=== PATIENT | female | born 1935 | race Caucasian/White ===

== ENCOUNTER → 2016-05-19 | Outpatient (CLI) | payer MEDICARE ==
--- NOTE | 2016-05-20 11:11 | MM ---
Reason for exam: screening (asymptomatic). Last mammogram was performed 1 year ago. History: Patient is postmenopausal and has history of other cancer at age 70. Family history of premenopausal breast cancer in mother at age 45 and premenopausal breast cancer in maternal aunt at age 45. Benign excisional biopsy of the left breast. Taking estrogen for 7 years. Physical Findings: A clinical breast exam by your physician is recommended on an annual basis and results should be correlated with mammographic findings. MG Screening Mammo w CAD Bilateral CC and MLO view(s) were taken. Prior study comparison: May 07, 2015, bilateral MG screening mammo w CAD. March 20, 2014, bilateral MG screening mammo w CAD. No significant changes when compared with prior studies. ASSESSMENT: Benign, BI-RAD 2 RECOMMENDATION: Routine screening mammogram of both breasts in 1 year.
== END | disposition home or self-care (01) ==
LOC: RADMAMWWP 10:32
PROVIDERS: ATTEND Internal Medicine
DX: Z12.31 Encounter for screening mammogram for malignant neoplasm of breast (principal); Z80.3 Family history of malignant neoplasm of breast; Z78.0 Asymptomatic menopausal state

== ENCOUNTER 2016-08-29 11:50 | Emergency (ER) | payer MEDICARE ==
[2016-08-29 12:10] VITALS: BP 168/69; PULSE 66; RESP 20; TEMP 98.2
[2016-08-29] MEDS ORDERED: DIPH,PERTUS(ACELL)TETVAC-LF 0.5 ML VIAL IM ONE (12:45)
--- NOTE | 2016-08-29 12:48 | ED ---
General Adult HPI - General Chief complaint: Wound/Laceration Stated complaint: leg infection Time Seen by Provider: 08/29/16 12:42 Source: patient, family, RN notes reviewed Mode of arrival: ambulatory Limitations: no limitations - History of Present Illness Initial comments: Patient is a pleasant 81-year-old female presenting to the emergency department with concern for wound infection. Patient was outside cutting vegetation a week ago. Patient slipped and fell and did sustain a small cut to her left Chin. Patient has noticed some redness and swelling over the past couple of days. PAIN or posterior or upper leg swelling. Swelling is localized to the area of the cut. Last tetanus immunization was approximately 2010. No fever. - Related Data Previous Rx's Medication Instructions Recorded Cephalexin [Keflex] 500 mg PO QID #40 cap 08/29/16 Allergies Allergy/AdvReac Type Severity Reaction Status Date / Time No Known Allergies Allergy Verified 08/29/16 12:10 Review of Systems ROS Statement: Those systems with pertinent positive or pertinent negative responses have been documented in the HPI. ROS Other: All systems not noted in ROS Statement are negative. Constitutional: Denies: fever Eyes: Denies: eye pain ENT: Denies: ear pain Respiratory: Denies: cough Cardiovascular: Denies: chest pain Endocrine: Denies: fatigue Gastrointestinal: Denies: abdominal pain Genitourinary: Denies: urgency Musculoskeletal: Denies: back pain Skin: Reports: other (Laceration and redness) Neurological: Denies: weakness Past Medical History Past Medical History: No Reported History History of Any Multi-Drug Resistant Organisms: None Reported Past Surgical History: Orthopedic Surgery Past Psychological History: No Psychological Hx Reported Smoking Status: Never smoker Past Alcohol Use History: None Reported Past Drug Use History: None Reported General Exam Limitations: no limitations General appearance: alert, in no apparent distress Head exam: Present: atraumatic Eye exam: Present: normal appearance, PERRL ENT exam: Present: normal oropharynx Neck exam: Present: normal inspection Respiratory exam: Present: normal lung sounds bilaterally Cardiovascular Exam: Present: irregular rhythm GI/Abdominal exam: Present: soft. Absent: tenderness Extremities exam: Present: other (Left anterior cooper with 2 small lacerations, each approximately half a centimeter. There is eschar formation. There is surrounding edema and erythema approximately 2 cm diameter.) Neurological exam: Present: alert. Absent: motor sensory deficit Psychiatric exam: Present: normal affect, normal mood Skin exam: Present: erythema (Left anterior cooper with healing laceration) Course Vital Signs 08/29/16 12:07 Temperature 98.2 F Pulse Rate 66 Respiratory 20 Rate Blood Pressure 168/69 O2 Sat by Pulse 99 Oximetry EKG Findings - EKG Comments: EKG Findings:: Normal sinus rhythm at 60. Normal intervals. Normal axis. Normal QRS. Normal ST-T. Disposition Clinical Impression: Cellulitis of left leg Disposition: HOME SELF-CARE Condition: Stable Instructions: Cellulitis (ED) Additional Instructions: Please follow-up with your doctor next week for reevaluation of the leg. Return for increased swelling, increased redness, increased pain, fevers, worsening symptoms, or other concerns Prescriptions: Cephalexin [Keflex] 500 mg PO QID #40 cap Referrals: Bassam Martin MD [Primary Care Provider] - 1-2 days Time of Disposition: 12:54
[2016-08-29] MEDS ORDERED: CEPHALEXIN 500MG STARTER PACK 4 CAP BTL PO STA (13:24)
== END 2016-08-29 13:10 | disposition home or self-care (01) ==
LOC: EC 11:50
DX: L03.116 Cellulitis of left lower limb (principal); S81.812A Laceration without foreign body, left lower leg, initial encounter; Z23 Encounter for immunization; W01.0XXA Fall on same level from slipping, tripping and stumbling without subsequent striking against object, initial encounter; W26.9XXA Contact with unspecified sharp object(s), initial encounter; Y93.89 Activity, other specified
CPT/HCPCS: 90471; 90715; 93005; 99283

== ENCOUNTER → 2016-12-17 | Outpatient (CLI) | payer MEDICARE ==
[2016-12-17 12:54] LABS: Blood Urea Nitrogen 18 mg/dL (7-17); Non-African American GFR(MDRD) >60 (>60 ml/min/1.73 sqM)
--- NOTE | 2016-12-17 14:19 | CT ---
EXAMINATION TYPE: CT ChestAbdPelvis w con DATE OF EXAM: 12/17/2016 COMPARISON: CT abdomen July 10, 2015. CT chest June 27, 2011. HISTORY: Lymphoma per order. No recent chemotherapy or radiation. History of vulva cancer per patien t. CT DLP: 1116.5 mGycm. Automated Exposure Control for Dose Reduction was Utilized. CONTRAST: CT scan of the thorax, abdomen and pelvis is performed with oral and with IV Contrast, patient inject ed with 100 mL of Omnipaque 300. FINDINGS: LUNGS: Right mild right apical parenchymal scarring is redemonstrated. There is redemonstration of ca lcified 8 mm nodule laterally left upper lobe on axial image 11. There is no suspicious new noncalcif ied nodule or mass. There is no pleural effusion or pneumothorax seen bilaterally. Tracheobronchial t ree is patent. MEDIASTINUM: There are suspicious enlarged thoracic lymph nodes. For reference right hilar lymph node measures 2.5 x 1.2 cm on axial image 27. For reference pericarinal lymph node measures 2.1 x 1.3 cm on axial image 24. There are suspicious prominent but subcentimeter anterior superior mediastinal lym ph nodes. There are suspicious prominent supraclavicular lymph nodes bilaterally No cardiomegaly is seen. There is new tiny pericardial effusion anteriorly and inferiorly. There is moderate left atrial dilatation seen. OTHER: There are suspicious bilateral axillary lymph nodes. For reference largest right axillary leve l measures 1.9 x 1.2 cm on axial image 11. For reference one of largest left axillary lymph node pamela ures 1.3 x 1.1 cm on axial image 14. LIVER/GB: Scattered calcifications throughout the liver are redemonstrated. There is redemonstration of several irregular hypodense lesions that show progressive peripheral nodular enhancement with cent ripetal filling felt to reflect hemangiomas. Liver is normal in size. PANCREAS: No significant abnormality is seen. SPLEEN: There is persistent marked splenomegaly measuring almost 21 cm in length on coronal image 46. Scattered calcifications throughout the spleen are redemonstrated. Increasing mass effect on left ki dney is noted which is narrowed in transverse diameter. There is mass effect on left iliopsoas muscle also seen. ADRENALS: No significant abnormality is seen. KIDNEYS: A few tiny simple appearing cysts are scattered throughout both kidneys. There are scattered pelvic phleboliths. BOWEL: Oral contrast does not reach colonic level. There is no suspicious small or large bowel dilata tion. There are scattered diverticula most prominent in the sigmoid colon. There is no CT evidence fo r acute diverticulitis. Small bowel feces sign distal ileum is seen. Findings consistent with delayed passage of ingested material 2 colonic level. There is prominence of fecal material throughout the c olon noted. GENITAL ORGANS: Multiple scattered pelvic phleboliths are redemonstrated. Uterus is surgically absent or markedly atrophic in appearance. LYMPH NODES: There is abnormal adenopathy in the mesentery of the upper to midabdomen. There are larg er abnormal retroperitoneal lymph nodes with fairly diffuse adenopathy seen in the abdomen and throug h the aortic bifurcation. For reference left periaortic lymph node measures 2.8 x 2.2 cm on axial rufus ge 71. Some suspicious lymph nodes are seen along course of the common internal iliac arteries bilate rally. Lymphadenopathy is difficult to assess if there is been interval progression. There are prominent but not definitively enlarged lymph nodes along the external iliac chain lymph no mayra bilaterally. There are prominent but no definitive greater than 1 cm lymph nodes in the groin reg ion bilaterally. OSSEOUS STRUCTURES: No significant abnormality is seen. OTHER: No significant additional abnormality is seen. IMPRESSION: 1. The CT findings correlate with neoplasm or lymphoma above and below diaphragm. Note is made of wor sening splenomegaly with more prominent mass effect on left-sided abdominal structures. Adenopathy in the abdomen and upper pelvis is felt overall grossly stable from prior CT. Accurate measurements are difficult due to somewhat confluent appearance of multiple enlarged lymph nodes. Thoracic involvemen t is present new from more remote CT.
== END | disposition home or self-care (01) ==
LOC: RADCTMAIN 12:07
PROVIDERS: ATTEND Internal Medicine Hematology & Oncology
DX: R16.1 Splenomegaly, not elsewhere classified (principal); R59.0 Localized enlarged lymph nodes; C83.09 Small cell B-cell lymphoma, extranodal and solid organ sites
CPT/HCPCS: 82565; 84520; 71260; 74177; 36415; Q9967

== ENCOUNTER 2016-12-25 11:50 | Inpatient (IN) | payer MEDICARE ==
[2016-12-25] MEDS ORDERED: SODIUM CHLORIDE 0.9% 1,000 ML IV STA (12:17)
[2016-12-25] MEDS ORDERED: HEPARIN SODIUM,PORCINE 5,000 UNIT/ML 1 ML VIAL IV STA (12:17)
[2016-12-25] MEDS ORDERED: SODIUM CHLORIDE 0.9% 500 ML IV STA (12:17)
[2016-12-25] MEDS ORDERED: HEPARIN SODIUM,PORCINE/D5W PMX 25,000 UNIT in DEXTROSE/WATER 1 500ML.BAG IV STA (12:17)
--- NOTE | 2016-12-25 12:29 | ED ---
General Adult HPI - General Chief complaint: Arrhythmia/Palpitations Stated complaint: A Fib Time Seen by Provider: 12/25/16 12:01 Source: patient, family, EMS, RN notes reviewed Mode of arrival: EMS Limitations: no limitations - History of Present Illness Initial comments: Chief complaint history of present illness a 81-year-old female who came to emergency room with her . The patient reports that approximately 10 this morning she developed some chest pressure and some diaphoresis. The patient went to lay down. Patient was transferred to emergency room by EMS. EKG shows A. fib with RVR. This is a new situation for the patient. Denies ever having had any symptoms her sensations like this before. - Related Data Home Medications Medication Instructions Recorded Confirmed Ascorbic Acid [Vitamin C] 500 mg PO DAILY 12/25/16 12/25/16 Cholecalciferol [Vitamin D3] 1,000 unit PO DAILY 12/25/16 12/25/16 Multivitamins, Thera [Multivitamin 1 tab PO DAILY 12/25/16 12/25/16 (formulary)] Allergies Allergy/AdvReac Type Severity Reaction Status Date / Time No Known Allergies Allergy Verified 12/25/16 12:39 Review of Systems ROS Statement: Those systems with pertinent positive or pertinent negative responses have been documented in the HPI. Review of systems no headache or visual acuity changes no chest pain but a mild pressure anterior chest wall. No longer diaphoretic. No nausea no vomiting no abdominal pain noted no neuro deficits. All systems are reviewed. Past medical problems lymphoma. Surgeries orthopedic only. Family history noncontributory no ALLERGIES. Nonsmoker nondrinker. ROS Other: All systems not noted in ROS Statement are negative. Past Medical History Past Medical History: No Reported History History of Any Multi-Drug Resistant Organisms: None Reported Past Surgical History: Orthopedic Surgery Past Psychological History: No Psychological Hx Reported Smoking Status: Never smoker Past Alcohol Use History: None Reported Past Drug Use History: None Reported General Exam - General Exam Comments Initial Comments: General: The patient is awake and alert, here because of sensation of palpitations, chest pressure that started at 10 AM. Vital signs temperature 98.2 pulse 137 respiratory rate 16 pulse ox 99% room air blood pressure 132/77 Eye: Pupils are equal, round and reactive to light, extra-ocular movements are intact ; there is normal conjunctiva bilaterally. No signs of icterus. Ears, nose, mouth and throat: There are moist mucous membranes and no oral lesions. Neck: The neck is supple, there is no tenderness, no JVD, no carotid bruit. Cardiovascular: A regular rate and rhythm. EKG shows A. fib with RVR. Respiratory: Lungs are clear to auscultation, respirations are non-labored, breath sounds are equal. No wheezes, stridor, rales, or rhonchi. Gastrointestinal: Soft, non-distended, non-tender abdomen without masses or organomegaly noted. There is no rebound or guarding present. No CVA tenderness. Bowel sounds are unremarkable. Back: There is no tenderness to palpation in the midline. There is no obvious deformity. No rashes noted. Musculoskeletal: Normal ROM, no tenderness, There is no pedal edema. There is no calf tenderness or swelling. Sensation intact. Pulses equal bilaterally 2+. Neurological: CN II-XII intact, There are no obvious motor or sensory deficits. Coordination appears grossly intact. Speech is normal. No neuro deficits. Skin: Skin is warm and dry and no rashes or lesions are noted. Psychiatric: No psychiatric history. Limitations: no limitations Course Vital Signs 12/25/16 12/25/16 12/25/16 11:51 12:15 12:45 Temperature 98.2 F Pulse Rate 137 H 134 H 108 H Respiratory 16 16 16 Rate Blood Pressure 132/77 105/74 117/68 O2 Sat by Pulse 99 97 96 Oximetry 12/25/16 13:18 Temperature Pulse Rate 95 Respiratory 16 Rate Blood Pressure 113/58 O2 Sat by Pulse 96 Oximetry EKG Findings - EKG Comments: EKG Findings:: EKG was done and reviewed at 12:04 PM showing A. fib with RVR. Rate 125. QRS is 80 QT to 62 QTc is 378. No acute ST elevation appreciated. This EKG was compared to one that was performed on 08/29/2016. At that time the patient has normal sinus rhythm. Dr. Cutler Medical Decision Making - Medical Decision Making Medical decision making; patient's white count is 15.9 hemoglobin 11 hematocrit of 36. INR is 1.0. Potassium 4.6. BUN 20 creatinine 0.6 GFR greater than 60. Glucose 105. Troponin less than 0.012. CK normal at 24. TSH within normal limits of 4.06. Chest x-ray was done AP and lateral views; and reviewed it heart size normal limits. No evidence of any pleural effusion. No pneumothorax. 3 mm calcification noted in the left upper lobe. Awaiting radiologist's final impression. I discussed case with on-call hospitalist Dr. luna, labs chest x-ray EKG all reviewed reviewed with her. Initial treatment of heparin and Cardizem discussed. Patient be admitted to her service with cardiology consultation. Dr. Cutler - Lab Data Result diagrams: 12/25/16 12:10 12/25/16 12:10 Lab Results 12/25/16 12/25/16 12/25/16 Range/Units 12:10 12:10 12:10 WBC 15.9 H (3.8-10.6) k/uL RBC 4.24 (3.80-5.40) m/uL Hgb 11.4 (11.4-16.0) gm/dL Hct 36.5 (34.0-46.0) % MCV 86.0 (80.0-100.0) fL MCH 26.9 (25.0-35.0) pg MCHC 31.3 (31.0-37.0) g/dL RDW 15.7 H (11.5-15.5) % Plt Count 73 L (150-450) k/uL Neutrophils % (Manual) 15 % Band Neutrophils % 1 % Lymphocytes % (Manual) 80 % Monocytes % (Manual) 5 % Basophils % (Manual) 1 % Myelocytes % 1 % Neutrophils # (Manual) 2.50 (1.3-7.7) k/uL Lymphocytes # (Manual) 12.72 H (1.0-4.8) k/uL Monocytes # (Manual) 0.80 (0-1.0) k/uL Basophils # (Manual) 0.16 (0-0.2) k/uL Myelocytes # (Manual) 0.16 H (0) k/uL Nucleated RBCs 0 (0-0) /100 WBC Manual Slide Review Performed Hypochromasia Slight Poikilocytosis (manual Present PT (9.0-12.0) sec INR (<1.2) APTT (22.0-30.0) sec Sodium 140 (137-145) mmol/L Potassium 4.6 (3.5-5.1) mmol/L Chloride 107 (98-107) mmol/L Carbon Dioxide 25 (22-30) mmol/L Anion Gap 8 mmol/L BUN 20 H (7-17) mg/dL Creatinine 0.60 (0.52-1.04) mg/dL Est GFR (MDRD) Af Amer >60 (>60 ml/min/1.73 sqM) Est GFR (MDRD) Non-Af >60 (>60 ml/min/1.73 sqM) Glucose 105 H (74-99) mg/dL Calcium 8.7 (8.4-10.2) mg/dL Magnesium 1.9 (1.6-2.3) mg/dL Total Bilirubin 0.4 (0.2-1.3) mg/dL AST 28 (14-36) U/L ALT 37 (9-52) U/L Alkaline Phosphatase 75 (38-126) U/L Total Creatine Kinase 24 L (30-135) U/L CK-MB (CK-2) 1.7 (0.0-2.4) ng/mL CK-MB (CK-2) Rel Index 7.1 Troponin I <0.012 (0.000-0.034) ng/mL Total Protein 5.6 L (6.3-8.2) g/dL Albumin 3.6 (3.5-5.0) g/dL TSH 4.060 (0.465-4.680) mIU/L 12/25/16 Range/Units 12:10 WBC (3.8-10.6) k/uL RBC (3.80-5.40) m/uL Hgb (11.4-16.0) gm/dL Hct (34.0-46.0) % MCV (80.0-100.0) fL MCH (25.0-35.0) pg MCHC (31.0-37.0) g/dL RDW (11.5-15.5) % Plt Count (150-450) k/uL Neutrophils % (Manual) % Band Neutrophils % % Lymphocytes % (Manual) % Monocytes % (Manual) % Basophils % (Manual) % Myelocytes % % Neutrophils # (Manual) (1.3-7.7) k/uL Lymphocytes # (Manual) (1.0-4.8) k/uL Monocytes # (Manual) (0-1.0) k/uL Basophils # (Manual) (0-0.2) k/uL Myelocytes # (Manual) (0) k/uL Nucleated RBCs (0-0) /100 WBC Manual Slide Review Hypochromasia Poikilocytosis (manual PT 10.5 (9.0-12.0) sec INR 1.0 (<1.2) APTT 24.2 (22.0-30.0) sec Sodium (137-145) mmol/L Potassium (3.5-5.1) mmol/L Chloride (98-107) mmol/L Carbon Dioxide (22-30) mmol/L Anion Gap mmol/L BUN (7-17) mg/dL Creatinine (0.52-1.04) mg/dL Est GFR (MDRD) Af Amer (>60 ml/min/1.73 sqM) Est GFR (MDRD) Non-Af (>60 ml/min/1.73 sqM) Glucose (74-99) mg/dL Calcium (8.4-10.2) mg/dL Magnesium (1.6-2.3) mg/dL Total Bilirubin (0.2-1.3) mg/dL AST (14-36) U/L ALT (9-52) U/L Alkaline Phosphatase (38-126) U/L Total Creatine Kinase (30-135) U/L CK-MB (CK-2) (0.0-2.4) ng/mL CK-MB (CK-2) Rel Index Troponin I (0.000-0.034) ng/mL Total Protein (6.3-8.2) g/dL Albumin (3.5-5.0) g/dL TSH (0.465-4.680) mIU/L Disposition Clinical Impression: Atrial fibrillation with RVR Disposition: ADMITTED IP TO THIS HOSP Condition: Serious Referrals: Bassam Martin MD [Primary Care Provider] - 1-2 days
[2016-12-25] MEDS: DILTIAZEM 125 MG in SODIUM CHLORIDE 0.9% 100 ML IV STA (12:43)
[2016-12-25 12:46] LABS: Aty Lym Flag Marked; CH 26.8; CHCM 31.3; HCT 36.5 % (34.0-46.0); HDW 2.84; HGB 11.4 gm/dL (11.4-16.0); Hypochromasia Slight; MCH 26.9 pg (25.0-35.0); MCHC 31.3 g/dL (31.0-37.0); Mean Platelet Volume 8.9; RBC 4.24 m/uL (3.80-5.40); RDW 15.7 % (11.5-15.5); WBC 15.9 k/uL (3.8-10.6); WBC (Perox) 15.28
[2016-12-25 12:49] LABS: Partial Thromboplastin Time 24.2 sec (22.0-30.0); Prothrombin Time 10.5 sec (9.0-12.0)
[2016-12-25 12:51] LABS: ALT 37 U/L (9-52); AST 28 U/L (14-36); Alkaline Phosphatase 75 U/L (38-126); Anion Gap 8 mmol/L; Blood Urea Nitrogen 20 mg/dL (7-17); Calcium 8.7 mg/dL (8.4-10.2); Carbon Dioxide 25 mmol/L (22-30); Chloride 107 mmol/L (98-107); Glucose 105 mg/dL (74-99); Magnesium 1.9 mg/dL (1.6-2.3); Non-African American GFR(MDRD) >60 (>60 ml/min/1.73 sqM); Potassium 4.6 mmol/L (3.5-5.1); Sodium 140 mmol/L (137-145); Total Bilirubin 0.4 mg/dL (0.2-1.3); Total Protein 5.6 g/dL (6.3-8.2)
[2016-12-25] MEDS ORDERED: HEPARIN SODIUM,PORCINE 5,000 UNIT/ML 1 ML VIAL IV ONE (12:51)
[2016-12-25 13:08] LABS: Creatine Kinase 24 U/L (30-135)
[2016-12-25 13:12] LABS: Add Differential Manual Differential
[2016-12-25] MEDS: HEPARIN SODIUM,PORCINE/D5W PMX 25,000 UNIT in DEXTROSE/WATER 1 500ML.BAG IV SCH (13:13)
[2016-12-25 13:14] LABS: Band Neutrophils % 1 %; Myelocytes % 1 %; Nucleated Red Blood Cells 0 /100 WBC (0-0)
[2016-12-25 13:16] LABS: Manual Review Performed; Total Cells Counted 200
[2016-12-25 13:21] LABS: Creatine Kinase MB 1.7 ng/mL (0.0-2.4); Troponin I <0.012 ng/mL (0.000-0.034)
[2016-12-25] MEDS ORDERED: ACETAMINOPHEN TAB 325 MG TAB PO PRN (14:26)
[2016-12-25] MEDS ORDERED: NALOXONE 0.4 MG/ML 1 ML VIAL IV PRN (14:26)
--- NOTE | 2016-12-25 14:49 | XR ---
EXAMINATION TYPE: XR chest 2V DATE OF EXAM: 12/25/2016 HISTORY: dysrhythmia. REFERENCE: Previous study dated 06/25/2011. FINDINGS: The lungs are clear. Pleural spaces are clear. The heart is not enlarged. There is a mild d extroscoliosis. IMPRESSION: NO ACUTE INTRATHORACIC ABNORMALITY.
[2016-12-25] MEDS ORDERED: CALCIUM CARBONATE 500 MG CHEWABLE PO PRN (15:26)
[2016-12-25] MEDS ORDERED: HYDROcodone/APAP 5-325MG 1 EACH TAB PO PRN (15:26)
[2016-12-25] MEDS ORDERED: DOCUSATE 100 MG CAP PO PRN (15:26)
[2016-12-25] MEDS ORDERED: MELATONIN 5 MG TABLET PO PRN (15:26)
[2016-12-25] MEDS ORDERED: ONDANSETRON 4 MG/2 ML VIAL IVP PRN (15:26)
--- NOTE | 2016-12-25 15:29 | P.HPIM ---
History of Present Illness H&P Date: 12/25/16 Chief Complaint: diaphoresis Patient is a 81-year-old female with history of lymphoma mostly affecting the spleen, Vulvar cancer, venous insufficiency, and obstructive sleep apnea not currently using a CPAP who presented to the emergency department with complaints of chest discomfort and diaphoresis. In the emergency department she underwent an extensive evaluation. On her initial vital sign she was found to be tachycardic. EKG confirmed A. fib with RVR. Her laboratory analysis showed a slightly elevated white blood cell count at 13.9 and low platelets at 73. It was other otherwise unremarkable. Chest x- ray showed no acute abnormalities. She was given IV Cardizem and then placed on a Cardizem drip. She was also placed on a heparin drip. She will be admitted to the selective care unit with a cardiology consult. Patient seen and examined at bedside. She states she got up this morning and had a bowel movement she then broke out in a sweat and felt some left-sided chest discomfort. She returned to her bed and laid down. She continued to have some left-sided chest pressure and just feel "off". She took her blood pressure and pulse and noticed that her blood pressure was high and her pulse rate was elevated, she repeated the steps 10 minutes later and then another 10 minutes later and her pulse remained above 100 despite taking in 16 ounces of water. They called the nurse from [facility] who told them to call EMS. She reports that she had a headache. She had left-sided pressure that was mild in nature and felt like a catching and did not radiate. She does not have any shortness of breath, numbness, or lightheadedness. She states she did feel diaphoretic. She states she has had 2 falls last week. She was recently in [place] and return here on December 08. She has been suffering with upper respiratory tract infection since that time. She recently completed a course of antibiotics approximately 2 days ago. She states her coughing fits have improved but are still present. She sees Dr. Banegas and is her primary care physician out of [place]. She does not recall having to see a quarter seamer in the past. She has no history of A. fib. Of note she had a recent abdominal CT with Dr. Burnett secondary to her lymphoma which showed enlargement of the spleen and worsening enlarged lymph nodes. She is meeting with him again next week to determine treatment. Review of Systems General: + diaphoresis, no fever/chills, no rigors, no weight loss/weight gain, no change in appetite Eyes: No double vision, no unusual blurry vision, no loss of vision ENT: No rhinorrhea, congestion, no trush Cardiovascular: + chest pain, + palpitations, no syncope, no edema, No paroxysmal nocturnal dyspnea, + dizziness Pulmonary: No shortness of breath, no wheezing, + cough, hemoptysis Abdominal: No abdominal pain, no constipation, no diarrhea, no vomiting, no nausea, no distention Genitourinary: No dysuria, no urinary frequency, no hematuria, no unusual discharge/odor Neuro: No unusual paresthesias, no unusual paresis/paralysis, no headache Dermatologic: No unusual rashes, no unusual lesions, no unusual changes in nails Endocrinology: No intolerance to heat/cold, no excessive thirst, no unusual fatigue Hematologic: No unusual bruising or bleeding, no unusual cervical lymphadenopathy Psychiatric: No changes in mood or behaviors, no changes in sleep pattern Past Medical History Additional Past Medical History / Comment(s): Structures sleep apnea not using CPAP, lymphoma mostly affecting the spleen, asthma not chronically on therapy, venous insufficiency, Vulvar cancer, basal cell skin cancer History of Any Multi-Drug Resistant Organisms: None Reported Past Surgical History: Orthopedic Surgery Additional Past Surgical History / Comment(s): Right-sided knee surgery for repair of laceration, partial hysterectomy, 2 nasal surgeries for basal cell skin cancer, surgery on right third and fourth digit for ganglion cyst Past Psychological History: No Psychological Hx Reported Smoking Status: Never smoker Past Alcohol Use History: None Reported Past Drug Use History: None Reported - Past Family History Mother Additional Family Medical History / Comment(s): Breast cancer Medications and Allergies Home Medications Medication Instructions Recorded Confirmed Type Ascorbic Acid [Vitamin C] 500 mg PO DAILY 12/25/16 12/25/16 History Cholecalciferol [Vitamin D3] 1,000 unit PO DAILY 12/25/16 12/25/16 History Multivitamins, Thera [Multivitamin 1 tab PO DAILY 12/25/16 12/25/16 History (formulary)] Allergies Allergy/AdvReac Type Severity Reaction Status Date / Time No Known Allergies Allergy Verified 12/25/16 12:39 Physical Exam Osteopathic Statement: *. No significant issues noted on an osteopathic structural exam other than those noted in the History and Physical/Consult. Vitals: Vital Signs Temp Pulse Resp BP Pulse Ox 12/25/16 14:44 101 H 16 105/88 97 12/25/16 13:18 95 16 113/58 96 12/25/16 12:45 108 H 16 117/68 96 12/25/16 12:15 134 H 16 105/74 97 12/25/16 11:51 98.2 F 137 H 16 132/77 99 Intake and Output 12/25/16 12/25/16 12/25/16 06:59 14:59 22:59 Other: Weight 77.111 kg Patient Weight 12/26/16 06:59 Weight 77.111 kg General: non toxic, mild distress, appears at stated age, normal weight Derm: no rashes, no lesions, no ulcers, no unusual ecchymoses Head: atraumatic, normocephalic, symmetric Eyes: EOMI, no lid lag, anicteric sclera, pupils equal round reactive to light ENT: no post nasal drip, no thrush , nares patent, no pharyngeal erythema Neck: No thyromegaly, no cervical lymphadenopathy, trachea midline, supple Mouth: no lip lesion, mucus membranes moist Cardiovascular: S1S2 irreg and tachy, no murmur, positive posterior tibial pulse bilateral, no edema , no JVD, no clubbing, no cyanosis, capillary refill less than 2 seconds Lungs: CTA bilateral, no rhonchi, no rales , no accessory muscle use Abdominal: soft, nontender to palpation, no guarding, no appreciable organomegaly, normal bowel sounds Ext: no gross muscle atrophy, muscle strength 5 out of 5 in all 4 extremities grossly, no contractures, Neuro: CN II-XI grossly intact, light touch intact all 4 extremities, finger to nose within normal limits, Psych: Alert, oriented, appropriate affect Results CBC & Chem 7: 12/25/16 12:10 12/25/16 12:10 Labs: Abnormal Lab Results - Last 24 Hours (Table) 12/25/16 12/25/16 12/25/16 Range/Units 12:10 12:10 12:10 WBC 15.9 H (3.8-10.6) k/uL RDW 15.7 H (11.5-15.5) % Plt Count 73 L (150-450) k/uL Lymphocytes # (Manual) 12.72 H (1.0-4.8) k/uL Myelocytes # (Manual) 0.16 H (0) k/uL BUN 20 H (7-17) mg/dL Glucose 105 H (74-99) mg/dL Total Creatine Kinase 24 L (30-135) U/L Total Protein 5.6 L (6.3-8.2) g/dL Chest x-ray: report reviewed Thrombosis Risk Factor Assmnt - DVT/VTE Prophylaxis DVT/VTE Prophylaxis: Pharmacologic Prophylaxis ordered Assessment and Plan Plan: Newly discovered atrial fibrillation with rapid ventricular response -Continue heparin drip -Continue Cardizem -Telemetry -Echocardiogram -TSH normal, check magnesium level -Consult cardiology Leukocytosis, unknown baseline with history of lymphoma -Chest x-ray negative -Does not appear to have any active illness but will check urinalysis -Repeat CBC in a.m. Thrombocytopenia likely related to splenomegaly -Follow CBC, no prior records available follow with Dr. Hortencia FONTANA, noncompliant with CPAP -Encourage compliance Surrogate decision-maker: - Alexis Wright CODE STATUS:Full DVT prophylaxis:on heparin gtt Discussed with: Patient Anticipated discharge: 48-[address]: home A total of 65 minutes was spent on the care of this complex patient more than 50 % of the time was spent in counseling and care coordination.
[2016-12-25 15:42] VITALS: RESP 18; BMI 26.6
[2016-12-25] MEDS: SODIUM CHLORIDE 0.9% 1,000 ML IV SCH (16:09)
[2016-12-25 18:23] LABS: Appearance,Urine Clear (Clear); Bilirubin,Urine Negative (Negative); Glucose,Urine (UA) Negative (Negative); Ketones,Urine Trace (Negative); Leukocyte Esterase,Urine Negative (Negative); Nitrite,Urine Negative (Negative); PH, Urine 6.5 (5.0-8.0); Protein,Urine Negative (Negative); Specific Gravity,Urine 1.008 (1.001-1.035); UA Billing (MACRO vs. MICRO) CHEM; Urobilinogen,Urine <2.0 mg/dL (<2.0)
[2016-12-25 19:48] LABS: Creatine Kinase MB 1.3 ng/mL (0.0-2.4); Troponin I 0.013 ng/mL (0.000-0.034)
[2016-12-25] MEDS: FAMOTIDINE 20 MG TAB PO SCH (20:09)
[2016-12-25] MEDS ORDERED: HEPARIN SODIUM,PORCINE 5,000 UNIT/ML 1 ML VIAL IV PRN (20:17)
[2016-12-25 23:49] LABS: Creatine Kinase MB 1.4 ng/mL (0.0-2.4); Troponin I 0.015 ng/mL (0.000-0.034)
[2016-12-26 03:00] LABS: CH 26.8; CHCM 30.4; HDW 2.78; HGB 10.8 gm/dL (11.4-16.0); Hypochromasia Marked; MCH 27.4 pg (25.0-35.0); MCHC 30.9 g/dL (31.0-37.0); MCV 88.7 fL (80.0-100.0); Mean Platelet Volume 8.6; RBC 3.94 m/uL (3.80-5.40); RDW 15.8 % (11.5-15.5); WBC 20.9 k/uL (3.8-10.6)
[2016-12-26 03:40] LABS: Anion Gap 8 mmol/L; Blood Urea Nitrogen 15 mg/dL (7-17); Calcium 8.5 mg/dL (8.4-10.2); Carbon Dioxide 27 mmol/L (22-30); Chloride 107 mmol/L (98-107); Glucose 96 mg/dL (74-99); Non-African American GFR(MDRD) >60 (>60 ml/min/1.73 sqM); Potassium 4.4 mmol/L (3.5-5.1); Sodium 142 mmol/L (137-145)
[2016-12-26] MEDS: SODIUM CHLORIDE 0.9% 1,000 ML IV SCH ×2 (05:52→10:49)
[2016-12-26] MEDS: CHOLECALCIFEROL 1,000 UNIT TAB PO SCH (08:20)
[2016-12-26] MEDS: FAMOTIDINE 20 MG TAB PO SCH ×2 (08:20→20:01)
[2016-12-26] MEDS: ASCORBIC ACID 500 MG TAB PO SCH (08:20)
[2016-12-26] MEDS: HEPARIN SODIUM,PORCINE/D5W PMX 25,000 UNIT in DEXTROSE/WATER 1 500ML.BAG IV SCH (09:05)
[2016-12-26] MEDS: DILTIAZEM 125 MG in SODIUM CHLORIDE 0.9% 100 ML IV STA (09:06)
--- NOTE | 2016-12-26 09:08 | P.PN ---
Subjective Progress Note Date: 12/26/16 Principal diagnosis: chest pain Patient is a 81-year-old female with history of lymphoma mostly affecting the spleen, Vulvar cancer, venous insufficiency, and obstructive sleep apnea not currently using a CPAP who presented to the emergency department with complaints of chest discomfort and diaphoresis. In the emergency department she underwent an extensive evaluation. On her initial vital sign she was found to be tachycardic. EKG confirmed A. fib with RVR. Her laboratory analysis showed a slightly elevated white blood cell count at 13.9 and low platelets at 73. It was other otherwise unremarkable. Chest x- ray showed no acute abnormalities. She was given IV Cardizem and then placed on a Cardizem drip. She was also placed on a heparin drip. She was admitted to the selective care unit with a cardiology consult. An echocardiogram was ordered. TSH was normal. By the morning after admission she was still slightly tachycardic despite 5 mg of IV Cardizem via drip. Case was discussed cardiology and they're going to initiate oral therapy. Patient was feeling much improved by the morning of 12/26. Patient seen and examined at bedside. She states that she is still having some diaphoresis, her chest discomfort is almost completely resolved, she denies any shortness of breath. She states she is feeling much better than yesterday. We discussed that she will need oral anticoagulation for stroke prevention. We discussed risks versus benefits and Coumadin versus a noval agent. She would tend to want a noval anticoagulant. She was informed she will need to be taking at least 2 prescription medications on discharge being at least 1 medication for heart rate control, and a blood thinner. All questions were answered. Objective - Vital Signs Vital signs: Vital Signs Temp 97.4 F L 12/26/16 04:00 Pulse 107 H 12/26/16 04:00 Resp 18 12/26/16 04:00 BP 107/74 12/26/16 04:00 Pulse Ox 99 12/26/16 04:00 Intake & Output 12/25/16 12/26/16 12/26/16 18:59 06:59 18:59 Intake Total 320 776.652 Output Total 700 Balance 320 76.652 Weight 77.111 kg 80.5 kg Intake: Intake, IV Titration 296.652 Amount Heparin Sodium,Porcine/ 296.652 D5w Pmx 25,000 unit In Dextrose/Water 1 500ml. bag @ 12 UNITS/KG/HR 18.5 mls/hr IV .Q24H [facility] Rx#: [id number] Oral 320 480 Output: Urine 700 Other: Voiding Method Toilet - Exam General: non toxic, no distress, appears at stated age Derm: no rashes, no lesions Head: atraumatic, normocephalic, symmetric Eyes: EOMI, no lid lag, anicteric sclera ENT: no post nasal drip, no thrush Mouth: no lip lesion, mucus membranes moist Cardiovascular: S1-S2 tachycardic, no murmur, positive posterior tibial pulse bilateral, Lungs: CTA bilateral, no rhonchi, no rales , no accessory muscle use Abdominal: soft, nontender to palpation, no guarding, no appreciable organomegaly Ext: no gross muscle atrophy, no edema, no contractures Neuro: CN II-XI grossly intact, no focal neuro deficits Psych: Alert, oriented, appropriate affect - Labs CBC & Chem 7: 12/26/16 02:21 12/26/16 02:21 Labs: Abnormal Lab Results - Last 24 Hours (Table) 12/25/16 12/25/16 12/25/16 Range/Units 12:10 12:10 12:10 WBC 15.9 H (3.8-10.6) k/uL Hgb (11.4-16.0) gm/dL MCHC (31.0-37.0) g/dL RDW 15.7 H (11.5-15.5) % Plt Count 73 L (150-450) k/uL Lymphocytes # (Manual) 12.72 H (1.0-4.8) k/uL Myelocytes # (Manual) 0.16 H (0) k/uL APTT (22.0-30.0) sec BUN 20 H (7-17) mg/dL Glucose 105 H (74-99) mg/dL Total Creatine Kinase 24 L (30-135) U/L Total Protein 5.6 L (6.3-8.2) g/dL Urine Ketones (Negative) 12/25/16 12/25/16 12/25/16 Range/Units 18:12 18:53 18:53 WBC (3.8-10.6) k/uL Hgb (11.4-16.0) gm/dL MCHC (31.0-37.0) g/dL RDW (11.5-15.5) % Plt Count (150-450) k/uL Lymphocytes # (Manual) (1.0-4.8) k/uL Myelocytes # (Manual) (0) k/uL APTT 38.8 H (22.0-30.0) sec BUN (7-17) mg/dL Glucose (74-99) mg/dL Total Creatine Kinase 22 L (30-135) U/L Total Protein (6.3-8.2) g/dL Urine Ketones Trace H (Negative) 12/26/16 12/26/16 Range/Units 02:21 02:21 WBC 20.9 H (3.8-10.6) k/uL Hgb 10.8 L (11.4-16.0) gm/dL MCHC 30.9 L (31.0-37.0) g/dL RDW 15.8 H (11.5-15.5) % Plt Count 67 L (150-450) k/uL Lymphocytes # (Manual) (1.0-4.8) k/uL Myelocytes # (Manual) (0) k/uL APTT 42.2 H (22.0-30.0) sec BUN (7-17) mg/dL Glucose (74-99) mg/dL Total Creatine Kinase (30-135) U/L Total Protein (6.3-8.2) g/dL Urine Ketones (Negative) Assessment and Plan Plan: Newly discovered atrial fibrillation with rapid ventricular response -Continue heparin drip -Continue Cardizem attempt to discontinue, d/w Cardio DNP and will start oral meds -Telemetry -Echocardiogram pending -TSH normal, magnesium level normal -cardio recs appreciated Leukocytosis, unknown baseline with history of lymphoma -Chest x-ray negative, Urianlysis negative ? elevated due to demargination from stress. Will recheck CBC in AM, follow fever profile. Thrombocytopenia likely related to splenomegaly -Follow CBC, no prior records available follow with Dr. Hortencia FONTANA, noncompliant with CPAP -Encourage compliance DVT prophylaxis:on heparin gtt Discussed with: Patient, nursing, Domitila Martinez DNP Anticipated discharge: 24- [address]: home A total of 35 minutes was spent on the care of this complex patient more than 50 % of the time was spent in counseling and care coordination.
--- NOTE | 2016-12-26 10:33 | P.CRDCN ---
History of Present Illness Consult date: 12/26/16 Requesting physician: Sangeeta Banuelos Consult reason: atrial fibrillation Chief complaint: Diaphoresis History of present illness: This is a pleasant 81-year-old female with no prior documented history of hypertension, no diabetes, no hyperlipidemia, nonsmoker, rare EtOH, diagnosis of lymphoma for which she follows with Dr. Burnett. Patient recently underwent a CT of the chest and abdomen on the sixth of this month which revealed worsening splenomegaly with more prominent mass effect on the left sided abdominal structures. Adenopathy in the abdomen and upper pelvis is felt to be overall grossly stable from prior CT. She is scheduled to follow-up again with Dr. Burnett regarding further plan for possible chemotherapy. Patient recently was on a trip in [place], just returned at the end of November. She states that she had an upper respiratory infection while away and was treated with antibiotics and medication for nasal congestion and cough. Yesterday, patient states that she was in the bathroom, moving her bowels, she states that she had been seated for approximately a half hour, reading a book, she stood up to get ready for the shower and became extremely diaphoretic, she had a mild associated discomfort in the chest, but overall just didn't feel well, she walked to her bedroom where she lay down onto the bed. After a few minutes, she states that she felt well enough to go into the kitchen to check her blood pressure, she states that she noted her heart rate at that time to be up in the 130s 140s range, she checked it again in 10 minutes and again 10 minutes later with persistence of elevated heart rate, for this reason patient came to the emergency room for further evaluation. On arrival here and EKG was performed which revealed atrial fibrillation with a rapid ventricular response. Chest x- ray did not reveal any acute anterior thoracic abnormality. Blood Pressure on arrival here 132/70 with a heart rate of 138. Afebrile , 99% on room air. was initiated on IV heparin as well as IV Cardizem drips. This morning patient continues to be in atrial fibrillation with a heart rate in the low 100s. She states that she feels extremely well, she denies any palpitations, no shortness of breath, no dizziness or lightheadedness. She states that she feels back to her normal self. Laboratory data, WBC up to 20.9, hemoglobin 10.8 , platelet count 67, sodium 142, potassium 4.4, chloride 107, CO2 27. Magnesium level II.0, TSH 4.0, troponins 0.012, 0.013, 0.015. TSH level 4.06 Past Medical History Past Medical History: No Reported History Additional Past Medical History / Comment(s): Structures sleep apnea not using CPAP, lymphoma mostly affecting the spleen, asthma not chronically on therapy, venous insufficiency, Vulvar cancer, basal cell skin cancer History of Any Multi-Drug Resistant Organisms: None Reported Past Surgical History: Orthopedic Surgery Additional Past Surgical History / Comment(s): Right-sided knee surgery for repair of laceration, partial hysterectomy, 2 nasal surgeries for basal cell skin cancer, surgery on right third and fourth digit for ganglion cyst Past Anesthesia/Blood Transfusion Reactions: No Reported Reaction Past Psychological History: No Psychological Hx Reported Smoking Status: Never smoker Past Alcohol Use History: None Reported Past Drug Use History: None Reported - Past Family History Mother Additional Family Medical History / Comment(s): Breast cancer Medications and Allergies Home Medications Medication Instructions Recorded Confirmed Type Ascorbic Acid [Vitamin C] 500 mg PO DAILY 12/25/16 12/25/16 History Cholecalciferol [Vitamin D3] 1,000 unit PO DAILY 12/25/16 12/25/16 History Multivitamins, Thera [Multivitamin 1 tab PO DAILY 12/25/16 12/25/16 History (formulary)] Allergies Allergy/AdvReac Type Severity Reaction Status Date / Time No Known Allergies Allergy Verified 12/25/16 12:39 Physical Exam Vitals: Vital Signs Temp Pulse Pulse Resp BP BP Pulse Ox 12/26/16 04:00 97.4 F L 107 H 16 107/74 99 12/26/16 00:00 97.2 F L 107 H 16 123/67 99 12/25/16 19:51 97.3 F L 104 H 16 129/65 98 12/25/16 15:32 97.6 F 117 H 18 133/69 96 12/25/16 15:28 98 F 100 16 135/88 98 12/25/16 15:25 97.6 F 117 H 18 133/67 96 12/25/16 14:44 101 H 16 105/88 97 12/25/16 13:18 95 16 113/58 96 12/25/16 12:45 108 H 16 117/68 96 12/25/16 12:15 134 H 16 105/74 97 12/25/16 11:51 98.2 F 137 H 16 132/77 99 Intake and Output 12/25/16 12/26/16 12/26/16 22:59 06:59 14:59 Intake Total 934.742 161.91 248.256 Output Total 700 Balance 934.742 -538.09 248.256 Intake: Intake, IV Titration 134.742 161.91 248.256 Amount Diltiazem 125 mg In 101.917 Sodium Chloride 0.9% 100 ml @ 5 MG/HR 5 mls/hr IV .Q24H [facility] Rx#:[id number] Heparin Sodium,Porcine/ 134.742 161.91 146.339 D5w Pmx 25,000 unit In Dextrose/Water 1 500ml. bag @ 12 UNITS/KG/HR 18.5 mls/hr IV .Q24H [facility] Rx#: [id number] Oral 800 Output: Urine 700 Other: Voiding Method Toilet Weight 77.111 kg 80.5 kg PHYSICAL EXAMINATION: HEENT: Head is atraumatic, normocephalic. Pupils equal, round. Neck is supple. There is no elevated jugular venous pressure. HEART EXAMINATION: Heart S1 and S2 irregularly irregular CHEST EXAMINATION: Lungs are clear to auscultation and precussion. No chest wall tenderness is noted on palpation or with deep breathing. ABDOMEN: Soft, splenomegaly noted . Bowel sounds are heard. No organomegaly noted. EXTREMITIES: 2+ peripheral pulses with trace evidence of peripheral edema and no calf tenderness noted. NEUROLOGIC patient is awake, alert and oriented -3. . Results 12/26/16 02:21 12/26/16 02:21 Cardiac Enzymes 12/25/16 12/25/16 12/25/16 Range/Units 12:10 12:10 18:53 AST 28 (14-36) U/L CK-MB (CK-2) 1.7 1.3 (0.0-2.4) ng/mL Troponin I <0.012 0.013 (0.000-0.034) ng/mL 12/25/16 Range/Units 22:46 AST (14-36) U/L CK-MB (CK-2) 1.4 (0.0-2.4) ng/mL Troponin I 0.015 (0.000-0.034) ng/mL Coagulation 12/25/16 12/25/16 12/26/16 Range/Units 12:10 18:53 02:21 PT 10.5 (9.0-12.0) sec APTT 24.2 38.8 H 42.2 H (22.0-30.0) sec CBC 12/25/16 12/26/16 Range/Units 12:10 02:21 WBC 15.9 H 20.9 H (3.8-10.6) k/uL RBC 4.24 3.94 (3.80-5.40) m/uL Hgb 11.4 10.8 L (11.4-16.0) gm/dL Hct 36.5 35.0 (34.0-46.0) % Plt Count 73 L 67 L (150-450) k/uL Comprehensive Metabolic Panel 12/25/16 12/26/16 Range/Units 12:10 02:21 Sodium 140 142 (137-145) mmol/L Potassium 4.6 4.4 (3.5-5.1) mmol/L Chloride 107 107 (98-107) mmol/L Carbon Dioxide 25 27 (22-30) mmol/L BUN 20 H 15 (7-17) mg/dL Creatinine 0.60 0.70 (0.52-1.04) mg/dL Glucose 105 H 96 (74-99) mg/dL Calcium 8.7 8.5 (8.4-10.2) mg/dL AST 28 (14-36) U/L ALT 37 (9-52) U/L Alkaline Phosphatase 75 (38-126) U/L Total Protein 5.6 L (6.3-8.2) g/dL Albumin 3.6 (3.5-5.0) g/dL Current Medications Generic Name Dose Route Start Last Admin Trade Name Freq PRN Reason Stop Dose Admin Acetaminophen 650 mg 12/25/16 14:26 Tylenol Tab PO Q6HR PRN Mild Pain or Fever > 100.5 Hydrocodone Bitart/Acetaminophen 1 each 12/25/16 15:26 [place] 5-325 PO Q6HR PRN Moderate Pain Ascorbic Acid 500 mg 12/26/16 09:00 12/26/16 08:20 Vitamin C PO 500 mg DAILY [facility] Administration Calcium Carbonate/Glycine 500 mg 12/25/16 15:26 Tums PO TID PRN Heartburn Cholecalciferol 1,000 unit 12/26/16 09:00 12/26/16 08:20 Vitamin D3 PO 1,000 unit DAILY [facility] Administration Docusate Sodium 100 mg 12/25/16 15:26 Colace PO BID PRN Constipation Famotidine 20 mg 12/25/16 21:00 12/26/16 08:20 Pepcid PO 20 mg BID ARTHUR Administration Heparin Sodium (Porcine) 0 unit 12/25/16 20:17 Heparin IV PER PROTOCOL PRN Low PTT Protocol Diltiazem HCl 125 mg/ Sodium 125 mls @ 5 mls/hr 12/25/16 12:17 12/26/16 09:06 Chloride IV 12/26/16 12:16 5 mg/hr .Q24H [facility] 5 mls/hr Protocol Administration 5 MG/HR Heparin Sodium/Dextrose 25,000 500 mls @ 18.5 mls/hr 12/25/16 13:00 12/26/16 09:05 unit/ IV Solution IV 17 units/kg/hr .Q24H [facility] 26.21 mls/hr Protocol Administration 12 UNITS/KG/HR Sodium Chloride 1,000 mls @ 70 mls/hr 12/25/16 14:30 12/26/16 05:52 Saline 0.9% IV Not Given .[id number] [facility] Melatonin 5 mg 12/25/16 15:26 Melatonin PO HS PRN Insomnia Multivitamins 1 each 12/26/16 12:00 Theragran PO DAILY@1200 [facility] Naloxone HCl 0.2 mg 12/25/16 14:26 Narcan IV Q2M PRN Opioid Reversal Ondansetron HCl 4 mg 12/25/16 15:26 Zofran IVP Q6H PRN Nausea Intake and Output 12/25/16 12/26/16 12/26/16 22:59 06:59 14:59 Intake Total 934.742 161.91 248.256 Output Total 700 Balance 934.742 -538.09 248.256 Intake: Intake, IV Titration 134.742 161.91 248.256 Amount Diltiazem 125 mg In 101.917 Sodium Chloride 0.9% 100 ml @ 5 MG/HR 5 mls/hr IV .Q24H [facility] Rx#:[id number] Heparin Sodium,Porcine/ 134.742 161.91 146.339 D5w Pmx 25,000 unit In Dextrose/Water 1 500ml. bag @ 12 UNITS/KG/HR 18.5 mls/hr IV .Q24H [facility] Rx#: [id number] Oral 800 Output: Urine 700 Other: Voiding Method Toilet Weight 77.111 kg 80.5 kg 12/26/16 02:21 12/26/16 02:21 EKG Interpretations (text) EKG shows atrial fibrillation with a rapid ventricular response Assessment and Plan Plan: Assessment and plan #1 atrial fibrillation with rapid ventricular response, new onset for the patient. Patient currently on IV heparin and IV Cardizem drips. TSH normal. #2 history of lymphoma with recent CT of the chest abdomen and pelvis which revealed worsening and splenomegaly with more prominent mass effect on left- sided abdominal structures. Follows with Dr. Burnett. White blood cell count 20, 000, platelet count 67, hemoglobin 10.8. #3 no prior documented history of hypertension, no diabetes, no hyperlipidemia, nonsmoker, rare EtOH. #4 recent upper respiratory infection with recent travel to [place]. #5 mildly abnormal troponins Plan We will obtain an echocardiogram with Doppler study. Discontinue IV Cardizem and initiate beta michael. Obtain d-dimer. We will also look into one of the newer anticoagulants for the patient. It was explained to the patient that she will need anticoagulation for stroke prevention. Further recommendations to follow. DNP note has been reviewed, I agree with a documented findings and plan of care. Patient was seen and examined.
[2016-12-26] MEDS: MULTIVITAMINS, THERA 1 EACH TAB PO SCH (10:50)
--- NOTE | 2016-12-26 11:59 | XR ---
EXAMINATION TYPE: XR chest 1V portable DATE OF EXAM: 12/26/2016 HISTORY: shortness of breath. REFERENCE: Previous study dated 12/25/2016. FINDINGS: The lungs remain clear. Pleural spaces are clear. The heart is not enlarged. There are calc ified left hilar lymph nodes.. IMPRESSION: 1. NO ACUTE INTRATHORACIC ABNORMALITY. 2. EVIDENCE OF OLD GRANULOMATOUS DISEASE.
[2016-12-26] MEDS: APIXABAN 5 MG TAB PO SCH (17:11)
[2016-12-26] MEDS ORDERED: METOPROLOL TARTRATE 25 MG TAB PO SCH (21:00)
[2016-12-27 07:26] LABS: Anisocytosis Slight; CH 27.8; CHCM 31.6; HCT 35.9 % (34.0-46.0); HDW 2.78; HGB 11.5 gm/dL (11.4-16.0); Hypochromasia Slight; MCH 28.3 pg (25.0-35.0); MCHC 31.9 g/dL (31.0-37.0); MCV 88.5 fL (80.0-100.0); Mean Platelet Volume 9.4; RBC 4.06 m/uL (3.80-5.40); WBC 17.3 k/uL (3.8-10.6)
[2016-12-27 07:46] LABS: Anion Gap 8 mmol/L; Blood Urea Nitrogen 15 mg/dL (7-17); Calcium 9.1 mg/dL (8.4-10.2); Carbon Dioxide 29 mmol/L (22-30); Chloride 107 mmol/L (98-107); Glucose 93 mg/dL (74-99); Magnesium 1.9 mg/dL (1.6-2.3); Non-African American GFR(MDRD) >60 (>60 ml/min/1.73 sqM); Potassium 4.5 mmol/L (3.5-5.1); Sodium 144 mmol/L (137-145)
[2016-12-27] MEDS: APIXABAN 5 MG TAB PO SCH ×2 (07:53→20:19)
[2016-12-27] MEDS: FAMOTIDINE 20 MG TAB PO SCH ×2 (07:53→20:18)
[2016-12-27] MEDS: MULTIVITAMINS, THERA 1 EACH TAB PO SCH (07:53)
[2016-12-27] MEDS: CHOLECALCIFEROL 1,000 UNIT TAB PO SCH (07:53)
[2016-12-27] MEDS: ASCORBIC ACID 500 MG TAB PO SCH (07:53)
[2016-12-27] MEDS: SODIUM CHLORIDE 0.9% 1,000 ML IV SCH ×2 (07:54→23:01)
[2016-12-27] MEDS ORDERED: METOPROLOL TARTRATE 50 MG TAB PO SCH (09:00)
--- NOTE | 2016-12-27 10:25 | ECHOF ---
Referral Reason:a fib, chest pain MEASUREMENTS -------- HEIGHT: 170.2 cm WEIGHT: 80.3 kg BP: 151/93 RVIDd: 2.3 cm (< 3.3) IVSd: 1.2 cm (0.6 - 1.1) LVIDd: 3.5 cm (3.9 - 5.3) LVPWd: 1.2 cm (0.6 - 1.1) IVSs: 1.6 cm LVIDs: 2.3 cm LVPWs: 1.8 cm LA Diam: 3.9 cm (2.7 - 3.8) LAESV Index (A-L): 27.58 ml/m Ao Diam: 3.4 cm (2.0 - 3.7) AV Cusp: 1.9 cm (1.5 - 2.6) MV EXCURSION: 23.124 mm (> 18.000) MV EF SLOPE: 183 mm/s (70 - 150) EPSS: 0.3 cm RAP: 5.00 mmHg RVSP: 34.94 mmHg FINDINGS -------- Atrial fibrillation. This was a technically good study. The left ventricular size is normal. There is borderline concentric left ventricular hypertrophy. Overall left ventricular systolic function is low-normal with, an EF between 50 - 55 %. The right ventricle is normal in size. Normal LA size by volume 22+/-6 ml/m2. The right atrium is normal in size. Aortic valve is trileaflet and is mildly thickened. The mitral valve leaflets are mildly thickened. Mild mitral annular calcification present. Mild mitral regurgitation is present. Mild tricuspid regurgitation present. There is borderline pulmonary artery hypertension. The right ventricular systolic pressure, as measured by Doppler, is 34.94mmHg. Trace/mild (physiologic) pulmonic regurgitation. The aortic root size is normal. The inferior vena cava is mildly dilated. There is a small, generalized pericardial effusion present. Pleural Effusion with Fibrin. CONCLUSIONS -------- 1. Atrial fibrillation. 2. The mitral valve leaflets are mildly thickened. 3. Mild mitral annular calcification present. 4. Mild mitral regurgitation is present. 5. Mild tricuspid regurgitation present. 6. There is borderline pulmonary artery hypertension. 7. The right ventricular systolic pressure, as measured by Doppler, is 34.94mmHg. 8. Trace/mild (physiologic) pulmonic regurgitation. 9. The aortic root size is normal. 10. The inferior vena cava is mildly dilated. 11. There is a small, generalized pericardial effusion present. 12. This was a technically good study. 13. Pleural Effusion with Fibrin. 14. The left ventricular size is normal. 15. There is borderline concentric left ventricular hypertrophy. 16. Overall left ventricular systolic function is low-normal with, an EF between 50 - 55 %. 17. The right ventricle is normal in size. 18. Normal LA size by volume 22+/-6 ml/m2. 19. The right atrium is normal in size. 20. Aortic valve is trileaflet and is mildly thickened. PHP MYSQL DEVELOPER: Latanya Gerardo RDCS
--- NOTE | 2016-12-27 14:00 | P.PN ---
Subjective Progress Note Date: 12/27/16 Principal diagnosis: Irvin eddy This is a pleasant 81-year-old female with history of lymphoma who presented to the hospital with symptoms of diaphoresis with a mild associated discomfort in her chest. On admission here she was noted to be in atrial fibrillation which is a new diagnosis for her. Because of the patient's history of lymphoma, Dr. Euceda was consulted who consented to starting anticoagulation. She is currently on Eliquis. Heart rate this morning in the 1 :30 to 140 range, dose of beta michael increased to 50 mg one tablet by mouth twice a day. Overall the patient feels well, she is asymptomatic with the atrial fibrillation. Echocardiogram with Doppler study was performed which revealed an ejection fraction of 50-55%. Objective - Vital Signs Vital signs: Vital Signs Temp 97.0 F L 12/27/16 12:00 Pulse 108 H 12/27/16 12:00 Resp 18 12/27/16 12:00 BP 134/70 12/27/16 12:00 Pulse Ox 99 12/27/16 12:00 Intake & Output 12/26/16 12/27/16 12/27/16 18:59 06:59 18:59 Intake Total 248.256 236 Balance 248.256 236 Weight 80.4 kg Intake: Intake, IV Titration 248.256 Amount Diltiazem 125 mg In 101.917 Sodium Chloride 0.9% 100 ml @ 5 MG/HR 5 mls/hr IV .Q24H STA Rx#:[id number] Heparin Sodium,Porcine/ 146.339 D5w Pmx 25,000 unit In Dextrose/Water 1 500ml. bag @ 12 UNITS/KG/HR 18.5 mls/hr IV .Q24H ARTHUR Rx#: [id number] Oral 236 Other: Voiding Method Toilet Toilet Toilet # Voids 2 - Exam PHYSICAL EXAMINATION: HEENT: Head is atraumatic, normocephalic. Pupils equal, round. Neck is supple. There is no elevated jugular venous pressure. HEART EXAMINATION: R S1 and S2 irregularly irregular CHEST EXAMINATION: Lungs are clear to auscultation and precussion. No chest wall tenderness is noted on palpation or with deep breathing. ABDOMEN: Soft, nontender. Bowel sounds are heard. No organomegaly noted. EXTREMITIES: 2+ peripheral pulses with no evidence of peripheral edema and no calf tenderness noted. NEUROLOGIC patient is awake, alert and oriented -3. . - Labs CBC & Chem 7: 12/27/16 06:03 12/27/16 06:03 Labs: Abnormal Lab Results - Last 24 Hours (Table) 12/27/16 Range/Units 06:03 WBC 17.3 H (3.8-10.6) k/uL RDW 17.0 H (11.5-15.5) % Plt Count 68 L (150-450) k/uL Assessment and Plan Plan: Assessment and plan #1 atrial fibrillation with rapid ventricular response, chronic persistent, new onset for the patient #2 history of lymphoma with recent CT of the chest abdomen and pelvis which revealed worsening and splenomegaly with more prominent mass effect on left- sided abdominal structures. Follows with Dr. Burnett. White blood cell count 20, 000, platelet count 67, hemoglobin 10.8. #3 no prior documented history of hypertension, no diabetes, no hyperlipidemia, nonsmoker, rare EtOH. #4 recent upper respiratory infection with recent travel to [place]. #5 mildly abnormal troponins Plan Echocardiogram with Doppler study revealed a normal left ventricular systolic function. We will increase the dose of beta michael to 50 mg one tablet by mouth twice a day. Plan for possible discharge home in 24 hours if stable. DNP note has been reviewed, I agree with a documented findings and plan of care. Patient was seen and examined.
--- NOTE | 2016-12-27 14:19 | P.PN ---
Subjective Progress Note Date: 12/27/16 Principal diagnosis: patient is seen and examined, in follow up of afib with RVR. ADDI, lymphoma 81-year-old female with past medical history of lymphoma, obstructive sleep apnea on CPAP not very compliant, presented to the hospital due to excessive sweating in chest discomfort was found to have atrial fibrillation with rapid ventricular response admitted for further management. Heart rate this morning was still ranging in the 130s to 140s, patient is off Cardizem drip. 2-D echo was reviewed case discussed with cardiology beta michael metoprolol was increased to 50 mg twice a day. Heparin drip was discontinued currently patient on Eliquis patient does not have valvular heart disease per her 2-D echo. Currently patient denies any symptoms of chest pain or trouble breathing still reports diaphoresis especially nighttime sweating. She feels that she's her back to her baseline and eager to go home. patient does not remember her CPAP settings admits to not being very compliant with using her CPAP at night however she does report that she has lost weight and now is sleeping better even without CPAP Objective - Vital Signs Vital signs: Vital Signs Temp 96.6 F L 12/27/16 04:00 Pulse 135 H 12/27/16 04:00 Resp 18 12/27/16 04:00 BP 151/93 12/27/16 04:00 Pulse Ox 99 12/27/16 04:00 Intake & Output 12/26/16 12/27/16 12/27/16 18:59 06:59 18:59 Intake Total 248.256 Balance 248.256 Weight 80.4 kg Intake: Intake, IV Titration 248.256 Amount Diltiazem 125 mg In 101.917 Sodium Chloride 0.9% 100 ml @ 5 MG/HR 5 mls/hr IV .Q24H STA Rx#:[id number] Heparin Sodium,Porcine/ 146.339 D5w Pmx 25,000 unit In Dextrose/Water 1 500ml. bag @ 12 UNITS/KG/HR 18.5 mls/hr IV .Q24H ARTHUR Rx#: [id number] Other: Voiding Method Toilet Toilet # Voids 2 - Exam Constitutional: vital signs stable, Not in acute distress, pleasant, conversant Lungs: Clear to auscultation bilaterally, clear to percussion, no use of accessory muscles Cardiovascular: irregular rate and rhythm, no murmurs, no gallops, no rubs, no peripheral edema Gastrointestinal: Soft, no tenderness to palpation, palpable spleen more than 4 fingers below left costal margin, bowel sounds positive, no abdominal wall hernias Extremities: No digital cyanosis , ischemia,or clubbing, peripheral pulses palpable and equal over bilateral radial arteries and dorsalis pedis artery, no calf muscle tenderness Psych: Alert, oriented to place, person and time - Labs CBC & Chem 7: 12/27/16 06:03 12/27/16 06:03 Labs: Abnormal Lab Results - Last 24 Hours (Table) 12/26/16 12/27/16 Range/Units 09:25 06:03 WBC 17.3 H (3.8-10.6) k/uL RDW 17.0 H (11.5-15.5) % Plt Count 68 L (150-450) k/uL APTT 49.8 H (22.0-30.0) sec Assessment and Plan (1) Atrial fibrillation with RVR Narrative/Plan: newly diagnosed Patient requires anticoagulation for stroke prophylaxis Started onliquis Adjust beta michael dose metoprolol up to 50 mg twice a day for better heart rate control Continue to monitor and patient for another 24 hours Denies any evidence of GI bleeding Status: Acute (2) Lymphoma Narrative/Plan: with splenomegaly and lymphocytosis outpatient follow-up with oncology Status: Acute (3) Obstructive sleep apnea Narrative/Plan: patient counseled and encouraged for compliance with CPAP I stressed the fact that Irvin eddy will have a heart rate of recurrence improved control without controlling her obstructive sleep apnea Status: Chronic (4) Bicytopenia Narrative/Plan: mild anemia and thrombocytopenia Most likely secondary to underlying lymphoma and splenomegaly Continue to monitor closely Status: Acute Plan: CODE STATUS:full code DVT prophylaxis: eliquis Discussed with: Patient, RN Anticipated discharge: 24 hours pending heartrate control Anticipated discharge place: HOME
[2016-12-27] MEDS: METOPROLOL TARTRATE 50 MG TAB PO SCH ×2 (15:36→23:03)
--- NOTE | 2016-12-28 00:07 | P.CONS ---
History of Present Illness - Reason for Consult Consult date: 12/27/16 Thrombocytopenia, need for anticoagulation, lymphoma - History of Present Illness the patient is a 81-year-old lady, with a long-standing history of chronic lymphocytic leukemia/small lymphocytic lymphoma. She has been followed with observation without need for treatment. Over the last several months, the patient has had evidence of slow progression, would drop in platelet count, and increasing spleen size. Most recent CT scans in 11/28 showed significant progression especially in terms of splenomegaly, and lymphadenopathy in the abdomen. The patient was supposed to meet with Dr. Burnett later this month, to discuss starting systemic therapy. She came into the emergency room, with acute onset of left-sided chest discomfort, feeling of her heart racing as well as sweating. In the ER she was noted to be in atrial fibrillation with rapid ventricular response. She was therefore admitted and seen by cardiology. Rate is controlled with Cardizem. She was started on IV heparin, and the plan is for her to be transitioned to eliquis. her platelet count, was in the high 60-low 70,000 range. Consult was therefore placed for further evaluation regarding continuation of anticoagulation the patient denied any prior history of cardiac arrhythmia Review of Systems Constitutional: Reports malaise, Reports night sweats Eyes: denies blurred vision, denies pain Ears: deny: decreased hearing, ear discharge, earache, tinnitus Ears, nose, mouth and throat: Denies headache, Denies sore throat Cardiovascular: Reports as per HPI, Reports chest pain, Reports irregular heart beat, Reports palpitations, Reports shortness of breath Respiratory: Reports dyspnea Gastrointestinal: Reports early satiety, Denies abdominal pain, Denies diarrhea , Denies nausea, Denies vomiting Genitourinary: Denies dysuria, Denies hematuria Menstruation: Reports postmenopausal Musculoskeletal: Reports muscle weakness Integumentary: Denies pruritus, Denies rash Neurological: Reports weakness Psychiatric: Denies anxiety, Denies depression Endocrine: Denies fatigue, Denies weight change Hematologic/Lymphatic: Reports as per HPI, Reports lymphadenopathy Past Medical History Past Medical History: No Reported History Additional Past Medical History / Comment(s): Structures sleep apnea not using CPAP, lymphoma mostly affecting the spleen, asthma not chronically on therapy, venous insufficiency, Vulvar cancer, basal cell skin cancer History of Any Multi-Drug Resistant Organisms: None Reported Past Surgical History: Orthopedic Surgery Additional Past Surgical History / Comment(s): Right-sided knee surgery for repair of laceration, partial hysterectomy, 2 nasal surgeries for basal cell skin cancer, surgery on right third and fourth digit for ganglion cyst Past Anesthesia/Blood Transfusion Reactions: No Reported Reaction Past Psychological History: No Psychological Hx Reported Smoking Status: Never smoker Past Alcohol Use History: None Reported Past Drug Use History: None Reported - Past Family History Mother Additional Family Medical History / Comment(s): Breast cancer Medications and Allergies Home Medications Medication Instructions Recorded Confirmed Type Ascorbic Acid [Vitamin C] 500 mg PO DAILY 12/25/16 12/25/16 History Cholecalciferol [Vitamin D3] 1,000 unit PO DAILY 12/25/16 12/25/16 History Multivitamins, Thera [Multivitamin 1 tab PO DAILY 12/25/16 12/25/16 History (formulary)] Allergies Allergy/AdvReac Type Severity Reaction Status Date / Time No Known Allergies Allergy Verified 12/25/16 12:39 Physical Exam Vitals: Vital Signs Temp Pulse Resp BP Pulse Ox 12/27/16 20:00 97.3 F L 65 18 112/58 97 12/27/16 16:00 97.2 F L 134 H 18 107/66 96 12/27/16 12:00 97.0 F L 108 H 18 134/70 99 12/27/16 08:00 97.3 F L 138 H 18 147/85 98 12/27/16 04:00 96.6 F L 135 H 18 151/93 99 12/27/16 00:00 96.3 F L 133 H 18 147/79 96 Intake and Output 12/27/16 12/27/16 12/28/16 14:59 22:59 06:59 Intake Total 436 180 Balance 436 180 Intake: Oral 436 180 Other: Voiding Method Toilet Toilet # Voids 3 0 - Constitutional General appearance: no acute distress - EENT Eyes: EOMI, PERRLA ENT: hearing grossly normal, normal oropharynx - Neck Neck: no lymphadenopathy - Respiratory Respiratory: bilateral: CTA - Cardiovascular Rhythm: irregularly irregular Heart sounds: normal: S1, S2 - Gastrointestinal General gastrointestinal: normal bowel sounds, soft - Integumentary Integumentary: normal - Neurologic Neurologic: CNII-XII intact - Musculoskeletal Musculoskeletal: generalized weakness, strength equal bilaterally - Psychiatric Psychiatric: A&O x's 3, appropriate affect Results CBC & Chem 7: 12/27/16 06:03 12/27/16 06:03 Labs: Abnormal Lab Results - Last 24 Hours (Table) 12/27/16 Range/Units 06:03 WBC 17.3 H (3.8-10.6) k/uL RDW 17.0 H (11.5-15.5) % Plt Count 68 L (150-450) k/uL Comments: report of echocardiogram reviewed Chest x-ray: report reviewed CT scan - abdomen: report reviewed CT scan - chest: report reviewed CT scan - pelvis: report reviewed Assessment and Plan (1) Atrial fibrillation with RVR Narrative/Plan: this is of new onset, and is being worked up by cardiology. Echocardiogram was overall negative with good left ventricular ejection fraction. Management recommendations according to cardiology, are as noted in the HPI. Her rate is currently controlled. From our standpoint, it is okay to anticoagulate her , as long as her platelet counts are greater than 50,000. The case was discussed with nursing, and orders given to initiate the patient on eliquis Status: Acute (2) Bicytopenia Narrative/Plan: the patient's hemoglobin and platelet counts are low because of progression of her underlying lymphoproliferative malignancy. However, both counts are well within a safe range. No acute intervention is required. As noted above, it is okay to continue the patient on anticoagulation as long as her platelet count is greater than 50,000. The patient's counts will be monitored regularly as an outpatient, once she is started on treatment. Anticoagulation may need to be held temporarily for platelet count drops due to treatment effect. However the hope is, that overall the counts will actually improve as her lymphoma is put into remission. Status: Acute (3) Lymphoma Narrative/Plan: This has been slowly progressive as noted. The patient will initiate treatment as an outpatient, after her appointment with Dr. Burnett. Status: Acute
[2016-12-28 06:40] LABS: Anisocytosis Slight; CH 27.8; CHCM 31.6; HCT 32.7 % (34.0-46.0); HDW 2.74; HGB 10.1 gm/dL (11.4-16.0); Hypochromasia Slight; MCH 27.5 pg (25.0-35.0); MCV 88.6 fL (80.0-100.0); Mean Platelet Volume 8.9; RBC 3.69 m/uL (3.80-5.40); WBC 16.2 k/uL (3.8-10.6)
[2016-12-28] MEDS: MULTIVITAMINS, THERA 1 EACH TAB PO SCH (08:11)
[2016-12-28] MEDS: ASCORBIC ACID 500 MG TAB PO SCH (08:11)
[2016-12-28] MEDS: APIXABAN 5 MG TAB PO SCH (08:11)
[2016-12-28] MEDS: FAMOTIDINE 20 MG TAB PO SCH (08:11)
[2016-12-28] MEDS: CHOLECALCIFEROL 1,000 UNIT TAB PO SCH (08:12)
[2016-12-28] MEDS: METOPROLOL TARTRATE 50 MG TAB PO SCH (08:12)
[2016-12-28] MEDS ORDERED: FLECAINIDE 50 MG TAB PO SCH (10:30)
[2016-12-28] MEDS: SODIUM CHLORIDE 0.9% 1,000 ML IV SCH (12:10)
[2016-12-28 13:37] VITALS: BP 131/60; PULSE 58; TEMP 97.3
--- NOTE | 2016-12-28 14:04 | P.PN ---
Subjective Progress Note Date: 12/28/16 Principal diagnosis: Irvin eddy This is a pleasant 81-year-old female with history of lymphoma who presented to the hospital with symptoms of diaphoresis with a mild associated discomfort in her chest. On admission here she was noted to be in atrial fibrillation which is a new diagnosis for her. Because of the patient's history of lymphoma, Dr. Euceda was consulted who consented to starting anticoagulation. She is currently on Eliquis. Heart rate this morning in the 1 :30 to 140 range, dose of beta michael increased to 50 mg one tablet by mouth twice a day. Overall the patient feels well, she is asymptomatic with the atrial fibrillation. Echocardiogram with Doppler study was performed which revealed an ejection fraction of 50-55%. 12/28/2016 Patient seen and examined this morning, converted to normal sinus rhythm. She has been up ambulating most of the day without any symptoms. We have added flecainide 50 mg one tablet by mouth twice a day to her medication regime. She may be able to be discharged home today from cardiology's perspective. A follow -up appointment will be made with Dr. VC Klein in the office post discharge. Objective - Vital Signs Vital signs: Vital Signs Temp 97.3 F L 12/28/16 12:00 Pulse 58 L 12/28/16 12:00 Resp 18 12/28/16 12:00 BP 131/60 12/28/16 12:00 Pulse Ox 99 12/28/16 12:00 Intake & Output 12/27/16 12/28/16 12/28/16 18:59 06:59 18:59 Intake Total 616 480 Balance 616 480 Weight 79 kg Intake: Oral 616 480 Other: Voiding Method Toilet Toilet Toilet # Voids 3 1 - Exam PHYSICAL EXAMINATION: HEENT: Head is atraumatic, normocephalic. Pupils equal, round. Neck is supple. There is no elevated jugular venous pressure. HEART EXAMINATION: R S1 and [id number]' CHEST EXAMINATION: Lungs are clear to auscultation and precussion. No chest wall tenderness is noted on palpation or with deep breathing. ABDOMEN: Soft, nontender. Bowel sounds are heard. No organomegaly noted. EXTREMITIES: 2+ peripheral pulses with no evidence of peripheral edema and no calf tenderness noted. NEUROLOGIC patient is awake, alert and oriented -3. . - Labs CBC & Chem 7: 12/28/16 05:50 12/27/16 06:03 Labs: Abnormal Lab Results - Last 24 Hours (Table) 12/28/16 Range/Units 05:50 WBC 16.2 H (3.8-10.6) k/uL RBC 3.69 L (3.80-5.40) m/uL Hgb 10.1 L (11.4-16.0) gm/dL Hct 32.7 L (34.0-46.0) % RDW 17.0 H (11.5-15.5) % Plt Count 68 L (150-450) k/uL Assessment and Plan Plan: Assessment and plan #1 atrial fibrillation with rapid ventricular response, chronic persistent, new onset for the patient #2 history of lymphoma with recent CT of the chest abdomen and pelvis which revealed worsening and splenomegaly with more prominent mass effect on left- sided abdominal structures. Follows with Dr. Burnett. White blood cell count 20, 000, platelet count 67, hemoglobin 10.8. #3 no prior documented history of hypertension, no diabetes, no hyperlipidemia, nonsmoker, rare EtOH. #4 recent upper respiratory infection with recent travel to [place]. #5 mildly abnormal troponins Plan Echocardiogram with Doppler study revealed a normal left ventricular systolic function. We will decrease the beta michael dose to 50 mg one tablet by mouth twice a day. Add flecainide 50 mg one tablet by mouth twice a day to her medication regime. She may be able to be discharged home today. We'll make a follow-up appointment with Dr. VC Klein in the office in 2 weeks. DNP note has been reviewed, I agree with a documented findings and plan of care. Patient was seen and examined.
--- NOTE | 2016-12-28 14:26 | P.DS ---
Providers Date of admission: 12/25/16 14:26 Expected date of discharge: 12/28/16 Attending physician: Sangeeta Banuelos DO Consults: 12/25/16 16:03 Consult Physician Urgent Consulting Provider: Dawson Daigle Consult Reason/Comments: new onset a-fib with rvr Do you want consulting provider notified?: Yes 12/26/16 12:06 Consult Physician Urgent Consulting Provider: Roderick Euceda Consult Reason/Comments: ANTICOAGULATION Do you want consulting provider notified?: Yes Primary care physician: Bassam Martin - Discharge Diagnosis(es) (1) Atrial fibrillation with RVR Current Visit: Yes Status: Acute (2) Lymphoma Current Visit: Yes Status: Chronic (3) Obstructive sleep apnea Current Visit: Yes Status: Chronic (4) Bicytopenia Current Visit: Yes Status: Acute Hospital Course: 81-year-old female with past medical history of lymphocytic lymphoma with spleenomegally, obstructive sleep apnea on CPAP not very compliant, presented to the hospital due to excessive sweating in chest discomfort was found to have atrial fibrillation with rapid ventricular response admitted for further management. Heart rate control achieved with metoprolol and flecainide, 2 echo of the heart performed and unremarkable. Anticoagulation discussed with oncology in light of thrombocytopenia, and cleared the patient to be started on Eliquis as long as Platelets are maintained above 50,000. 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 Sinus rhythm Constitutional: vital signs stable, Not in acute distress, pleasant, conversant Lungs: Clear to auscultation bilaterally, clear to percussion, normal respiratory effort Cardiovascular: Regular rate and rhythm, no murmurs, no gallops, no rubs, no peripheral edema Gastrointestinal: Soft, no tenderness to palpation, marked splenomegally , bowel sounds positive Extremities: No digital cyanosis or clubbing, no calf muscle tenderness Psych: Alert, oriented to place, person and time Cardiology cleared patient for discharge, OP follow up in 2 weeks follow up with oncology OP patient encouraged compliance with using her CPAP for ADDI control, as Afib control would be challenging with ADDI background 35 minutes were spent discharging this patient, and more than 50% of the time was spent in counseling the patient and family and in coordinating care. Pertinent Studies: 2 D echocardiogram Patient Condition at Discharge: Stable Plan - Discharge Summary New Discharge Prescriptions: New RX: Apixaban [Eliquis] 5 mg PO BID #60 tab RX: Flecainide [Tambocor] 50 mg PO Q12HR #60 tab RX: Metoprolol Tartrate [Lopressor] 50 mg PO BID #60 tab No Action Multivitamins, Thera [Multivitamin (formulary)] 1 tab PO DAILY Cholecalciferol [Vitamin D3] 1,000 unit PO DAILY Ascorbic Acid [Vitamin C] 500 mg PO DAILY Discharge Medication List Ascorbic Acid [Vitamin C] 500 mg PO DAILY 12/25/16 [History] Cholecalciferol [Vitamin D3] 1,000 unit PO DAILY 12/25/16 [History] Multivitamins, Thera [Multivitamin (formulary)] 1 tab PO DAILY 12/25/16 [History ] RX: Apixaban [Eliquis] 5 mg PO BID #60 tab 12/28/16 [Rx] RX: Flecainide [Tambocor] 50 mg PO Q12HR #60 tab 12/28/16 [Rx] RX: Metoprolol Tartrate [Lopressor] 50 mg PO BID #60 tab 12/28/16 [Rx] Follow up Appointment(s)/Referral(s): Bassam Martin MD [Primary Care Provider] - 1-2 days Khloe Klein MD [STAFF PHYSICIAN] - 01/06/17 3:00 pm Patient Instructions/Handouts: A-fib (Atrial Fibrillation) (DC), Safe Use of Anticoagulants (DC), Sleep Apnea (DC) Activity/Diet/Wound Care/Special Instructions: Free copay card for Eliquis to be applied for first month and then to receive samples from project development leader office at follow up Discharge Disposition: HOME SELF-CARE
[2016-12-28] MEDS ORDERED: METOPROLOL TARTRATE 50 MG TAB PO SCH (21:00)
== END 2016-12-28 17:15 | disposition home or self-care (01) | DRG 309 ==
LOC: EC 11:50 → 6SEL 14:26
PROVIDERS: ADMIT Internal Medicine; ATTEND Internal Medicine
DX: I48.91 Unspecified atrial fibrillation (principal); C85.90 Non-Hodgkin lymphoma, unspecified, unspecified site; D69.59 Other secondary thrombocytopenia; D64.9 Anemia, unspecified; D72.820 Lymphocytosis (symptomatic); G47.33 Obstructive sleep apnea (adult) (pediatric); I87.2 Venous insufficiency (chronic) (peripheral); Z79.01 Long term (current) use of anticoagulants; Z80.3 Family history of malignant neoplasm of breast; Z85.44 Personal history of malignant neoplasm of other female genital organs; Z85.828 Personal history of other malignant neoplasm of skin; Z90.710 Acquired absence of both cervix and uterus; Z91.19 Patient's noncompliance with other medical treatment and regimen
CPT/HCPCS: 36415; 71010; 71020; 80048; 80053; 81003; 82550; 82553; 83615; 83735; 84443; 84484; 85025; 85027; 85379; 85610; 85730; 86704; 86706; 86803; 87340; 93005; 93306; 96365; 96366; 96368; 96376; 99285

== ENCOUNTER → 2017-03-26 | Outpatient (CLI) | payer MEDICARE ==
--- NOTE | 2017-03-27 16:47 | CT ---
EXAMINATION TYPE: CT chest wo con DATE OF EXAM: 03/26/2017 COMPARISON: 12/17/2016 HISTORY: Coughing, Bronchiectasis CT DLP: 287.0 mGycm. Automated Exposure Control for Dose Reduction was Utilized. TECHNIQUE: CT scan of the thorax is performed without IV contrast. FINDINGS: LUNGS: Right apical pleural thickening is again identified as well as a left apical calcified granulo ma, benign. Within the peripheral left upper lobe on series 4 image 28 there are two 3 mm pulmonary n odules. 4 mm solid pulmonary nodule within the right upper lobe is also seen on image 27 as well as 2 mm pulmonary nodule within the right lower lobe on image 27. Focus of linear right middle lobe proba ble atelectasis is seen on image 43. 3 mm right lower lobe pulmonary nodule on image 33 is seen. Grou ndglass focal area of attenuation on image 23 is noted measuring up to 9 mm. These pulmonary nodules are retrospectively unchanged from the prior exam of 12/17/2016. Bibasilar subsegmental atelectasis an d linear pleural parenchymal scarring is seen. Lingular atelectasis is also noted. When compared to t he exam of 06/27/2011 the superior segment right upper lobe pulmonary nodule appears unchanged and is benign. There is no evidence of bronchiectasis. No focal consolidation is present. There is no pleural effusion or pneumothorax seen. The tracheobro nchial tree is patent. MEDIASTINUM: Lack of IV contrast is noted to limit evaluation for mediastinal and especially hilar ad enopathy. There are no definitive greater than 1 cm hilar or mediastinal lymph nodes. No cardiomega ly or pericardial effusion is seen. Mild three-vessel coronary artery calcifications, prominent cardi ac size, and hilar calcified granulomas are unchanged from the prior. Within the superior mediastinum multiple prominent but nonenlarged lymph nodes measure up to 9 mm in short axis. Pretracheal lymph n odes measure up to 1.0 cm in short axis as is an infra carinal node. OTHER: Splenomegaly is seen as a spleen measures 15.0 cm in anterior posterior dimension. Numerous be nign scattered granulomas are seen within the parenchyma of the spleen and liver. Evaluation of the u pper abdomen is limited without intravenous contrast although there appears to be splenic varices and a small hiatal hernia. Mid thoracic vertebral body hemangioma is present in addition to mild multile elvin degenerative changes of the thoracic spine. IMPRESSION: 1. No evidence of bronchiectasis. 2. Evaluation of hilar adenopathy is limited given the lack of intravenous contrast although enlarged hilar lymph nodes are suspected. Additionally multiple prominent mediastinal lymph nodes are seen. S ome lymph nodes are calcified and benign representing granulomatous change, however given the patient 's history of lymphoma involvement cannot be excluded. 3. Multiple bilateral pulmonary nodules, some of which are retrospectively unchanged from 2012 and be nign and others which are retrospectively unchanged from the prior exam of 12/17/2016 measuring up to [address] thorax is recommended in 6-12 months. 4. Redemonstration of splenomegaly. Again lymphomatous involvement is possible. 5. Multiple areas of subsegmental atelectasis with no focal consolidation.
== END | disposition home or self-care (01) ==
LOC: RADCTMAIN 09:19
PROVIDERS: ATTEND Internal Medicine
DX: J98.11 Atelectasis (principal); R91.8 Other nonspecific abnormal finding of lung field
CPT/HCPCS: 71250

== ENCOUNTER → 2017-06-08 | Outpatient (CLI) | payer MEDICARE ==
--- NOTE | 2017-06-10 07:31 | MM ---
Reason for exam: screening (asymptomatic). Last mammogram was performed 1 year and 1 month ago. History: Patient is postmenopausal and has history of other cancer at age 70. Family history of premenopausal breast cancer in mother at age 45 and premenopausal breast cancer in maternal aunt at age 45. Benign excisional biopsy of the left breast. Taking estrogen for 7 years. Physical Findings: A clinical breast exam by your physician is recommended on an annual basis and results should be correlated with mammographic findings. MG Screening Mammo w CAD Bilateral CC, MLO, and XCCL view(s) were taken. Prior study comparison: May 19, 2016, bilateral MG screening mammo w CAD. May 07, 2015, bilateral MG screening mammo w CAD. The breast tissue is heterogeneously dense. This may lower the sensitivity of mammography. Bilateral vascular and round calcifications. No significant changes when compared with prior studies. ASSESSMENT: Negative, BI-RAD 1 RECOMMENDATION: Routine screening mammogram of both breasts in 1 year.
== END | disposition home or self-care (01) ==
LOC: RADMAMWWP 09:05
PROVIDERS: ATTEND Internal Medicine
DX: Z12.31 Encounter for screening mammogram for malignant neoplasm of breast (principal)
CPT/HCPCS: 77067

== ENCOUNTER 2017-08-11 08:50 | Emergency (ER) | payer MEDICARE ==
[2017-08-11 08:56] VITALS: BP 193/79; PULSE 60; RESP 16; TEMP 97.1
--- NOTE | 2017-08-11 09:15 | ED ---
Recheck HPI - General Chief Complaint: Recheck/Abnormal Lab/Rx Stated Complaint: Stitches are bleeding Time Seen by Provider: 08/11/17 08:57 Source: patient, RN notes reviewed Mode of arrival: ambulatory Limitations: no limitations - History of Present Illness Initial Comments: 82-year-old female presents emergency from chief complaint of bleeding from her stitches. She states Dr. Torres removed from precancerous skin area to her right elbow she states that she had multiple sutures and cauterization at the time. She does take Eliquis to the dose last night prior to bed. She states it 's been losing since last night she states that she's gone through a few dressings. Patient denies any increased pain, numbness or tingling or any other concerns at this time. - Related Data Home Medications Medication Instructions Recorded Confirmed Ascorbic Acid [Vitamin C] 500 mg PO DAILY 12/25/16 08/11/17 Cholecalciferol [Vitamin D3] 1,000 unit PO DAILY 12/25/16 08/11/17 Multivitamins, Thera [Multivitamin 1 tab PO DAILY 12/25/16 08/11/17 (formulary)] Ibrutinib [Imbruvica] 420 mg PO DAILY@199908/11/17 08/11/17 Previous Rx's Medication Instructions Recorded Apixaban [Eliquis] 5 mg PO BID #60 tab 12/28/16 Flecainide [Tambocor] 50 mg PO Q12HR #60 tab 12/28/16 Allergies Allergy/AdvReac Type Severity Reaction Status Date / Time No Known Allergies Allergy Verified 08/11/17 09:05 Review of Systems ROS Statement: Those systems with pertinent positive or pertinent negative responses have been documented in the HPI. ROS Other: All systems not noted in ROS Statement are negative. Past Medical History Past Medical History: No Reported History Additional Past Medical History / Comment(s): Structures sleep apnea not using CPAP, lymphoma mostly affecting the spleen, asthma not chronically on therapy, venous insufficiency, Vulvar cancer, basal cell skin cancer History of Any Multi-Drug Resistant Organisms: None Reported Past Surgical History: Orthopedic Surgery Additional Past Surgical History / Comment(s): Right-sided knee surgery for repair of laceration, partial hysterectomy, 2 nasal surgeries for basal cell skin cancer, surgery on right third and fourth digit for ganglion cyst Past Anesthesia/Blood Transfusion Reactions: No Reported Reaction Past Psychological History: No Psychological Hx Reported Smoking Status: Never smoker Past Alcohol Use History: None Reported Past Drug Use History: None Reported - Past Family History Mother Additional Family Medical History / Comment(s): Breast cancer General Exam Limitations: no limitations General appearance: alert, in no apparent distress Head exam: Present: atraumatic, normocephalic, normal inspection Respiratory exam: Present: normal lung sounds bilaterally. Absent: respiratory distress, wheezes, rales, rhonchi, stridor Cardiovascular Exam: Present: regular rate, normal rhythm, normal heart sounds. Absent: systolic murmur, diastolic murmur, rubs, gallop, clicks Extremities exam: Present: other (Right elbow there is a 4 cm area with sutures noted there is minor oosing through the wound, there is no erythema no purulent drainage there is no warmth area. Patient has full range of motion neurovascular intact.) Course Vital Signs 08/11/17 08:54 Temperature 97.1 F L Pulse Rate 60 Respiratory 16 Rate Blood Pressure 193/79 O2 Sat by Pulse 98 Oximetry - Reevaluation(s) Reevaluation #1: 08/11/17 09:30 I did recheck the wound after 10 minutes and there is been no rebleeding. Procedures - Procedures Initial comment: Right elbow laceration with sutures: Area was thoroughly cleaned, wound still was applied, pressure dressing applied with Miquel wrap and 4 x 4 gauze Medical Decision Making - Medical Decision Making 82-year-old female presents from chief complaint of bleeding from her surgical site. The area was cleaned, wound to was applied and pressure dressing. There is no bleeding through the dressing at this time. 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 Return parameters were discussed. Disposition Clinical Impression: Suture check, Bleeding from wound Disposition: HOME SELF-CARE Condition: Stable Instructions: Care For Your Stitches (ED) Additional Instructions: Please return to the Emergency Department if symptoms worsen or any other concerns. Is patient prescribed a controlled substance at d/c from ED?: No Referrals: Bassam Martin MD [Primary Care Provider] - 1-2 days Evgeny Calero MD [STAFF PHYSICIAN] - 1-2 days
== END 2017-08-11 09:25 | disposition home or self-care (01) ==
LOC: EC 08:50
DX: L76.22 Postprocedural hemorrhage of skin and subcutaneous tissue following other procedure (principal); G47.30 Sleep apnea, unspecified; Z85.72 Personal history of non-Hodgkin lymphomas; Z85.44 Personal history of malignant neoplasm of other female genital organs; Z85.828 Personal history of other malignant neoplasm of skin; Z79.899 Other long term (current) drug therapy; Z98.890 Other specified postprocedural states
CPT/HCPCS: 99283

== ENCOUNTER → 2018-01-23 | Outpatient (CLI) | payer MEDICARE ==
--- NOTE | 2018-01-23 15:37 | BD ---
EXAMINATION TYPE: Axial Bone Density DATE OF EXAM: 01/23/2018 CLINICAL HISTORY: Screening for osteoporosis, Z 13.820 Height: 66.5 Weight: 172 FRAX RISK QUESTIONS: Alcohol (3 or more units per day): no Family History (Parent hip fracture): no Glucocorticoids (More than 3mos): no (Ex: prednisone, prednisolone, methylprednisolone, dexamethasone, and hydrocortisone). History of Fracture in Adulthood: toes Secondary Osteoporosis: 1. Type 1 Diabetes: no 2. Hyperthyroidism: no 3. Menopause before 45: hysterectomy age 46 4. Malnutrition: no 5. Chronic liver disease: no Rheumatoid Arthritis: no Current Tobacco Use: no RISK FACTORS HISTORY OF: Family History of Osteoporosis: unsure Active: yes Diet low in dairy products/other sources of calcium: no Postmenopausal woman: yes Take estrogen and/or progesterone medications: not now How long: estrogen about 7 years Lost more than 2 inches in height since high school: possibly; states was about 68 inches at one time Frequent falls: no Poor Health: somewhat Hyperparathyroidism: no Adrenal Insufficiency: no MEDICATIONS: Prednisone or other steroids: no Thyroid Medications: no Osteoporosis Medications: no Additional Medications: heart meds ; meds for CA Additional History: chronic lymphocytic leukemia ,diagnosed about 1 year ago EXAM MEASUREMENTS: Bone mineral densitometry was performed using the [facility]. Bone mineral density as measured about the Lumbar spine is: ----- L1-L4(G/cm2): 1.533 T Score Values are as follows: ----- L2: 2.0 ----- L3: 2.7 ----- L4: 5.1 ----- L1-L4: 2.9 Bone mineral density has: Increased 6.6% since study of: 03/01/2007 Bone mineral density about the R hip (g/cm2): 1.106 Bone mineral density about the L hip (g/cm2): 1.079 T Score values are as follows: -----R Neck: 0.5 -----L Neck: 0.3 -----R Total: 1.5 -----L Total: 0.9 Bone mineral density has: Decreased -10.9% since study of: 03/01/2007 IMPRESSION: Normal (Values between +1 and -1 indicate normal bone mass). Consider repeating this study in 5 year s or sooner if there is some new clinical indication. NOTE: T-SCORE=SD OF THE YOUNG ADULT MEAN.
== END | disposition home or self-care (01) ==
LOC: RADBDWWP 12:41
PROVIDERS: ATTEND Internal Medicine
DX: Z13.820 Encounter for screening for osteoporosis (principal)
CPT/HCPCS: 77080

== ENCOUNTER 2018-02-12 08:37 | Inpatient (IN) | payer MEDICARE ==
--- NOTE | 2018-02-12 09:09 | ED ---
General Adult HPI - General Chief complaint: Shortness of Breath Stated complaint: SOB Time Seen by Provider: 02/12/18 08:51 Source: patient, RN notes reviewed Mode of arrival: ambulatory Limitations: no limitations - History of Present Illness Initial comments: This is an 83-year-old female presents emergency Department chief complaint of palpitations, chest pressure and shortness of breath. Patient states that she was just in for the similar complaints is found to have A. fib with RVR. Patient states she was started on flexion night, metoprolol and just takes lisinopril and Eliquis. Patient states that her symptoms are very consistent with her past. She denies any headache, dizziness, nausea vomiting fever or chills. She does have some CLL also and sees Dr. Burnett on current chemotherapy. Patient states that she did take all of her morning medications at 7:30. - Related Data Home Medications Medication Instructions Recorded Confirmed Ascorbic Acid [Vitamin C] 500 mg PO DAILY 12/25/16 01/24/18 Cholecalciferol [Vitamin D3] 1,000 unit PO DAILY 12/25/16 01/24/18 Multivitamins, Thera [Multivitamin 1 tab PO DAILY 12/25/16 01/24/18 (formulary)] Ibrutinib [Imbruvica] 420 mg PO DAILY@199908/11/17 01/24/18 Apixaban [Eliquis] 2.5 mg PO BID 01/24/18 01/24/18 Lisinopril [Zestril] 5 mg PO DAILY 01/26/18 01/26/18 Previous Rx's Medication Instructions Recorded Flecainide [Tambocor] 100 mg PO Q12HR tab 01/26/18 Metoprolol Tartrate [Lopressor] 25 mg PO TID tab 01/26/18 Allergies Allergy/AdvReac Type Severity Reaction Status Date / Time No Known Allergies Allergy Verified 02/12/18 08:41 Review of Systems ROS Statement: Those systems with pertinent positive or pertinent negative responses have been documented in the HPI. ROS Other: All systems not noted in ROS Statement are negative. Past Medical History Past Medical History: Atrial Fibrillation, Cancer Additional Past Medical History / Comment(s): Structures sleep apnea not using CPAP since lost 60#, lymphoma (cll), asthma not chronically on therapy, venous insufficiency, Vulvar cancer , basal cell skin cancer History of Any Multi-Drug Resistant Organisms: None Reported Past Surgical History: Hysterectomy, Orthopedic Surgery, Tonsillectomy Additional Past Surgical History / Comment(s): Right-sided knee surgery for repair of laceration, partial hysterectomy, 2 nasal surgeries for basal cell skin cancer and rt arm, surgery on right third and fourth digit for ganglion cyst,2 d&c's(sx 2 miscarriages), colonoscopy Past Anesthesia/Blood Transfusion Reactions: No Reported Reaction Additional Past Anesthesia/Blood Transfusion Reaction / Comment(s): slow to wake up Past Psychological History: No Psychological Hx Reported Smoking Status: Never smoker - Past Family History Mother Additional Family Medical History / Comment(s): Breast cancer Father Family Medical History: Myocardial Infarction ([place]) Additional Family Medical History / Comment(s): in his early 70's General Exam Limitations: no limitations General appearance: alert, in no apparent distress Head exam: Present: atraumatic, normocephalic, normal inspection Eye exam: Present: normal appearance, PERRL, EOMI. Absent: scleral icterus, conjunctival injection, periorbital swelling Respiratory exam: Present: normal lung sounds bilaterally. Absent: respiratory distress, wheezes, rales, rhonchi, stridor Cardiovascular Exam: Present: tachycardia, irregular rhythm, normal heart sounds. Absent: regular rate, normal rhythm, systolic murmur, diastolic murmur , rubs, gallop, clicks GI/Abdominal exam: Present: soft, normal bowel sounds. Absent: distended, tenderness, guarding, rebound, rigid Course Vital Signs 02/12/18 08:40 Temperature 98.3 F Pulse Rate 89 Respiratory 20 Rate Blood Pressure 142/84 O2 Sat by Pulse 95 Oximetry EKG Findings - EKG Comments: EKG Findings:: EKG performed at 910 A. fib with RVR rate with a rate of 110, QRS 112 QT/QTC 310/419 Medical Decision Making - Medical Decision Making -year-old female presented emergency from for shortness breath, palpitations. Patient noted had A. fib with mild RVR. Patient has a heart rate between 100 1: 15. Patient will be admitted for cardiology evaluation. She does have mild fluid overload. - Lab Data Result diagrams: 02/12/18 09:15 02/12/18 09:15 Lab Results 02/12/18 02/12/18 02/12/18 Range/Units 09:15 09:15 09:15 WBC 6.7 (3.8-10.6) k/uL RBC 4.60 (3.80-5.40) m/uL Hgb 13.3 (11.4-16.0) gm/dL Hct 41.1 (34.0-46.0) % MCV 89.4 (80.0-100.0) fL MCH 28.9 (25.0-35.0) pg MCHC 32.3 (31.0-37.0) g/dL RDW 14.6 (11.5-15.5) % Plt Count 101 L (150-450) k/uL Neutrophils % 56 % Lymphocytes % 32 % Monocytes % 8 % Eosinophils % 2 % Basophils % 1 % Neutrophils # 3.7 (1.3-7.7) k/uL Lymphocytes # 2.1 (1.0-4.8) k/uL Monocytes # 0.5 (0-1.0) k/uL Eosinophils # 0.1 (0-0.7) k/uL Basophils # 0.0 (0-0.2) k/uL Large Platelets Present RBC Morphology Normal PT (9.0-12.0) sec INR (<1.2) APTT (22.0-30.0) sec Sodium 140 (137-145) mmol/L Potassium 4.7 (3.5-5.1) mmol/L Chloride 108 H (98-107) mmol/L Carbon Dioxide 25 (22-30) mmol/L Anion Gap 7 mmol/L BUN 20 H (7-17) mg/dL Creatinine 0.59 (0.52-1.04) mg/dL Est GFR (CKD-EPI)AfAm >90 (>60 ml/min/1.73 sqM) Est GFR (CKD-EPI)NonAf 86 (>60 ml/min/1.73 sqM) Glucose 97 (74-99) mg/dL Calcium 8.6 (8.4-10.2) mg/dL Magnesium 2.1 (1.6-2.3) mg/dL Total Bilirubin 1.0 (0.2-1.3) mg/dL AST 80 H (14-36) U/L ALT 132 H (9-52) U/L Alkaline Phosphatase 115 (38-126) U/L Total Creatine Kinase 30 (30-135) U/L CK-MB (CK-2) 1.8 (0.0-2.4) ng/mL CK-MB (CK-2) Rel Index 6.0 Troponin I <0.012 (0.000-0.034) ng/mL NT-Pro-B Natriuret Pep pg/mL Total Protein 5.6 L (6.3-8.2) g/dL Albumin 3.4 L (3.5-5.0) g/dL 02/12/18 02/12/18 Range/Units 09:15 09:15 WBC (3.8-10.6) k/uL RBC (3.80-5.40) m/uL Hgb (11.4-16.0) gm/dL Hct (34.0-46.0) % MCV (80.0-100.0) fL MCH (25.0-35.0) pg MCHC (31.0-37.0) g/dL RDW (11.5-15.5) % Plt Count (150-450) k/uL Neutrophils % % Lymphocytes % % Monocytes % % Eosinophils % % Basophils % % Neutrophils # (1.3-7.7) k/uL Lymphocytes # (1.0-4.8) k/uL Monocytes # (0-1.0) k/uL Eosinophils # (0-0.7) k/uL Basophils # (0-0.2) k/uL Large Platelets RBC Morphology PT 10.8 (9.0-12.0) sec INR 1.1 (<1.2) APTT 27.0 (22.0-30.0) sec Sodium (137-145) mmol/L Potassium (3.5-5.1) mmol/L Chloride (98-107) mmol/L Carbon Dioxide (22-30) mmol/L Anion Gap mmol/L BUN (7-17) mg/dL Creatinine (0.52-1.04) mg/dL Est GFR (CKD-EPI)AfAm (>60 ml/min/1.73 sqM) Est GFR (CKD-EPI)NonAf (>60 ml/min/1.73 sqM) Glucose (74-99) mg/dL Calcium (8.4-10.2) mg/dL Magnesium (1.6-2.3) mg/dL Total Bilirubin (0.2-1.3) mg/dL AST (14-36) U/L ALT (9-52) U/L Alkaline Phosphatase (38-126) U/L Total Creatine Kinase (30-135) U/L CK-MB (CK-2) (0.0-2.4) ng/mL CK-MB (CK-2) Rel Index Troponin I (0.000-0.034) ng/mL NT-Pro-B Natriuret Pep 1040 pg/mL Total Protein (6.3-8.2) g/dL Albumin (3.5-5.0) g/dL Disposition Clinical Impression: Pulmonary edema, Atrial fibrillation with RVR Disposition: ADMITTED IP TO THIS HOSP Condition: Fair Referrals: Bassam Martin MD [Primary Care Provider] - 1-2 days
[2018-02-12 09:32] LABS: Basophils % (A) 1 %; Eosinophils # (A) 0.1 k/uL (0-0.7); Eosinophils % (A) 2 %; HCT 41.1 % (34.0-46.0); HGB 13.3 gm/dL (11.4-16.0); Lymphocytes # (A) 2.1 k/uL (1.0-4.8); Lymphocytes % (A) 32 %; MCH 28.9 pg (25.0-35.0); MCHC 32.3 g/dL (31.0-37.0); MCV 89.4 fL (80.0-100.0); Mean Platelet Volume 10.9; Monocytes # (A) 0.5 k/uL (0-1.0); Monocytes % (A) 8 %; Neutrophils # (A) 3.7 k/uL (1.3-7.7); Neutrophils % (A) 56 %; Platelet Count 101 k/uL (150-450); RDW 14.6 % (11.5-15.5); WBC 6.7 k/uL (3.8-10.6)
[2018-02-12 09:42] LABS: INR 1.1 (<1.2); Prothrombin Time 10.8 sec (9.0-12.0)
[2018-02-12 09:51] LABS: Large Platelets Present
[2018-02-12 09:53] LABS: Creatine Kinase 30 U/L (30-135)
[2018-02-12 10:05] LABS: Creatine Kinase MB 1.8 ng/mL (0.0-2.4); Troponin I <0.012 ng/mL (0.000-0.034)
[2018-02-12 10:23] LABS: ALT 132 U/L (9-52); AST 80 U/L (14-36); Albumin 3.4 g/dL (3.5-5.0); Alkaline Phosphatase 115 U/L (38-126); Anion Gap 7 mmol/L; Blood Urea Nitrogen 20 mg/dL (7-17); Calcium 8.6 mg/dL (8.4-10.2); Carbon Dioxide 25 mmol/L (22-30); Chloride 108 mmol/L (98-107); Glucose 97 mg/dL (74-99); Magnesium 2.1 mg/dL (1.6-2.3); Potassium 4.7 mmol/L (3.5-5.1); Sodium 140 mmol/L (137-145); Total Protein 5.6 g/dL (6.3-8.2)
[2018-02-12] MEDS ORDERED: ACETAMINOPHEN TAB 325 MG TAB PO PRN (10:42)
[2018-02-12] MEDS ORDERED: FUROSEMIDE 10 MG/ML 4 ML VIAL IV STA (10:42)
--- NOTE | 2018-02-12 10:44 | XR ---
EXAMINATION TYPE: XR chest 2V DATE OF EXAM: 02/12/2018 COMPARISON: 01/24/2018 HISTORY: Shortness of breath TECHNIQUE: Frontal and lateral views of the chest are obtained. FINDINGS: Scattered senescent parenchymal changes noted. Hyperinflation compatible with COPD. Patchy basilar infiltrates noted. Correlate for pneumonia. Heart size is stable. Mediastinal structures are stable and grossly unremarkable. No evidence for hilar prominence. Degenerative changes dorsal spine. IMPRESSION: 1. Patchy basilar infiltrates noted. Correlate for pneumonia.
--- NOTE | 2018-02-12 14:36 | P.HPIM ---
History of Present Illness 83-year-old pleasant female with known history of atrial fibrillation because of uncontrolled heart rate and patient apparently gained about 15 pounds in 1 week. Patient does not have any history of systolic dysfunction. Patient's previous ejection fraction was 55-60% patient is on flecainide and metoprolol for A. fib and is on 2.5 mg of eliquis. Denied any fever chills nausea vomiting patient has occasional dry cough. Chest x-ray showed mild bilateral lower lobe infiltrates consistent with atelectasis no signs or symptoms of pneumonia no fever. Patient does have pedal edema is a minimally elevated JVD with mildly elevated liver enzymes, volume overload is secondary to atrial fibrillation and elevated liver enzymes are secondary to hepatic congestion. Patient's blood pressure at home are around of very low with systolics going down to high 80s to 90s because of which I'm cutting down the dose of lisinopril to 2.5 mg Review of Systems REVIEW OF SYSTEMS: CONSTITUTIONAL: No fever, no malaise, no fatigue. HEENT: No recent visual problems or hearing problems. Denied any sore throat. CARDIOVASCULAR: No chest pain, orthopnea, PND, no syncope. PULMONARY: No shortness of breath, no cough, no hemoptysis. GASTROINTESTINAL: No diarrhea, no nausea, no vomiting, no abdominal pain. Normoactive bowel sounds. NEUROLOGICAL: No headaches, no weakness, no numbness. HEMATOLOGICAL: Denies any bleeding or petechiae. GENITOURINARY: Denies any burning micturition, frequency, or urgency. MUSCULOSKELETAL/RHEUMATOLOGICAL: Denies any joint pain, swelling, or any muscle pain. ENDOCRINE: Denies any polyuria or polydipsia. The rest of the 14-point review of systems is negative. Past Medical History Past Medical History: Atrial Fibrillation, Cancer Additional Past Medical History / Comment(s): Structures sleep apnea not using CPAP since lost 60#, lymphoma (cll), asthma not chronically on therapy, venous insufficiency, Vulvar cancer , basal cell skin cancer History of Any Multi-Drug Resistant Organisms: None Reported Past Surgical History: Hysterectomy, Orthopedic Surgery, Tonsillectomy Additional Past Surgical History / Comment(s): Right-sided knee surgery for repair of laceration, partial hysterectomy, 2 nasal surgeries for basal cell skin cancer and rt arm, surgery on right third and fourth digit for ganglion cyst,2 d&c's(sx 2 miscarriages), colonoscopy Past Anesthesia/Blood Transfusion Reactions: No Reported Reaction Additional Past Anesthesia/Blood Transfusion Reaction / Comment(s): slow to wake up Past Psychological History: No Psychological Hx Reported Smoking Status: Never smoker - Past Family History Mother Additional Family Medical History / Comment(s): Breast cancer Father Family Medical History: Myocardial Infarction ([place]) Additional Family Medical History / Comment(s): in his early 70's Medications and Allergies Home Medications Medication Instructions Recorded Confirmed Type Ascorbic Acid [Vitamin C] 500 mg PO DAILY 12/25/16 02/12/18 History Cholecalciferol [Vitamin D3] 1,000 unit PO DAILY 12/25/16 02/12/18 History Multivitamins, Thera [Multivitamin 1 tab PO DAILY 12/25/16 02/12/18 History (formulary)] Ibrutinib [Imbruvica] 420 mg PO DAILY@199908/11/17 02/12/18 History Apixaban [Eliquis] 2.5 mg PO BID 01/24/18 02/12/18 History Flecainide [Tambocor] 100 mg PO Q12HR tab 01/26/18 02/12/18 Rx Lisinopril [Zestril] 5 mg PO DAILY 01/26/18 02/12/18 History Metoprolol Tartrate [Lopressor] 25 mg PO TID tab 01/26/18 02/12/18 Rx Allergies Allergy/AdvReac Type Severity Reaction Status Date / Time No Known Allergies Allergy Verified 02/12/18 12:36 Physical Exam Vitals: Vital Signs Temp Pulse Resp BP Pulse Ox 02/12/18 14:04 97.8 F 97 20 139/95 97 02/12/18 10:53 102 H 20 166/117 97 02/12/18 08:40 98.3 F 89 20 142/84 95 Intake and Output 02/11/18 02/12/18 02/12/18 22:59 06:59 14:59 Other: Weight 185 kg PHYSICAL EXAMINATION: GENERAL: The patient is alert and oriented x3, not in any acute distress. Well developed, well nourished. HEENT: Pupils are round and equally reacting to light. EOMI. No scleral icterus. No conjunctival pallor. Normocephalic, atraumatic. No pharyngeal erythema. No thyromegaly. CARDIOVASCULAR: S1 and S2 present. No murmurs, rubs, or gallops. Elevated JVD PULMONARY: Chest is clear to auscultation, no wheezing or crackles. ABDOMEN: Soft, nontender, nondistended, normoactive bowel sounds. No palpable organomegaly. MUSCULOSKELETAL: No joint swelling or deformity. EXTREMITIES: No cyanosis, clubbing, bilateral 1+ pitting pedal edema NEUROLOGICAL: Gross neurological examination did not reveal any focal deficits. SKIN: No rashes. Results CBC & Chem 7: 02/12/18 09:15 02/12/18 09:15 Labs: Abnormal Lab Results - Last 24 Hours (Table) 02/12/18 02/12/18 Range/Units 09:15 09:15 Plt Count 101 L (150-450) k/uL Chloride 108 H (98-107) mmol/L BUN 20 H (7-17) mg/dL AST 80 H (14-36) U/L ALT 132 H (9-52) U/L Total Protein 5.6 L (6.3-8.2) g/dL Albumin 3.4 L (3.5-5.0) g/dL Assessment and Plan Plan: -Atrial fibrillation with rapid ventricular rate rate: Patient's flecainide dose will be increased 150 twice a day can he was same dose of metoprolol and patient appears to have persistent A. fib continue with anti-correlation at -volume overload may have some contrast on dysfunction with acute exacerbation patient was given a dose of Lasix today will be given on the dose of Lasix tomorrow. We will monitor liver function and kidney function, volume overload can be related to A. fib -Hypertension -Sleep apnea uses CPAP machine -Lymphoma for which patient is on targeted therapy which will be continued.
[2018-02-12 14:39] VITALS: BMI 30.2
[2018-02-12] MEDS: METOPROLOL TARTRATE 25 MG TAB PO SCH ×2 (14:49→20:49)
[2018-02-12] MEDS ORDERED: MD COMMUNICATION TO PHARMACY 1 EACH MISC PO SCH (20:00)
[2018-02-12] MEDS: APIXABAN 2.5 MG TABLET PO SCH (20:49)
[2018-02-12] MEDS: FLECAINIDE 50 MG TAB PO SCH (20:49)
[2018-02-12] MEDS: Ibrutinib [Imbruvica] 420 MG PO SCH (20:50)
[2018-02-12] MEDS ORDERED: FLECAINIDE 50 MG TAB PO SCH (21:00)
[2018-02-12] MEDS ORDERED: APIXABAN 2.5 MG TABLET PO SCH (21:00)
[2018-02-13 07:58] LABS: ALT 108 U/L (9-52); AST 48 U/L (14-36); Albumin 3.3 g/dL (3.5-5.0); Alkaline Phosphatase 113 U/L (38-126); Anion Gap 4 mmol/L; Blood Urea Nitrogen 17 mg/dL (7-17); Calcium 8.7 mg/dL (8.4-10.2); Carbon Dioxide 31 mmol/L (22-30); Chloride 103 mmol/L (98-107); Glucose 87 mg/dL (74-99); Sodium 138 mmol/L (137-145); Total Bilirubin 1.3 mg/dL (0.2-1.3); Total Protein 5.5 g/dL (6.3-8.2)
[2018-02-13] MEDS ORDERED: LISINOPRIL 5 MG TAB PO SCH ×2 (09:00)
[2018-02-13] MEDS: FLECAINIDE 50 MG TAB PO SCH ×2 (09:56→20:22)
[2018-02-13] MEDS: LISINOPRIL 2.5 MG TAB PO SCH (09:57)
[2018-02-13] MEDS: MULTIVITAMINS, THERA 1 EACH TAB PO SCH (09:57)
[2018-02-13] MEDS: METOPROLOL TARTRATE 25 MG TAB PO SCH ×3 (09:57→22:24)
[2018-02-13] MEDS: APIXABAN 2.5 MG TABLET PO SCH ×2 (09:57→20:23)
--- NOTE | 2018-02-13 11:08 | P.CRDCN ---
History of Present Illness Consult date: 02/13/18 Requesting physician: Brett Richardson Consult reason: atrial fibrillation, congestive heart failure Chief complaint: Chest pressure and palpitations History of present illness: This is a pleasant 83-year-old female with history of sleep apnea, paroxysmal atrial fibrillation, CLL, hypertension, who was just recently in the hospital in January at that time diagnosed with atrial fibrillation with rapid ventricular response. She was initiated on beta michael and flecainide at that time along with anticoagulation. Echo was performed which revealed a normal left ventricular systolic function. According to the patient, she has noticed intermittent pressure with associated palpitations and heart racing for the past one week or so., She said that the symptoms come and go, at times her heart rate feels normal and at other times that she can feel it going fast and irregular. Chest x-ray performed on admission here showed patchy basilar infiltrates correlate for possible pneumonia. Her EKG on arrival here showed atrial fibrillation with moderately rapid ventricular response. I pressure 138/ 90 with a heart rate in the low 100s. 96% on room air. She is afebrile. White blood cell count 6.7, hemoglobin 13.3, hematocrit 41.1, platelet count 101. Sodium 138, potassium 4.0, BUN 17, creatinine 0.6. AST 80 on admission 48 this morning ALT 132 on admission, 108 this morning, magnesium 2.1. Troponin negative. BNP level 1040. Total protein 5.5 and albumin 3.3. At the time of my examination this morning, she continues to be in atrial fibrillation , and she can feel the palpitations and pressure in her chest. Her dose of flecainide was increased on admission here to 150 twice a day, she was on 100 twice a day at home. She continues to be on the metoprolol 25 mg 3 times a day. Patient also received one dose of IV Lasix in the emergency room. Past Medical History Past Medical History: Atrial Fibrillation, Cancer Additional Past Medical History / Comment(s): Structures sleep apnea not using CPAP since lost 60#, lymphoma (cll), asthma not chronically on therapy, venous insufficiency, Vulvar cancer , basal cell skin cancer History of Any Multi-Drug Resistant Organisms: None Reported Past Surgical History: Hysterectomy, Orthopedic Surgery, Tonsillectomy Additional Past Surgical History / Comment(s): Right-sided knee surgery for repair of laceration, partial hysterectomy, 2 nasal surgeries for basal cell skin cancer and rt arm, surgery on right third and fourth digit for ganglion cyst,2 d&c's(sx 2 miscarriages), colonoscopy Past Anesthesia/Blood Transfusion Reactions: No Reported Reaction Additional Past Anesthesia/Blood Transfusion Reaction / Comment(s): slow to wake up Past Psychological History: No Psychological Hx Reported Smoking Status: Never smoker - Past Family History Mother Additional Family Medical History / Comment(s): Breast cancer Father Family Medical History: Myocardial Infarction ([place]) Additional Family Medical History / Comment(s): in his early 70s Medications and Allergies Home Medications Medication Instructions Recorded Confirmed Type Ascorbic Acid [Vitamin C] 500 mg PO DAILY 12/25/16 02/12/18 History Cholecalciferol [Vitamin D3] 1,000 unit PO DAILY 12/25/16 02/12/18 History Multivitamins, Thera [Multivitamin 1 tab PO DAILY 12/25/16 02/12/18 History (formulary)] Ibrutinib [Imbruvica] 420 mg PO DAILY@199908/11/17 02/12/18 History Apixaban [Eliquis] 2.5 mg PO BID 01/24/18 02/12/18 History Flecainide [Tambocor] 100 mg PO Q12HR tab 01/26/18 02/12/18 Rx Lisinopril [Zestril] 5 mg PO DAILY 01/26/18 02/12/18 History Metoprolol Tartrate [Lopressor] 25 mg PO TID tab 01/26/18 02/12/18 Rx Allergies Allergy/AdvReac Type Severity Reaction Status Date / Time No Known Allergies Allergy Verified 02/12/18 12:36 Physical Exam Vitals: Vital Signs Temp Pulse Pulse Resp BP BP Pulse Ox 02/13/18 08:00 114 H 17 142/77 97 02/13/18 04:00 97.6 F 103 H 17 128/81 95 02/13/18 00:10 97.5 F L 97 18 139/96 96 02/12/18 21:40 123 H 19 143/95 96 02/12/18 20:15 97.0 F L 128 H 18 135/95 97 02/12/18 14:40 108 H 02/12/18 14:31 97.3 F L 108 H 18 123/76 96 02/12/18 14:04 97.8 F 97 20 139/95 97 02/12/18 10:53 102 H 20 166/117 97 Intake and Output 02/12/18 02/13/18 02/13/18 22:59 06:59 14:59 Intake Total 240 Output Total 1 Balance 240 -1 Intake: Oral 240 Output: Urine 1 Other: Voiding Method Toilet Toilet # Voids 1 3 Weight 82 kg PHYSICAL EXAMINATION: GENERAL: 83-year-old female in no acute distress at the time of my examination HEENT: Head is atraumatic, normocephalic. Pupils equal, round. Sclera anicteric. Conjunctiva are clear. Mucous membranes of the mouth are moist. Neck is supple. There is no elevated jugular venous pressure. No carotid bruit is heard. HEART EXAMINATION: Heart S1-S2 irregularly irregular CHEST EXAMINATION: Circumflex clear with mild diminished air entry to the bases. ABDOMEN: Soft, nontender. Bowel sounds are heard. No organomegaly noted. EXTREMITIES: 2+ peripheral pulses with trace evidence of peripheral edema and no calf tenderness noted. NEUROLOGIC patient is awake, alert and oriented 3 . . Results 02/12/18 09:15 02/13/18 06:47 Cardiac Enzymes 02/12/18 02/13/18 Range/Units 09:15 06:47 AST 80 H 48 H (14-36) U/L Comprehensive Metabolic Panel 02/12/18 02/13/18 Range/Units 09:15 06:47 Sodium 140 138 (137-145) mmol/L Potassium 4.7 4.0 (3.5-5.1) mmol/L Chloride 108 H 103 (98-107) mmol/L Carbon Dioxide 25 31 H (22-30) mmol/L BUN 20 H 17 (7-17) mg/dL Creatinine 0.59 0.63 (0.52-1.04) mg/dL Glucose 97 87 (74-99) mg/dL Calcium 8.6 8.7 (8.4-10.2) mg/dL AST 80 H 48 H (14-36) U/L ALT 132 H 108 H (9-52) U/L Alkaline Phosphatase 115 113 (38-126) U/L Total Protein 5.6 L 5.5 L (6.3-8.2) g/dL Albumin 3.4 L 3.3 L (3.5-5.0) g/dL Current Medications Generic Name Dose Route Start Last Admin Trade Name Freq PRN Reason Stop Dose Admin Acetaminophen 650 mg 02/12/18 10:42 Tylenol Tab PO Q6HR PRN Mild Pain or Fever > 100.5 Apixaban 2.5 mg 02/12/18 21:00 02/13/18 09:57 Eliquis PO 2.5 mg BID ARTHUR Administration Flecainide Acetate 150 mg 02/12/18 21:00 02/13/18 09:56 Tambocor PO 150 mg Q12HR ARTHUR Administration Lisinopril 2.5 mg 02/13/18 09:00 02/13/18 09:57 Zestril PO 2.5 mg DAILY ARTHUR Administration Metoprolol Tartrate 25 mg 02/12/18 16:00 02/13/18 09:57 Lopressor PO 25 mg TID ARTHUR Administration Multivitamins 1 each 02/13/18 09:00 02/13/18 09:57 Theragran PO 1 each DAILY ARTHUR Administration Ibrutinib [Imbruvica 420 mg 02/12/18 20:00 02/12/18 20:50 ] 420 Mg PO 420 mg DAILY@1999 ARTHUR Administration Intake and Output 02/12/18 02/13/18 02/13/18 22:59 06:59 14:59 Intake Total 240 Output Total 1 Balance 240 -1 Intake: Oral 240 Output: Urine 1 Other: Voiding Method Toilet Toilet # Voids 1 3 Weight 82 kg 02/12/18 09:15 02/13/18 06:47 EKG Interpretations (text) EKG shows atrial fibrillation with rapid ventricular response Assessment and Plan Plan: Assessment and plan #1 atriial fibrillation with rapid ventricular response, paroxysmal. #2 CLL #3 sleep apnea Plan We will increase the flecainide dose to 150 mg by mouth twice a day, we do not need to repeat an echo as she just recently had one performed. If the patient converts to normal sinus rhythm we will continue with the flecainide at that dose. If she remains in atrial fibrillation by tomorrow, patient will undergo elective cardioversion by Dr. Colvin and then be initiated on amiodarone. This was explained to the patient in detail. DNP note has been reviewed, I agree with a documented findings and plan of care. Patient was seen and examined.
[2018-02-13] MEDS: FUROSEMIDE 10 MG/ML 4 ML VIAL IV SCH ×2 (12:23→20:22)
[2018-02-13] MEDS: SODIUM CHLORIDE 0.9% 1,000 ML IV SCH (12:35)
--- NOTE | 2018-02-13 13:06 | P.PN ---
Subjective Patient is admitted for atrial fibrillation with rapid ventricular rate increase the dose of flecainide without any significant improvement. Patient was evaluated by cardiology will monitor 1 more night if her heart rate is not under control patient will undergo electrical cardioversion patient is already in anti-correlation at this time. Patient has some pulmonary edema secondary to A. fib will receive 2 more doses of Lasix. Patient has some hepatic congestion with elevated liver enzymes which are improving. Was started on amiodarone after cardioversion if required Constitutional: Denied any fatigue denied any fever. Cardio vascular: denied any chest pain, palpitations Gastrointestinal denied any nausea vomiting Pulmonary: Denied any shortness of breath cough Neurologic denied any new focal deficits All inpatient medications were reviewed and appropriate changes in these medications as dictated in the interval history and assessment and plan. Objective - Vital Signs Vital signs: Vital Signs Temp 97.6 F 02/13/18 04:00 Pulse 114 H 02/13/18 08:00 Resp 17 02/13/18 08:00 BP 142/77 02/13/18 08:00 Pulse Ox 97 02/13/18 08:00 Intake & Output 02/12/18 02/13/18 02/13/18 18:59 06:59 18:59 Intake Total 240 240 Output Total 1 Balance 240 239 Weight 85 kg 82 kg Intake: Oral 240 240 Output: Urine 1 Other: Voiding Method Toilet # Voids 1 3 - Exam PHYSICAL EXAMINATION: GENERAL: The patient is alert and oriented x3, not in any acute distress. Well developed, well nourished. HEENT: Pupils are round and equally reacting to light. EOMI. No scleral icterus. No conjunctival pallor. Normocephalic, atraumatic. No pharyngeal erythema. No thyromegaly. CARDIOVASCULAR: S1 and S2 present. No murmurs, rubs, or gallops. Elevated JVD, tachycardic irregularly irregular rhythm PULMONARY: Chest is clear to auscultation, no wheezing or crackles. ABDOMEN: Soft, nontender, nondistended, normoactive bowel sounds. No palpable organomegaly. MUSCULOSKELETAL: No joint swelling or deformity. EXTREMITIES: No cyanosis, clubbing, pitting pedal edema improved NEUROLOGICAL: Gross neurological examination did not reveal any focal deficits. SKIN: No rashes. - Labs CBC & Chem 7: 02/12/18 09:15 02/13/18 06:47 Labs: Abnormal Lab Results - Last 24 Hours (Table) 02/13/18 Range/Units 06:47 Carbon Dioxide 31 H (22-30) mmol/L AST 48 H (14-36) U/L ALT 108 H (9-52) U/L Total Protein 5.5 L (6.3-8.2) g/dL Albumin 3.3 L (3.5-5.0) g/dL Assessment and Plan Plan: -Atrial fibrillation with rapid ventricular rate rate: Heart rate remains high, monitor 1 more day on increased dose of flecainide further management as mentioned above with cardioversion -volume overload may have chronic diastolic dysfunction with acute exacerbation patient will be continued on Lasix until tomorrow We will monitor liver function and kidney function, volume overload can be related to A. fib -Elevated liver enzymes which are improving secondary to hepatic congestion. -Hypertension -Sleep apnea uses CPAP machine -Lymphoma for which patient is on targeted therapy which will be continued.
[2018-02-13] MEDS: Ibrutinib [Imbruvica] 420 MG PO SCH (20:23)
[2018-02-14 06:46] LABS: Albumin 3.4 g/dL (3.5-5.0); Calcium 8.7 mg/dL (8.4-10.2); Potassium 3.9 mmol/L (3.5-5.1); Total Bilirubin 0.9 mg/dL (0.2-1.3); Total Protein 5.6 g/dL (6.3-8.2)
[2018-02-14] MEDS: FLECAINIDE 50 MG TAB PO SCH ×2 (08:30→20:22)
[2018-02-14] MEDS: LISINOPRIL 2.5 MG TAB PO SCH (08:30)
[2018-02-14] MEDS: APIXABAN 2.5 MG TABLET PO SCH (08:30)
[2018-02-14] MEDS: METOPROLOL TARTRATE 25 MG TAB PO SCH ×2 (08:30→20:21)
[2018-02-14] MEDS: MULTIVITAMINS, THERA 1 EACH TAB PO SCH (08:30)
[2018-02-14] MEDS ORDERED: IV FLUID CONTINUATION 1,000 ML IV ONE ×2 (09:09)
[2018-02-14] MEDS ORDERED: PROPOFOL 10 MG/ML 20 ML VIAL IV ONE (09:34)
[2018-02-14] MEDS ORDERED: LIDOCAINE 1% INJ 10MG/ML (20 ML MDV) ONE (09:34)
[2018-02-14] MEDS ORDERED: BENZOCAINE SPRAY 1 CAN MUCOUS MEM ONE (09:42)
--- NOTE | 2018-02-14 11:03 | CE ---
CARDIAC ELECTROPHYSIOLOGY REPORT CARDIOVERSION PROCEDURE NOTE INDICATION: Atrial fibrillation. PROCEDURE: After explaining the procedure to the patient, its risks and the complications, after obtaining sedated state and performing transesophageal echocardiogram, a synchronized biphasic cardioversion using 100 joules was performed with jehovah's witness of normal sinus rhythm. There was no immediate complication. RUAP / ARELY: [id number] /
--- NOTE | 2018-02-14 11:03 | ECHOT ---
TRANSESOPHAGEAL ECHOCARDIOGRAM INDICATION: Atrial fibrillation. PROCEDURE: After explaining the procedure to the patient, its risks and complication, blood pressure, heart rate, O2 saturation was monitored, the throat was sprayed with Cetacaine. She received sedation per Anesthesia Department. The probe was introduced into the esophagus. Images were obtained. Following that, the probe was removed. There was no immediate complication. FINDINGS: Left atrial size is normal. The left appendage is normal. The left ventricular size is normal. There is mild global hypokinesis, estimated ejection fraction 45%. The aortic valve revealed fibrocalcific change with aortic cusp with preserved opening. Mitral anulus calcification was noted. The tricuspid valve is normal. Pulmonic valve is normal, descending thoracic aorta revealed mild atherosclerotic changes. No pericardial effusion was noted. Contrast bubble study revealed no evidence of shunting across the interatrial septum. Doppler pulse wave and color Doppler were obtained and revealed a moderate mitral and tricuspid regurgitation. There was no shunting by color Doppler study. CONCLUSION: 1. Normal left ventricular size with mild global hypokinesis. 2. Normal appearance left atrial appendage. 3. Moderate mitral and tricuspid regurgitation with no evidence of pulmonary hypertension. 4. Aortic sclerosis with no stenosis. 5. Mitral annulus calcification. 6. No shunting by color Doppler study. MMODL / IJN: [id number] /
[2018-02-14] MEDS: SODIUM CHLORIDE 0.9% 1,000 ML IV SCH ×2 (11:32)
--- NOTE | 2018-02-14 19:28 | P.PN ---
Subjective Progress Note Date: 02/14/18 Progress note being dictated for Dr. Richardson. Interval history:Patient is admitted for atrial fibrillation with rapid ventricular rate increase the dose of flecainide without any significant improvement. Patient was evaluated by cardiology will monitor 1 more night if her heart rate is not under control patient will undergo electrical cardioversion patient is already in anti-correlation at this time. Patient has some pulmonary edema secondary to A. fib will receive 2 more doses of Lasix. Patient has some hepatic congestion with elevated liver enzymes which are improving. Was started on amiodarone after cardioversion if required 02/14/2018 underwent NIDIA with successful cardioversion. Moderate mitral and tricuspid regurgitation with no evidence of pulmonary hypertension ,no shunting Continued improvement in LFTs. Denies chest pain, palpitations or increasing shortness of breath. Objective - Vital Signs Vital signs: Vital Signs Temp 97.7 F 02/14/18 16:00 Pulse 57 L 02/14/18 16:00 Resp 16 02/14/18 16:00 BP 117/57 02/14/18 16:00 Pulse Ox 96 02/14/18 16:00 Intake & Output 02/14/18 02/14/18 02/15/18 06:59 18:59 06:59 Intake Total 570 422 Output Total 600 Balance 570 -178 Weight 80.4 kg Intake: IV 200 Intake, IV Titration 120 Amount Sodium Chloride 0.9% 1, 120 000 ml @ 20 mls/hr IV . Q24H [facility] Rx#:[id number] Oral 450 222 Output: Urine 600 Other: Voiding Method Toilet Toilet # Voids 5 - Exam GENERAL: The patient is alert and oriented x3, not in any acute distress. HEENT: Pupils are round and equally reacting to light. EOMI. No scleral icterus. No conjunctival pallor. Normocephalic, atraumatic. CARDIOVASCULAR: S1 and S2 present. No murmurs, rubs, or gallops. no JVD, telemetry sinus rhythm PULMONARY: Chest is clear to auscultation, no wheezing or crackles. ABDOMEN: Soft, nontender, nondistended, normoactive bowel sounds. No palpable organomegaly. MUSCULOSKELETAL: No joint swelling or deformity. EXTREMITIES: No cyanosis, clubbing, pitting pedal edema improved NEUROLOGICAL: Gross neurological examination did not reveal any focal deficits. SKIN: No rashes. - Labs CBC & Chem 7: 02/12/18 09:15 02/14/18 05:39 Labs: Abnormal Lab Results - Last 24 Hours (Table) 02/14/18 Range/Units 05:39 Carbon Dioxide 33 H (22-30) mmol/L BUN 22 H (7-17) mg/dL ALT 89 H (9-52) U/L Total Protein 5.6 L (6.3-8.2) g/dL Albumin 3.4 L (3.5-5.0) g/dL Assessment and Plan Assessment: -Atrial fibrillation with rapid ventricular rate rate, status post NIDIA with successful cardioversion -volume overload may have chronic diastolic dysfunction with acute exacerbation -Elevated liver enzymes which are improving secondary to hepatic congestion. -Hypertension -Sleep apnea uses CPAP machine -Lymphoma Plan: Continue current medication regime ,monitoring and symptomatic treatment. Discharge planning in progress for tomorrow, pending cardiology clearance. The impression and plan of care has been dictated as directed. : I performed a history and examination of this patient, discussed the same with the dictator. I agree with the dictator's note ,documented as a scribe. Any additional findings or plans will be noted.
[2018-02-14] MEDS: Ibrutinib [Imbruvica] 420 MG PO SCH (20:19)
[2018-02-14] MEDS: APIXABAN 5 MG TAB PO SCH (20:22)
[2018-02-15] MEDS ORDERED: ONDANSETRON 4 MG/2 ML VIAL IVP ONE (00:26)
[2018-02-15] MEDS ORDERED: SCOPOLAMINE 1.5MG/72HR PATCH TRANSDERM ONE ×2 (00:26)
[2018-02-15] MEDS ORDERED: HYDROmorphone 0.5 MG/0.5 ML SYRINGE IVP PRN (00:26)
[2018-02-15] MEDS ORDERED: LACTATED RINGERS 1,000 ML IV SCH (00:26)
[2018-02-15] MEDS ORDERED: DEXAMETHASONE SOD PHOSPHATE 10 MG/ML 1 ML VIAL IV ONE ×2 (00:26→05:00)
[2018-02-15] MEDS ORDERED: LIDOCAINE 1% 20 ML VIAL (10MG/ML) FOR IV START INTRADERMA PRN (05:00)
[2018-02-15] MEDS: METOPROLOL TARTRATE 25 MG TAB PO SCH (09:25)
[2018-02-15] MEDS: LISINOPRIL 2.5 MG TAB PO SCH (09:25)
[2018-02-15] MEDS: FLECAINIDE 50 MG TAB PO SCH (09:25)
[2018-02-15] MEDS: MULTIVITAMINS, THERA 1 EACH TAB PO SCH (09:25)
[2018-02-15] MEDS: APIXABAN 5 MG TAB PO SCH (09:26)
[2018-02-15] MEDS: SODIUM CHLORIDE 0.9% 1,000 ML IV SCH ×2 (09:29→13:16)
[2018-02-15 11:18] VITALS: TEMP 97.4
[2018-02-15 13:06] LABS: Appearance,Urine Cloudy (Clear); Bacteria,Urine Occasional /hpf; Bilirubin,Urine Negative (Negative); Blood,Urine Moderate (Negative); Color,Urine Yellow; Glucose,Urine (UA) Negative (Negative); Ketones,Urine Negative (Negative); Leukocyte Esterase,Urine Large (Negative); Mucus,Urine Rare /hpf; Nitrite,Urine Negative (Negative); PH, Urine 5.5 (5.0-8.0); Protein,Urine Trace (Negative); RBC,Urine 88 /hpf (0-5); Specific Gravity,Urine 1.011 (1.001-1.035); Squamous Epithelial Cell,Urine <1 /hpf (0-4); Urobilinogen,Urine <2.0 mg/dL (<2.0); WBC,Urine 18 /hpf (0-5)
[2018-02-15 13:12] VITALS: BP 127/60; PULSE 50; RESP 14
--- NOTE | 2018-02-15 14:08 | P.PN ---
Subjective Progress Note Date: 02/15/18 This is a pleasant 83-year-old female with history of sleep apnea, paroxysmal atrial fibrillation, CLL, hypertension, who was just recently in the hospital in January at that time diagnosed with atrial fibrillation with rapid ventricular response. She was initiated on beta michael and flecainide at that time along with anticoagulation. Echo was performed which revealed a normal left ventricular systolic function. According to the patient, she has noticed intermittent pressure with associated palpitations and heart racing for the past one week or so., She said that the symptoms come and go, at times her heart rate feels normal and at other times that she can feel it going fast and irregular. Chest x-ray performed on admission here showed patchy basilar infiltrates correlate for possible pneumonia. Her EKG on arrival here showed atrial fibrillation with moderately rapid ventricular response. I pressure 138/ 90 with a heart rate in the low 100s. 96% on room air. She is afebrile. White blood cell count 6.7, hemoglobin 13.3, hematocrit 41.1, platelet count 101. Sodium 138, potassium 4.0, BUN 17, creatinine 0.6. AST 80 on admission 48 this morning ALT 132 on admission, 108 this morning, magnesium 2.1. Troponin negative. BNP level 1040. Total protein 5.5 and albumin 3.3. At the time of my examination this morning, she continues to be in atrial fibrillation , and she can feel the palpitations and pressure in her chest. Her dose of flecainide was increased on admission here to 150 twice a day, she was on 100 twice a day at home. She continues to be on the metoprolol 25 mg 3 times a day. Patient also received one dose of IV Lasix in the emergency room. 02/15/2018 Patient underwent elective cardioversion yesterday by Dr. Colvin, remains in a normal sinus rhythm today. She's been up ambulating in the [place] without any difficulty. Heart rate in the mid 50s to low 60s. Hemodynamically stable. Michael noted her soft have some jd urine today so urine was sent to the lab. Objective - Vital Signs Vital signs: Vital Signs Temp 97.4 F L 02/15/18 08:00 Pulse 50 L 02/15/18 12:00 Resp 14 02/15/18 12:00 BP 127/60 02/15/18 12:00 Pulse Ox 97 02/15/18 12:00 Intake & Output 02/14/18 02/15/18 02/15/18 18:59 06:59 18:59 Intake Total 422 760 480 Output Total 600 175 Balance -178 760 305 Weight 82.4 kg Intake: IV 200 Intake, IV Titration 160 Amount Sodium Chloride 0.9% 1, 160 000 ml @ 20 mls/hr IV . Q24H [facility] Rx#:[id number] Oral 222 600 480 Output: Urine 600 175 Other: Voiding Method Toilet Toilet # Voids 1 # Bowel Movements 1 - Exam PHYSICAL EXAMINATION: GENERAL: 83-year-old female in no acute distress at the time of my examination HEENT: Head is atraumatic, normocephalic. Pupils equal, round. Sclera anicteric. Conjunctiva are clear. Mucous membranes of the mouth are moist. Neck is supple. There is no elevated jugular venous pressure. No carotid bruit is heard. HEART EXAMINATION: Heart S1-S2 normal CHEST EXAMINATION: Lungs are clear with mild diminished air entry to the bases. ABDOMEN: Soft, nontender. Bowel sounds are heard. No organomegaly noted. EXTREMITIES: 2+ peripheral pulses with trace evidence of peripheral edema and no calf tenderness noted. NEUROLOGIC patient is awake, alert and oriented 3 . . - Labs CBC & Chem 7: 02/12/18 09:15 02/14/18 05:39 Labs: Abnormal Lab Results - Last 24 Hours (Table) 02/15/18 Range/Units 12:24 Urine Appearance Cloudy H (Clear) Urine Protein Trace H (Negative) Urine Blood Moderate H (Negative) Ur Leukocyte Esterase Large H (Negative) Urine RBC 88 H (0-5) /hpf Urine WBC 18 H (0-5) /hpf Urine Bacteria Occasional H (None) /hpf Urine Mucus Rare H (None) /hpf Assessment and Plan Plan: Assessment and plan #1 atriial fibrillation with rapid ventricular response, paroxysmal. Status post elective cardioversion, currently in normal sinus rhythm. #2 CLL #3 sleep apnea Plan Cardiology's perspective, patient may be able to be discharged home today. We' ll make her a follow-up appointment to see Dr. Colvin in the office post discharge. Patient will be discharged home on Eliquis 5 mg one tablet by mouth twice a day, flecainide 150 twice a day, lisinopril 2.5 daily and metoprolol 25 mg one tablet by mouth twice a day. DNP note has been reviewed, I agree with a documented findings and plan of care. Patient was seen and examined.
--- NOTE | 2018-02-15 15:47 | P.DS ---
Providers Date of admission: 02/12/18 11:43 Expected date of discharge: 02/15/18 Attending physician: Brett Richardson Consults: 02/12/18 10:43 Consult Physician Urgent Consulting Provider: Lex Colvin Consult Reason/Comments: Pulmonary edema, A. fib Do you want consulting provider notified?: Yes Primary care physician: Bassam [facility] Course: Final Diagnoses: -Atrial fibrillation with rapid ventricular rate rate, status post NIDIA with successful cardioversion -volume overload may have chronic diastolic dysfunction with acute exacerbation -Elevated liver enzymes which are improving secondary to hepatic congestion. -Hypertension -Sleep apnea uses CPAP machine -Lymphoma Hospital course:Patient is admitted for atrial fibrillation with rapid ventricular rate increase the dose of flecainide without any significant improvement. Patient was evaluated by cardiology will monitor 1 more night if her heart rate is not under control patient will undergo electrical cardioversion patient is already in anti-correlation at this time. Patient has some pulmonary edema secondary to A. fib will receive 2 more doses of Lasix. Patient has some hepatic congestion with elevated liver enzymes which are improving. Was started on amiodarone after cardioversion if required Underwent NIDIA with successful cardioversion. Moderate mitral and tricuspid regurgitation with no evidence of pulmonary hypertension ,no shunting Continued improvement in LFTs. Telemetry sinus bradycardia, heart rates ranging from 48- 58, beta michael currently on hold. Cleared by cardiology for discharge. Antiarrhythmics as per cardiology. Patient is being discharged home in a stable condition with guarded prognosis. - Exam GENERAL: The patient is alert and oriented x3, not in any acute distress. HEENT: Pupils are round and equally reacting to light. EOMI. No scleral icterus. No conjunctival pallor. Normocephalic, atraumatic. CARDIOVASCULAR: S1 and S2 present. No murmurs, rubs, or gallops. no JVD, telemetry sinus rhythm PULMONARY: Chest is clear to auscultation, no wheezing or crackles. ABDOMEN: Soft, nontender, nondistended, normoactive bowel sounds. No palpable organomegaly. MUSCULOSKELETAL: No joint swelling or deformity. EXTREMITIES: No cyanosis, clubbing, pitting pedal edema improved NEUROLOGICAL: Gross neurological examination did not reveal any focal deficits. SKIN: No rashes. The impression and plan of care has been dictated as directed. : I performed a history and examination of this patient, discussed the same with the dictator. I agree with the dictator's note ,documented as a scribe. Any additional findings or plans will be noted. Time taken 35 minutes Patient Condition at Discharge: Stable Plan - Discharge Summary New Discharge Prescriptions: New Apixaban [Eliquis] 5 mg PO BID #60 tab Flecainide [Tambocor] 150 mg PO Q12HR #60 tab Lisinopril [Zestril] 2.5 mg PO DAILY #30 tab Continue Multivitamins, Thera [Multivitamin (formulary)] 1 tab PO DAILY Cholecalciferol [Vitamin D3] 1,000 unit PO DAILY Ascorbic Acid [Vitamin C] 500 mg PO DAILY Ibrutinib [Imbruvica] 420 mg PO DAILY@1999 Discontinued Apixaban [Eliquis] 2.5 mg PO BID Flecainide [Tambocor] 100 mg PO Q12HR tab Metoprolol Tartrate [Lopressor] 25 mg PO TID tab Lisinopril [Zestril] 5 mg PO DAILY Discharge Medication List Ascorbic Acid [Vitamin C] 500 mg PO DAILY 12/25/16 [History] Cholecalciferol [Vitamin D3] 1,000 unit PO DAILY 12/25/16 [History] Multivitamins, Thera [Multivitamin (formulary)] 1 tab PO DAILY 12/25/16 [History ] Ibrutinib [Imbruvica] 420 mg PO DAILY@199908/11/17 [History] Apixaban [Eliquis] 5 mg PO BID #60 tab 02/15/18 [Rx] Flecainide [Tambocor] 150 mg PO Q12HR #60 tab 02/15/18 [Rx] Lisinopril [Zestril] 2.5 mg PO DAILY #30 tab 02/15/18 [Rx] Follow up Appointment(s)/Referral(s): Lex Colvin MD [STAFF PHYSICIAN] - 02/17/18 2:15 pm Bassam Martin MD [Primary Care Provider] - 02/28/18 3:00 pm (Tuesday -earliest available appointment) Ambulatory/Diagnostic Orders: Complete Blood Count w/diff [LAB.AMB] Time Frame: 3 Days, Location: None Selected Activity/Diet/Wound Care/Special Instructions: HR currently 50, (beta michael currently being held);antiarrhythmics/beta michael-as per cardiology.
== END 2018-02-15 18:11 | disposition home or self-care (01) | DRG 308 ==
LOC: EC 08:37 → 3SCARD 11:43
PROVIDERS: ADMIT Internal Medicine; ATTEND Internal Medicine
PROC: 5A2204Z Restoration of Cardiac Rhythm, Single (ICD-10-PCS; 2018-02-14)
PROC: B24BZZ4 Ultrasonography of Heart with Aorta, Transesophageal (ICD-10-PCS; principal; 2018-02-14 09:30)
DX: I48.1 Persistent atrial fibrillation (principal); I50.33 Acute on chronic diastolic (congestive) heart failure; C91.10 Chronic lymphocytic leukemia of B-cell type not having achieved remission; G47.30 Sleep apnea, unspecified; I08.1 Rheumatic disorders of both mitral and tricuspid valves; K76.1 Chronic passive congestion of liver; I11.0 Hypertensive heart disease with heart failure; Z79.01 Long term (current) use of anticoagulants; Z79.899 Other long term (current) drug therapy; Z80.3 Family history of malignant neoplasm of breast; Z82.49 Family history of ischemic heart disease and other diseases of the circulatory system; Z85.828 Personal history of other malignant neoplasm of skin; Z99.89 Dependence on other enabling machines and devices; Z90.711 Acquired absence of uterus with remaining cervical stump; Z98.890 Other specified postprocedural states
CPT/HCPCS: 36415; 71046; 80053; 81001; 82550; 82553; 83735; 83880; 84484; 85025; 85610; 85730; 92960; 93312; 93320; 93325; 96374; 99285

== ENCOUNTER 2018-02-18 09:16 | Emergency (ER) | payer MEDICARE ==
--- NOTE | 2018-02-18 09:47 | ED ---
General Adult HPI - General Chief complaint: Urogenital Stated complaint: Blood in stool Time Seen by Provider: 02/18/18 09:30 Source: patient, RN notes reviewed Mode of arrival: ambulatory - History of Present Illness Initial comments: Patient 83-year-old female presenting to the emergency room today with a chief complaint hematuria. She does admit that she is on eliquis. She states she noticed blood in her urine yesterday. States that a few episodes today. She does admit that she's been going the bathroom every 2 hours for has not noticed this is more than normal. She denies any pain. She denies any other complaints or symptoms. Patient denies any recent fever, chills, shortness of breath, chest pain, back pain, abdominal pain, nausea or vomiting, numbness or tingling, headaches or visual changes, or any other complaints. - Related Data Home Medications Medication Instructions Recorded Confirmed Ascorbic Acid [Vitamin C] 500 mg PO DAILY 12/25/16 02/12/18 Cholecalciferol [Vitamin D3] 1,000 unit PO DAILY 12/25/16 02/12/18 Multivitamins, Thera [Multivitamin 1 tab PO DAILY 12/25/16 02/12/18 (formulary)] Ibrutinib [Imbruvica] 420 mg PO DAILY@199908/11/17 02/12/18 Previous Rx's Medication Instructions Recorded Apixaban [Eliquis] 5 mg PO BID #60 tab 02/15/18 Flecainide [Tambocor] 150 mg PO Q12HR #60 tab 02/15/18 Lisinopril [Zestril] 2.5 mg PO DAILY #30 tab 02/15/18 Sulfamethox-Tmp 800-160Mg [Bactrim 1 tab PO Q12HR #14 tab 02/18/18 DS 800-160 mg] Allergies Allergy/AdvReac Type Severity Reaction Status Date / Time No Known Allergies Allergy Verified 02/18/18 09:24 Review of Systems ROS Statement: Those systems with pertinent positive or pertinent negative responses have been documented in the HPI. ROS Other: All systems not noted in ROS Statement are negative. Past Medical History Past Medical History: Atrial Fibrillation, Cancer Additional Past Medical History / Comment(s): Structures sleep apnea not using CPAP since lost 60#, lymphoma (cll), asthma not chronically on therapy, venous insufficiency, Vulvar cancer , basal cell skin cancer History of Any Multi-Drug Resistant Organisms: None Reported Past Surgical History: Hysterectomy, Orthopedic Surgery, Tonsillectomy Additional Past Surgical History / Comment(s): Right-sided knee surgery for repair of laceration, partial hysterectomy, 2 nasal surgeries for basal cell skin cancer and rt arm, surgery on right third and fourth digit for ganglion cyst,2 d&c's(sx 2 miscarriages), colonoscopy Past Anesthesia/Blood Transfusion Reactions: No Reported Reaction Additional Past Anesthesia/Blood Transfusion Reaction / Comment(s): slow to wake up Past Psychological History: No Psychological Hx Reported Smoking Status: Never smoker Past Alcohol Use History: None Reported Past Drug Use History: None Reported - Past Family History Mother Additional Family Medical History / Comment(s): Breast cancer Father Family Medical History: Myocardial Infarction ([place]) Additional Family Medical History / Comment(s): in his early 70's General Exam - General Exam Comments Initial Comments: General: The patient is awake and alert, in no distress, and does not appear acutely ill. Neck: The neck is supple, there is no tenderness or JVD. Cardiovascular: There is a regular rate and rhythm. No murmur, rub or gallop is appreciated. Respiratory: Lungs are clear to auscultation, respirations are non-labored, breath sounds are equal. No wheezes, stridor, rales, or rhonchi. Gastrointestinal: Soft, non-distended, non-tender abdomen without masses or organomegaly noted. There is no rebound or guarding present. No CVA tenderness. Musculoskeletal: Normal ROM, no tenderness. Neurological: A&O x 3. CN II-XII intact, There are no obvious motor or sensory deficits. Coordination appears grossly intact. Speech is normal. Skin: Skin is warm and dry and no rashes or lesions are noted. Psychiatric: Cooperative, appropriate mood & affect, normal judgment. Course Vital Signs 02/18/18 09:24 Temperature 98.8 F Pulse Rate 66 Respiratory 18 Rate Blood Pressure 159/68 O2 Sat by Pulse 97 Oximetry Medical Decision Making - Medical Decision Making Case discussed in detail with attending physician Dr. cornelius. Patient's labs been reviewed. Hemoglobin stable. Patient's urinalysis shows greater than 182 red and white cells. Patient given dose Rocephin here in emergency room. Her vitals are stable. She has no complaint or pain other than hematuria. Patient will be treated for urinary tract infection. She'll be discharged home. Advised to hold elirust and follow-up family doctor in the next 2 days. Advised return if symptoms increase or worsen or for any other concerns. - Lab Data Result diagrams: 02/18/18 09:40 02/18/18 09:40 Lab Results 02/18/18 02/18/18 02/18/18 Range/Units 09:30 09:40 09:40 WBC 4.4 (3.8-10.6) k/uL RBC 4.66 (3.80-5.40) m/uL Hgb 13.4 (11.4-16.0) gm/dL Hct 42.3 (34.0-46.0) % MCV 90.8 (80.0-100.0) fL MCH 28.8 (25.0-35.0) pg MCHC 31.7 (31.0-37.0) g/dL RDW 14.3 (11.5-15.5) % Plt Count 74 L (150-450) k/uL Neutrophils % 68 % Lymphocytes % 13 % Monocytes % 15 % Eosinophils % 0 % Basophils % 1 % Neutrophils # 3.0 (1.3-7.7) k/uL Lymphocytes # 0.6 L (1.0-4.8) k/uL Monocytes # 0.7 (0-1.0) k/uL Eosinophils # 0.0 (0-0.7) k/uL Basophils # 0.0 (0-0.2) k/uL Manual Slide Review Performed RBC Morphology Normal PT (9.0-12.0) sec INR (<1.2) APTT (22.0-30.0) sec Sodium 137 (137-145) mmol/L Potassium 4.3 (3.5-5.1) mmol/L Chloride 100 (98-107) mmol/L Carbon Dioxide 28 (22-30) mmol/L Anion Gap 9 mmol/L BUN 16 (7-17) mg/dL Creatinine 0.65 (0.52-1.04) mg/dL Est GFR (CKD-EPI)AfAm >90 (>60 ml/min/1.73 sqM) Est GFR (CKD-EPI)NonAf 84 (>60 ml/min/1.73 sqM) Glucose 90 (74-99) mg/dL Calcium 8.7 (8.4-10.2) mg/dL Total Bilirubin 1.1 (0.2-1.3) mg/dL AST 27 (14-36) U/L ALT 54 H (9-52) U/L Alkaline Phosphatase 91 (38-126) U/L Total Protein 6.2 L (6.3-8.2) g/dL Albumin 3.8 (3.5-5.0) g/dL Urine Color Dark Red Urine Appearance Bloody H (Clear) Urine RBC >182 H (0-5) /hpf Urine WBC >182 H (0-5) /hpf Urine Bacteria Rare H (None) /hpf Urine Mucus Many H (None) /hpf 02/18/18 Range/Units 09:40 WBC (3.8-10.6) k/uL RBC (3.80-5.40) m/uL Hgb (11.4-16.0) gm/dL Hct (34.0-46.0) % MCV (80.0-100.0) fL MCH (25.0-35.0) pg MCHC (31.0-37.0) g/dL RDW (11.5-15.5) % Plt Count (150-450) k/uL Neutrophils % % Lymphocytes % % Monocytes % % Eosinophils % % Basophils % % Neutrophils # (1.3-7.7) k/uL Lymphocytes # (1.0-4.8) k/uL Monocytes # (0-1.0) k/uL Eosinophils # (0-0.7) k/uL Basophils # (0-0.2) k/uL Manual Slide Review RBC Morphology PT 10.2 (9.0-12.0) sec INR 0.9 (<1.2) APTT 28.8 (22.0-30.0) sec Sodium (137-145) mmol/L Potassium (3.5-5.1) mmol/L Chloride (98-107) mmol/L Carbon Dioxide (22-30) mmol/L Anion Gap mmol/L BUN (7-17) mg/dL Creatinine (0.52-1.04) mg/dL Est GFR (CKD-EPI)AfAm (>60 ml/min/1.73 sqM) Est GFR (CKD-EPI)NonAf (>60 ml/min/1.73 sqM) Glucose (74-99) mg/dL Calcium (8.4-10.2) mg/dL Total Bilirubin (0.2-1.3) mg/dL AST (14-36) U/L ALT (9-52) U/L Alkaline Phosphatase (38-126) U/L Total Protein (6.3-8.2) g/dL Albumin (3.5-5.0) g/dL Urine Color Urine Appearance (Clear) Urine RBC (0-5) /hpf Urine WBC (0-5) /hpf Urine Bacteria (None) /hpf Urine Mucus (None) /hpf Disposition Clinical Impression: UTI (urinary tract infection) Disposition: HOME SELF-CARE Condition: Good Instructions: Urinary Tract Infection in Women (ED) Additional Instructions: Please use medication as discussed. Please follow-up with family doctor in the next 2 days of symptoms have not improved. Please return to emergency room if the symptoms increase or worsen or for any other concerns. Prescriptions: Sulfamethox-Tmp 800-160Mg [Bactrim DS 800-160 mg] 1 tab PO Q12HR #14 tab Is patient prescribed a controlled substance at d/c from ED?: No Referrals: Bassam Martin MD [Primary Care Provider] - 1-2 days Time of Disposition: 11:32
[2018-02-18 09:56] LABS: Bacteria,Urine Rare /hpf; Mucus,Urine Many /hpf; RBC,Urine >182 /hpf (0-5); WBC,Urine >182 /hpf (0-5)
[2018-02-18 09:57] LABS: Appearance,Urine Bloody (Clear)
[2018-02-18 09:58] LABS: Color,Urine Dark Red
[2018-02-18 10:16] LABS: INR 0.9 (<1.2); Partial Thromboplastin Time 28.8 sec (22.0-30.0); Prothrombin Time 10.2 sec (9.0-12.0)
[2018-02-18 10:17] LABS: ALT 54 U/L (9-52); AST 27 U/L (14-36); Albumin 3.8 g/dL (3.5-5.0); Alkaline Phosphatase 91 U/L (38-126); Anion Gap 9 mmol/L; Blood Urea Nitrogen 16 mg/dL (7-17); Calcium 8.7 mg/dL (8.4-10.2); Carbon Dioxide 28 mmol/L (22-30); Chloride 100 mmol/L (98-107); Glucose 90 mg/dL (74-99); Potassium 4.3 mmol/L (3.5-5.1); Sodium 137 mmol/L (137-145); Total Bilirubin 1.1 mg/dL (0.2-1.3); Total Protein 6.2 g/dL (6.3-8.2)
[2018-02-18 10:32] LABS: Basophils % (A) 1 %; Eosinophils % (A) 0 %; HCT 42.3 % (34.0-46.0); HGB 13.4 gm/dL (11.4-16.0); Lymphocytes # (A) 0.6 k/uL (1.0-4.8); Lymphocytes % (A) 13 %; MCH 28.8 pg (25.0-35.0); MCHC 31.7 g/dL (31.0-37.0); MCV 90.8 fL (80.0-100.0); Mean Platelet Volume 10.6; Monocytes # (A) 0.7 k/uL (0-1.0); Monocytes % (A) 15 %; Neutrophils % (A) 68 %; RBC 4.66 m/uL (3.80-5.40); RDW 14.3 % (11.5-15.5); WBC 4.4 k/uL (3.8-10.6)
[2018-02-18 10:52] LABS: Platelet Count 74 k/uL (150-450)
[2018-02-18 11:48] VITALS: BP 132/78; PULSE 62; RESP 20; TEMP 97.8
== END 2018-02-18 11:48 | disposition home or self-care (01) ==
LOC: EC 09:16
DX: N39.0 Urinary tract infection, site not specified (principal); I48.91 Unspecified atrial fibrillation; Z85.820 Personal history of malignant melanoma of skin; Z85.72 Personal history of non-Hodgkin lymphomas; Z85.44 Personal history of malignant neoplasm of other female genital organs; Z79.01 Long term (current) use of anticoagulants; Z79.899 Other long term (current) drug therapy
CPT/HCPCS: 36415; 80053; 85025; 85610; 85730; 81001; 87086; 99283; 96365; J0696

== ENCOUNTER 2018-02-24 08:47 | Emergency (ER) | payer MEDICARE ==
[2018-02-24 08:54] VITALS: RESP 18; TEMP 97.7
--- NOTE | 2018-02-24 09:19 | ED ---
General Adult HPI - General Chief complaint: Urogenital Stated complaint: blood in urine Time Seen by Provider: 02/24/18 09:03 Source: patient, RN notes reviewed Mode of arrival: ambulatory Limitations: no limitations - History of Present Illness Initial comments: Patient 83-year-old female presented to the emergency room today with chief complaint of UTI and hematuria. Patient does admit that she was seen here in the emergency room last week and diagnosed with urinary tract infection as she is she had seen some blood in her urine. States that seem to be getting better. She states is some blood again last night and this morning so she came back here to be evaluated. She denies any other complaints or any other symptoms. She does admit that she is on a blood thinner which she began taking again after she saw her job interviewer this week. Patient admits that she was on antibiotics but was advised that antibiotics need to be switched she's been on a new antibiotic of Levaquin over the last 2 days. Patient denies any other complaints or symptoms. Patient denies any recent fever, chills, shortness of breath, chest pain, back pain, abdominal pain, nausea or vomiting, numbness or tingling, dysuria or hematuria, constipation or diarrhea, headaches or visual changes, or any other complaints. - Related Data Home Medications Medication Instructions Recorded Confirmed Ascorbic Acid [Vitamin C] 500 mg PO DAILY 12/25/16 02/24/18 Cholecalciferol [Vitamin D3] 1,000 unit PO DAILY 12/25/16 02/24/18 Multivitamins, Thera [Multivitamin 1 tab PO DAILY 12/25/16 02/24/18 (formulary)] Ibrutinib [Imbruvica] 420 mg PO DAILY@199908/11/17 02/24/18 Levofloxacin [Levaquin] 750 mg PO DAILY 02/24/18 02/24/18 Previous Rx's Medication Instructions Recorded Apixaban [Eliquis] 5 mg PO BID #60 tab 02/15/18 Flecainide [Tambocor] 150 mg PO Q12HR #60 tab 02/15/18 Lisinopril [Zestril] 2.5 mg PO DAILY #30 tab 02/15/18 Allergies Allergy/AdvReac Type Severity Reaction Status Date / Time No Known Allergies Allergy Verified 02/24/18 09:44 Review of Systems ROS Statement: Those systems with pertinent positive or pertinent negative responses have been documented in the HPI. ROS Other: All systems not noted in ROS Statement are negative. Past Medical History Past Medical History: Atrial Fibrillation, Cancer Additional Past Medical History / Comment(s): Structures sleep apnea not using CPAP since lost 60#, lymphoma (cll), asthma not chronically on therapy, venous insufficiency, Vulvar cancer , basal cell skin cancer History of Any Multi-Drug Resistant Organisms: None Reported Past Surgical History: Hysterectomy, Orthopedic Surgery, Tonsillectomy Additional Past Surgical History / Comment(s): Right-sided knee surgery for repair of laceration, partial hysterectomy, 2 nasal surgeries for basal cell skin cancer and rt arm, surgery on right third and fourth digit for ganglion cyst,2 d&c's(sx 2 miscarriages), colonoscopy Past Anesthesia/Blood Transfusion Reactions: No Reported Reaction Additional Past Anesthesia/Blood Transfusion Reaction / Comment(s): slow to wake up Past Psychological History: No Psychological Hx Reported Smoking Status: Never smoker Past Alcohol Use History: None Reported Past Drug Use History: None Reported - Past Family History Mother Additional Family Medical History / Comment(s): Breast cancer Father Family Medical History: Myocardial Infarction ([place]) Additional Family Medical History / Comment(s): in his early 70's General Exam - General Exam Comments Initial Comments: General: The patient is awake and alert, in no distress, and does not appear acutely ill. Neck: The neck is supple, there is no tenderness or JVD. Cardiovascular: There is a regular rate and rhythm. No murmur, rub or gallop is appreciated. Respiratory: Lungs are clear to auscultation, respirations are non-labored, breath sounds are equal. No wheezes, stridor, rales, or rhonchi. Gastrointestinal: Soft, non-distended, non-tender abdomen without masses or organomegaly noted. Musculoskeletal: Normal ROM, no tenderness. Neurological: A&O x 3. CN II-XII intact, There are no obvious motor or sensory deficits. Coordination appears grossly intact. Speech is normal. Skin: Skin is warm and dry and no rashes or lesions are noted. Psychiatric: Cooperative, appropriate mood & affect, normal judgment. Limitations: no limitations Course Vital Signs 02/24/18 08:51 Temperature 97.7 F Pulse Rate 60 Respiratory 18 Rate Blood Pressure 185/67 O2 Sat by Pulse 98 Oximetry Medical Decision Making - Medical Decision Making Patient reexamined at this time shows no signs of distress. She is resting comfortably. Patient has had no symptoms other than hematuria. Was seen here one week ago diagnosed with UTI she had greater than 182 red and white cells in the urine. Today's urine sample does show still greater than 182 red cells. She is on Eliquis. She began taking this or days ago again which was recommended by the job interviewer. Patient does have history of A. fib. Patient white cells down to 55 in the urine. Blood work all stable. Vital stable. Patient doing well has no pain. Will be discharged home advised to continue with Levaquin that was started 2 days ago as urine culture showed it to be susceptible and antibiotics were changed. Patient is advised to follow-up the family doctor with her scheduled appointment 4 days. He is advised to return here to emergency room if any symptoms increase or worsen or for any other concerns. - Lab Data Result diagrams: 02/24/18 09:20 02/24/18 09:20 Lab Results 02/24/18 02/24/18 02/24/18 Range/Units 09:20 09:20 09:20 WBC 3.8 (3.8-10.6) k/uL RBC 4.66 (3.80-5.40) m/uL Hgb 13.3 (11.4-16.0) gm/dL Hct 40.7 (34.0-46.0) % MCV 87.3 (80.0-100.0) fL MCH 28.5 (25.0-35.0) pg MCHC 32.7 (31.0-37.0) g/dL RDW 14.0 (11.5-15.5) % Plt Count 91 L (150-450) k/uL Neutrophils % 49 % Lymphocytes % 34 % Monocytes % 13 % Eosinophils % 2 % Basophils % 1 % Neutrophils # 1.9 (1.3-7.7) k/uL Lymphocytes # 1.3 (1.0-4.8) k/uL Monocytes # 0.5 (0-1.0) k/uL Eosinophils # 0.1 (0-0.7) k/uL Basophils # 0.0 (0-0.2) k/uL PT (9.0-12.0) sec INR (<1.2) APTT (22.0-30.0) sec Sodium 134 L (137-145) mmol/L Potassium 4.9 (3.5-5.1) mmol/L Chloride 98 (98-107) mmol/L Carbon Dioxide 29 (22-30) mmol/L Anion Gap 7 mmol/L BUN 17 (7-17) mg/dL Creatinine 0.60 (0.52-1.04) mg/dL Est GFR (CKD-EPI)AfAm >90 (>60 ml/min/1.73 sqM) Est GFR (CKD-EPI)NonAf 86 (>60 ml/min/1.73 sqM) Glucose 83 (74-99) mg/dL Calcium 8.6 (8.4-10.2) mg/dL Total Bilirubin 0.5 (0.2-1.3) mg/dL AST 28 (14-36) U/L ALT 33 (9-52) U/L Alkaline Phosphatase 78 (38-126) U/L Total Protein 6.2 L (6.3-8.2) g/dL Albumin 3.7 (3.5-5.0) g/dL Urine Color Red Urine Appearance Bloody H (Clear) Urine RBC >182 H (0-5) /hpf Urine WBC 55 H (0-5) /hpf Ur Squamous Epith Cells 2 (0-4) /hpf /14/18 Range/Units 10:12 WBC (3.8-10.6) k/uL RBC (3.80-5.40) m/uL Hgb (11.4-16.0) gm/dL Hct (34.0-46.0) % MCV (80.0-100.0) fL MCH (25.0-35.0) pg MCHC (31.0-37.0) g/dL RDW (11.5-15.5) % Plt Count (150-450) k/uL Neutrophils % % Lymphocytes % % Monocytes % % Eosinophils % % Basophils % % Neutrophils # (1.3-7.7) k/uL Lymphocytes # (1.0-4.8) k/uL Monocytes # (0-1.0) k/uL Eosinophils # (0-0.7) k/uL Basophils # (0-0.2) k/uL PT 10.5 (9.0-12.0) sec INR 1.0 (<1.2) APTT 28.0 (22.0-30.0) sec Sodium (137-145) mmol/L Potassium (3.5-5.1) mmol/L Chloride (98-107) mmol/L Carbon Dioxide (22-30) mmol/L Anion Gap mmol/L BUN (7-17) mg/dL Creatinine (0.52-1.04) mg/dL Est GFR (CKD-EPI)AfAm (>60 ml/min/1.73 sqM) Est GFR (CKD-EPI)NonAf (>60 ml/min/1.73 sqM) Glucose (74-99) mg/dL Calcium (8.4-10.2) mg/dL Total Bilirubin (0.2-1.3) mg/dL AST (14-36) U/L ALT (9-52) U/L Alkaline Phosphatase (38-126) U/L Total Protein (6.3-8.2) g/dL Albumin (3.5-5.0) g/dL Urine Color Urine Appearance (Clear) Urine RBC (0-5) /hpf Urine WBC (0-5) /hpf Ur Squamous Epith Cells (0-4) /hpf Disposition Clinical Impression: UTI (urinary tract infection) Disposition: HOME SELF-CARE Condition: Good Instructions: Urinary Tract Infection in Women (ED) Additional Instructions: Please use medication as discussed. Please follow-up with family doctor in the next 2-5 days of symptoms have not improved. Please return to emergency room if the symptoms increase or worsen or for any other concerns. Is patient prescribed a controlled substance at d/c from ED?: No Referrals: Bassam Martin MD [Primary Care Provider] - 1-2 days Time of Disposition: 11:08
[2018-02-24 10:02] LABS: Basophils % (A) 1 %; Eosinophils # (A) 0.1 k/uL (0-0.7); Eosinophils % (A) 2 %; HCT 40.7 % (34.0-46.0); HGB 13.3 gm/dL (11.4-16.0); Lymphocytes # (A) 1.3 k/uL (1.0-4.8); Lymphocytes % (A) 34 %; MCH 28.5 pg (25.0-35.0); MCHC 32.7 g/dL (31.0-37.0); MCV 87.3 fL (80.0-100.0); Mean Platelet Volume 10.6; Monocytes # (A) 0.5 k/uL (0-1.0); Monocytes % (A) 13 %; Neutrophils # (A) 1.9 k/uL (1.3-7.7); Neutrophils % (A) 49 %; RBC 4.66 m/uL (3.80-5.40); WBC 3.8 k/uL (3.8-10.6)
[2018-02-24 10:12] LABS: RBC,Urine >182 /hpf (0-5); Squamous Epithelial Cell,Urine 2 /hpf (0-4)
[2018-02-24 10:14] LABS: Appearance,Urine Bloody (Clear); Color,Urine Red
[2018-02-24 10:15] LABS: ALT 33 U/L (9-52); AST 28 U/L (14-36); Albumin 3.7 g/dL (3.5-5.0); Alkaline Phosphatase 78 U/L (38-126); Anion Gap 7 mmol/L; Blood Urea Nitrogen 17 mg/dL (7-17); Calcium 8.6 mg/dL (8.4-10.2); Carbon Dioxide 29 mmol/L (22-30); Chloride 98 mmol/L (98-107); Glucose 83 mg/dL (74-99); Potassium 4.9 mmol/L (3.5-5.1); Sodium 134 mmol/L (137-145); Total Bilirubin 0.5 mg/dL (0.2-1.3); Total Protein 6.2 g/dL (6.3-8.2)
[2018-02-24 10:17] LABS: Platelet Count 91 k/uL (150-450)
[2018-02-24 10:34] LABS: Prothrombin Time 10.5 sec (9.0-12.0)
[2018-02-24 11:22] VITALS: BP 164/62; PULSE 64
== END 2018-02-24 11:18 | disposition home or self-care (01) ==
LOC: EC 08:47
DX: N39.0 Urinary tract infection, site not specified (principal); I48.91 Unspecified atrial fibrillation; Z85.828 Personal history of other malignant neoplasm of skin; Z85.72 Personal history of non-Hodgkin lymphomas; Z85.42 Personal history of malignant neoplasm of other parts of uterus; Z79.899 Other long term (current) drug therapy; Z79.01 Long term (current) use of anticoagulants
CPT/HCPCS: 36415; 80053; 81001; 85025; 85610; 85730; 87086; 99283

== ENCOUNTER 2018-05-12 10:33 | Inpatient (IN) | payer MEDICARE ==
[2018-05-12] MEDS ORDERED: DILTIAZEM DRIP BOLUS FROM BAG 1 MG SOLN IV ONE (10:55)
[2018-05-12] MEDS ORDERED: DILTIAZEM 125 MG in SODIUM CHLORIDE 0.9% 100 ML IV SCH (11:00)
--- NOTE | 2018-05-12 11:05 | ED ---
Arrhythmia/Palpitations HPI - General Chief Complaint: Arrhythmia/Palpitations Stated Complaint: Palpitations Time Seen by Provider: 05/12/18 10:44 Source: patient, RN notes reviewed Mode of arrival: wheelchair Limitations: no limitations - History of Present Illness Initial Comments: This is a 83-year-old female history of atrial fibrillation in the past apparently was cardioverted in February this past year who states she woke up this morning with palpitations and some chest tightness. No shortness breath no dizziness no fevers chills nausea vomiting sweats. She did take her medications this morning. She recently was taken off of some of her flecainide. She just quit taking chemotherapy a week ago. No other complaints this time she isn't monitoring her blood pressure and heart rates home they've been elevated. MD Complaint: rapid heart beat, palpitations, irregular heart beat - Related Data Home Medications Medication Instructions Recorded Confirmed Ascorbic Acid [Vitamin C] 500 mg PO DAILY 12/25/16 05/12/18 Cholecalciferol [Vitamin D3] 1,000 unit PO DAILY 12/25/16 05/12/18 Multivitamins, Thera [Multivitamin 1 tab PO DAILY 12/25/16 05/12/18 (formulary)] Furosemide [Lasix] 20 mg PO DAILY 05/12/18 05/12/18 Lisinopril [Zestril] 10 mg PO DAILY 05/12/18 05/12/18 Metoprolol Succinate [Toprol XL] 25 mg PO DAILY 05/12/18 05/12/18 Potassium Chloride ER [K-Dur 10] 10 meq PO DAILY 05/12/18 05/12/18 Previous Rx's Medication Instructions Recorded Apixaban [Eliquis] 5 mg PO BID #60 tab 02/15/18 Allergies Allergy/AdvReac Type Severity Reaction Status Date / Time No Known Allergies Allergy Verified 05/12/18 11:08 Review of Systems ROS Statement: Those systems with pertinent positive or pertinent negative responses have been documented in the HPI. ROS Other: All systems not noted in ROS Statement are negative. Past Medical History Past Medical History: Atrial Fibrillation, Cancer Additional Past Medical History / Comment(s): Structures sleep apnea not using CPAP since lost 60#, lymphoma (cll), asthma not chronically on therapy, venous insufficiency, Vulvar cancer , basal cell skin cancer History of Any Multi-Drug Resistant Organisms: None Reported Past Surgical History: Hysterectomy, Orthopedic Surgery, Tonsillectomy Additional Past Surgical History / Comment(s): Right-sided knee surgery for repair of laceration, partial hysterectomy, 2 nasal surgeries for basal cell skin cancer and rt arm, surgery on right third and fourth digit for ganglion cyst,2 d&c's(sx 2 miscarriages), colonoscopy Past Anesthesia/Blood Transfusion Reactions: No Reported Reaction Additional Past Anesthesia/Blood Transfusion Reaction / Comment(s): slow to wake up Past Psychological History: No Psychological Hx Reported Smoking Status: Never smoker Past Alcohol Use History: None Reported Past Drug Use History: None Reported - Past Family History Mother Additional Family Medical History / Comment(s): Breast cancer Father Family Medical History: Myocardial Infarction ([place]) Additional Family Medical History / Comment(s): in his early 70's General Exam - General Exam Comments Initial Comments: This is a well-developed sec appearing female who is awake alert oriented 3 Limitations: no limitations General appearance: alert, in no apparent distress Head exam: Present: atraumatic, normocephalic, normal inspection Eye exam: Present: normal appearance, PERRL, EOMI. Absent: scleral icterus, conjunctival injection, periorbital swelling ENT exam: Present: normal exam, mucous membranes moist Neck exam: Present: normal inspection. Absent: tenderness, meningismus, lymphadenopathy Respiratory exam: Present: normal lung sounds bilaterally. Absent: respiratory distress, wheezes, rales, rhonchi, stridor Cardiovascular Exam: Present: tachycardia, irregular rhythm. Absent: systolic murmur, diastolic murmur, rubs, gallop, clicks GI/Abdominal exam: Present: soft, normal bowel sounds. Absent: distended, tenderness, guarding, rebound, rigid Extremities exam: Present: normal inspection, full ROM, normal capillary refill , pedal edema (This is dermatitis noted in both lower extremities.). Absent: tenderness, joint swelling, calf tenderness Back exam: Present: normal inspection Neurological exam: Present: alert, oriented X3, CN II-XII intact Psychiatric exam: Present: normal affect, normal mood Skin exam: Present: warm, dry, intact, normal color. 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 ] Respiratory 18 18 Rate Blood Pressure 129/77 128/101 O2 Sat by Pulse 100 90 L 100 Oximetry 05/12/18 05/12/18 05/12/18 11:12 11:30 12:00 Temperature Pulse Rate 129 H 124 H Pulse Rate [ 142 H Electronics Production Supervisor ] Respiratory Rate Blood Pressure 141/85 114/79 O2 Sat by Pulse 100 100 Oximetry 05/12/18 12:30 Temperature Pulse Rate 126 H Pulse Rate [ Electronics Production Supervisor ] Respiratory Rate Blood Pressure 99/66 O2 Sat by Pulse 98 Oximetry - Reevaluation(s) Reevaluation #1: 05/12/18 13:22 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 Consistent with rapid atrial fibrillation. Reevaluation #2: 05/12/18 13:23 I did reevaluate patient several occasions she continues to have rapid atrial fibrillation she did have a drop her blood pressure and did respond to IV fluids. I did discuss the case with Dr. Richardson. Patient will be admitted Dr. Colvin will be consulted. Medical Decision Making - Lab Data Result diagrams: 05/12/18 11:00 05/12/18 11:00 Lab Results 05/12/18 05/12/18 05/12/18 Range/Units 11:00 11:00 11:00 WBC 3.6 L (3.8-10.6) k/uL RBC 4.20 (3.80-5.40) m/uL Hgb 12.0 (11.4-16.0) gm/dL Hct 36.8 (34.0-46.0) % MCV 87.6 (80.0-100.0) fL MCH 28.6 (25.0-35.0) pg MCHC 32.6 (31.0-37.0) g/dL RDW 15.1 (11.5-15.5) % Plt Count 125 L (150-450) k/uL Neutrophils % (Manual) 53 % Lymphocytes % (Manual) 36 % Monocytes % (Manual) 10 % Eosinophils % (Manual) 1 % Neutrophils # (Manual) 1.91 (1.3-7.7) k/uL Lymphocytes # (Manual) 1.30 (1.0-4.8) k/uL Monocytes # (Manual) 0.36 (0-1.0) k/uL Eosinophils # (Manual) 0.04 (0-0.7) k/uL Nucleated RBCs 0 (0-0) /100 WBC Manual Slide Review Performed RBC Morphology Normal PT 10.3 (9.0-12.0) sec INR 1.0 (<1.2) APTT 28.3 (22.0-30.0) sec Sodium 139 (137-145) mmol/L Potassium 4.8 (3.5-5.1) mmol/L Chloride 106 (98-107) mmol/L Carbon Dioxide 27 (22-30) mmol/L Anion Gap 6 mmol/L BUN 24 H (7-17) mg/dL Creatinine 0.72 (0.52-1.04) mg/dL Est GFR (CKD-EPI)AfAm >90 (>60 ml/min/1.73 sqM) Est GFR (CKD-EPI)NonAf 80 (>60 ml/min/1.73 sqM) Glucose 84 (74-99) mg/dL Calcium 8.6 (8.4-10.2) mg/dL Magnesium 2.1 (1.6-2.3) mg/dL Total Bilirubin 0.9 (0.2-1.3) mg/dL AST 36 (14-36) U/L ALT 51 (9-52) U/L Alkaline Phosphatase 81 (38-126) U/L Troponin I (0.000-0.034) ng/mL Total Protein 6.1 L (6.3-8.2) g/dL Albumin 4.0 (3.5-5.0) g/dL 05/12/18 Range/Units 11:00 WBC (3.8-10.6) k/uL RBC (3.80-5.40) m/uL Hgb (11.4-16.0) gm/dL Hct (34.0-46.0) % MCV (80.0-100.0) fL MCH (25.0-35.0) pg MCHC (31.0-37.0) g/dL RDW (11.5-15.5) % Plt Count (150-450) k/uL Neutrophils % (Manual) % Lymphocytes % (Manual) % Monocytes % (Manual) % Eosinophils % (Manual) % Neutrophils # (Manual) (1.3-7.7) k/uL Lymphocytes # (Manual) (1.0-4.8) k/uL Monocytes # (Manual) (0-1.0) k/uL Eosinophils # (Manual) (0-0.7) k/uL Nucleated RBCs (0-0) /100 WBC Manual Slide Review RBC Morphology PT (9.0-12.0) sec INR (<1.2) APTT (22.0-30.0) sec Sodium (137-145) mmol/L Potassium (3.5-5.1) mmol/L Chloride (98-107) mmol/L Carbon Dioxide (22-30) mmol/L Anion Gap mmol/L BUN (7-17) mg/dL Creatinine (0.52-1.04) mg/dL Est GFR (CKD-EPI)AfAm (>60 ml/min/1.73 sqM) Est GFR (CKD-EPI)NonAf (>60 ml/min/1.73 sqM) Glucose (74-99) mg/dL Calcium (8.4-10.2) mg/dL Magnesium (1.6-2.3) mg/dL Total Bilirubin (0.2-1.3) mg/dL AST (14-36) U/L ALT (9-52) U/L Alkaline Phosphatase (38-126) U/L Troponin I <0.012 (0.000-0.034) ng/mL Total Protein (6.3-8.2) g/dL Albumin (3.5-5.0) g/dL Critical Care Time Critical Care Time: Yes Critical Care Time: 37 is a critical care time which includes initial presentation with history physical labs x-rays several reevaluation patient responsive therapy discussion with the admitting physician admission orders and documentation the above as well as review of old charting. Disposition Clinical Impression: Rapid atrial fibrillation, Dehydration, Hypotensive episode Disposition: ADMITTED IP TO THIS [facility] Condition: Serious Referrals: Bassam Martin MD [Primary Care Provider] - 1-2 days
[2018-05-12 11:30] LABS: Partial Thromboplastin Time 28.3 sec (22.0-30.0); Prothrombin Time 10.3 sec (9.0-12.0)
[2018-05-12 11:34] LABS: ALT 51 U/L (9-52); AST 36 U/L (14-36); Alkaline Phosphatase 81 U/L (38-126); Anion Gap 6 mmol/L; Blood Urea Nitrogen 24 mg/dL (7-17); Calcium 8.6 mg/dL (8.4-10.2); Carbon Dioxide 27 mmol/L (22-30); Chloride 106 mmol/L (98-107); Glucose 84 mg/dL (74-99); Magnesium 2.1 mg/dL (1.6-2.3); Potassium 4.8 mmol/L (3.5-5.1); Sodium 139 mmol/L (137-145); Total Bilirubin 0.9 mg/dL (0.2-1.3); Total Protein 6.1 g/dL (6.3-8.2)
[2018-05-12 11:39] LABS: HCT 36.8 % (34.0-46.0); MCH 28.6 pg (25.0-35.0); MCHC 32.6 g/dL (31.0-37.0); MCV 87.6 fL (80.0-100.0); Mean Platelet Volume 7.8; Platelet Count 125 k/uL (150-450); RDW 15.1 % (11.5-15.5); WBC 3.6 k/uL (3.8-10.6)
--- NOTE | 2018-05-12 11:51 | XR ---
EXAMINATION TYPE: XR chest 2V DATE OF EXAM: 05/12/2018 COMPARISON: Prior chest x-ray 02/12/2018 HISTORY: Dysrhythmia TECHNIQUE: Frontal and lateral views of the chest are obtained. FINDINGS: Patient is rotated. There is evidence of old granulomatous disease as on prior exam. Her c ardiac leads. Eventration of right hemidiaphragm is noted. No airspace disease, pneumothorax, or pleu ral effusion. Cardiac mediastinal silhouette, pulmonary vascularity and sienna are stable. IMPRESSION: No acute cardiopulmonary process.
[2018-05-12 11:57] LABS: Eosinophils # (M) 0.04 k/uL (0-0.7); Monocytes # (M) 0.36 k/uL (0-1.0); Neutrophils # (M) 1.91 k/uL (1.3-7.7); Neutrophils % (M) 53 %; Nucleated Red Blood Cells 0 /100 WBC (0-0); Total Cells Counted 100
[2018-05-12] MEDS ORDERED: SODIUM CHLORIDE 0.9% 500 ML 500 ML IV STA (12:34)
[2018-05-12] MEDS ORDERED: NALOXONE 0.4 MG/ML 1 ML VIAL IV PRN (13:24)
[2018-05-12] MEDS: SODIUM CHLORIDE 0.9% 1,000 ML IV SCH (14:23)
[2018-05-12] MEDS ORDERED: DEXTROSE 5% IN WATER 250 ML with AMIODARONE 300 MG IV ONE (14:55)
[2018-05-12] MEDS ORDERED: DEXTROSE 5% IN WATER 100 ML with AMIODARONE 150 MG IV ONE (15:15)
[2018-05-12] MEDS ORDERED: AMIODARONE 360 MG in DEXTROSE 5% IN WATER 200 ML IV ONE ×2 (15:30)
--- NOTE | 2018-05-12 17:48 | P.HPIM ---
History of Present Illness 83-year-old female came in with palpitations found to be in atrial fibrillation patient had a multiple hospitalizations in the past and cardioversions patient was recently taken off flecainide. Patient was in heart rates of 170s in atrial fibrillation patient takes Eliquis is on anticoagulation for A. fib. Patient is presently on Cardizem her home dose of metoprolol and it and was started on amiodarone as well. She denied any fever chills cough runny nose patient doesn't have any sepsis like symptoms patient appears to be euvolemic. Patient appears to have had chronic diastolic dysfunction presently appears to be euvolemic Review of Systems REVIEW OF SYSTEMS: CONSTITUTIONAL: No fever, no malaise, no fatigue. HEENT: No recent visual problems or hearing problems. Denied any sore throat. CARDIOVASCULAR: No chest pain, orthopnea, PND, no syncope. PULMONARY: No shortness of breath, no cough, no hemoptysis. GASTROINTESTINAL: No diarrhea, no nausea, no vomiting, no abdominal pain. NEUROLOGICAL: No headaches, no weakness, no numbness. HEMATOLOGICAL: Denies any bleeding or petechiae. GENITOURINARY: Denies any burning micturition, frequency, or urgency. MUSCULOSKELETAL/RHEUMATOLOGICAL: Denies any joint pain, swelling, or any muscle pain. ENDOCRINE: Denies any polyuria or polydipsia. The rest of the 14-point review of systems is negative. Past Medical History Past Medical History: Atrial Fibrillation, Cancer, Hypertension Additional Past Medical History / Comment(s): Structures sleep apnea not using CPAP since lost 60#, asthma not chronically on therapy, venous insufficiency, Vulvar cancer , basal cell skin cancer, leukemia (cll) History of Any Multi-Drug Resistant Organisms: None Reported Past Surgical History: Hysterectomy, Orthopedic Surgery, Tonsillectomy Additional Past Surgical History / Comment(s): Right-sided knee surgery for repair of laceration, partial hysterectomy, 2 nasal surgeries for basal cell skin cancer and rt arm, surgery on right third and fourth digit for ganglion cyst,2 d&c's(sx 2 miscarriages), colonoscopy Past Anesthesia/Blood Transfusion Reactions: No Reported Reaction Additional Past Anesthesia/Blood Transfusion Reaction / Comment(s): slow to wake up Past Psychological History: No Psychological Hx Reported Smoking Status: Never smoker Past Alcohol Use History: None Reported Past Drug Use History: None Reported - Past Family History Mother Additional Family Medical History / Comment(s): Breast cancer Father Family Medical History: Myocardial Infarction ([place]) Additional Family Medical History / Comment(s): in his early 60's Medications and Allergies Home Medications Medication Instructions Recorded Confirmed Type Ascorbic Acid [Vitamin C] 500 mg PO DAILY 12/25/16 05/12/18 History Cholecalciferol [Vitamin D3] 1,000 unit PO DAILY 12/25/16 05/12/18 History Multivitamins, Thera [Multivitamin 1 tab PO DAILY 12/25/16 05/12/18 History (formulary)] Apixaban [Eliquis] 5 mg PO BID #60 tab 02/15/18 05/12/18 Rx Furosemide [Lasix] 20 mg PO DAILY 05/12/18 05/12/18 History Lisinopril [Zestril] 10 mg PO DAILY 05/12/18 05/12/18 History Metoprolol Succinate [Toprol XL] 25 mg PO DAILY 05/12/18 05/12/18 History Potassium Chloride ER [K-Dur 10] 10 meq PO DAILY 05/12/18 05/12/18 History Allergies Allergy/AdvReac Type Severity Reaction Status Date / Time No Known Allergies Allergy Verified 05/12/18 11:08 Physical Exam Vitals: Vital Signs Temp Pulse Pulse Resp BP BP Pulse Ox 05/12/18 17:00 105 H 25 H 104/64 94 L 05/12/18 16:30 101 H 20 106/70 96 05/12/18 16:20 104 H 106/70 05/12/18 16:00 98 16 101/71 05/12/18 15:40 126 H 18 99/75 05/12/18 14:00 131 H 116/62 98 05/12/18 13:30 118 H 95/64 99 05/12/18 13:00 109 H 92/49 98 05/12/18 12:30 126 H 99/66 98 05/12/18 12:00 124 H 114/79 100 05/12/18 11:30 129 H 141/85 100 05/12/18 11:12 142 H 05/12/18 11:00 134 H 18 128/101 100 05/12/18 10:51 90 L 05/12/18 10:38 97.5 F L 150 H 18 129/77 100 Intake and Output 05/12/18 05/12/18 05/12/18 06:59 14:59 22:59 Intake Total 105 Balance 105 Intake: Intake, IV Titration 105 Amount Amiodarone 300 mg In 25 Dextrose 5% in Water 250 ml @ 0.5 MG/MIN 25 mls/hr IV .Q10H ARTHUR Rx#: [id number] Sodium Chloride 0.9% 1, 80 000 ml @ 80 mls/hr IV . [id number] ARTHUR Rx#:[id number] Other: Voiding Method Bedside Commode Weight 82.1 kg PHYSICAL EXAMINATION: GENERAL: The patient is alert and oriented x3, not in any acute distress. Well developed, well nourished. HEENT: Pupils are round and equally reacting to light. EOMI. No scleral icterus. No conjunctival pallor. Normocephalic, atraumatic. No pharyngeal erythema. No thyromegaly. CARDIOVASCULAR: S1 and S2 present. No murmurs, rubs, or gallops. Irregularly irregular rhythm PULMONARY: Chest is clear to auscultation, no wheezing or crackles. ABDOMEN: Soft, nontender, nondistended, normoactive bowel sounds. No palpable organomegaly. MUSCULOSKELETAL: No joint swelling or deformity. EXTREMITIES: No cyanosis, clubbing, or pedal edema. NEUROLOGICAL: Gross neurological examination did not reveal any focal deficits. SKIN: No rashes. Results CBC & Chem 7: 05/12/18 11:00 05/12/18 11:00 Labs: Abnormal Lab Results - Last 24 Hours (Table) 05/12/18 05/12/18 Range/Units 11:00 11:00 WBC 3.6 L (3.8-10.6) k/uL Plt Count 125 L (150-450) k/uL BUN 24 H (7-17) mg/dL Total Protein 6.1 L (6.3-8.2) g/dL Thrombosis Risk Factor Assmnt - Choose All That Apply Each Factor Represents 1 point: Heart failure (<1month), Swollen legs (current) Each Risk Factor Represents 3 Points: Age 75 years or older, History of DVT/PE Thrombosis Risk Factor Assessment Total Risk Factor Score: 8 Thrombosis Risk Factor Assessment Level: High Risk Assessment and Plan Plan: Atrial fibrillation with rapid and regular rate patient will be continued on amiodarone, metoprolol Cardizem was added cardiology was consulted continue with anti-correlation with Eliquis -Chronic diastolic dysfunction without any acute exacerbation patient will be resumed on her home dose of Lasix -Lymphoma: Patient is on targeted therapy -Hypertension continue with lisinopril
--- NOTE | 2018-05-12 18:47 | ECHOF ---
Referral Reason:atrial fibrillation MEASUREMENTS -------- HEIGHT: 170.2 cm WEIGHT: 82.1 kg BP: IVSd: 1.6 cm (0.6 - 1.1) LVIDd: 3.8 cm (3.9 - 5.3) LVPWd: 1.4 cm (0.6 - 1.1) IVSs: 1.8 cm LVIDs: 2.9 cm LVPWs: 1.5 cm LAESV Index (A-L): 38.69 ml/m Ao Diam: 2.9 cm (2.0 - 3.7) AV Cusp: 1.7 cm (1.5 - 2.6) LA Diam: 2.9 cm (2.7 - 3.8) RAP: 20.00 mmHg RVSP: 34.44 mmHg FINDINGS -------- Atrial fibrillation. This was a technically good study. The left ventricular size is normal. There is moderate concentric left ventricular hypertrophy. O verall left ventricular systolic function is mild-moderately impaired with, an EF between 40 - 45 %. Inferior Hypokinesis The right ventricle is normal in size and function. LA is moderately dilated 34-39 ml/m2 The right atrium is normal in size. The aortic valve is trileaflet and appears structurally normal. Moderate mitral regurgitation is present. Mild tricuspid regurgitation present. The right ventricular systolic pressure, as measured by Doppl er, is 34.44mmHg. Pulmonic valve appears structurally normal. The aortic root size is normal. The inferior vena cava is dilated with no significant inspiratory collapse which is consistent estima chang right atrial pressure of >20 mmHg. The pericardium is normal. CONCLUSIONS -------- 1. Atrial fibrillation. 2. This was a technically good study. 3. The left ventricular size is normal. 4. There is moderate concentric left ventricular hypertrophy. 5. Overall left ventricular systolic function is mild-moderately impaired with, an EF between 40 - 45 %. 6. Inferior Hypokinesis 7. The right ventricle is normal in size and function. 8. LA is moderately dilated 34-39 ml/m2 9. The right atrium is normal in size. 10. The aortic valve is trileaflet and appears structurally normal. 11. Moderate mitral regurgitation is present. 12. Mild tricuspid regurgitation present. 13. The right ventricular systolic pressure, as measured by Doppler, is 34.44mmHg. 14. Pulmonic valve appears structurally normal. 15. The aortic root size is normal. 16. The inferior vena cava is dilated with no significant inspiratory collapse which is consistent es timated right atrial pressure of >20 mmHg. 17. The pericardium is normal. BURR FILER: Izabella Ansari RDCS
[2018-05-12] MEDS: APIXABAN 5 MG TAB PO SCH (20:36)
[2018-05-12] MEDS: METOPROLOL TARTRATE 25 MG TAB PO SCH (20:36)
--- NOTE | 2018-05-12 21:52 | CONS ---
CONSULTATION Mrs. Wright is an 83-year-old female who is seen for cardiac evaluation. Patient's chart is reviewed, history obtained from the patient as well as the old charts. This patient has a known history of persistent atrial fibrillation. Patient was cardioverted in February last year and she was tried on flecainide, but subsequently patient went back into atrial fibrillation. According to her , the patient has been running a high heart rate since then. She continued to run the heart rate in the range of 130 to 150 and so patient came to the emergency room. This patient has been tried on flecainide in the past without any success. She recently had a stress test and the patient is scheduled for cardiac catheterization. Patient denies any history suggestive of angina. HOME MEDICATIONS: Home medications include: 1. Vitamin D3. 2. Lasix 20 mg daily. 3. Lisinopril 10 mg daily. 4. Metoprolol 25 mg daily. 5. Potassium once a day. 6. Apixaban 5 mg b.i.d. PAST MEDICAL HISTORY: Includes: 1. History of lymphoma. Patient was tried recently on some medications which have a tendency to produce atrial fibrillation, and they have been discontinued. 2. History of sleep apnea. She is using a CPAP machine. 3. History of hysterectomy. 4. Orthopedic surgery. 5. Tonsillectomy. 6. Right-sided knee surgery for repair of laceration. 7. Partial hysterectomy. 8. Two nasal surgeries. SMOKING STATUS: Patient has never been a smoker. PHYSICAL EXAMINATION: Physical examination at present reveals an 83-year-old female who does not appear to be in any acute distress. The patient's heart rate is 140-150 per minute, blood pressure 129/70 mmHg. Head/ENT examination is negative. Neck is supple. There is no increase in jugular venous pressure. Both the carotid pulses are felt. There is no bruit. Chest is symmetrical. HEART: The PMI is not felt. First and second heart sounds are heard. Lungs are clinically clear to auscultation and percussion. Abdomen is negative. EXTREMITIES: Peripheral pulsations are 2+. IMAGING/LABS: EKG shows evidence of atrial fibrillation with a rapid ventricular rate. Patient's hemoglobin is 12.6, white count 3.6, platelet count 125,000. Patient's electrolytes are normal. Initial troponin is 0.012. Chest x-ray is normal. FINAL IMPRESSION: This patient is admitted with atrial fibrillation with a rapid ventricular response. The patient has a history of persistent atrial fibrillation with a history of cardioversion in the past, and the patient was not maintaining normal sinus rhythm. RECOMMENDATIONS: I will start the patient on IV amiodarone drip to control the rate and subsequently if necessary patient can be tried with another cardioversion. We will obtain an echo and Doppler study. REBECCAL / IJN: [id number] /
[2018-05-12] MEDS: AMIODARONE 300 MG in DEXTROSE 5% IN WATER 250 ML IV SCH ×2 (22:05)
[2018-05-13 05:07] LABS: HCT 33.8 % (34.0-46.0); HGB 10.9 gm/dL (11.4-16.0); Hypochromasia Slight; MCH 28.6 pg (25.0-35.0); MCHC 32.1 g/dL (31.0-37.0); MCV 89.1 fL (80.0-100.0); Mean Platelet Volume 8.2; Platelet Count 112 k/uL (150-450); RBC 3.79 m/uL (3.80-5.40); RDW 15.2 % (11.5-15.5); WBC 3.3 k/uL (3.8-10.6)
[2018-05-13] MEDS: SODIUM CHLORIDE 0.9% 1,000 ML IV SCH ×2 (05:11→11:33)
[2018-05-13 05:23] LABS: Calcium 8.2 mg/dL (8.4-10.2)
[2018-05-13 05:33] LABS: Eosinophils # (M) 0.03 k/uL (0-0.7); Lymphocytes # (M) 1.25 k/uL (1.0-4.8); Monocytes # (M) 0.36 k/uL (0-1.0); Neutrophils # (M) 1.65 k/uL (1.3-7.7); Neutrophils % (M) 50 %; Nucleated Red Blood Cells 0 /100 WBC (0-0); Total Cells Counted 100
[2018-05-13] MEDS: LISINOPRIL 10 MG TAB PO SCH (08:07)
[2018-05-13] MEDS: APIXABAN 5 MG TAB PO SCH (08:07)
[2018-05-13] MEDS: CHOLECALCIFEROL 1,000 UNIT TAB PO SCH (08:07)
[2018-05-13] MEDS: ASCORBIC ACID 500 MG TAB PO SCH (08:07)
[2018-05-13] MEDS: FUROSEMIDE 20 MG TAB PO SCH (08:07)
[2018-05-13] MEDS: POTASSIUM CHLORIDE ER 10 MEQ TAB.ER.PRT PO SCH (08:08)
[2018-05-13] MEDS: METOPROLOL TARTRATE 25 MG TAB PO SCH (08:08)
[2018-05-13] MEDS ORDERED: METOPROLOL SUCCINATE (ER) 25 MG TAB.ER.24H PO SCH (09:00)
[2018-05-13] MEDS ORDERED: SODIUM CHLORIDE 0.9% 1,000 ML in EMPTY BAG 1 BAG IV ONE (10:03)
[2018-05-13] MEDS ORDERED: NITROGLYCERIN SL TABS 0.4 MG TAB SUBLINGUAL PRN (10:03)
[2018-05-13] MEDS ORDERED: ATORVASTATIN 80 MG TAB PO STA (10:03)
[2018-05-13] MEDS ORDERED: ALPRAZolam 0.5 MG TAB PO PRN (10:03)
[2018-05-13] MEDS ORDERED: ASPIRIN 325 MG TAB PO STA (10:03)
[2018-05-13] MEDS ORDERED: ASPIRIN 81 MG PO STA (10:03)
[2018-05-13] MEDS ORDERED: ALPRAZolam 0.25 MG TAB PO PRN (10:03)
[2018-05-13] MEDS: MULTIVITAMINS, THERA 1 EACH TAB PO SCH (11:33)
[2018-05-13] MEDS: AMIODARONE 300 MG in DEXTROSE 5% IN WATER 250 ML IV SCH ×2 (11:34)
[2018-05-13] MEDS ORDERED: DIGOXIN 250 MCG/ML 2 ML AMP IVP ONE (12:51)
[2018-05-13] MEDS ORDERED: AMIODARONE 200 MG TAB PO SCH (13:00)
--- NOTE | 2018-05-13 14:41 | P.PN ---
Subjective Patient is admitted for a atrial fibrillation with rapid ventricular rate patient is presently on amiodarone drip, Cardizem was discontinued patient will undergo cardioversion by Dr. Colvin. Constitutional: Patient is extubated tired and fatigued Cardio vascular: denied any chest pain, palpitations Gastrointestinal denied any nausea vomiting Pulmonary: Denied any shortness of breath cough Neurologic denied any new focal deficits All inpatient medications were reviewed and appropriate changes in these medications as dictated in the interval history and assessment and plan. Objective - Vital Signs Vital signs: Vital Signs Temp 97.8 F 05/13/18 12:00 Pulse 129 H 05/13/18 12:00 Resp 16 05/13/18 12:00 BP 145/83 05/13/18 13:06 Pulse Ox 95 05/13/18 12:00 Intake & Output 05/12/18 05/13/18 05/13/18 18:59 06:59 18:59 Intake Total 105 640 890 Output Total 2 Balance 105 640 888 Weight 82.1 kg 83.2 kg Intake: IV 640 640 Sodium Chloride 0.9% 1, 640 640 000 ml @ 80 mls/hr IV . [id number] ARTHUR Rx#:[id number] Intake, IV Titration 105 250 Amount Amiodarone 300 mg In 25 250 Dextrose 5% in Water 250 ml @ 0.5 MG/MIN 25 mls/hr IV .Q10H ARTHUR Rx#: [id number] Sodium Chloride 0.9% 1, 80 000 ml @ 80 mls/hr IV . [id number] ARTHUR Rx#:[id number] Output: Stool 2 Other: Voiding Method Bedside Commode Toilet Toilet # Voids 2 4 - Exam PHYSICAL EXAMINATION: GENERAL: The patient is alert and oriented x3, not in any acute distress. Well developed, well nourished. HEENT: Pupils are round and equally reacting to light. EOMI. No scleral icterus. No conjunctival pallor. Normocephalic, atraumatic. No pharyngeal erythema. No thyromegaly. CARDIOVASCULAR: S1 and S2 present. No murmurs, rubs, or gallops. Irregularly irregular rhythm PULMONARY: Chest is clear to auscultation, no wheezing or crackles. ABDOMEN: Soft, nontender, nondistended, normoactive bowel sounds. No palpable organomegaly. MUSCULOSKELETAL: No joint swelling or deformity. EXTREMITIES: No cyanosis, clubbing, or pedal edema. NEUROLOGICAL: Gross neurological examination did not reveal any focal deficits. SKIN: No rashes. - Labs CBC & Chem 7: 05/13/18 04:38 05/13/18 04:38 Labs: Abnormal Lab Results - Last 24 Hours (Table) 05/13/18 05/13/18 Range/Units 04:38 04:38 WBC 3.3 L (3.8-10.6) k/uL RBC 3.79 L (3.80-5.40) m/uL Hgb 10.9 L (11.4-16.0) gm/dL Hct 33.8 L (34.0-46.0) % Plt Count 112 L (150-450) k/uL Sodium 136 L (137-145) mmol/L BUN 21 H (7-17) mg/dL Calcium 8.2 L (8.4-10.2) mg/dL Assessment and Plan Plan: Atrial fibrillation with rapid and regular rate patient will be continued on amiodarone, metoprolol patient on Eliquis patient heart rate is not well controlled yet. Cardiology is managing A. fib and patient will undergo cardioversion by cardiology -Chronic diastolic dysfunction without any acute exacerbation patient will be resumed on her home dose of Lasix -Lymphoma: Patient is on targeted therapy -Hypertension continue with lisinopril
--- NOTE | 2018-05-13 15:16 | P.PN ---
Subjective Progress Note Date: 05/13/18 Is a 83-year-old female who was admitted to the hospital with fast heartbeat and evidence of atrial fibrillation with RVR. In February patient had atrial fibrillation and had a cardioversion. Patient was tried on flecainide. Patient also had a positive stress test. Patient is currently on IV amiodarone. Patient is being scheduled for cardiac catheterization Tuesday. We' ll switch to by mouth amiodarone and also had IV Lanoxin for better heart rate control. Further recommendation depending upon the clinical course. Patient is also on beta blockers. Does complain of exertional shortness of breath. Echo Cardigan showed an ejection fraction of 40%. Objective - Vital Signs Vital signs: Vital Signs Temp 97.8 F 05/13/18 12:00 Pulse 129 H 05/13/18 12:00 Resp 16 05/13/18 12:00 BP 145/83 05/13/18 13:06 Pulse Ox 95 05/13/18 12:00 Intake & Output 05/12/18 05/13/18 05/13/18 18:59 06:59 18:59 Intake Total 105 640 890 Output Total 2 Balance 105 640 888 Weight 82.1 kg 83.2 kg Intake: IV 640 640 Sodium Chloride 0.9% 1, 640 640 000 ml @ 80 mls/hr IV . [id number] ARTHUR Rx#:[id number] Intake, IV Titration 105 250 Amount Amiodarone 300 mg In 25 250 Dextrose 5% in Water 250 ml @ 0.5 MG/MIN 25 mls/hr IV .Q10H ARTHUR Rx#: [id number] Sodium Chloride 0.9% 1, 80 000 ml @ 80 mls/hr IV . [id number] ARTHUR Rx#:[id number] Output: Stool 2 Other: Voiding Method Bedside Commode Toilet Toilet # Voids 2 4 - Exam GENERAL EXAM: Patient is alert and oriented and doesn't appear to be in any acute distress, in mild respiratory distress HEENT: Normocephalic. Normal reaction of pupils, equal size, normal range of extraocular motion. No erythema or exudates in the throat. NECK: No masses, no nuchal rigidity. CHEST: No chest wall deformity. LUNGS: Few rales at the right base HEART: S1 and S2 normal with no audible mumurs or gallops. Regular rhythm, femorals equal on both sides.. ABDOMEN: No hepatosplenomegaly, normal bowel sounds, no guarding or rigidity. SKIN: No rashes CENTRAL NERVOUS SYSTEM: No focal deficits. EXTREMITIES: No cyanosis, clubbing or edema. - Labs CBC & Chem 7: 05/13/18 04:38 05/13/18 04:38 Labs: Abnormal Lab Results - Last 24 Hours (Table) 05/13/18 05/13/18 Range/Units 04:38 04:38 WBC 3.3 L (3.8-10.6) k/uL RBC 3.79 L (3.80-5.40) m/uL Hgb 10.9 L (11.4-16.0) gm/dL Hct 33.8 L (34.0-46.0) % Plt Count 112 L (150-450) k/uL Sodium 136 L (137-145) mmol/L BUN 21 H (7-17) mg/dL Calcium 8.2 L (8.4-10.2) mg/dL Assessment and Plan (1) Rapid atrial fibrillation Current Visit: Yes Status: Acute Code(s): I48.91 - UNSPECIFIED ATRIAL FIBRILLATION SNOMED Code(s): 128106102 (2) History of lymphoma Current Visit: Yes Status: Acute Code(s): Z85.79 - PRSNL HX OF MALIG NEOPLM OF LYMPHOID, HEMATPOETC & REL TISS SNOMED Code(s): 920543463 (3) Obstructive sleep apnea Current Visit: No Status: Chronic Code(s): G47.33 - OBSTRUCTIVE SLEEP APNEA (ADULT) (PEDIATRIC) SNOMED Code(s): 53754861 Plan: Continue current medical therapy. Cardiac catheterization on Tuesday. Start on by mouth amiodarone
[2018-05-13] MEDS: METOPROLOL TARTRATE 50 MG TAB PO SCH (20:22)
[2018-05-13] MEDS: AMIODARONE 200 MG TAB PO SCH (21:24)
[2018-05-14] MEDS: SODIUM CHLORIDE 0.9% 1,000 ML IV SCH (03:09)
[2018-05-14] MEDS ORDERED: DILTIAZEM DRIP BOLUS FROM BAG 1 MG SOLN IV ONE (04:35)
[2018-05-14] MEDS ORDERED: FUROSEMIDE 10 MG/ML 4 ML VIAL IV STA ×2 (04:35→11:35)
[2018-05-14] MEDS: DILTIAZEM 125 MG in SODIUM CHLORIDE 0.9% 100 ML IV SCH ×2 (04:49→17:37)
[2018-05-14 04:56] LABS: Glucose,Whole Blood 150 mg/dL (75-99)
[2018-05-14] MEDS: METOPROLOL TARTRATE 50 MG TAB PO SCH ×2 (05:31→20:12)
[2018-05-14 07:47] LABS: Anion Gap 10 mmol/L; Blood Urea Nitrogen 20 mg/dL (7-17); Calcium 8.3 mg/dL (8.4-10.2); Carbon Dioxide 24 mmol/L (22-30); Chloride 104 mmol/L (98-107); Glucose 138 mg/dL (74-99); Potassium 3.9 mmol/L (3.5-5.1); Sodium 138 mmol/L (137-145)
[2018-05-14] MEDS: ASCORBIC ACID 500 MG TAB PO SCH (10:23)
[2018-05-14] MEDS: CHOLECALCIFEROL 1,000 UNIT TAB PO SCH (10:23)
[2018-05-14] MEDS: AMIODARONE 200 MG TAB PO SCH ×3 (10:23→20:12)
[2018-05-14] MEDS: FUROSEMIDE 20 MG TAB PO SCH (10:23)
[2018-05-14] MEDS: POTASSIUM CHLORIDE ER 10 MEQ TAB.ER.PRT PO SCH (10:23)
[2018-05-14] MEDS: LISINOPRIL 10 MG TAB PO SCH (10:24)
[2018-05-14] MEDS: MULTIVITAMINS, THERA 1 EACH TAB PO SCH (10:24)
--- NOTE | 2018-05-14 11:10 | XR ---
EXAMINATION TYPE: XR chest 1V portable DATE OF EXAM: 05/14/2018 Comparison: 05/12/2018 Clinical History: 83-year-old female shortness of breath Findings: Heart upper limits of normal in size. Calcified AP window lymph nodes suggest prior granulomatous dis ease. Calcified granuloma peripheral left apex. Hazy bibasilar opacities. Mild interstitial prominenc e. Impression: 1. Correlated for mild CHF with pulmonary vascular congestion. 2. Trace effusions with patchy bibasilar atelectasis and/or consolidation.
--- NOTE | 2018-05-14 11:36 | P.PN ---
Subjective Patient is admitted for a atrial fibrillation with rapid ventricular rate patient is presently on amiodarone drip, Cardizem was discontinued patient will undergo cardioversion by Dr. Colvin. 05/14/2018 patient was bit congested because of which patient received a dose of Lasix. Her recent echo cardiac exam showed ejection fraction of 40-45%. Patient had normal ejection fraction the past had increasing ejection fraction is probably because of atrial fibrillation. Patient is still not rate controlled patient continues to be on Cardizem drip. Repeat chest x-ray did show congestion will order another dose of Lasix patient does have crackles on lung exam with elevated JVD still bit short of breath. As there are no many choices in spite of for decreased ejection fraction patient remains on Cardizem Constitutional: Patient is extubated tired and fatigued Cardio vascular: denied any chest pain, palpitations Gastrointestinal denied any nausea vomiting Pulmonary: Denied any shortness of breath cough Neurologic denied any new focal deficits All inpatient medications were reviewed and appropriate changes in these medications as dictated in the interval history and assessment and plan. Objective - Vital Signs Vital signs: Vital Signs Temp 99.4 F 05/14/18 00:00 Pulse 94 05/14/18 06:07 Resp 22 05/14/18 06:07 BP 133/66 05/14/18 06:07 Pulse Ox 95 05/14/18 06:07 Intake & Output 05/13/18 05/14/18 05/14/18 18:59 06:59 18:59 Intake Total 1210 1140 240 Output Total 2 1500 700 Balance 1208 360 -460 Weight 86.8 kg Intake: IV 960 640 Sodium Chloride 0.9% 1, 960 640 000 ml @ 80 mls/hr IV . [id number] ARTHUR Rx#:[id number] Intake, IV Titration 250 Amount Amiodarone 300 mg In 250 Dextrose 5% in Water 250 ml @ 0.5 MG/MIN 25 mls/hr IV .Q10H ARTHUR Rx#: [id number] Oral 500 240 Output: Urine 1500 700 Stool 2 Other: Voiding Method Toilet Bedpan # Voids 2 1 # Bowel Movements 1 - Exam PHYSICAL EXAMINATION: GENERAL: The patient is alert and oriented x3, not in any acute distress. Well developed, well nourished. HEENT: Pupils are round and equally reacting to light. EOMI. No scleral icterus. No conjunctival pallor. Normocephalic, atraumatic. No pharyngeal erythema. No thyromegaly. CARDIOVASCULAR: S1 and S2 present. No murmurs, rubs, or gallops. Irregularly irregular rhythm elevated JVD PULMONARY: IVC or crackles ABDOMEN: Soft, nontender, nondistended, normoactive bowel sounds. No palpable organomegaly. MUSCULOSKELETAL: No joint swelling or deformity. EXTREMITIES: No cyanosis, clubbing, or pedal edema. NEUROLOGICAL: Gross neurological examination did not reveal any focal deficits. SKIN: No rashes. - Labs CBC & Chem 7: 05/13/18 04:38 05/14/18 06:22 Labs: Abnormal Lab Results - Last 24 Hours (Table) 05/14/18 05/14/18 Range/Units 04:54 06:22 BUN 20 H (7-17) mg/dL Glucose 138 H (74-99) mg/dL POC Glucose (mg/dL) 150 H (75-99) mg/dL Calcium 8.3 L (8.4-10.2) mg/dL Assessment and Plan Plan: Atrial fibrillation with rapid and regular rate patient will be continued on amiodarone, metoprolol patient on Eliquis patient heart rate is not well controlled yet. Cardiology is managing A. fib and patient will undergo cardioversion by cardiology and patient is also on Cardizem -Congestive heart failure patient does have chronic diastolic dysfunction presently has acute systolic dysfunction most probably from atrial fibrillation presently EF of around 40-40% patient isn't in acute exacerbation Lasix as mentioned above -Lymphoma: Patient is on targeted therapy -Hypertension continue with lisinopril
--- NOTE | 2018-05-14 11:37 | P.PN ---
Subjective This is a pleasant 83-year-old female past medical history significant for atrial fibrillation s/p cardioversion and hypertension. She is scheduled for cardiac catheterization tomorrow rather than 05/[address] Colvin due to an abnormal stress test in the office. Blood pressure 133/66 heart rate 94 afebrile maintaining oxygen saturation on nasal cannula. Heart rates were again rapid last night despite IV digoxin. IV cardizem was initiated last night. This morning heart rates are much better controlled in the 90-100 range. Laboratory data reviewed, sodium 138, potassium 3.9, creatinine 0.62. Currently maintained on amiodarone 200 mg 3 times a day, aspirin 81 mg daily, Cardizem infusion 10 mg per hour, Lasix 20 mg by mouth daily, lisinopril 10 mg daily, Lopressor 50 mg twice a day. Overnight last night she was more short of breath with exertion, such as when she used the commode. She was given a one time dose of IV lasix 40 mg last night. She denies chest pain, dizziness or palpitations. Repeat chest xray this morning reveals mild pulmonary vascular congestion with trace effusion and patchy atelectasis. GENERAL: Well-appearing, well-nourished and in no acute distress. NECK: Supple without JVD or thyromegaly. LUNGS: Few rales bibasilar. No wheezes or rhonchi. Respiration equal and unlabored. HEART: Regular rate and rhythm without murmurs, rubs or gallops. S1 and S2 heard. EXTREMITIES: Normal range of motion, no edema. No clubbing or cyanosis. Peripheral pulses intact. ASSESSMENT Chronic persistent atrial fibrillation with rapid ventricular response Acute on chronic systolic heart failure, EF 40-45%. Hypertension Abnormal stress test, cath scheduled for tomorrow. Obstructive sleep apnea PLAN Continue current medical regimen. Check NTproBNP. Check kidney function in the morning. NPO after midnight tonight. Further recommendations to follow. Nurse Practitioner note has been reviewed, I agree with a documented findings and plan of care. Patient was seen and examined. Objective - Vital Signs Vital signs: Vital Signs Temp 99.4 F 05/14/18 00:00 Pulse 94 05/14/18 06:07 Resp 22 05/14/18 06:07 BP 133/66 05/14/18 06:07 Pulse Ox 95 05/14/18 06:07 Intake & Output 05/13/18 05/14/18 05/14/18 18:59 06:59 18:59 Intake Total 1210 1140 240 Output Total 2 1500 700 Balance 1208 360 -460 Weight 86.8 kg Intake: IV 960 640 Sodium Chloride 0.9% 1, 960 640 000 ml @ 80 mls/hr IV . [id number] ARTHUR Rx#:[id number] Intake, IV Titration 250 Amount Amiodarone 300 mg In 250 Dextrose 5% in Water 250 ml @ 0.5 MG/MIN 25 mls/hr IV .Q10H ARTHUR Rx#: [id number] Oral 500 240 Output: Urine 1500 700 Stool 2 Other: Voiding Method Toilet Bedpan # Voids 2 1 # Bowel Movements 1 - Labs CBC & Chem 7: 05/13/18 04:38 05/14/18 06:22 Labs: Abnormal Lab Results - Last 24 Hours (Table) 05/14/18 05/14/18 Range/Units 04:54 06:22 BUN 20 H (7-17) mg/dL Glucose 138 H (74-99) mg/dL POC Glucose (mg/dL) 150 H (75-99) mg/dL Calcium 8.3 L (8.4-10.2) mg/dL
[2018-05-14] MEDS ORDERED: HEPARIN SODIUM,PORCINE 5,000 UNIT/ML 1 ML VIAL IV ONE (14:22)
[2018-05-14] MEDS ORDERED: HEPARIN SODIUM,PORCINE 5,000 UNIT/ML 1 ML VIAL IV PRN (14:22)
[2018-05-14] MEDS ORDERED: HEPARIN SOD,PORK IN 0.45% NACL 25,000 UNIT in 0.45% NACL 1 250ML.BAG IV SCH (14:30)
[2018-05-14 15:56] LABS: HCT 31.6 % (34.0-46.0); HGB 10.6 gm/dL (11.4-16.0); INR 1.1 (<1.2); MCH 28.8 pg (25.0-35.0); MCHC 33.4 g/dL (31.0-37.0); Partial Thromboplastin Time 30.1 sec (22.0-30.0); Platelet Count 107 k/uL (150-450); Prothrombin Time 11.5 sec (9.0-12.0); RBC 3.67 m/uL (3.80-5.40); WBC 5.2 k/uL (3.8-10.6)
[2018-05-14 16:26] LABS: Band Neutrophils % 2 %; Eosinophils # (M) 0.05 k/uL (0-0.7); Lymphocytes # (M) 1.25 k/uL (1.0-4.8); Monocytes # (M) 0.52 k/uL (0-1.0); Neutrophils % (M) 63 %; Nucleated Red Blood Cells 0 /100 WBC (0-0); Total Cells Counted 100
[2018-05-15] MEDS: DILTIAZEM 125 MG in SODIUM CHLORIDE 0.9% 100 ML IV SCH (05:09)
[2018-05-15] MEDS: POTASSIUM CHLORIDE ER 10 MEQ TAB.ER.PRT PO SCH (05:51)
[2018-05-15] MEDS: MULTIVITAMINS, THERA 1 EACH TAB PO SCH (05:51)
[2018-05-15] MEDS: METOPROLOL TARTRATE 50 MG TAB PO SCH ×2 (05:51→20:01)
[2018-05-15] MEDS: AMIODARONE 200 MG TAB PO SCH ×3 (05:52→20:01)
[2018-05-15] MEDS: ASCORBIC ACID 500 MG TAB PO SCH (05:52)
[2018-05-15] MEDS: CHOLECALCIFEROL 1,000 UNIT TAB PO SCH (05:52)
[2018-05-15 05:57] LABS: Glucose,Whole Blood 110 mg/dL (75-99)
[2018-05-15] MEDS ORDERED: ASPIRIN 81 MG PO ONE (06:00)
[2018-05-15] MEDS ORDERED: SODIUM CHLORIDE 0.9% 1,000 ML in EMPTY BAG 1 BAG IV ONE (06:00)
[2018-05-15] MEDS ORDERED: ATORVASTATIN 80 MG TAB PO ONE (06:00)
[2018-05-15 08:35] LABS: Anion Gap 4 mmol/L; Blood Urea Nitrogen 26 mg/dL (7-17); Calcium 8.3 mg/dL (8.4-10.2); Carbon Dioxide 28 mmol/L (22-30); Chloride 106 mmol/L (98-107); Glucose 92 mg/dL (74-99); Potassium 4.1 mmol/L (3.5-5.1); Sodium 138 mmol/L (137-145)
[2018-05-15] MEDS ORDERED: IV FLUID CONTINUATION 700 ML IV ONE (08:39)
[2018-05-15 09:00] LABS: HCT 32.8 % (34.0-46.0); HGB 10.4 gm/dL (11.4-16.0); Hypochromasia Slight; MCH 28.1 pg (25.0-35.0); MCHC 31.7 g/dL (31.0-37.0); MCV 88.6 fL (80.0-100.0); Mean Platelet Volume 8.4; Platelet Count 112 k/uL (150-450); RBC 3.71 m/uL (3.80-5.40); RDW 15.2 % (11.5-15.5); WBC 3.8 k/uL (3.8-10.6)
[2018-05-15] MEDS ORDERED: fentaNYL (PF) 50 MCG/ML 2 ML AMP IV ONE (09:08)
[2018-05-15] MEDS ORDERED: LIDOCAINE 1% INJ 10MG/ML (20 ML MDV) SQ ONE (09:12)
[2018-05-15] MEDS ORDERED: VERAPAMIL SYRINGE (5 MG/10 ML) INTRAARTER ONE (09:15)
[2018-05-15] MEDS: HEPARIN SODIUM 1,000 UN/ML (10ML VL) IV ONE ×2 (09:26→09:30)
[2018-05-15] MEDS ORDERED: CLOPIDOGREL 75 MG TAB PO ONE (09:36)
[2018-05-15] MEDS ORDERED: IOPAMIDOL-370 50ML BTL INJ ONE (09:53)
[2018-05-15] MEDS ORDERED: IOPAMIDOL-370 150ML BTL INJ ONE (09:54)
[2018-05-15] MEDS ORDERED: ATROPINE SULFATE 0.1 MG/ML 10ML SYRINGE IV PRN (10:06)
[2018-05-15] MEDS ORDERED: MAG HYDROX/AL HYDROX/SIMETH 30 ML CUP PO PRN (10:06)
[2018-05-15] MEDS ORDERED: ZOLPIDEM 5 MG TAB PO PRN (10:06)
[2018-05-15] MEDS ORDERED: NITROGLYCERIN SL TABS 0.4 MG TAB SUBLINGUAL PRN (10:06)
[2018-05-15] MEDS ORDERED: RX INFO: IV CONTRAST WAS GIVEN 1 EACH MISC MISCELLANE PRN (10:06)
[2018-05-15] MEDS ORDERED: SODIUM CHLORIDE 0.9% 1,000 ML IV SCH (10:15)
[2018-05-15 10:41] LABS: Eosinophils # (M) 0.08 k/uL (0-0.7); Lymphocytes # (M) 1.48 k/uL (1.0-4.8); Monocytes # (M) 0.38 k/uL (0-1.0); Neutrophils # (M) 1.86 k/uL (1.3-7.7); Neutrophils % (M) 49 %; Nucleated Red Blood Cells 0 /100 WBC (0-0); Total Cells Counted 100
--- NOTE | 2018-05-15 10:47 | CC ---
CARDIAC CATHETERIZATION REPORT Mrs. Wright is an 83-year-old female with known history of atrial fibrillation, history of chronic lymphocytic leukemia, who presented to the hospital with episode of palpitation and chest discomfort. She has underwent a myocardial perfusion imaging as an outpatient that was abnormal and was scheduled to undergo coronary angiography. The procedures, risks and complications were discussed with the patient who is in full understanding and agreement. PROCEDURE: Patient was brought to bolt labeler in a fasting semi-sedated state after receiving fentanyl and Benadryl and achieving moderate conscious sedated state. Using Xylocaine anesthesia in the Seldinger technique, a 6-Ethiopian sheath was introduced in the right radial artery. Selective right and left angiography were performed using 5-Ethiopian 3.5 bend right Zach and 4 bend left Zach catheter. Multiple views of the coronary artery including hemiaxial views obtained. Following that, angioplasty and stenting was performed. Following that, a 5-Ethiopian tight pigtail catheter was induced in the left ventricle and a 30 degree NIEVES view of the left ventricle was obtained. Following that, catheter and sheath were removed. Hemostasis was obtained with deployment of a TR band. There was no immediate complication. Patient is returned to room in stable condition. FINDINGS: LEFT MAIN: This is a large-sized vessel bifurcating into left circumflex, left anterior descending artery. Left main coronary artery has no evidence of high-grade stenosis. LEFT ANTERIOR ARTERY: This is a large-sized vessel, reaching toward the apex with a wraparound apex segment, giving rise to a proximal diagonal branch. The proximal segment of the LAD after the takeoff of the first septal web development instructor has a 20% to 30% plaque. The rest of the vessel has no high-grade stenosis. LEFT CIRCUMFLEX: This is a nondominant vessel, giving rise to 4 obtuse marginal branches. The third one is the largest in caliber before the bifurcation of the obtuse marginal branch there is a 60% to 70% plaque. The rest of the vessel has no high-grade stenosis. RIGHT CORONARY ARTERY: This is a large dominant vessel, bifurcating distally into PDA and posterolateral segment branches. The right coronary artery in the mid segment had 2 areas of stenosis up to 90%. The rest of the vessel has no high-grade stenosis. LEFT VENTRICULOGRAM: Left ventriculogram was performed in 30 degree NIEVES view and revealed normal size and systolic function. Ejection fraction 55%. There was no evidence of mitral regurgitation. HEMODYNAMICS: There was no gradient across the aortic valve. The left ventricular end- diastolic pressure was 16-20 mmHg. CONCLUSION: 1. 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 2. Moderate significant disease in the distal left circumflex. 3. Mild disease in the left anterior descending artery. 4. Normal left ventricular size and systolic function. RECOMMENDATION: In view of finding anatomy, I recommend proceeding with angioplasty and stenting of the right coronary artery. The procedures, risks, and complication were discussed with the patient who is in full understanding and agreement. MMODL / IJN: [id number] /
--- NOTE | 2018-05-15 10:50 | PTCA ---
PERCUTANEOUSTRANS CORORONARY ANGIOGRAPHY Mrs. Wright is an 83-year-old female with history of atrial fibrillation who presented with symptoms of chest discomfort and palpitation and had an abnormal myocardial perfusion imaging. Underwent cardiac catheterization, was found to have significant stenosis involving the mid right coronary artery. In view of that, recommendation was made regarding angioplasty and stenting. The procedures, risks and complications were discussed with the patient who is in full understanding and agreement. PROCEDURE: A 6-Syrian FR4 guiding catheter introduced into the system. After interrogating the right coronary ostium, a 0.014 balanced medium weight J-wire was advanced across the lesion, positioned in the distal right coronary artery. Subsequently, a 3.0 x 33 mm Xience Christina stent was deployed and post-dilated in 16 atmospheres. Following that, the balloon was removed and a 3.5 x 12 mm NC Trek balloon was advanced and 2 inflations with maximum of 12 atmospheres were done. Following that and after appropriate wait, the balloon and the guidewire were withdrawn back in the guiding catheter. Images were obtained repeated. Those images reveal stable successful stenting. At that point, the guiding catheter, the balloon and the guidewire were removed and left ventriculogram was performed. Following that, catheter and sheath were removed. Hemostasis was obtained with deployment of a TR band. There was no immediate complication patient is returned to room in stable condition. Of note, [place] [address] units of intravenous heparin as well as intra-arterial verapamil. She had no significant changes in the EKG changes or chest discomfort with the inflation. RESULTS: Successful stenting of a long segment of the right coronary artery with reduction of stenosis from 95% to less than 5%. RECOMMENDATION: Patient be continued on aspirin, Plavix and statin in addition to beta michael. She will be re-evaluated regarding SI anticoagulation will be re-initiated in the form of Xarelto 15 mg daily and subsequently evaluation will be in a will be needed for possible restoring sinus mechanism. Those findings and recommendation were discussed with the patient and her family, who are in full understanding and agreement. Duration of procedure 48 minutes. RUPA / VITON: [id number] /
[2018-05-15] MEDS: LISINOPRIL 10 MG TAB PO SCH (11:11)
[2018-05-15] MEDS: FUROSEMIDE 20 MG TAB PO SCH (11:12)
[2018-05-15] MEDS: DILTIAZEM ORAL 30 MG TAB PO SCH ×3 (11:12→20:01)
--- NOTE | 2018-05-15 13:22 | P.PN ---
Subjective Patient is admitted for a atrial fibrillation with rapid ventricular rate patient is presently on amiodarone drip, Cardizem was discontinued patient will undergo cardioversion by Dr. Colvin. 05/14/2018 patient was bit congested because of which patient received a dose of Lasix. Her recent echo cardiac exam showed ejection fraction of 40-45%. Patient had normal ejection fraction the past had increasing ejection fraction is probably because of atrial fibrillation. Patient is still not rate controlled patient continues to be on Cardizem drip. Repeat chest x-ray did show congestion will order another dose of Lasix patient does have crackles on lung exam with elevated JVD still bit short of breath. As there are no many choices in spite of for decreased ejection fraction patient remains on Cardizem 05/15/2018 Since respiratory status improved patient doesn't have any crackles today saturating 98% on 2 L. Patient underwent cardia catheterization and stenting of RCA. Her A. fib is expected to be under control now. Presently on oral Cardizem beta michael and EDGAR inhibitor. Constitutional: Patient is extubated tired and fatigued Cardio vascular: denied any chest pain, palpitations Gastrointestinal denied any nausea vomiting Pulmonary: Denied any shortness of breath cough Neurologic denied any new focal deficits All inpatient medications were reviewed and appropriate changes in these medications as dictated in the interval history and assessment and plan. Objective - Vital Signs Vital signs: Vital Signs Temp 97.9 F 05/15/18 08:21 Pulse 60 05/15/18 08:21 Resp 20 05/15/18 08:21 BP 111/52 05/15/18 08:21 Pulse Ox 98 05/15/18 08:21 Intake & Output 05/14/18 05/15/18 05/15/18 18:59 06:59 18:59 Intake Total 1185 38.833 300 Output Total 1999 550 Balance -815 -511.167 300 Weight 84.3 kg Intake: IV 120 300 Sodium Chloride 0.9% 1, 120 000 ml @ 80 mls/hr IV . [id number] ARTHUR Rx#:[id number] Intake, IV Titration 185 38.833 Amount Diltiazem 125 mg In 185 38.833 Sodium Chloride 0.9% 100 ml @ 10 MG/HR 10 mls/hr IV .[id number] ARTHUR Rx#: [id number] Oral 880 Output: Urine 2000 550 Other: Voiding Method Bedpan Bedside Commode # Voids 300 1 # Bowel Movements 1 1 - Exam PHYSICAL EXAMINATION: GENERAL: The patient is alert and oriented x3, not in any acute distress. Well developed, well nourished. HEENT: Pupils are round and equally reacting to light. EOMI. No scleral icterus. No conjunctival pallor. Normocephalic, atraumatic. No pharyngeal erythema. No thyromegaly. CARDIOVASCULAR: S1 and S2 present. No murmurs, rubs, or gallops, patient's heart rate is better controlled now PULMONARY: Crackles improved ABDOMEN: Soft, nontender, nondistended, normoactive bowel sounds. No palpable organomegaly. MUSCULOSKELETAL: No joint swelling or deformity. EXTREMITIES: No cyanosis, clubbing, or pedal edema. NEUROLOGICAL: Gross neurological examination did not reveal any focal deficits. SKIN: No rashes. - Labs CBC & Chem 7: 05/15/18 08:03 05/15/18 08:03 Labs: Abnormal Lab Results - Last 24 Hours (Table) 05/14/18 05/14/18 05/14/18 Range/Units 15:21 15:21 22:30 RBC 3.67 L (3.80-5.40) m/uL Hgb 10.6 L (11.4-16.0) gm/dL Hct 31.6 L (34.0-46.0) % Plt Count 107 L (150-450) k/uL APTT 30.1 H 50.6 H (22.0-30.0) sec BUN (7-17) mg/dL POC Glucose (mg/dL) (75-99) mg/dL Calcium (8.4-10.2) mg/dL 05/15/18 05/15/18 05/15/18 Range/Units 05:56 08:03 08:03 RBC 3.71 L (3.80-5.40) m/uL Hgb 10.4 L (11.4-16.0) gm/dL Hct 32.8 L (34.0-46.0) % Plt Count 112 L (150-450) k/uL APTT (22.0-30.0) sec BUN 26 H (7-17) mg/dL POC Glucose (mg/dL) 110 H (75-99) mg/dL Calcium 8.3 L (8.4-10.2) mg/dL 05/15/18 Range/Units 08:03 RBC (3.80-5.40) m/uL Hgb (11.4-16.0) gm/dL Hct (34.0-46.0) % Plt Count (150-450) k/uL APTT 42.4 H (22.0-30.0) sec BUN (7-17) mg/dL POC Glucose (mg/dL) (75-99) mg/dL Calcium (8.4-10.2) mg/dL Assessment and Plan Plan: Atrial fibrillation with rapid and regular rate patient will be continued on amiodarone, metoprolol patient on Eliquis patient heart rate is not well controlled yet. Cardiology is managing A. fib and patient will undergo cardioversion by cardiology and patient is also on Cardizem -Carotid artery disease and underwent stenting of RCA for acute coronary syndrome patient's systolic dysfunction may be acute. 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
[2018-05-15 13:48] VITALS: BMI 29.1
[2018-05-15] MEDS: ATORVASTATIN 80 MG TAB PO SCH (20:01)
[2018-05-16 06:38] LABS: Anion Gap 3 mmol/L; Blood Urea Nitrogen 27 mg/dL (7-17); Calcium 8.2 mg/dL (8.4-10.2); Carbon Dioxide 26 mmol/L (22-30); Chloride 110 mmol/L (98-107); Glucose 103 mg/dL (74-99); Potassium 4.5 mmol/L (3.5-5.1); Sodium 139 mmol/L (137-145)
[2018-05-16] MEDS: ASPIRIN 81 MG PO SCH (08:39)
[2018-05-16] MEDS: FUROSEMIDE 20 MG TAB PO SCH (08:39)
[2018-05-16] MEDS: DILTIAZEM ORAL 30 MG TAB PO SCH ×3 (08:39→20:09)
[2018-05-16] MEDS: LISINOPRIL 10 MG TAB PO SCH (08:39)
[2018-05-16] MEDS: AMIODARONE 200 MG TAB PO SCH ×3 (08:39→20:09)
[2018-05-16] MEDS: CLOPIDOGREL 75 MG TAB PO SCH (08:39)
[2018-05-16] MEDS: CHOLECALCIFEROL 1,000 UNIT TAB PO SCH (08:40)
[2018-05-16] MEDS: MULTIVITAMINS, THERA 1 EACH TAB PO SCH (08:40)
[2018-05-16] MEDS: METOPROLOL TARTRATE 50 MG TAB PO SCH ×4 (08:40→20:09)
[2018-05-16] MEDS: POTASSIUM CHLORIDE ER 10 MEQ TAB.ER.PRT PO SCH (08:40)
[2018-05-16] MEDS: ASCORBIC ACID 500 MG TAB PO SCH (08:40)
--- NOTE | 2018-05-16 14:20 | P.PN ---
Subjective Patient is admitted for a atrial fibrillation with rapid ventricular rate patient is presently on amiodarone drip, Cardizem was discontinued patient will undergo cardioversion by Dr. Colvin. 05/14/2018 patient was bit congested because of which patient received a dose of Lasix. Her recent echo cardiac exam showed ejection fraction of 40-45%. Patient had normal ejection fraction the past had increasing ejection fraction is probably because of atrial fibrillation. Patient is still not rate controlled patient continues to be on Cardizem drip. Repeat chest x-ray did show congestion will order another dose of Lasix patient does have crackles on lung exam with elevated JVD still bit short of breath. As there are no many choices in spite of for decreased ejection fraction patient remains on Cardizem 05/15/2018 Since respiratory status improved patient doesn't have any crackles today saturating 98% on 2 L. Patient underwent cardia catheterization and stenting of RCA. Her A. fib is expected to be under control now. Presently on oral Cardizem beta michael and EDGAR inhibitor. 05/16/2018 Patient is still in A. fib with rapid ventricular rate patient was started on beta michael and cardiology is planning on monitoring her on beta michael before any intervention patient respiratory status improved. Patient on 20 mg of Lasix at this time Constitutional: Patient is extubated tired and fatigued Cardio vascular: denied any chest pain, palpitations Gastrointestinal denied any nausea vomiting Pulmonary: As mentioned above Neurologic denied any new focal deficits All inpatient medications were reviewed and appropriate changes in these medications as dictated in the interval history and assessment and plan. Objective - Vital Signs Vital signs: Vital Signs Temp 98.2 F 05/16/18 12:00 Pulse 120 H 05/16/18 12:00 Resp 17 05/16/18 12:00 BP 117/73 05/16/18 12:00 Pulse Ox 98 05/16/18 12:00 Intake & Output 05/15/18 05/16/18 05/16/18 18:59 06:59 18:59 Intake Total 780 1120 Balance 780 1120 Weight 84.3 kg 86.9 kg Intake: IV 300 20 Invasive Line 2 10 Invasive Line 4 10 Oral 480 1100 Other: Voiding Method Toilet Toilet # Voids 1 3 # Bowel Movements 1 - Exam PHYSICAL EXAMINATION: GENERAL: The patient is alert and oriented x3, not in any acute distress. Well developed, well nourished. HEENT: Pupils are round and equally reacting to light. EOMI. No scleral icterus. No conjunctival pallor. Normocephalic, atraumatic. No pharyngeal erythema. No thyromegaly. CARDIOVASCULAR: S1 and S2 present. No murmurs, rubs, or gallops, patient is still tachycardic PULMONARY: Crackles improved ABDOMEN: Soft, nontender, nondistended, normoactive bowel sounds. No palpable organomegaly. MUSCULOSKELETAL: No joint swelling or deformity. EXTREMITIES: No cyanosis, clubbing, or pedal edema. NEUROLOGICAL: Gross neurological examination did not reveal any focal deficits. SKIN: No rashes. - Labs CBC & Chem 7: 05/15/18 08:03 05/16/18 06:06 Labs: Abnormal Lab Results - Last 24 Hours (Table) 05/16/18 Range/Units 06:06 Chloride 110 H (98-107) mmol/L BUN 27 H (7-17) mg/dL Glucose 103 H (74-99) mg/dL Calcium 8.2 L (8.4-10.2) mg/dL Assessment and Plan Plan: Atrial fibrillation with rapid and regular rate patient will be continued on amiodarone, metoprolol patient on Eliquis patient heart rate is not well controlled yet. Cardiology is managing A. fib and patient is presently on Cardizem, amiodarone, beta michael. -Carotid artery disease and underwent stenting of RCA for acute coronary syndrome patient's systolic dysfunction may be acute. -Congestive heart failure patient does have chronic diastolic dysfunction presently has acute systolic dysfunction most probably from atrial fibrillation presently EF of around 40-40% patient is euvolemic today continue with oral Lasix. I'll obtain a chest x-ray. 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
[2018-05-16] MEDS: RIVAROXABAN 20 MG TAB PO SCH (15:18)
--- NOTE | 2018-05-16 15:40 | XR ---
EXAMINATION TYPE: XR chest 1V DATE OF EXAM: 05/16/2018 COMPARISON: Prior chest x-ray 05/14/2018 HISTORY: Congestive heart failure TECHNIQUE: Single frontal view of the chest is obtained. FINDINGS: Patient is rotated. There are overlying cardiac leads. Evidence of old granulomatous disea se again noted. Minimal patchy basilar density is noted. No evident pneumothorax. Heart size is stabl e. There is some improvement in interstitium. IMPRESSION: Suspect some improvement in patient's volume status, aeration. Persistent basilar atelec tasis, difficult to exclude small effusion.
[2018-05-16] MEDS ORDERED: METOPROLOL TARTRATE 50 MG TAB PO SCH (16:00)
[2018-05-16] MEDS: ATORVASTATIN 80 MG TAB PO SCH (20:08)
[2018-05-17 07:27] LABS: Potassium 4.3 mmol/L (3.5-5.1)
[2018-05-17 07:28] LABS: Anion Gap 5 mmol/L; Blood Urea Nitrogen 28 mg/dL (7-17); Calcium 8.7 mg/dL (8.4-10.2); Carbon Dioxide 28 mmol/L (22-30); Chloride 107 mmol/L (98-107); Glucose 94 mg/dL (74-99); Magnesium 1.9 mg/dL (1.6-2.3); Sodium 140 mmol/L (137-145)
[2018-05-17] MEDS: CHOLECALCIFEROL 1,000 UNIT TAB PO SCH (08:38)
[2018-05-17] MEDS: FUROSEMIDE 20 MG TAB PO SCH (08:38)
[2018-05-17] MEDS: POTASSIUM CHLORIDE ER 10 MEQ TAB.ER.PRT PO SCH (08:38)
[2018-05-17] MEDS: METOPROLOL TARTRATE 50 MG TAB PO SCH ×2 (08:38→16:24)
[2018-05-17] MEDS: DILTIAZEM ORAL 30 MG TAB PO SCH ×2 (08:38→16:25)
[2018-05-17] MEDS: LISINOPRIL 10 MG TAB PO SCH (08:38)
[2018-05-17] MEDS: MULTIVITAMINS, THERA 1 EACH TAB PO SCH (08:39)
[2018-05-17] MEDS: ASCORBIC ACID 500 MG TAB PO SCH (08:39)
[2018-05-17] MEDS: AMIODARONE 200 MG TAB PO SCH ×2 (08:39→16:25)
[2018-05-17] MEDS: CLOPIDOGREL 75 MG TAB PO SCH (08:39)
[2018-05-17] MEDS: ASPIRIN 81 MG PO SCH (08:39)
[2018-05-17 08:44] VITALS: RESP 17
--- NOTE | 2018-05-17 13:34 | P.DS ---
Providers Date of admission: 05/12/18 13:27 Attending physician: Brett Richardson Consults: 05/12/18 13:25 Consult Physician Urgent Consulting Provider: Lex Colvin Consult Reason/Comments: Rapid atrial fibrillation Do you want consulting provider notified?: Yes 05/15/18 10:06 Consult Physician Routine Consulting Provider: [facility] Consult Reason/Comments: Post Interventional patient Do you want consulting provider notified?: Already Contacted Primary care physician: [facility] Course: 05/14/2018 patient was bit congested because of which patient received a dose of Lasix. Her recent echo cardiac exam showed ejection fraction of 40-45%. Patient had normal ejection fraction the past had increasing ejection fraction is probably because of atrial fibrillation. Patient is still not rate controlled patient continues to be on Cardizem drip. Repeat chest x-ray did show congestion will order another dose of Lasix patient does have crackles on lung exam with elevated JVD still bit short of breath. As there are no many choices in spite of for decreased ejection fraction patient remains on Cardizem 05/15/2018 Since respiratory status improved patient doesn't have any crackles today saturating 98% on 2 L. Patient underwent cardia catheterization and stenting of RCA. Her A. fib is expected to be under control now. Presently on oral Cardizem beta michael and EDGAR inhibitor. 05/16/2018 Patient is still in A. fib with rapid ventricular rate patient was started on beta michael and cardiology is planning on monitoring her on beta michael before any intervention patient respiratory status improved. Patient on 20 mg of Lasix at this time 05/17/2018 10 patient heart rate is well controlled patient is clinically doing well and is being discharged today in stable medical condition to home. PHYSICAL EXAMINATION: GENERAL: The patient is alert and oriented x3, not in any acute distress. Well developed, well nourished. HEENT: Pupils are round and equally reacting to light. EOMI. No scleral icterus. No conjunctival pallor. Normocephalic, atraumatic. No pharyngeal erythema. No thyromegaly. CARDIOVASCULAR: S1 and S2 present. No murmurs, rubs, or gallops. PULMONARY: Chest is clear to auscultation, no wheezing or crackles. ABDOMEN: Soft, nontender, nondistended, normoactive bowel sounds. No palpable organomegaly. MUSCULOSKELETAL: No joint swelling or deformity. EXTREMITIES: No cyanosis, clubbing, or pedal edema. NEUROLOGICAL: Gross neurological examination did not reveal any focal deficits. SKIN: No rashes. Assessment and Plan Plan: Atrial fibrillation with rapid and regular rate patient will be continued on amiodarone, metoprolol patient heart rate is well controlled and patient is being discharged on plavix and Xeralto 15 mg -Carotid artery disease and underwent stenting of RCA for acute coronary syndrome patient's systolic dysfunction may be acute. 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 -Hypertension continue with lisinopril Patient Condition at Discharge: Serious Plan - Discharge Summary Discharge Rx Participant: No New Discharge Prescriptions: New Amiodarone [Cordarone] 200 mg PO TID #90 tab Atorvastatin [Lipitor] 40 mg PO HS #30 tab Clopidogrel [Plavix] 75 mg PO DAILY #30 tab Diltiazem Oral [Cardizem*] 30 mg PO TID #90 tab Metoprolol Tartrate [Lopressor] 50 mg PO TID #90 tab Nitroglycerin Sl Tabs [Nitrostat] 0.4 mg SUBLINGUAL Q5M PRN #25 tab PRN Reason: Chest Pain Rivaroxaban [Xarelto] 15 mg PO W/SUPPER #30 tab Continue Potassium Chloride ER [K-Dur 10] 10 meq PO DAILY Lisinopril [Zestril] 10 mg PO DAILY Furosemide [Lasix] 20 mg PO DAILY Discontinued Apixaban [Eliquis] 5 mg PO BID #60 tab Metoprolol Succinate [Toprol XL] 25 mg PO DAILY No Action Multivitamins, Thera [Multivitamin (formulary)] 1 tab PO DAILY Cholecalciferol [Vitamin D3] 1,000 unit PO DAILY Ascorbic Acid [Vitamin C] 500 mg PO DAILY Discharge Medication List Ascorbic Acid [Vitamin C] 500 mg PO DAILY 12/25/16 [History] Cholecalciferol [Vitamin D3] 1,000 unit PO DAILY 12/25/16 [History] Multivitamins, Thera [Multivitamin (formulary)] 1 tab PO DAILY 12/25/16 [History ] Furosemide [Lasix] 20 mg PO DAILY 05/12/18 [History] Lisinopril [Zestril] 10 mg PO DAILY 05/12/18 [History] Potassium Chloride ER [K-Dur 10] 10 meq PO DAILY 05/12/18 [History] Amiodarone [Cordarone] 200 mg PO TID #90 tab 05/17/18 [Rx] Atorvastatin [Lipitor] 40 mg PO HS #30 tab 05/17/18 [Rx] Clopidogrel [Plavix] 75 mg PO DAILY #30 tab 05/17/18 [Rx] Diltiazem Oral [Cardizem*] 30 mg PO TID #90 tab 05/17/18 [Rx] Metoprolol Tartrate [Lopressor] 50 mg PO TID #90 tab 05/17/18 [Rx] Nitroglycerin Sl Tabs [Nitrostat] 0.4 mg SUBLINGUAL Q5M PRN #25 tab 05/17/18 [Rx ] Rivaroxaban [Xarelto] 15 mg PO W/SUPPER #30 tab 05/17/18 [Rx] Follow up Appointment(s)/Referral(s): Bassam Martin MD [Primary Care Provider] - 05/19/18 9:30 am (Tuesday ) Patient Instructions/Handouts: *Surgery [facility] - After Heart Catheterization - [facility] Instructions, Left Heart Catheterization (DC) Discharge Disposition: HOME SELF-CARE
[2018-05-17 14:34] VITALS: BP 128/81; PULSE 120; TEMP 97.6
--- NOTE | 2018-05-17 14:43 | P.PN ---
Subjective Progress Note Date: 05/17/18 This is a pleasant 83-year-old gentleman with history of chronic atrial fibrillation, she was cardioverted in February last year in [facility] and I was subsequently went back into [facility]. She presented to the hospital on this admission with Irvin eddy with RVR. Patient also was taken to the cardiac catheterization lab, underwent successful stenting of a long segment of the RCA. Yesterday her heart rate remained in the 1 teens, some medication adjustments have been made. She was seen and examined this morning, heart rate primarily in the 80s at times up into the 90s. Overall the patient is doing well today. She may be able to be discharged from our perspective on xarelto 15 mg and Plavix, no aspirin. Objective - Vital Signs Vital signs: Vital Signs Temp 97.4 F L 05/17/18 07:40 Pulse 115 H 05/17/18 08:45 Resp 17 05/17/18 08:45 BP 138/79 05/17/18 07:40 Pulse Ox 97 05/17/18 07:40 Intake & Output 05/16/18 05/17/18 05/17/18 18:59 06:59 18:59 Intake Total 1330 310 118 Balance 1330 310 118 Weight 86 kg Intake: IV 30 10 Invasive Line 2 10 Invasive Line 4 20 10 Oral 1300 300 118 Other: Voiding Method Toilet Toilet Toilet # Voids 1 - Exam GENERAL EXAM: Patient is alert and oriented and doesn't appear to be in any acute distress, in mild respiratory distress HEENT: Normocephalic. Normal reaction of pupils, equal size, normal range of extraocular motion. No erythema or exudates in the throat. NECK: No masses, no nuchal rigidity. CHEST: No chest wall deformity. LUNGS: Few rales at the right base HEART: S1 and S2 irregularly irregular with no audible mumurs or gallops. Regular rhythm, femorals equal on both sides.. ABDOMEN: No hepatosplenomegaly, normal bowel sounds, no guarding or rigidity. SKIN: No rashes CENTRAL NERVOUS SYSTEM: No focal deficits. EXTREMITIES: No cyanosis, clubbing or edema. - Labs CBC & Chem 7: 05/15/18 08:03 05/17/18 06:32 Labs: Abnormal Lab Results - Last 24 Hours (Table) 05/17/18 Range/Units 06:32 BUN 28 H (7-17) mg/dL Assessment and Plan Plan: Assessment and plan #1 chronic persistent atrial fibrillation #2 history of lymphoma #3 obstructive sleep apnea #4 status post RCA stent Plan From cardiology's perspective, patient may be able to be discharged home today on Plavix 75 mg daily and xarelto 15 mg daily. No aspirin. Amiodarone 200 mg by mouth 3 times a day, Lipitor 40 mg daily, Cardizem 30 mg 3 times a day, Lasix 20 mg daily, lisinopril 10 mg daily, metoprolol 50 3 times a day and sublingual nitroglycerin as needed for chest pain. DNP note has been reviewed, I agree with a documented findings and plan of care. Patient was seen and examined.
[2018-05-17] MEDS: RIVAROXABAN 20 MG TAB PO SCH (16:25)
== END 2018-05-17 16:31 | disposition home or self-care (01) | DRG 246 ==
LOC: EC 10:33 → 2SICU 13:27 → 3SCARD 05-14 02:53
PROVIDERS: ADMIT Internal Medicine; ATTEND Internal Medicine
PROC: B2111ZZ Fluoroscopy of Multiple Coronary Arteries using Low Osmolar Contrast (ICD-10-PCS; 2018-05-15)
PROC: 027034Z Dilation of Coronary Artery, One Artery with Drug-eluting Intraluminal Device, Percutaneous Approach (ICD-10-PCS; principal; 2018-05-15 08:24)
PROC: 4A023N7 Measurement of Cardiac Sampling and Pressure, Left Heart, Percutaneous Approach (ICD-10-PCS; 2018-05-15 08:24)
DX: I48.1 Persistent atrial fibrillation (principal); I50.43 Acute on chronic combined systolic (congestive) and diastolic (congestive) heart failure; C91.10 Chronic lymphocytic leukemia of B-cell type not having achieved remission; I95.9 Hypotension, unspecified; E86.0 Dehydration; I11.0 Hypertensive heart disease with heart failure; I42.9 Cardiomyopathy, unspecified; G47.33 Obstructive sleep apnea (adult) (pediatric); I25.10 Atherosclerotic heart disease of native coronary artery without angina pectoris; I87.2 Venous insufficiency (chronic) (peripheral); Z79.01 Long term (current) use of anticoagulants; Z79.899 Other long term (current) drug therapy; Z90.711 Acquired absence of uterus with remaining cervical stump; Z85.828 Personal history of other malignant neoplasm of skin; Z85.89 Personal history of malignant neoplasm of other organs and systems; Z80.3 Family history of malignant neoplasm of breast; Z82.49 Family history of ischemic heart disease and other diseases of the circulatory system
CPT/HCPCS: 36415; 71045; 71046; 80048; 80053; 83735; 83880; 84484; 85025; 85347; 85610; 85730; 93005; 93306; 93458; 96365; 96366; 96376; 99291; C1874

== ENCOUNTER 2018-06-01 22:51 | Observation (INO) | payer MEDICARE ==
[2018-06-01] MEDS ORDERED: SODIUM CHLORIDE 0.9% 1,000 ML IV STA (23:12)
[2018-06-01] MEDS ORDERED: FUROSEMIDE 10 MG/ML 4 ML VIAL IV STA (23:12)
[2018-06-01] MEDS ORDERED: IPRATROPIUM-ALBUTEROL 3 ML NEB INHALATION STA (23:12)
--- NOTE | 2018-06-01 23:31 | ED ---
General Adult HPI - General Source: patient, RN notes reviewed, old records reviewed Mode of arrival: ambulatory Limitations: no limitations <Lindy Bowers - Last Filed: 06/05/18 10:11> <Chelsea Norris - Last Filed: 06/07/18 00:27> - General Chief complaint: Shortness of Breath Stated complaint: GUSTAVO/Weakness Time Seen by Provider: 06/01/18 23:06 - History of Present Illness Initial comments: Patient is an 83-year-old female who presents emergency Department today with complaints of increasing shortness of breath. She reports it's been progressive over the past 3 days. Patient reports Some leg swelling. 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 She was recently admitted for A. fib and had recent c ardiac stent. Patient states it's difficult for her to lay down with out becoming very short of breath. Patient states that she is also had this productive cough. She denies any fevers or chills. (Lindy Bowers) - Related Data Home Medications Medication Instructions Recorded Confirmed Ascorbic Acid [Vitamin C] 500 mg PO DAILY 12/25/16 06/01/18 Cholecalciferol [Vitamin D3] 1,000 unit PO DAILY 12/25/16 06/01/18 Multivitamins, Thera [Multivitamin 1 tab PO DAILY 12/25/16 06/01/18 (formulary)] Lisinopril [Zestril] 10 mg PO DAILY 05/12/18 06/01/18 Amiodarone [Cordarone] 200 mg PO BID 06/01/18 06/01/18 Diltiazem Cd [Cardizem CD] 240 mg PO HS 06/01/18 06/01/18 Metoprolol Tartrate [Lopressor] 50 mg PO BID 06/01/18 06/01/18 Previous Rx's Medication Instructions Recorded Atorvastatin [Lipitor] 40 mg PO HS #30 tab 05/17/18 Clopidogrel [Plavix] 75 mg PO DAILY #30 tab 05/17/18 Nitroglycerin Sl Tabs [Nitrostat] 0.4 mg SUBLINGUAL Q5M PRN #25 tab 05/17/18 Rivaroxaban [Xarelto] 15 mg PO W/SUPPER #30 tab 05/17/18 Fluticasone Nasal [place] [Flonase 2 spray EA NOSTRIL DAILY PRN 5 06/06/18 Nasal [place]] Days spr Furosemide [Lasix] 40 mg PO BID@0900,1600 #60 tab 06/06/18 Potassium Chloride ER [K-Dur 10] 10 meq PO DAILY #60 tab.er.prt 06/06/18 Allergies Allergy/AdvReac Type Severity Reaction Status Date / Time No Known Allergies Allergy Verified 06/01/18 23:15 Review of Systems ROS Other: All systems not noted in ROS Statement are negative. <Lindy Bowers - Last Filed: 06/05/18 10:11> ROS Other: All systems not noted in ROS Statement are negative. <Chelsea Norris - Last Filed: 06/07/18 00:27> ROS Statement: Those systems with pertinent positive or pertinent negative responses have been documented in the HPI. Past Medical History Past Medical History: Atrial Fibrillation, Cancer, Hyperlipidemia, Hypertension Additional Past Medical History / Comment(s): PT SOUNDS A LITTLE WHEEZY ON THE PHONE. INSTRUCTED TO TAKE LASIX DIRECTED AND TO NOTIFY DR. FERNANDEZ IF WHEEZING BECOMES WORSE. Sleep apnea not using CPAP since lost 60#, asthma not chronically on therapy, venous insufficiency, Vulvar cancer , basal cell skin cancer, leukemia (cll) History of Any Multi-Drug Resistant Organisms: None Reported Past Surgical History: Heart Catheterization With Stent, Hysterectomy, Orthopedic Surgery, Tonsillectomy Additional Past Surgical History / Comment(s): Right-sided knee surgery for repair of laceration, partial hysterectomy, 2 nasal surgeries for basal cell sk in cancer and rt arm, surgery on right third and fourth digit for ganglion cyst,2 d&c's(sx 2 miscarriages), colonoscopy Past Anesthesia/Blood Transfusion Reactions: No Reported Reaction Additional Past Anesthesia/Blood Transfusion Reaction / Comment(s): slow to wake up Date of Last Stent Placement:: 05/15/18 Past Psychological History: No Psychological Hx Reported Smoking Status: Never smoker Past Alcohol Use History: None Reported Past Drug Use History: None Reported - Past Family History Mother Family Medical History: Cancer Additional Family Medical History / Comment(s): Breast cancer Father Family Medical History: Myocardial Infarction ([place]) Additional Family Medical History / Comment(s): in his early s <Lindy Bowers - Last Filed: 06/05/18 10:11> General Exam Limitations: no limitations General appearance: alert, in no apparent distress Head exam: Present: atraumatic, normocephalic, normal inspection Eye exam: Present: normal appearance, PERRL, EOMI. Absent: scleral icterus, conjunctival injection, periorbital swelling ENT exam: Present: normal exam, mucous membranes moist Neck exam: Present: normal inspection. Absent: tenderness, meningismus, lymphadenopathy Respiratory exam: Present: decreased breath sounds. Absent: normal lung sounds bilaterally, respiratory distress, wheezes, rales, rhonchi, stridor Cardiovascular Exam: Present: regular rate, normal rhythm, normal heart sounds. Absent: systolic murmur, diastolic murmur, rubs, gallop, clicks GI/Abdominal exam: Present: soft, normal bowel sounds. Absent: distended, tenderness, guarding, rebound, rigid Extremities exam: Present: normal inspection, full ROM, normal capillary refill. Absent: tenderness, pedal edema, joint swelling, calf tenderness Back exam: Present: normal inspection Neurological exam: Present: alert, oriented X3, CN II-XII intact Psychiatric exam: Present: normal affect, normal mood Skin exam: Present: warm, dry, intact, normal color. Absent: rash <Lindy Bowers - Last Filed: 06/05/18 10:11> - General Exam Comments Initial Comments: This is an 83-year-old female. Alert and oriented. No distress. (Lindy Bowers) Course Vital Signs 06/01/18 06/01/18 06/01/18 22:54 23:31 23:39 Temperature 98.4 F Pulse Rate 70 77 76 Respiratory 26 H Rate Blood Pressure 137/77 O2 Sat by Pulse 94 L Oximetry 06/02/18 06/02/18 06/02/18 00:00 00:10 00:20 Temperature Pulse Rate 78 77 75 Respiratory 23 24 25 H Rate Blood Pressure 134/74 126/90 O2 Sat by Pulse 98 Oximetry 06/02/18 06/02/18 06/02/18 00:30 00:40 00:50 Temperature Pulse Rate 79 83 80 Respiratory 21 18 22 Rate Blood Pressure 126/90 144/76 144/76 O2 Sat by Pulse 98 99 Oximetry 06/02/18 06/02/18 01:00 01:20 Temperature Pulse Rate 79 73 Respiratory 17 21 Rate Blood Pressure 144/76 117/59 O2 Sat by Pulse 99 99 Oximetry Medical Decision Making - Lab Data Result diagrams: 06/01/18 23:50 06/05/18 06:46 - Radiology Data Radiology results: report reviewed <Lindy Bowers - Last Filed: 06/05/18 10:11> - Lab Data Result diagrams: 06/01/18 23:50 06/06/18 06:05 <Chelsea Norris - Last Filed: 06/07/18 00:27> - Medical Decision Making Patient case transferred to Dr. Norris. (Lindy Bowers) Patient care was signed out to me by Lindy CONLEY. Bursitis on evaluated the patient. Patient is an 83-year-old female with shortness of breath she'll be admitted to the hospital for CHF exacerbation and intravascular fluid patient. Patient has both CHF exacerbation and dehydration at this time. Cardiology will be consulted for her admission. (Chelsea Norris) - Lab Data Lab Results 06/01/18 06/01/18 06/01/18 Range/Units 23:50 23:50 23:50 WBC 5.0 (3.8-10.6) k/uL RBC 4.47 (3.80-5.40) m/uL Hgb 12.3 (11.4-16.0) gm/dL Hct 38.1 (34.0-46.0) % MCV 85.4 (80.0-100.0) fL MCH 27.5 (25.0-35.0) pg MCHC 32.2 (31.0-37.0) g/dL RDW 16.5 H (11.5-15.5) % Plt Count 134 L (150-450) k/uL Neutrophils % (Manual) 66 % Band Neutrophils % 8 % Lymphocytes % (Manual) 15 % Monocytes % (Manual) 10 % Eosinophils % (Manual) 1 % Neutrophils # (Manual) 3.70 (1.3-7.7) k/uL Lymphocytes # (Manual) 0.75 L (1.0-4.8) k/uL Monocytes # (Manual) 0.50 (0-1.0) k/uL Eosinophils # (Manual) 0.05 (0-0.7) k/uL Nucleated RBCs 0 (0-0) /100 WBC Manual Slide Review Performed Polychromasia Present Hypochromasia Slight Poikilocytosis Slight Anisocytosis Slight PT (9.0-12.0) sec INR (<1.2) APTT (22.0-30.0) sec Sodium 135 L (137-145) mmol/L Potassium 4.7 (3.5-5.1) mmol/L Chloride 99 (98-107) mmol/L Carbon Dioxide 28 (22-30) mmol/L Anion Gap 8 mmol/L BUN 24 H (7-17) mg/dL Creatinine 0.70 (0.52-1.04) mg/dL Est GFR (CKD-EPI)AfAm >90 (>60 ml/min/1.73 sqM) Est GFR (CKD-EPI)NonAf 82 (>60 ml/min/1.73 sqM) Glucose 116 H (74-99) mg/dL Calcium 9.0 (8.4-10.2) mg/dL Magnesium 2.0 (1.6-2.3) mg/dL Total Bilirubin 1.1 (0.2-1.3) mg/dL AST 48 H (14-36) U/L ALT 52 (9-52) U/L Alkaline Phosphatase 113 (38-126) U/L Troponin I (0.000-0.034) ng/mL NT-Pro-B Natriuret Pep 1620 pg/mL Total Protein 6.2 L (6.3-8.2) g/dL Albumin 4.0 (3.5-5.0) g/dL 06/01/18 06/01/18 Range/Units 23:50 23:50 WBC (3.8-10.6) k/uL RBC (3.80-5.40) m/uL Hgb (11.4-16.0) gm/dL Hct (34.0-46.0) % MCV (80.0-100.0) fL MCH (25.0-35.0) pg MCHC (31.0-37.0) g/dL RDW (11.5-15.5) % Plt Count (150-450) k/uL Neutrophils % (Manual) % Band Neutrophils % % Lymphocytes % (Manual) % Monocytes % (Manual) % Eosinophils % (Manual) % Neutrophils # (Manual) (1.3-7.7) k/uL Lymphocytes # (Manual) (1.0-4.8) k/uL Monocytes # (Manual) (0-1.0) k/uL Eosinophils # (Manual) (0-0.7) k/uL Nucleated RBCs (0-0) /100 WBC Manual Slide Review Polychromasia Hypochromasia Poikilocytosis Anisocytosis PT 13.7 H (9.0-12.0) sec INR 1.3 H (<1.2) APTT 36.9 H (22.0-30.0) sec Sodium (137-145) mmol/L Potassium (3.5-5.1) mmol/L Chloride (98-107) mmol/L Carbon Dioxide (22-30) mmol/L Anion Gap mmol/L BUN (7-17) mg/dL Creatinine (0.52-1.04) mg/dL Est GFR (CKD-EPI)AfAm (>60 ml/min/1.73 sqM) Est GFR (CKD-EPI)NonAf (>60 ml/min/1.73 sqM) Glucose (74-99) mg/dL Calcium (8.4-10.2) mg/dL Magnesium (1.6-2.3) mg/dL Total Bilirubin (0.2-1.3) mg/dL AST (14-36) U/L ALT (9-52) U/L Alkaline Phosphatase (38-126) U/L Troponin I <0.012 (0.000-0.034) ng/mL NT-Pro-B Natriuret Pep pg/mL Total Protein (6.3-8.2) g/dL Albumin (3.5-5.0) g/dL 06/01/18 23:47 EKG shows atrial fibrillation, abnormal EKG noted. Ventricular rate of 76 bpm. [place] interval is not detected. QRS duration is 104 ms. QT QTc is 416/460 ms. (Lindy Bowers) Disposition Is patient prescribed a controlled substance at d/c from ED?: No Time of Disposition: 05:30 <Lindy Bowers - Last Filed: 06/05/18 10:11> <Chelsea Norris - Last Filed: 06/07/18 00:27> Clinical Impression: CHF (congestive heart failure), Dehydration Disposition: ADMITTED IP TO THIS HOSP Condition: Stable
[2018-06-02 00:03] LABS: Anisocytosis Slight; HCT 38.1 % (34.0-46.0); HGB 12.3 gm/dL (11.4-16.0); Hypochromasia Slight; MCH 27.5 pg (25.0-35.0); MCHC 32.2 g/dL (31.0-37.0); MCV 85.4 fL (80.0-100.0); Platelet Count 134 k/uL (150-450); Poikilocytosis Slight; RBC 4.47 m/uL (3.80-5.40); RDW 16.5 % (11.5-15.5)
[2018-06-02 00:14] LABS: INR 1.3 (<1.2); Partial Thromboplastin Time 36.9 sec (22.0-30.0); Prothrombin Time 13.7 sec (9.0-12.0)
--- NOTE | 2018-06-02 00:26 | XR ---
EXAM: XR Chest, 2 Views CLINICAL HISTORY: difficulty breathing TECHNIQUE: Frontal and lateral views of the chest. COMPARISON: 12/26/2016 FINDINGS: Lungs: Bilateral perihilar calcifications are compatible with the sequela prior granulomatous disease. Pleural space: Unremarkable. No pneumothorax. Heart: Unremarkable. No cardiomegaly. Mediastinum: Unremarkable. Bones/joints: No acute osseous abnormality. Tubes, lines and devices: Telemetry leads overlie the patient. IMPRESSION: No acute cardiopulmonary process.
[2018-06-02 00:30] LABS: ALT 52 U/L (9-52); AST 48 U/L (14-36); Alkaline Phosphatase 113 U/L (38-126); Anion Gap 8 mmol/L; Blood Urea Nitrogen 24 mg/dL (7-17); Carbon Dioxide 28 mmol/L (22-30); Chloride 99 mmol/L (98-107); Glucose 116 mg/dL (74-99); Potassium 4.7 mmol/L (3.5-5.1); Sodium 135 mmol/L (137-145); Total Bilirubin 1.1 mg/dL (0.2-1.3); Total Protein 6.2 g/dL (6.3-8.2)
[2018-06-02] MEDS ORDERED: NALOXONE 0.4 MG/ML 1 ML VIAL IV PRN (01:15)
[2018-06-02] MEDS ORDERED: FUROSEMIDE 10 MG/ML 4 ML VIAL IV STA ×2 (01:17→05:26)
[2018-06-02 02:02] LABS: Band Neutrophils % 8 %; Eosinophils # (M) 0.05 k/uL (0-0.7); Lymphocytes # (M) 0.75 k/uL (1.0-4.8); Neutrophils % (M) 66 %; Nucleated Red Blood Cells 0 /100 WBC (0-0); Total Cells Counted 100
[2018-06-02 02:04] LABS: Polychromasia Present
[2018-06-02] MEDS ORDERED: IPRATROPIUM-ALBUTEROL 3 ML NEB INHALATION STA (05:26)
[2018-06-02] MEDS ORDERED: NITROGLYCERIN SL TABS 0.4 MG TAB SUBLINGUAL PRN (11:03)
[2018-06-02] MEDS: AMIODARONE 200 MG TAB PO SCH ×2 (11:43→20:53)
[2018-06-02] MEDS: METOPROLOL TARTRATE 50 MG TAB PO SCH ×2 (11:43→20:53)
[2018-06-02 14:59] VITALS: BMI 27.3
--- NOTE | 2018-06-02 15:15 | P.CRDCN ---
History of Present Illness History of present illness: This is a pleasant 83-year-old female past medical history significant for persistent atrial fibrillation on long-term anticoagulation, coronary artery disease status post recent angioplasty to the RCA, ischemic cardiomyopathy, dyslipidemia, hypertension, chronic lymphocytic leukemia and chronic systolic heart failure. She follows in the office with Dr. Fernandez. We have been asked to see her in consultation secondary to shortness of breath. She recently underwent cardiac catheterization in May 15 of this year where she underwent successful stent placement to the mid RCA. She saw Dr. Fernadnez in the office yesterday for post-cath follow-up. At that time they set up for her to come in on Tuesday as an outpatient to undergo NIDIA and cardioversion. However, yesterday she started feeling increasingly short of breath along with palpitations and extreme fatigue. Upon arrival to the emergency department her EKG revealed atrial fibrillation with a controlled ventricular response. Chest x-ray was negative for an acute cardiopulmonary process with no evidence of pleural e ffusions or infiltrate. Laboratory data revealed WBC 5, hemoglobin 12.3, platelets 134, sodium 135, potassium 4.7, creatinine 0.7, cardiac enzymes negative 1, NT proBNP 1620. She was given IV Lasix in the emergency department and did achieve some relief of her shortness of breath. At the time of my exam she is seen sitting up on the edge of the better after returning from the restroom. She is mildly dyspneic during my exam. She states this is a she feels after mild exertion. She continues to feel overall generalized fatigue as well as exertional shortness of breath. Current cardiac medications include amiodarone 200 mg twice a day, atorvastatin 40 mg daily, Plavix 75 mg daily, diltiazem 240 mg daily, lisinopril 10 mg daily, metoprolol 50 mg twice a day and Xarelto 15 mg daily. At the time of my exam: CONSTITUTIONAL: Denies fever. Denies chills. EYES: Denies blurred vision. Denies vision changes. Denies eye pain. EARS, NOSE, MOUTH & THROAT: Denies headache. Denies sore throat. Denies ear pain. CARDIOVASCULAR: Denies chest pain. Complains of exertional shortness of breath. Denies orthopnea. Denies PND. Denies palpitations. RESPIRATORY: Denies cough. GASTROINTESTINAL: Denies abdominal pain. Denies diarrhea. Denies constipation. Denies nausea. Denies vomiting. MUSCULOSKELETAL: Denies myalgias. INTEGUMENTARY: Denies pruitis. Denies rash. NEUROLOGIC: Denies numbness. Denies tingling. Denies weakness. PSYCHIATRIC: Denies anxiety. Denies depression. ENDOCRINE: Complains of generalized fatigue. Denies weight change. Denies polydipsia. Denies polyurina. GENITOURINARY: Denies burning, hematuria or urgency with micturation. HEMATOLOGIC: Denies history of anemia. Denies bleeding. Blood pressure 123/78 heart rate 78 afebrile maintaining oxygen saturation on room air GENERAL: This is a 83-year-old female in no apparent distress at the time of my examination. HEENT: Head is atraumatic, normocephalic. Pupils are equal, round. Sclerae anicteric. Conjunctivae are clear. Mucous membranes of the mouth are moist. Neck is supple. There is no jugular venous distention. No carotid bruit is heard. LUNGS: Faint bibasilar rales, no rhonchi or wheezing. No chest wall tenderness is noted on palpation or with deep breathing. HEART: Irregular rate and rhythm with systolic ejection murmur at the base, no rubs or gallops. S1 and S2 heard. ABDOMEN: Soft, nontender. Bowel sounds are heard. No organomegaly noted. EXTREMITIES: Trace lower extremity pitting edema bilaterally and no calf tenderness noted. VASCULAR: Radial and dorsalis pedis pulses palpated, no evidence of clubbing. NEUROLOGIC: Patient is awake, alert and oriented x3. ASSESSMENT Acute on chronic systolic heart failure Persistent atrial fibrillation on long-term anticoagulation History of coronary artery disease status post recent stent placement to the RCA May 15, 2018 Ischemic cardiomyopathy Dyslipidemia Hypertension Chronic lymphocytic leukemia PLAN Symptoms are related to mild fluid overload as well as symptomatic atrial fibrillation. Continue with IV diuresis. Follow kidney function and electrolytes daily. Documented accurate intake and output along with daily weight. Patient will be nothing by mouth Tuesday night after midnight for cardioversion Tuesday. We will continue to follow and make recommendations accordingly. Thank you kindly for this consultation. Nurse Practitioner note has been reviewed, I agree with a documented findings and plan of care. Patient was seen and examined. Past Medical History Past Medical History: Atrial Fibrillation, Cancer, Hyperlipidemia, Hypertension Additional Past Medical History / Comment(s): PT SOUNDS A LITTLE WHEEZY ON THE PHONE. INSTRUCTED TO TAKE LASIX DIRECTED AND TO NOTIFY DR. FERNANDEZ IF WHEEZING BECOMES WORSE. Sleep apnea not using CPAP since lost 60#, asthma not chronically on therapy, venous insufficiency, Vulvar cancer , basal cell skin cancer, le ukemia (cll) History of Any Multi-Drug Resistant Organisms: None Reported Past Surgical History: Heart Catheterization With Stent, Hysterectomy, Ortho pedic Surgery, Tonsillectomy Additional Past Surgical History / Comment(s): Right-sided knee surgery for repair of laceration, partial hysterectomy, 2 nasal surgeries for basal cell skin cancer and rt arm, surgery on right third and fourth digit for ganglion cyst,2 d&c's(sx 2 miscarriages), colonoscopy Past Anesthesia/Blood Transfusion Reactions: No Reported Reaction Additional Past Anesthesia/Blood Transfusion Reaction / Comment(s): slow to wake up Date of Last Stent Placement:: 05/15/18 Past Psychological History: No Psychological Hx Reported Smoking Status: Never smoker Past Alcohol Use History: None Reported Past Drug Use History: None Reported - Past Family History Mother Family Medical History: Cancer Additional Family Medical History / Comment(s): Breast cancer Father Family Medical History: Myocardial Infarction ([place]) Additional Family Medical History / Comment(s): in his early 60's Medications and Allergies Home Medications Medication Instructions Recorded Confirmed Type Ascorbic Acid [Vitamin C] 500 mg PO DAILY 12/25/16 06/01/18 History Cholecalciferol [Vitamin D3] 1,000 unit PO DAILY 12/25/16 06/01/18 History Multivitamins, Thera [Multivitamin 1 tab PO DAILY 12/25/16 06/01/18 History (formulary)] Furosemide [Lasix] 20 mg PO BID 05/12/18 06/01/18 History Lisinopril [Zestril] 10 mg PO DAILY 05/12/18 06/01/18 History Potassium Chloride ER [K-Dur 10] 10 meq PO DAILY 05/12/18 06/01/18 History Atorvastatin [Lipitor] 40 mg PO HS #30 tab 05/17/18 06/01/18 Rx Clopidogrel [Plavix] 75 mg PO DAILY #30 tab 05/17/18 06/01/18 Rx Nitroglycerin Sl Tabs [Nitrostat] 0.4 mg SUBLINGUAL Q5M PRN #25 tab 05/17/18 06/01/18 Rx Rivaroxaban [Xarelto] 15 mg PO W/SUPPER #30 tab 05/17/18 06/01/18 Rx Amiodarone [Cordarone] 200 mg PO BID 06/01/18 06/01/18 History Diltiazem Cd [Cardizem Cd] 240 mg PO HS 06/01/18 06/01/18 History Metoprolol Tartrate [Lopressor] 50 mg PO BID 06/01/18 06/01/18 History Allergies Allergy/AdvReac Type Severity Reaction Status Date / Time No Known Allergies Allergy Verified 06/01/18 23:15 Physical Exam Vitals: Vital Signs Temp Pulse Pulse Resp BP BP Pulse Ox 06/02/18 08:00 78 16 06/02/18 07:00 92 F L 78 16 123/78 95 06/02/18 03:00 97.6 F 94 16 131/71 94 L 06/02/18 01:20 73 21 117/59 99 06/02/18 01:00 79 17 144/76 99 06/02/18 00:50 80 22 144/76 06/02/18 00:40 83 18 144/76 99 06/02/18 00:30 79 21 126/90 98 06/02/18 00:20 75 25 H 126/90 98 06/02/18 00:10 77 24 06/02/18 00:00 78 23 134/74 06/01/18 23:39 76 06/01/18 23:31 77 06/01/18 22:54 98.4 F 70 26 H 137/77 94 L Intake and Output 06/01/18 06/02/18 06/02/18 22:59 06:59 14:59 Intake Total 500 320 Balance 500 320 Intake: Amount of Fluid Infused ( 150 ml) Intake, IV Titration 350 140 Amount Sodium Chloride 0.9% 1, 350 140 000 ml @ 50 mls/hr IV . Q20H STA Rx#:[id number] Oral 180 Other: Weight 78.925 kg 131 kg Results 06/01/18 23:50 06/01/18 23:50 Cardiac Enzymes 06/01/18 06/01/18 Range/Units 23:50 23:50 AST 48 H (14-36) U/L Troponin I <0.012 (0.000-0.034) ng/mL Coagulation 06/01/18 Range/Units 23:50 PT 13.7 H (9.0-12.0) sec APTT 36.9 H (22.0-30.0) sec CBC 06/01/18 Range/Units 23:50 WBC 5.0 (3.8-10.6) k/uL RBC 4.47 (3.80-5.40) m/uL Hgb 12.3 (11.4-16.0) gm/dL Hct 38.1 (34.0-46.0) % Plt Count 134 L (150-450) k/uL Comprehensive Metabolic Panel 06/01/18 Range/Units 23:50 Sodium 135 L (137-145) mmol/L Potassium 4.7 (3.5-5.1) mmol/L Chloride 99 (98-107) mmol/L Carbon Dioxide 28 (22-30) mmol/L BUN 24 H (7-17) mg/dL Creatinine 0.70 (0.52-1.04) mg/dL Glucose 116 H (74-99) mg/dL Calcium 9.0 (8.4-10.2) mg/dL AST 48 H (14-36) U/L ALT 52 (9-52) U/L Alkaline Phosphatase 113 (38-126) U/L Total Protein 6.2 L (6.3-8.2) g/dL Albumin 4.0 (3.5-5.0) g/dL Current Medications Generic Name Dose Route Start Last Admin Trade Name Freq PRN Reason Stop Dose Admin Amiodarone HCl 200 mg 06/02/18 11:15 06/02/18 11:43 Cordarone PO 200 mg BID ARTHUR Administration Atorvastatin Calcium 40 mg 06/02/18 21:00 Lipitor PO HS ARTHUR Clopidogrel Bisulfate 75 mg 06/03/18 09:00 Plavix PO DAILY ARTHUR Diltiazem HCl 240 mg 06/02/18 21:00 Cardizem Cd PO HS ARTHUR Furosemide 40 mg 06/02/18 21:00 Lasix IV Q12HR ARTHUR Sodium Chloride 1,000 mls @ 50 mls/hr 06/01/18 23:12 06/02/18 00:13 Saline 0.9% IV 06/02/18 19:11 50 mls/hr .Q20H STA Administration Lisinopril 10 mg 06/03/18 09:00 Zestril PO DAILY [facility] Metoprolol Tartrate 50 mg 06/02/18 11:15 06/02/18 11:43 Lopressor PO 50 mg BID [facility] Administration Naloxone HCl 0.2 mg 06/02/18 01:15 Narcan IV Q2M PRN Opioid Reversal Nitroglycerin 0.4 mg 06/02/18 11:03 Nitrostat SUBLINGUAL Q5M PRN Chest Pain Rivaroxaban 15 mg 06/02/18 17:30 Xarelto PO W/SUPPER [facility] Intake and Output 06/01/18 06/02/18 06/02/18 22:59 06:59 14:59 Intake Total 500 320 Balance 500 320 Intake: Amount of Fluid Infused ( 150 ml) Intake, IV Titration 350 140 Amount Sodium Chloride 0.9% 1, 350 140 000 ml @ 50 mls/hr IV . Q20H STA Rx#:[id number] Oral 180 Other: Weight 78.925 kg 131 kg 06/01/18 23:50 06/01/18 23:50
[2018-06-02 15:22] LABS: Calcium 8.7 mg/dL (8.4-10.2); Potassium 4.3 mmol/L (3.5-5.1)
--- NOTE | 2018-06-02 16:23 | P.HPIM ---
History of Present Illness 83-year-old pleasant female with a history of his atrial fibrillation multiple hospital admission for A. fib long-term anti-correlation was recently discharged from the hospital about couple weeks after she was treated for A. fib she was also found to be in heart failure chronic systolic dysfunction ejection fraction of around 40-45%. Patient underwent cardiac catheterization and stenting to RCA at that time. Patient is still in A. fib at this time although rate controlled. On anticoagulation patient is complaining of shortness of breath along with a mild chest pressure like sensation. Patient's troponins are negative BNP is minimally elevated. Patient does not have any significant JVD lungs are clear to auscultation patient chest pain has pleuritic competent. Patient was comparing of increasing pedal edema patient was started on IV Lasix cardiology relative patient is planning on doing the electrical cardioversion on Tuesday. Review of Systems REVIEW OF SYSTEMS: CONSTITUTIONAL: No fever, no malaise, no fatigue. HEENT: No recent visual problems or hearing problems. Denied any sore throat. CARDIOVASCULAR: No orthopnea, PND, no palpitations, no syncope. PULMONARY: As mentioned in HPI GASTROINTESTINAL: No diarrhea, no nausea, no vomiting, no abdominal pain. NEUROLOGICAL: No headaches, no weakness, no numbness. HEMATOLOGICAL: Denies any bleeding or petechiae. GENITOURINARY: Denies any burning micturition, frequency, or urgency. MUSCULOSKELETAL/RHEUMATOLOGICAL: Denies any joint pain, swelling, or any muscle pain. ENDOCRINE: Denies any polyuria or polydipsia. The rest of the 14-point review of systems is negative. Past Medical History Past Medical History: Atrial Fibrillation, Cancer, Hyperlipidemia, Hypertension Additional Past Medical History / Comment(s): PT SOUNDS A LITTLE WHEEZY ON THE PHONE. INSTRUCTED TO TAKE LASIX DIRECTED AND TO NOTIFY DR. FERNANDEZ IF WHEEZING BECOMES WORSE. Sleep apnea not using CPAP since lost 60#, asthma not chronically on therapy, venous insufficiency, Vulvar cancer , basal cell skin cancer, leukemia (cll) History of Any Multi-Drug Resistant Organisms: None Reported Past Surgical History: Heart Catheterization With Stent, Hysterectomy, Orthopedic Surgery, Tonsillectomy Additional Past Surgical History / Comment(s): Right-sided knee surgery for repair of laceration, partial hysterectomy, 2 nasal surgeries for basal cell skin cancer and rt arm, surgery on right third and fourth digit for ganglion cyst,2 d&c's(sx 2 miscarriages), colonoscopy Past Anesthesia/Blood Transfusion Reactions: No Reported Reaction Additional Past Anesthesia/Blood Transfusion Reaction / Comment(s): slow to wake up Date of Last Stent Placement:: 05/15/18 Past Psychological History: No Psychological Hx Reported Smoking Status: Never smoker Past Alcohol Use History: None Reported Past Drug Use History: None Reported - Past Family History Mother Family Medical History: Cancer Additional Family Medical History / Comment(s): Breast cancer Father Family Medical History: Myocardial Infarction ([place]) Additional Family Medical History / Comment(s): in his early 60's Medications and Allergies Home Medications Medication Instructions Recorded Confirmed Type Ascorbic Acid [Vitamin C] 500 mg PO DAILY 12/25/16 06/01/18 History Cholecalciferol [Vitamin D3] 1,000 unit PO DAILY 12/25/16 06/01/18 History Multivitamins, Thera [Multivitamin 1 tab PO DAILY 12/25/16 06/01/18 History (formulary)] Furosemide [Lasix] 20 mg PO BID 05/12/18 06/01/18 History Lisinopril [Zestril] 10 mg PO DAILY 05/12/18 06/01/18 History Potassium Chloride ER [K-Dur 10] 10 meq PO DAILY 05/12/18 06/01/18 History Atorvastatin [Lipitor] 40 mg PO HS #30 tab 05/17/18 06/01/18 Rx Clopidogrel [Plavix] 75 mg PO DAILY #30 tab 05/17/18 06/01/18 Rx Nitroglycerin Sl Tabs [Nitrostat] 0.4 mg SUBLINGUAL Q5M PRN #25 tab 05/17/18 06/01/18 Rx Rivaroxaban [Xarelto] 15 mg PO W/SUPPER #30 tab 05/17/18 06/01/18 Rx Amiodarone [Cordarone] 200 mg PO BID 06/01/18 06/01/18 History Diltiazem Cd [Cardizem Cd] 240 mg PO HS 06/01/18 06/01/18 History Metoprolol Tartrate [Lopressor] 50 mg PO BID 06/01/18 06/01/18 History Allergies Allergy/AdvReac Type Severity Reaction Status Date / Time No Known Allergies Allergy Verified 06/01/18 23:15 Physical Exam Vitals: Vital Signs Temp Pulse Pulse Resp BP BP Pulse Ox 06/02/18 15:25 80 17 06/02/18 15:00 98.7 F 80 17 144/74 93 L 06/02/18 08:00 78 16 06/02/18 07:00 92 F L 78 16 123/78 95 06/02/18 03:00 97.6 F 94 16 131/71 94 L 06/02/18 01:20 73 21 117/59 99 06/02/18 01:00 79 17 144/76 99 06/02/18 00:50 80 22 144/76 06/02/18 00:40 83 18 144/76 99 06/02/18 00:30 79 21 126/90 98 06/02/18 00:20 75 25 H 126/90 98 06/02/18 00:10 77 24 06/02/18 00:00 78 23 134/74 06/01/18 23:39 76 06/01/18 23:31 77 06/01/18 22:54 98.4 F 70 26 H 137/77 94 L Intake and Output 06/02/18 06/02/18 06/02/18 06:59 14:59 22:59 Intake Total 500 320 Balance 500 320 Intake: Amount of Fluid Infused ( 150 ml) Intake, IV Titration 350 140 Amount Sodium Chloride 0.9% 1, 350 140 000 ml @ 50 mls/hr IV . Q20H STA Rx#:[id number] Oral 180 Other: Weight 131 kg 79.061 kg PHYSICAL EXAMINATION: GENERAL: The patient is alert and oriented x3, not in any acute distress. Well developed, well nourished. HEENT: Pupils are round and equally reacting to light. EOMI. No scleral icterus. No conjunctival pallor. Normocephalic, atraumatic. No pharyngeal erythema. No thyromegaly. CARDIOVASCULAR: S1 and S2 present. No murmurs, rubs, or gallops. Irregularly irregular rhythm PULMONARY: Chest is clear to auscultation, no wheezing or crackles. ABDOMEN: Soft, nontender, nondistended, normoactive bowel sounds. No palpable organomegaly. MUSCULOSKELETAL: No joint swelling or deformity. EXTREMITIES: No cyanosis, clubbing, or pedal edema. NEUROLOGICAL: Gross neurological examination did not reveal any focal deficits. SKIN: No rashes. Results CBC & Chem 7: 06/01/18 23:50 06/02/18 14:40 Labs: Abnormal Lab Results - Last 24 Hours (Table) 06/01/18 06/01/18 06/01/18 Range/Units 23:50 23:50 23:50 RDW 16.5 H (11.5-15.5) % Plt Count 134 L (150-450) k/uL Lymphocytes # (Manual) 0.75 L (1.0-4.8) k/uL PT 13.7 H (9.0-12.0) sec INR 1.3 H (<1.2) APTT 36.9 H (22.0-30.0) sec Sodium 135 L (137-145) mmol/L Chloride (98-107) mmol/L BUN 24 H (7-17) mg/dL Glucose 116 H (74-99) mg/dL AST 48 H (14-36) U/L Total Protein 6.2 L (6.3-8.2) g/dL 06/02/18 Range/Units 14:40 RDW (11.5-15.5) % Plt Count (150-450) k/uL Lymphocytes # (Manual) (1.0-4.8) k/uL PT (9.0-12.0) sec INR (<1.2) APTT (22.0-30.0) sec Sodium 136 L (137-145) mmol/L Chloride 97 L (98-107) mmol/L BUN 26 H (7-17) mg/dL Glucose 107 H (74-99) mg/dL AST (14-36) U/L Total Protein (6.3-8.2) g/dL Thrombosis Risk Factor Assmnt - Choose All That Apply Any of the Below Risk Factors Present?: No Other Risk Factors: Yes Each Risk Factor Represents 3 Points: Age 75 years or older Other congenital or acquired thrombophilia - If yes, enter type in comment: No Thrombosis Risk Factor Assessment Total Risk Factor Score: 3 Thrombosis Risk Factor Assessment Level: Moderate Risk Assessment and Plan Plan: -Shortness of breath: Probably side to can start failure chronic systolic dys function with acute exacerbation patient does have some pleuritic competent of chest pain the patient is already in and correlation possibly of PE is extremely low -Persistent atrial fibrillation can you with anti-coagulation patient will undergo cardioversion on Tuesday continue with rate control medications for now -Ischemic myopathy -Coronary artery disease with stent placement -Hyperlipidemia -Hypertension n chronic lymphocytic leukemia
[2018-06-02] MEDS: RIVAROXABAN 15 MG TAB PO SCH (17:15)
[2018-06-02] MEDS: IPRATROPIUM-ALBUTEROL 3 ML NEB INHALATION PRN (17:34)
[2018-06-02] MEDS: BENZONATATE 100 MG CAP PO PRN (17:50)
[2018-06-02] MEDS ORDERED: IPRATROPIUM-ALBUTEROL 3 ML NEB INHALATION SCH (20:00)
[2018-06-02] MEDS: FUROSEMIDE 10 MG/ML 4 ML VIAL IV SCH (20:53)
[2018-06-02] MEDS: ATORVASTATIN 40 MG TAB PO SCH (20:53)
[2018-06-02] MEDS: DILTIAZEM CD 240 MG CAP.ER.24H PO SCH (20:53)
[2018-06-03] MEDS: IPRATROPIUM-ALBUTEROL 3 ML NEB INHALATION PRN ×4 (03:23→19:44)
[2018-06-03] MEDS: BENZONATATE 100 MG CAP PO PRN ×2 (05:50→10:51)
[2018-06-03 07:41] LABS: Anion Gap 9 mmol/L; Blood Urea Nitrogen 24 mg/dL (7-17); Calcium 8.5 mg/dL (8.4-10.2); Carbon Dioxide 31 mmol/L (22-30); Chloride 96 mmol/L (98-107); Glucose 104 mg/dL (74-99); Potassium 3.6 mmol/L (3.5-5.1); Sodium 136 mmol/L (137-145)
[2018-06-03] MEDS: LISINOPRIL 10 MG TAB PO SCH (08:16)
[2018-06-03] MEDS: AMIODARONE 200 MG TAB PO SCH ×2 (08:16→21:12)
[2018-06-03] MEDS: CLOPIDOGREL 75 MG TAB PO SCH (08:16)
[2018-06-03] MEDS: FUROSEMIDE 10 MG/ML 4 ML VIAL IV SCH (08:16)
[2018-06-03] MEDS: METOPROLOL TARTRATE 50 MG TAB PO SCH ×2 (08:16→21:12)
--- NOTE | 2018-06-03 10:37 | P.PN ---
Subjective This is a pleasant 83-year-old female past medical history significant for persistent atrial fibrillation on long-term anticoagulation, coronary artery disease status post recent angioplasty to the RCA, ischemic cardiomyopathy, dyslipidemia, hypertension, chronic lymphocytic leukemia and chronic systolic heart failure. She follows in the office with Dr. Colvin. She is seen and examined sitting up eating breakfast. She continues to complain of shortness of breath at rest as well as with exertion. She continues to receive IV Lasix. No documentation of intake and output. Laboratory data reviewed, sodium 136, potassium 3.6, creatinine 0.66. Blood pressure 103/66 heart rate 100 afebrile maintaining oxygen saturation on nasal cannula. GENERAL: This is a 83-year-old female in no apparent distress at the time of my examination. HEENT: Head is atraumatic, normocephalic. Pupils are equal, round. Sclerae anicteric. Conjunctivae are clear. Mucous membranes of the mouth are moist. Neck is supple. There is no jugular venous distention. No carotid bruit is heard. LUNGS: Clear to auscultation bilaterally. No wheezes, rhonchi or rales. No chest wall tenderness is noted on palpation or with deep breathing. HEART: Irregular rate and rhythm with systolic ejection murmur at the base, no rubs or gallops. S1 and S2 heard. EXTREMITIES: Trace lower extremity pitting edema bilaterally and no calf tenderness noted. ASSESSMENT Acute on chronic systolic heart failure Persistent atrial fibrillation on long-term anticoagulation History of coronary artery disease status post recent stent placement to the RCA May 15, 2018 Ischemic cardiomyopathy Dyslipidemia Hypertension Chronic lymphocytic leukemia PLAN Transitioned to oral diuretics. Ongoing telemetry monitoring. We have asked the nurse to provide assistance wit h ambulation to and from the bathroom due to the patient's weakness and shortness of breath. Nothing by mouth after midnight Tuesday night for NIDIA cardioversion Tuesday. Further recommendations to follow based upon clinical course. Nurse Practitioner note has been reviewed, I agree with a documented findings and plan of care. Patient was seen and examined. Objective - Vital Signs Vital signs: Vital Signs Temp 98.4 F 06/03/18 08:14 Pulse 100 06/03/18 08:14 Resp 18 06/03/18 08:14 BP 103/66 06/03/18 08:14 Pulse Ox 93 L 06/03/18 08:14 Intake & Output 06/02/18 06/03/18 06/03/18 18:59 06:59 18:59 Intake Total 438 Balance 438 Weight 79.061 kg 70.902 kg Intake: Intake, IV Titration 140 Amount Sodium Chloride 0.9% 1, 140 000 ml @ 50 mls/hr IV . Q20H STA Rx#:[id number] Oral 298 - Labs CBC & Chem 7: 06/01/18 23:50 06/03/18 06:28 Labs: Abnormal Lab Results - Last 24 Hours (Table) 06/02/18 06/03/18 Range/Units 14:40 06:28 Sodium 136 L 136 L (137-145) mmol/L Chloride 97 L 96 L (98-107) mmol/L Carbon Dioxide 31 H (22-30) mmol/L BUN 26 H 24 H (7-17) mg/dL Glucose 107 H 104 H (74-99) mg/dL
[2018-06-03] MEDS: RIVAROXABAN 15 MG TAB PO SCH (15:45)
[2018-06-03] MEDS: FUROSEMIDE 40 MG TAB PO SCH (15:45)
--- NOTE | 2018-06-03 16:50 | P.PN ---
Subjective 83-year-old pleasant female with a history of his atrial fibrillation multiple hospital admission for A. fib long-term anti-correlation was recently discharged from the hospital about couple weeks after she was treated for A. fib she was also found to be in heart failure chronic systolic dysfunction ejection fraction of around 40-45%. Patient underwent cardiac catheterization and stenting to RCA at that time. Patient is still in A. fib at this time although rate controlled. On anticoagulation patient is complaining of shortness of breath along with a mild chest pressure like sensation. Patient's troponins are negative BNP is minimally elevated. Patient does not have any significant JVD lungs are clear to auscultation patient chest pain has pleuritic competent. Patient was comparing of increasing pedal edema patient was started on IV Lasix cardiology relative patient is planning on doing the electrical cardioversion on Tuesday. 06/03/2018 patient presents with acute atrial fibrillation on xarelto and acute CHF on diuretic therapy. Also she is on amiodarone and Cardizem pills. Patient has been evaluated by cardiology. Patient has recent stent placed about 2 weeks ago. Currently on Plavix. Currently her dyspnea is improving, she complaining of from chest pain only with coughing. She could not sleep because of signi ficant cough. Also she could benefit from nasal congestion. On exam she has bilateral basal crepitation. IV was stopped. Patient is scheduled to go for NIDIA cardioversion on Tuesday Physical therapies ordered Objective - Vital Signs Vital signs: Vital Signs Temp 98.3 F 06/03/18 14:56 Pulse 88 06/03/18 15:52 Resp 16 06/03/18 14:56 BP 110/70 06/03/18 14:56 Pulse Ox 96 06/03/18 14:56 Intake & Output 06/02/18 06/03/18 06/03/18 18:59 06:59 18:59 Intake Total 438 Balance 438 Weight 79.061 kg 70.902 kg Intake: Intake, IV Titration 140 Amount Sodium Chloride 0.9% 1, 140 000 ml @ 50 mls/hr IV . Q20H STA Rx#:[id number] Oral 298 Other: # Voids 2 - Exam GENERAL: The patient is alert and oriented x3, not in any acute distress. Well developed, well nourished. HEENT: Pupils are round and equally reacting to light. EOMI. No scleral icterus. No conjunctival pallor. Normocephalic, atraumatic. No pharyngeal erythema. No thyromegaly. CARDIOVASCULAR: S1 and S2 present. No murmurs, rubs, or gallops. Irregularly irregular rhythm PULMONARY: Chest is clear to auscultation, no wheezing or crackles. ABDOMEN: Soft, nontender, nondistended, normoactive bowel sounds. No palpable organomegaly. MUSCULOSKELETAL: No joint swelling or deformity. EXTREMITIES: No cyanosis, clubbing, or pedal edema. NEUROLOGICAL: Gross neurological examination did not reveal any focal deficits. SKIN: No rashes. - Labs CBC & Chem 7: 06/01/18 23:50 06/03/18 06:28 Labs: Abnormal Lab Results - Last 24 Hours (Table) 06/03/18 Range/Units 06:28 Sodium 136 L (137-145) mmol/L Chloride 96 L (98-107) mmol/L Carbon Dioxide 31 H (22-30) mmol/L BUN 24 H (7-17) mg/dL Glucose 104 H (74-99) mg/dL Assessment and Plan Assessment: Assessment and plan: -Shortness of breath: Probably side to can start failure chronic systolic dysfunction with acute exacerbation patient does have some pleuritic competent of chest pain the patient is already in and correlation possibly of PE is extremely low -Persistent atrial fibrillation can you with anti-coagulation patient will undergo cardioversion on Tuesday continue with rate control medications for now -Ischemic myopathy -Coronary artery disease with stent placement -Hyperlipidemia -Hypertension n chronic lymphocytic leukemia
[2018-06-03] MEDS: ATORVASTATIN 40 MG TAB PO SCH (21:12)
[2018-06-03] MEDS: DILTIAZEM CD 240 MG CAP.ER.24H PO SCH (21:12)
[2018-06-04] MEDS: IPRATROPIUM-ALBUTEROL 3 ML NEB INHALATION PRN ×5 (00:40→21:02)
[2018-06-04] MEDS: BENZONATATE 100 MG CAP PO PRN (01:23)
[2018-06-04] MEDS ORDERED: DILTIAZEM DRIP BOLUS FROM BAG 1 MG SOLN IV ONE (04:56)
[2018-06-04] MEDS ORDERED: DILTIAZEM 125 MG in SODIUM CHLORIDE 0.9% 100 ML IV SCH (05:00)
[2018-06-04 07:07] LABS: ALT 38 U/L (9-52); AST 27 U/L (14-36); Albumin 3.5 g/dL (3.5-5.0); Alkaline Phosphatase 92 U/L (38-126); Anion Gap 7 mmol/L; Blood Urea Nitrogen 26 mg/dL (7-17); Calcium 8.6 mg/dL (8.4-10.2); Carbon Dioxide 30 mmol/L (22-30); Chloride 96 mmol/L (98-107); Glucose 119 mg/dL (74-99); Potassium 3.7 mmol/L (3.5-5.1); Sodium 133 mmol/L (137-145); Total Bilirubin 0.9 mg/dL (0.2-1.3); Total Protein 5.5 g/dL (6.3-8.2)
[2018-06-04] MEDS: METOPROLOL TARTRATE 50 MG TAB PO SCH ×2 (08:44→20:53)
[2018-06-04] MEDS: AMIODARONE 200 MG TAB PO SCH ×2 (08:45→20:53)
[2018-06-04] MEDS: FUROSEMIDE 40 MG TAB PO SCH ×2 (08:45→17:36)
[2018-06-04] MEDS: CLOPIDOGREL 75 MG TAB PO SCH (08:45)
[2018-06-04] MEDS: LISINOPRIL 10 MG TAB PO SCH (08:45)
--- NOTE | 2018-06-04 14:18 | PN ---
PROGRESS NOTE Alison Wright is a lady with a known history of paroxysmal symptomatic atrial fibrillation and also mitral regurgitation. This lady has global decrease in contractility with ejection fraction in the range of 40% to 45% with moderate mitral regurgitation, which is worse when she has atrial fibrillation. She was seen by Dr. Colvin earlier in the week and underwent stenting of RCA following an abnormal stress test. She was scheduled to come in for elective electrical cardioversion on Tuesday. However, she came in with more shortness of breath. Clinically, she seems to be symptomatic with atrial fib. The rate is moderate, but her BNP was unremarkable. This morning she feels better, somewhat exhausted. Heart rate is in the low 100s. She is less short of breath compared to yesterday. She is well anticoagulated and she is going to have electrical cardioversion tomorrow. I am recommending that we continue the amiodarone, Plavix and Xarelto and we will optimize her BP control and see how she does. She is on metoprolol and diltiazem for rate control and Xarelto. Clinically, she is somewhat better today. Vital signs stable. JVD is evident. S1-S2 heard normally. Irregular rhythm noted. Short systolic murmur noted. Lungs are clear. Abdomen and lower extremity exam is unchanged. Plan is to continue current medications and proceed with electrical cardioversion and following a NIDIA tomorrow at around 12:30 pm. We will continue current medical regimen. MMMARIIAL / VITON: [id number] /
--- NOTE | 2018-06-04 15:10 | P.PN ---
Subjective 83-year-old pleasant female with a history of his atrial fibrillation multiple hospital admission for A. fib long-term anti-correlation was recently discharged from the hospital about couple weeks after she was treated for A. fib she was also found to be in heart failure chronic systolic dysfunction ejection fraction of around 40-45%. Patient underwent cardiac catheterization and stenting to RCA at that time. Patient is still in A. fib at this time although rate controlled. On anticoagulation patient is complaining of shortness of breath along with a mild chest pressure like sensation. Patient's troponins are negative BNP is minimally elevated. Patient does not have any significant JVD lungs are clear to auscultation patient chest pain has pleuritic competent. Patient was comparing of increasing pedal edema patient was started on IV Lasix cardiology relative patient is planning on doing the electrical cardioversion on Tuesday. 06/03/2018 patient presents with acute atrial fibrillation on xarelto and acute CHF on diuretic therapy. Also she is on amiodarone and Cardizem pills. Patient has been evaluated by cardiology. Patient has recent stent placed about 2 weeks ago. Currently on Plavix. Currently her dyspnea is improving, she complaining of from chest pain only with coughing. She could not sleep because of signi ficant cough. Also she could benefit from nasal congestion. On exam she has bilateral basal crepitation. IV was stopped. Patient is scheduled to go for NIDIA cardioversion on Tuesday Physical therapies ordered 06/04/2018 Patient clinically doing well, no chest pain or dyspnea. She's have uncontro lled high heartrate while she is on amiodarone and Cardizem. Patient is going for possible cardioversion and NIDIA tomorrow Objective - Vital Signs Vital signs: Vital Signs Temp 98.1 F 06/04/18 08:35 Pulse 84 06/04/18 13:10 Resp 19 06/04/18 12:00 BP 124/59 06/04/18 12:00 Pulse Ox 94 L 06/04/18 12:00 Intake & Output 06/03/18 06/04/18 06/04/18 18:59 06:59 18:59 Intake Total 480 Balance 480 Weight 79.1 kg Intake: Oral 480 Other: Voiding Method Toilet # Voids 2 1 - Exam GENERAL: The patient is alert and oriented x3, not in any acute distress. Well developed, well nourished. HEENT: Pupils are round and equally reacting to light. EOMI. No scleral icterus. No conjunctival pallor. Normocephalic, atraumatic. No pharyngeal erythema. No thyromegaly. CARDIOVASCULAR: S1 and S2 present. No murmurs, rubs, or gallops. Irregularly i rregular rhythm PULMONARY: Chest is clear to auscultation, no wheezing or crackles. ABDOMEN: Soft, nontender, nondistended, normoactive bowel sounds. No palpable organomegaly. MUSCULOSKELETAL: No joint swelling or deformity. EXTREMITIES: No cyanosis, clubbing, or pedal edema. NEUROLOGICAL: Gross neurological examination did not reveal any focal deficits. SKIN: No rashes. - Labs CBC & Chem 7: 06/01/18 23:50 06/04/18 06:13 Labs: Abnormal Lab Results - Last 24 Hours (Table) 06/04/18 Range/Units 06:13 Sodium 133 L (137-145) mmol/L Chloride 96 L (98-107) mmol/L BUN 26 H (7-17) mg/dL Glucose 119 H (74-99) mg/dL Total Protein 5.5 L (6.3-8.2) g/dL Assessment and Plan Assessment: Assessment and plan: -Shortness of breath: Probably side to can start failure chronic systolic dysfunction with acute exacerbation patient does have some pleuritic competent of chest pain the patient is already in and correlation possibly of PE is extremely low -Persistent atrial fibrillation can you with anti-coagulation patient will und ergo cardioversion on Tuesday continue with rate control medications for now -Ischemic myopathy -Coronary artery disease with stent placement -Hyperlipidemia -Hypertension n chronic lymphocytic leukemia
[2018-06-04] MEDS: RIVAROXABAN 15 MG TAB PO SCH (17:36)
[2018-06-04] MEDS: ATORVASTATIN 40 MG TAB PO SCH (20:53)
[2018-06-04] MEDS: DILTIAZEM CD 240 MG CAP.ER.24H PO SCH (20:53)
[2018-06-05] MEDS: IPRATROPIUM-ALBUTEROL 3 ML NEB INHALATION PRN ×4 (01:29→19:43)
[2018-06-05 08:00] LABS: Anion Gap 8 mmol/L; Blood Urea Nitrogen 21 mg/dL (7-17); Calcium 8.5 mg/dL (8.4-10.2); Carbon Dioxide 31 mmol/L (22-30); Chloride 95 mmol/L (98-107); Glucose 94 mg/dL (74-99); Potassium 3.5 mmol/L (3.5-5.1); Sodium 134 mmol/L (137-145)
[2018-06-05] MEDS: FUROSEMIDE 40 MG TAB PO SCH ×3 (08:54→17:03)
[2018-06-05] MEDS: METOPROLOL TARTRATE 50 MG TAB PO SCH ×2 (08:54→20:22)
[2018-06-05] MEDS: AMIODARONE 200 MG TAB PO SCH ×2 (08:54→20:22)
[2018-06-05] MEDS: CLOPIDOGREL 75 MG TAB PO SCH (08:54)
[2018-06-05] MEDS: LISINOPRIL 10 MG TAB PO SCH (08:54)
[2018-06-05] MEDS: BENZOCAINE SPRAY 1 CAN TOPICAL ONE ×2 (12:32→12:58)
[2018-06-05] MEDS ORDERED: LACTATED RINGERS 1,000 ML IV ONE ×2 (12:37)
[2018-06-05] MEDS ORDERED: LIDOCAINE 1% INJ 10MG/ML (20 ML MDV) ONE (12:38)
[2018-06-05] MEDS ORDERED: PROPOFOL 10 MG/ML 20 ML VIAL IV ONE (12:38)
[2018-06-05 13:24] VITALS: RESP 16
--- NOTE | 2018-06-05 13:35 | CE ---
CARDIAC ELECTROPHYSIOLOGY REPORT CARDIOVERSION PROCEDURE: INDICATION: Atrial fibrillation. PROCEDURE: After explaining the procedure to the patient, its risks and the complications, after obtaining transesophageal echocardiogram, a synchronized biphasic cardioversion using 200 joules was performed with judaism of normal sinus rhythm. There was no immediate complication. RUPA / ARELY: [id number] /
--- NOTE | 2018-06-05 14:41 | ECHOT ---
TRANSESOPHAGEAL ECHOCARDIOGRAM INDICATION: Atrial fibrillation. PROCEDURE: After explaining the procedure to the patient, its risks and the complication, blood pressure, heart rate, O2 saturation was monitored. Sedation per anesthesia department was performed. Subsequently, the probe was introduced into the esophagus without difficulty. Images were obtained. Following that, the probe was removed. There was no immediate complication. FINDINGS: Left atrial size is mildly dilated. Left atrial appendage is normal. Spontaneous contrast was noted. Left ventricular size and systolic function normal. The aortic valve revealed mild fibrocalcific change with aortic cusp with preserved opening. Mitral valve appears to be normal. Tricuspid valve is normal. Descending thoracic aorta revealed mild atherosclerotic changes. Pulmonic valve appears to be normal. No pericardial effusion was noted. Contrast bubble study revealed no evidence of shunting across the interatrial septum. Doppler pulse wave and color Doppler obtained revealed a moderate mitral with mild to moderate tricuspid regurgitation. There was no shunting across the interatrial septum. CONCLUSION: 1. Mildly dilated left atrium. 2. Normal left ventricular size and systolic function. 3. Mild aortic sclerosis with no evident stenosis. 4. Mild mitral regurgitation. 5. Mild to moderate tricuspid regurgitation with no evidence of pulmonary hypertension. 6. Mild atherosclerotic changes of the descending thoracic aorta. 7. No shunting across the interatrial septum. 8. No pericardial effusion. MMODL / IJN: [id number] / BRIANA
[2018-06-05] MEDS: RIVAROXABAN 15 MG TAB PO SCH (17:03)
--- NOTE | 2018-06-05 18:18 | P.PN ---
Subjective Progress Note Date: 06/05/18 Hospital course: 83-year-old pleasant female with a history of his atrial fibrillation multiple hospital admission for A. fib long-term anti-correlation was recently discharged from the hospital about couple weeks after she was treated for A. fib she was also found to be in heart failure chronic systolic dysfunction ejection fraction of around 40-45%. Patient underwent cardiac catheterization and stenting to RCA at that time. Patient is still in A. fib at this time although rate controlled. On anticoagulation patient is complaining of shortness of breath along with a mild chest pressure like sensation. Patient's troponins are negative BNP is minimally elevated. Patient does not have any significant JVD lungs are clear to auscultation patient chest pain has pleuritic competent. Patient was c omparing of increasing pedal edema patient was started on IV Lasix cardiology relative patient is planning on doing the electrical cardioversion on Tuesday. 06/03/2018 patient presents with acute atrial fibrillation on xarelto and acute CHF on diuretic therapy. Also she is on amiodarone and Cardizem pills. Patient has been evaluated by cardiology. Patient has recent stent placed about 2 weeks ago. Currently on Plavix. Currently her dyspnea is improving, she complaining of from chest pain only with coughing. She could not sleep because of significant cough. Also she could benefit from nasal congestion. On exam she has bilateral basal crepitation. IV was stopped. Patient is scheduled to go for NIDIA cardioversion on Tuesday Physical therapies ordered 06/04/2018 Patient clinically doing well, no chest pain or dyspnea. She's have uncontrolled high heartrate while she is on amiodarone and Cardizem. Patient is going for possible cardioversion and NIDIA tomorrow 06/05/2018. NPO, awaiting cardioversion/NIDIA. Telemetry atrial fibrillation with controlled ventricular rate. Maintaining O2 sats in the high 90s on 3 L nasal cannula. Denies chest pain, palpitations. Objective - Vital Signs Vital signs: Vital Signs Temp 97.4 F L 06/05/18 04:00 Pulse 92 06/05/18 16:27 Resp 16 06/05/18 16:00 BP 105/78 06/05/18 13:41 Pulse Ox 95 06/05/18 13:41 Intake & Output 06/04/18 06/05/18 06/05/18 18:59 06:59 18:59 Intake Total 480 100 Output Total 650 Balance 480 -650 100 Weight 78.9 kg Intake: IV 100 Oral 480 Output: Urine 650 Other: Voiding Method Toilet # Voids 1 - Exam GENERAL: alert and oriented x3, no acute distress. HEENT: Pupils are round and equally reacting to light. EOMI. No scleral icterus. No conjunctival pallor. Normocephalic, atraumatic. CARDIOVASCULAR: S1 and S2 present. No murmurs, rubs, or gallops. Irregularly irregular rhythm PULMONARY: Chest is clear to auscultation, no wheezing or crackles. ABDOMEN: Soft, nontender, nondistended, normoactive bowel sounds. No palpable organomegaly. MUSCULOSKELETAL: No joint swelling or deformity. EXTREMITIES: No cyanosis, clubbing, or pedal edema. NEUROLOGICAL: Gross neurological examination did not reveal any focal deficits. SKIN: No rashes. - Labs CBC & Chem 7: 06/01/18 23:50 06/05/18 06:46 Labs: Abnormal Lab Results - Last 24 Hours (Table) 06/05/18 Range/Units 06:46 Sodium 134 L (137-145) mmol/L Chloride 95 L (98-107) mmol/L Carbon Dioxide 31 H (22-30) mmol/L BUN 21 H (7-17) mg/dL Assessment and Plan Assessment: -Shortness of breath: Probably side to can start failure chronic systolic dysfunction with acute exacerbation,pleuritic component of chest pain, possibly of PE is extremely low -Persistent atrial fibrillation -Ischemic myopathy -Coronary artery disease with stent placement -Hyperlipidemia -Hypertension n chronic lymphocytic leukemia Plan: Continue on current medication regime ,monitoring and symptomatic treatment. As mentioned above, awaiting NIDIA/cardioversion with cardiology. Further recommendations to follow. The impression and plan of care has been dictated as directed. : I performed a history and examination of this patient, discussed the same with the dictator. I agree with the dictator's note ,documented as a scribe. Any additional findings or plans will be noted.
[2018-06-05] MEDS: SODIUM CHLORIDE 0.9% 1,000 ML IV SCH (19:43)
[2018-06-05] MEDS: BENZONATATE 100 MG CAP PO PRN (19:46)
[2018-06-05] MEDS: ATORVASTATIN 40 MG TAB PO SCH (20:22)
[2018-06-05] MEDS: DILTIAZEM CD 240 MG CAP.ER.24H PO SCH (20:22)
[2018-06-06] MEDS: BENZONATATE 100 MG CAP PO PRN ×2 (02:42→16:54)
[2018-06-06] MEDS ORDERED: MENTHOL (NICE) LOZENGE MUCOUS MEM PRN (04:58)
[2018-06-06 05:46] VITALS: TEMP 97.4
[2018-06-06 06:56] LABS: Anion Gap 7 mmol/L; Blood Urea Nitrogen 23 mg/dL (7-17); Calcium 8.5 mg/dL (8.4-10.2); Carbon Dioxide 31 mmol/L (22-30); Chloride 95 mmol/L (98-107); Glucose 95 mg/dL (74-99); Sodium 133 mmol/L (137-145)
[2018-06-06] MEDS: IPRATROPIUM-ALBUTEROL 3 ML NEB INHALATION PRN ×2 (08:27→11:42)
[2018-06-06] MEDS: FUROSEMIDE 40 MG TAB PO SCH ×2 (10:00→16:54)
[2018-06-06] MEDS: LISINOPRIL 10 MG TAB PO SCH (10:00)
[2018-06-06] MEDS: AMIODARONE 200 MG TAB PO SCH (10:01)
[2018-06-06] MEDS: CLOPIDOGREL 75 MG TAB PO SCH (10:01)
[2018-06-06] MEDS: METOPROLOL TARTRATE 50 MG TAB PO SCH (10:01)
[2018-06-06] MEDS ORDERED: FLUTICASONE 50MCG/SPRAY NASAL 16GM EA NOSTRIL PRN (14:58)
--- NOTE | 2018-06-06 15:16 | P.PN ---
Subjective Progress Note Date: 06/06/18 This is a pleasant 83-year-old female past medical history significant for persistent atrial fibrillation on long-term anticoagulation, coronary artery disease status post recent angioplasty to the RCA, ischemic cardiomyopathy, dyslipidemia, hypertension, chronic lymphocytic leukemia and chronic systolic heart failure. She follows in the office with Dr. Colvin. She is seen and examined sitting up eating breakfast. She continues to complain of shortness of breath at rest as well as with exertion. Patient underwent a NIDIA with subsequent cardioversion yesterday by Dr. Colvin. This morning she remains in a normal sinus rhythm. Blood pressure 134/60 with a heart rate in the 60s. 98% on 2 L of oxygen. Objective - Vital Signs Vital signs: Vital Signs Temp 97.4 F L 06/06/18 04:00 Pulse 51 L 06/06/18 11:53 Resp 16 06/06/18 04:00 BP 135/63 06/06/18 04:00 Pulse Ox 97 06/06/18 08:30 Intake & Output 06/05/18 06/06/18 06/06/18 18:59 06:59 18:59 Intake Total 580 300 720 Output Total 100 Balance 580 200 720 Weight 78.7 kg Intake: IV 100 Oral 480 300 720 Output: Urine 100 - Exam GENERAL: This is a 83-year-old female in no apparent distress at the time of my examination. HEENT: Head is atraumatic, normocephalic. Pupils are equal, round. Sclerae anicteric. Conjunctivae are clear. Mucous membranes of the mouth are moist. Neck is supple. There is no jugular venous distention. No carotid bruit is heard. LUNGS: Clear to auscultation bilaterally. No wheezes, rhonchi or rales. No chest wall tenderness is noted on palpation or with deep breathing. HEART: heart S1-S2 with systolic ejection murmur at the base, no rubs or gallops. EXTREMITIES: Trace lower extremity pitting edema bilaterally and no calf tender ness noted. - Labs CBC & Chem 7: 06/01/18 23:50 06/06/18 06:05 Labs: Abnormal Lab Results - Last 24 Hours (Table) 06/06/18 Range/Units 06:05 Sodium 133 L (137-145) mmol/L Chloride 95 L (98-107) mmol/L Carbon Dioxide 31 H (22-30) mmol/L BUN 23 H (7-17) mg/dL Assessment and Plan Plan: ASSESSMENT #1 Acute on chronic systolic heart failure #2Persistent atrial fibrillation on long-term anticoagulationstatus post NIDIA and cardioversion, in normal sinus rhythm #3History of coronary artery disease status post recent stent placement to the RCA May 15, 2018 #4Ischemic cardiomyopathy #5Dyslipidemia #6Hypertension #7Chronic lymphocytic leukemia Plan From cardiology's perspective, patient may be able to be discharged home today. We will make her a follow-up appointment to see Dr. Colvin in the office post discharge. DNP note has been reviewed, I agree with a documented findings and plan of care. Patient was seen and examined.
--- NOTE | 2018-06-06 16:29 | P.DS ---
<Emani Gill - Last Filed: 06/06/18 16:20> Providers Expected date of discharge: 06/06/18 Attending physician: Hospital Course: Final Diagnoses: -Congestive heart failure ,chronic systolic dysfunction with acute exacerbation,pleuritic component of chest pain, possibly of PE is extremely low -Persistent atrial fibrillation, status post NIDIA and cardioversion, now sinus bradycardia -Ischemic cardiomyopathy -Multi-valvular disease -Coronary artery disease with stent placement -Hyperlipidemia -Hypertension -chronic lymphocytic leukemia Hospital course:83-year-old pleasant female with a history of his atrial fibrillation multiple hospital admission for A. fib long-term anti-correlation was recently discharged from the hospital about couple weeks after she was treated for A. fib she was also found to be in heart failure chronic systolic dysfunction ejection fraction of around 40-45%. Patient underwent cardiac catheterization and stenting to RCA at that time. Patient is still in A. fib at this time although rate controlled. On anticoagulation patient is complaining of shortness of breath along with a mild chest pressure like sensation. Patient's troponins are negative BNP is minimally elevated. Patient does not have any significant JVD lungs are clear to auscultation patient chest pain has pleuritic competent. Patient was comparing of increasing pedal edema patient was started on IV Lasix cardiology relative patient is planning on doing the electrical cardioversion on Tuesday. 06/03/2018 patient presents with acute atrial fibrillation on xarelto and acute CHF on diuretic therapy. Also she is on amiodarone and Cardizem pills. Patient has been evaluated by cardiology. Patient has recent stent placed about 2 weeks ago. Currently on Plavix. Currently her dyspnea is improving, she complaining of from chest pain only with coughing. She could not sleep because of significant cough. Also she could benefit from nasal congestion. On exam she has bilateral basal crepitation. IV was stopped. Patient is scheduled to go for NIDIA cardioversion on Tuesday Physical therapies ordered 06/04/2018 Patient clinically doing well, no chest pain or dyspnea. She's have uncontrolled high heartrate while she is on amiodarone and Cardizem. Patient is going for possible cardioversion and NIDIA tomorrow 06/05/2018. NPO, awaiting cardioversion/NIDIA. Telemetry atrial fibrillation with controlled ventricular rate. Maintaining O2 sats in the high 90s on 3 L nasal cannula. Denies chest pain, palpitations. 06/06/2018 yesterday he underwent NIDIA with cardioversion. NIDIA reported no shunting across the intra-atrial septum, no pericardial effusion, moderate mitral with mild to moderate tricuspid regurgitation Tolerated procedure well. Currently sinus bradycardia, heart rates in the mid 50s. Significant clinical improvement. Cleared by cardiology for discharge. Patient is being discharged home in a stable condition with guarded prognosis. - Exam GENERAL: alert and oriented x3, no acute distress. CARDIOVASCULAR: S1 and S2 present. Systolic murmurs, no rubs, or gallops. PULMONARY: Chest is clear to auscultation, no wheezing or crackles. ABDOMEN: Soft, nontender, nondistended, normoactive bowel sounds. NEUROLOGICAL: Gross neurological examination did not reveal any focal deficits. The impression and plan of care has been dictated as directed. : I performed a history and examination of this patient, discussed the same with the dictator. I agree with the dictator's note ,documented as a scribe. Any additional findings or plans will be noted. Time taken: 35 minutes Patient Condition at Discharge: Stable Plan - Discharge Summary Discharge Rx Participant: No New Discharge Prescriptions: New Furosemide [Lasix] 40 mg PO BID@0900,1600 #60 tab Fluticasone Nasal [place] [Flonase Nasal [place]] 2 spray EA NOSTRIL DAILY PRN 5 Days spr PRN Reason: Allergy Symptoms Continue Multivitamins, Thera [Multivitamin (formulary)] 1 tab PO DAILY Cholecalciferol [Vitamin D3] 1,000 unit PO DAILY Ascorbic Acid [Vitamin C] 500 mg PO DAILY Lisinopril [Zestril] 10 mg PO DAILY Atorvastatin [Lipitor] 40 mg PO HS #30 tab Clopidogrel [Plavix] 75 mg PO DAILY #30 tab Nitroglycerin Sl Tabs [Nitrostat] 0.4 mg SUBLINGUAL Q5M PRN #25 tab PRN Reason: Chest Pain Rivaroxaban [Xarelto] 15 mg PO W/SUPPER #30 tab Diltiazem Cd [Cardizem CD] 240 mg PO HS Amiodarone [Cordarone] 200 mg PO BID Metoprolol Tartrate [Lopressor] 50 mg PO BID Potassium Chloride ER [K-Dur 10] 10 meq PO DAILY #60 tab.er.prt Discontinued Furosemide [Lasix] 20 mg PO BID Discharge Medication List Ascorbic Acid [Vitamin C] 500 mg PO DAILY 12/25/16 [History] Cholecalciferol [Vitamin D3] 1,000 unit PO DAILY 12/25/16 [History] Multivitamins, Thera [Multivitamin (formulary)] 1 tab PO DAILY 12/25/16 [History] Lisinopril [Zestril] 10 mg PO DAILY 05/12/18 [History] Atorvastatin [Lipitor] 40 mg PO HS #30 tab 05/17/18 [Rx] Clopidogrel [Plavix] 75 mg PO DAILY #30 tab 05/17/18 [Rx] Nitroglycerin Sl Tabs [Nitrostat] 0.4 mg SUBLINGUAL Q5M PRN #25 tab 05/17/18 [Rx] Rivaroxaban [Xarelto] 15 mg PO W/SUPPER #30 tab 05/17/18 [Rx] Amiodarone [Cordarone] 200 mg PO BID 06/01/18 [History] Diltiazem Cd [Cardizem CD] 240 mg PO HS 06/01/18 [History] Metoprolol Tartrate [Lopressor] 50 mg PO BID 06/01/18 [History] Fluticasone Nasal [place] [Flonase Nasal [place]] 2 spray EA NOSTRIL DAILY PRN 5 Days spr 06/06/18 [Rx] Furosemide [Lasix] 40 mg PO BID@0900,1600 #60 tab 06/06/18 [Rx] Potassium Chloride ER [K-Dur 10] 10 meq PO DAILY #60 tab.er.prt 06/06/18 [Rx] Follow up Appointment(s)/Referral(s): Lex Colvin MD [STAFF PHYSICIAN] - 06/12/18 10:45 am (Tuesday with [facility]) Bassam Martin MD [Primary Care Provider] - 06/12/18 1:30 pm (Tuesday) Ld Burnett MD [STAFF PHYSICIAN] - 06/07/18 (As previously scheduled.) Patient Instructions/Handouts: Transesophageal Echocardiogram (DC), Cardioversion (DC) Discharge Disposition: HOME SELF-CARE <Jorge Vidal E - Last Filed: 06/07/18 21:34> Providers Date of admission: 06/02/18 01:15 Attending physician: Brett Richardson Consults: 06/02/18 01:15 Consult Physician Urgent Consulting Provider: [facility] Consult Reason/Comments: chf Do you want consulting provider notified?: Yes Primary care physician: Bassam Martin [facility] Course: I have discussed the plan and I have reviewed the note with Kanchan Gonzales and I agree with it except what is mentioned below Pt is seen and examined by me at bed side her symptoms of dyspnea and other are greatly improved on the current therapy . on the day of discharge she returned to her baseline with no chest pain no dyspnea, no change in urine or bowel habit , no nausea or vomiting , no abd pain , she is tolerating diet well . no fever Pt was instructed about the problems and management plan and Pt verbalized understanding and acceptance Pt is found stable and can be discharged to the community but needs follow up as outpt pt was cleared by cardiology team for discharge
[2018-06-06 16:39] VITALS: PULSE 54
[2018-06-06 16:47] VITALS: BP 119/62
[2018-06-06] MEDS: SODIUM CHLORIDE 0.9% 1,000 ML IV SCH (16:47)
[2018-06-06] MEDS: RIVAROXABAN 15 MG TAB PO SCH (16:54)
== END 2018-06-06 17:00 | disposition home or self-care (01) ==
LOC: EC 22:51 → 4SSUR 06-02 01:15 → 3SCARD 06-04 06:28
PROVIDERS: ADMIT Internal Medicine; ATTEND Internal Medicine
DX: I11.0 Hypertensive heart disease with heart failure (principal); I50.23 Acute on chronic systolic (congestive) heart failure; E86.0 Dehydration; I25.5 Ischemic cardiomyopathy; I48.1 Persistent atrial fibrillation; C91.10 Chronic lymphocytic leukemia of B-cell type not having achieved remission; I87.2 Venous insufficiency (chronic) (peripheral); G47.30 Sleep apnea, unspecified; E78.5 Hyperlipidemia, unspecified; J45.909 Unspecified asthma, uncomplicated; I25.10 Atherosclerotic heart disease of native coronary artery without angina pectoris; R00.1 Bradycardia, unspecified; I08.3 Combined rheumatic disorders of mitral, aortic and tricuspid valves; I70.0 Atherosclerosis of aorta; Z79.02 Long term (current) use of antithrombotics/antiplatelets; Z79.01 Long term (current) use of anticoagulants; Z79.899 Other long term (current) drug therapy; Z85.828 Personal history of other malignant neoplasm of skin; Z85.44 Personal history of malignant neoplasm of other female genital organs; Z95.5 Presence of coronary angioplasty implant and graft; Z80.3 Family history of malignant neoplasm of breast; Z82.49 Family history of ischemic heart disease and other diseases of the circulatory system
CPT/HCPCS: 96376 ×2; 96374; 99285; 36415; 94640 ×10; 94760 ×3; 93005; 97162; 97166; 92960; 83880; 80053 ×2; 80048 ×4; 83735; 84484; 85025; 85610; 85730; 71046; G0378 ×6; J1940 ×2; J2001; J2704

== ENCOUNTER → 2018-11-02 | Outpatient (CLI) | payer MEDICARE ==
[2018-11-02 15:59] LABS: LDL Cholesterol,Calculated 49.8 mg/dL (0.0-131.0); VLDL Calculation 13.2 mg/dL (5.00-40.00)
== END | disposition home or self-care (01) ==
LOC: LABWHC1 07:58
PROVIDERS: ATTEND Internal Medicine Interventional Cardiology
DX: E78.2 Mixed hyperlipidemia (principal)
CPT/HCPCS: 36415; 80061; 84450; 84460

== ENCOUNTER 2019-02-22 16:09 | Emergency (ER) | payer MEDICARE ==
[2019-02-22] MEDS: SODIUM CHLORIDE 0.9% 1,000 ML IV STA (17:09)
[2019-02-22 17:10] LABS: Partial Thromboplastin Time 30.1 sec (22.0-30.0); Prothrombin Time 10.4 sec (9.0-12.0)
[2019-02-22 17:12] LABS: ALT 15 U/L (4-34); AST 23 U/L (14-36); African American GFR (CKD) >90 (>60 ml/min/1.73 sqM); Albumin 4.1 g/dL (3.5-5.0); Alkaline Phosphatase 68 U/L (38-126); Anion Gap 7 mmol/L; Blood Urea Nitrogen 29 mg/dL (7-17); Calcium 9.2 mg/dL (8.4-10.2); Carbon Dioxide 26 mmol/L (22-30); Chloride 107 mmol/L (98-107); Glucose 98 mg/dL (74-99); Magnesium 2.1 mg/dL (1.6-2.3); Non-African American GFR(CKD) 87 (>60 ml/min/1.73 sqM); Potassium 4.3 mmol/L (3.5-5.1); Sodium 140 mmol/L (137-145); Total Bilirubin 0.7 mg/dL (0.2-1.3); Total Protein 6.4 g/dL (6.3-8.2)
[2019-02-22 17:15] LABS: HCT 39.5 % (34.0-46.0); HGB 12.9 gm/dL (11.4-16.0); MCH 28.3 pg (25.0-35.0); MCHC 32.6 g/dL (31.0-37.0); MCV 86.9 fL (80.0-100.0); Mean Platelet Volume 8.7; Platelet Count 106 k/uL (150-450); RBC 4.55 m/uL (3.80-5.40); WBC 7.1 k/uL (3.8-10.6)
--- NOTE | 2019-02-22 17:32 | ED ---
Chest Pain HPI - General Chief Complaint: Chest Pain Stated Complaint: Chest pressure Time Seen by Provider: 02/22/19 16:19 Source: patient, RN notes reviewed, old records reviewed Mode of arrival: ambulatory Limitations: no limitations - History of Present Illness Initial Comments: This is an 84-year-old female here for evaluation she presents today for evaluation of cough, congestion. Patient has history of A. fib blood pressure high cholesterol but not currently on blood thinners. Patient was seen at urgent care sent here for evaluation symptoms the week but she also chest pain today. No fevers. She does have occasional cough and congestion productive cough for the last 3 days which is now a dry cough. No recent significant inpatient hospitalizations. Currently no chest pain MD Complaint: chest pain -: days(s) Onset: during rest Pain Location: left chest Pain Radiation: back Severity: mild Severity scale (1-10): 3 Quality: aching Consistency: intermittent, now resolved Improves With: nothing Worsens With: nothing Context: recent surgery Anginal Symptoms: nausea, dyspnea Other Symptoms: cough Treatments Prior to Arrival: none - Related Data Home Medications Medication Instructions Recorded Confirmed Ascorbic Acid [Vitamin C] 500 mg PO DAILY 12/25/16 06/01/18 Cholecalciferol [Vitamin D3 (25 1,000 unit PO DAILY 12/25/16 06/01/18 Mcg = 1000 Iu)] Multivitamins, Thera [Multivitamin 1 tab PO DAILY 12/25/16 06/01/18 (formulary)] Lisinopril [Zestril] 10 mg PO DAILY 05/12/18 06/01/18 Amiodarone [Cordarone] 200 mg PO BID 06/01/18 06/01/18 Diltiazem Cd [Cardizem CD] 240 mg PO HS 06/01/18 06/01/18 Metoprolol Tartrate [Lopressor] 50 mg PO BID 06/01/18 06/01/18 Previous Rx's Medication Instructions Recorded Atorvastatin [Lipitor] 40 mg PO HS #30 tab 05/17/18 Clopidogrel [Plavix] 75 mg PO DAILY #30 tab 05/17/18 Nitroglycerin Sl Tabs [Nitrostat] 0.4 mg SUBLINGUAL Q5M PRN #25 tab 05/17/18 Rivaroxaban [Xarelto] 15 mg PO W/SUPPER #30 tab 05/17/18 Fluticasone Nasal [place] [Flonase 2 spray EA NOSTRIL DAILY PRN 5 06/06/18 Nasal [place]] Days spr Furosemide [Lasix] 40 mg PO BID@0900,1600 #60 tab 06/06/18 Potassium Chloride ER [K-Dur 10] 10 meq PO DAILY #60 tab.er.prt 06/06/18 Allergies Allergy/AdvReac Type Severity Reaction Status Date / Time No Known Allergies Allergy Verified 02/22/19 16:18 Review of Systems ROS Statement: Those systems with pertinent positive or pertinent negative responses have been documented in the HPI. ROS Other: All systems not noted in ROS Statement are negative. EKG Findings - EKG Comments: EKG Findings:: EKG shows sinus bradycardia 55, AR 144, QRS 90, QTC 413 Past Medical History Past Medical History: Atrial Fibrillation, Cancer, Hyperlipidemia, Hypertension Additional Past Medical History / Comment(s): PT SOUNDS A LITTLE WHEEZY ON THE PHONE. INSTRUCTED TO TAKE LASIX DIRECTED AND TO NOTIFY DR. FERNANDEZ IF WHEEZING BECOMES WORSE. Sleep apnea not using CPAP since lost 60#, asthma not chronically on therapy, venous insufficiency, Vulvar cancer , basal cell skin cancer, leuk emia (cll) History of Any Multi-Drug Resistant Organisms: None Reported Past Surgical History: Heart Catheterization With Stent, Hysterectomy, Orthope dic Surgery, Tonsillectomy Additional Past Surgical History / Comment(s): Right-sided knee surgery for repair of laceration, partial hysterectomy, 2 nasal surgeries for basal cell skin cancer and rt arm, surgery on right third and fourth digit for ganglion cyst,2 d&c's(sx 2 miscarriages), colonoscopy Past Anesthesia/Blood Transfusion Reactions: No Reported Reaction Additional Past Anesthesia/Blood Transfusion Reaction / Comment(s): slow to wake up Date of Last Stent Placement:: 05/15/18 Past Psychological History: No Psychological Hx Reported Smoking Status: Never smoker Past Alcohol Use History: None Reported Past Drug Use History: None Reported - Past Family History Mother Family Medical History: Cancer Additional Family Medical History / Comment(s): Breast cancer Father Family Medical History: Myocardial Infarction ([place]) Additional Family Medical History / Comment(s): in his early 60's General Exam Limitations: no limitations General appearance: alert, in no apparent distress Head exam: Present: atraumatic, normocephalic, normal inspection Eye exam: Present: normal appearance, PERRL, EOMI. Absent: scleral icterus, conjunctival injection, periorbital swelling ENT exam: Present: normal exam, mucous membranes moist Neck exam: Present: normal inspection. Absent: tenderness, meningismus, lymphadenopathy Respiratory exam: Present: normal lung sounds bilaterally, rhonchi. Absent: respiratory distress, wheezes, rales, stridor Cardiovascular Exam: Present: normal rhythm, tachycardia, normal heart sounds. Absent: systolic murmur, diastolic murmur, rubs, gallop, clicks GI/Abdominal exam: Present: soft, normal bowel sounds. Absent: distended, tenderness, guarding, rebound, rigid Extremities exam: Present: normal inspection, full ROM, normal capillary refill. Absent: tenderness, pedal edema, joint swelling, calf tenderness Back exam: Present: normal inspection Neurological exam: Present: alert, oriented X3, CN II-XII intact Psychiatric exam: Present: normal affect, normal mood Skin exam: Present: warm, dry, intact, normal color. Absent: rash Course Vital Signs 02/22/19 02/22/19 02/22/19 16:16 17:22 19:16 Temperature 97.9 F Pulse Rate 104 H 59 L 88 Respiratory 20 18 16 Rate Blood Pressure 152/79 153/64 O2 Sat by Pulse 97 98 Oximetry 02/22/19 02/22/19 19:19 19:24 Temperature 98.2 F Pulse Rate 56 L 90 Respiratory 16 16 Rate Blood Pressure 160/67 O2 Sat by Pulse 96 Oximetry - Reevaluation(s) Reevaluation #1: 02/22/19 18:31 Medical record is reviewed Reevaluation #2: 02/22/19 18:32 Patient with currently no chest pain Reevaluation #5: 02/22/19 18:33 Studies Chest x-ray is negative for acute disease Chest Pain MDM - MDM 84 male the ER for evaluation patient progressively for evaluation regards to occasional cough and shortness of breath. No acute distress currently she is not complaining of Chest pain or shortness of breath does not lasted for cardiology evaluation, heaviest she has negative pneumonia patient states she never thought she had a heart disease and was sent by urgent care for evaluation patient's associated pneumonia averages are normally will take discharged home Disposition Clinical Impression: Atypical chest pain, Acute bronchitis Disposition: HOME SELF-CARE Condition: Good Instructions (If sedation given, give patient instructions): Chest Pain (ED), Acute Bronchitis (ED) Is patient prescribed a controlled substance at d/c from ED?: No Referrals: Bassam Martin MD [Primary Care Provider] - 1-2 days
[2019-02-22 17:41] LABS: Lymphocytes # (M) 2.56 k/uL (1.0-4.8); Monocytes # (M) 0.92 k/uL (0-1.0); Neutrophils # (M) 3.62 k/uL (1.3-7.7); Neutrophils % (M) 51 %; Nucleated Red Blood Cells 0 /100 WBC (0-0); Reactive Lymphocytes Present; Total Cells Counted 100
--- NOTE | 2019-02-22 17:42 | XR ---
EXAMINATION TYPE: XR chest 2V DATE OF EXAM: 02/22/2019 COMPARISON: 06/02/2018 HISTORY: Cough TECHNIQUE: 2 views FINDINGS: Heart is normal. Lungs are clear of consolidation. There are chest leads. Bony thorax is in tact. There is some spurring in the thoracic spine. There is mild thoracic dextroscoliosis. IMPRESSION: No active cardiopulmonary disease. Normal heart. No change.
[2019-02-22] MEDS: IPRATROPIUM-ALBUTEROL 3 ML NEB INHALATION STA (19:16)
--- NOTE | 2019-02-22 19:46 | CT ---
EXAMINATION TYPE: CT angio chest DATE OF EXAM: 02/22/2019 COMPARISON: 06/27/2011 HISTORY: Chest pressure, hx afib CT DLP: 245.9 mGycm Automated exposure control for dose reduction was used. CONTRAST: Performed with IV Contrast, patient injected with 100 mL of Isovue 370. There are 3-D post processed images. There is coarse reticular nodular pulmonary infiltrate in the lower lung cronin. There is mild atelec tasis right posterior lung base. There are numerous calcified granulomata throughout the liver and sp mariann. Spleen is moderately enlarged and measures 16 cm. Heart size is normal. There is no pericardial effusion. There is no mediastinal adenopathy. There are no hilar masses. There are a few bronchial lymph nodes that measure up to 1 cm. I see no filling defects in the pulmonary arteries. Thoracic aorta is athero matous. There is no aneurysm or dissection. Ascending aorta measures 3.5 cm. Thoracic spine is intact . IMPRESSION: No evidence of pulmonary embolism. Old granulomatous disease. Splenomegaly. Reticular nodular lower l obe pulmonary infiltrates are new compared to old exam and consistent with inflammatory disease.
[2019-02-22 20:31] VITALS: BP 151/58; PULSE 62; RESP 15; TEMP 98.5
== END 2019-02-22 20:20 | disposition home or self-care (01) ==
LOC: EC 16:09
DX: J20.9 Acute bronchitis, unspecified (principal); R07.89 Other chest pain; I48.91 Unspecified atrial fibrillation; E78.5 Hyperlipidemia, unspecified; I10 Essential (primary) hypertension; Z79.02 Long term (current) use of antithrombotics/antiplatelets; Z79.899 Other long term (current) drug therapy; Z85.828 Personal history of other malignant neoplasm of skin; Z95.5 Presence of coronary angioplasty implant and graft; Z82.49 Family history of ischemic heart disease and other diseases of the circulatory system
CPT/HCPCS: 36415; 94640; 93005; 83880; 80053; 83690; 83735; 84484; 85025; 85610; 85730; 71046; 71275; 99285; 96360; 96361 ×2; Q9967

== ENCOUNTER → 2019-08-28 | Outpatient (CLI) | payer MEDICARE ==
[2019-08-28 16:40] LABS: African American GFR (CKD) 93.5 (60.0-200.0); Albumin 4.1 g/dL (3.80-4.90); Albumin/Globulin Ratio 2.73 (1.60-3.17); Anion Gap 4.9 mmol/L (4.00-12.00); BUN/Creat Ratio 35.71 Ratio (12.00-20.00); Calcium 8.8 mg/dL (8.7-10.3); Carbon Dioxide 31.1 mmol/L (21.6-31.8); Chol/HDL Ratio 4.14; Globulin 1.5 g/dL (1.6-3.3); LDL Cholesterol,Calculated 95.2 mg/dL (0.0-131.0); Non-African American GFR(CKD) 80.7 (60.0-200.0); Potassium 4.5 mmol/L (3.5-5.5); Total Bilirubin 0.6 mg/dL (0.3-1.2); Total Protein 5.6 g/dL (6.2-8.2); VLDL Calculation 14.8 mg/dL (5.00-40.00)
== END | disposition home or self-care (01) ==
LOC: LABWHC1 10:10
PROVIDERS: ATTEND Internal Medicine Interventional Cardiology
DX: E78.2 Mixed hyperlipidemia (principal)
CPT/HCPCS: 36415; 80053; 80061; 84443

== ENCOUNTER → 2019-10-12 | Outpatient (CLI) | payer MEDICARE ==
--- NOTE | 2019-10-13 12:48 | CT ---
EXAMINATION TYPE: CT ChestAbdPelvis w con DATE OF EXAM: 10/12/2019 INDICATION: Lymphoma, leukemia. COMPARISON: 02/22/2019, 01/24/[address] DLP: 907 mGycm CONTRAST: Performed with Oral Contrast and with IV Contrast, patient injected with 100 mL of Isovue 300. TECHNIQUE: Axial images at 5 mm thick sections. Reconstructed images in the coronal plane. Delayed images through the kidneys. FINDINGS: CT CHEST: Portion of the thyroid visualized is somewhat heterogenous. Some minimal scarring may be at the right lung apex. There is a 1.0 cm calcified granuloma at the lef t lung apex present previously. No enlarged mediastinal or hilar adenopathy is evident. The ascending aorta diameter at the level of the main pulmonary artery is 3.3 cm. The main pulmonary artery diameter at the bifurcation is 3.[address] ABDOMEN: Liver: Scattered calcified granuloma are present. There is an irregular hypodensity within the superi or right lobe liver which may has some peripheral enhancement. Hemangioma is favored. Other etiologie s are not excluded. This measures 2.4 cm. Series 3 image 53 and appears to been present previously. T his was identified on MRI liver 07/19/2011. Spleen: There is marked splenomegaly with multiple calcified granuloma present. Spleen craniocaudal d imension is 19.1 cm. Normal less than 12.5 cm. Pancreas: Normal Adrenal glands: There is some fullness of the left adrenal gland estimated 1.5 cm transverse dimensio n. Right adrenal gland appears within normal limits. Gallbladder: Normal Kidneys: No masses are evident. No hydronephrosis is present. No cysts are present. Delayed images were obtained through the kidneys, which remain unremarkable. Aorta: Vascular calcification is within the aorta. Inferior vena cava: Normal. CT PELVIS: Loops of bowel within the abdomen and pelvis are normal. There are loops of bowel which are incom pletely distended or lack oral contrast limiting their evaluation. Moderate fecal debris scattered th roughout the colon Appendix: Retrocecal and appears unremarkable. Urinary bladder: Decompressed with some limitation. Genitourinary structures: Uterus and ovaries are not identified. Osseous structures: No suspicious lytic or sclerotic lesions. Facet degenerative changes are within t he lumbar spine. Lymphadenopathy: Few scattered small lymph nodes are in the bilateral axilla. Some shotty lymphadenop athy is within the mediastinum. No suspicious hilar adenopathy is evident. No retrocrural enlarged ad enopathy is evident. There appears to be some periaortic adenopathy present measuring 1.4 cm. Series 3 image 71. This may be new. Some ill-defined retrocaval adenopathy may be present. Smaller lymph nod es are in the periaortic region below the level of the renal arteries. Obturator canal and iliac erick ns appear within normal limits. Scattered small lymph nodes are in the inguinal regions. IMPRESSIONS: 1. There may be a 1.4 cm enlarging lymph node in the periaortic region midabdomen. Additional shotty lymphadenopathy as discussed above. Consider follow-up PET/CT for reevaluation. 2. Marked splenomegaly. 3. Stable hemangioma right lobe liver. Calcified granuloma within the liver and spleen
== END | disposition home or self-care (01) ==
LOC: RADCTMAIN 09:51
PROVIDERS: ATTEND Internal Medicine Hematology & Oncology
DX: R16.1 Splenomegaly, not elsewhere classified (principal); R59.1 Generalized enlarged lymph nodes; D18.03 Hemangioma of intra-abdominal structures; K75.3 Granulomatous hepatitis, not elsewhere classified; D73.89 Other diseases of spleen; C83.0 Small cell B-cell lymphoma
CPT/HCPCS: 82565; 84520; 71260; 74177; 36415; Q9967

== ENCOUNTER → 2021-01-15 | Outpatient (CLI) | payer MEDICARE ==
--- NOTE | 2021-01-15 13:12 | CONS ---
CONSULTATION DATE OF SERVICE: 01/15/2021 This 86-year-old lady has been evaluated in Sleep Center for obstructive sleep apnea- hypopnea syndrome. HISTORY OF PRESENT ILLNESS/SLEEP-WAKE EVALUATION: The patient was evaluated in our Sleep Center in 2014. Results of her polysomnogram showed that the patient had obstructive sleep apnea-hypopnea syndrome with apnea- hypopnea index of 10.8 and oxygen desaturation to 82.7%. At that time we also saw extremely severe periodic limb movements, 121.4 per hour, with 11.6 microarousals per hour. The patient had titration and was started on treatment with CPAP, but she stopped using CPAP about 5 years ago. At present, her sleep schedule is from 11:30 p.m. or midnight until 6:30 or 7:30 a.m. No problems with falling asleep. She has a TV set in the bedroom. She usually sleeps on the side and back positions. She wakes up from sleep 3 to 5 times. During the night she will often change her position. Rarely history of hypnagogic hallucinations. No history of sleep paralysis or cataplexy. [place] Sleepiness Scale today is 7. PAST MEDICAL HISTORY: Positive for hypertension, coronary artery disease, chronic lymphocytic leukemia, hypothyroidism. Recently she was found to have cancerous lesion in . PAST SURGICAL HISTORY: Hysterectomy, stent insertion to coronary arteries, foot surgery, nose surgery, cataract surgery. MEDICATIONS: 1. Amiodarone one-half of a 200-mg pill once a day. 2. Amlodipine 5 mg once a day. 3. Atorvastatin 20 mg once a day. 4. Ferrous sulfate 65 mg once a day. 5. Flexeril as needed for muscle cramps. 6. Levothyroxine 50 mcg once a day. 7. Metoprolol 12.5 mg once a day. 8. Venclexta 100 mg three times a day. 9. Xarelto 20 mg once a day. 10.Nitroglycerin in purse as needed; did not use it recently. SOCIAL HISTORY: Negative for smoking or using alcohol. FAMILY HISTORY: Coronary artery disease in her father. REVIEW OF SYSTEMS: Multiple awakenings from sleep. No fevers. No double vision. No recent chest pain. No shortness of breath. No abdominal pain. No bleeding episodes. No blood in the urine. No seizure episodes. PHYSICAL EXAMINATION: GENERAL: Pleasant lady without distress. VITAL SIGNS: BP 146/69, HR 56, RR 15, height 5 feet 6-3/4 inches, weight 161.6 pounds, body mass index 25.4, temperature 97.0, oxygen saturation at room air 98%. HEENT: PERRLA, EOMI, evaluation of oropharynx showed tongue protrudes midline. Extremely low position of soft palate; Mallampati IV. NECK: Supple, no JVD. Thyroid is not palpable. LUNGS: Clear to percussion and to auscultation. Good air exchange. No wheezing or rhonchi. HEART: S1, S2 regular. No murmurs, gallops, or rubs. ABDOMEN: Soft and nontender. Bowel sounds are present. No organomegaly appreciated. EXTREMITIES: No clubbing or cyanosis. STEREOPTIC PROJECTION TOPOGRAPHER: Awake, alert, and oriented X3. Cranial nerves 2 to 7 intact. There is no fasciculation or atrophy. noted. No focal deficits observed. IMPRESSION: 1. Multiple awakenings from sleep, extremely low position of soft palate, history of obstructive sleep apnea documented by polysomnogram in 2014, at that time in mild range, weight changes up and down since previous sleep study; possible obstructive sleep apnea-hypopnea syndrome. 2. Hypertension. 3. Coronary artery disease, status post stent insertion. 4. History of severe periodic limb movements during the previous sleep study. 5. Chronic lymphocytic leukemia. 6. Hypothyroidism. 7. Hyperlipidemia. 8. Vulvar carcinoma. Patient is preparing for surgical treatment in February. 9. Status post hysterectomy. 10.Status post cataract surgery. 11.Status post nasal surgery. 12.Status post vulvar surgery in the past; no cancer that time. PLAN: 1. Polysomnography for evaluation of patient's breathing during sleep. 2. CPAP/BiPAP titration if sleep study confirms obstructive sleep apnea-hypopnea syndrome. 3. Preferable position during sleep on the side. 4. No driving if patient feels any sleepiness. 5. I will see patient for follow up visit to explain results of testing and following plan. Thank you very much for referring this patient for consultation. Sincerely, Mac Santo MD, PhD, FAASM Diplomat of [place] [employer] Sleep Medicine Board of [place] [employer] of [employer] Medicine [employer] [facility] [place] MMODL / IJN: [id number] /
== END ==
LOC: SLEEP 11:18
PROVIDERS: ATTEND Internal Medicine
DX: G47.8 Other sleep disorders (principal); I10 Essential (primary) hypertension; I25.10 Atherosclerotic heart disease of native coronary artery without angina pectoris; G47.61 Periodic limb movement disorder; C91.10 Chronic lymphocytic leukemia of B-cell type not having achieved remission; E03.9 Hypothyroidism, unspecified; E78.5 Hyperlipidemia, unspecified; C51.9 Malignant neoplasm of vulva, unspecified; Z90.710 Acquired absence of both cervix and uterus; Z98.49 Cataract extraction status, unspecified eye; Z98.890 Other specified postprocedural states; Z79.899 Other long term (current) drug therapy; Z79.02 Long term (current) use of antithrombotics/antiplatelets
CPT/HCPCS: 99211

== ENCOUNTER 2021-01-20 14:07 | Emergency (ER) | payer MEDICARE ==
--- NOTE | 2021-01-20 15:31 | XR ---
EXAMINATION TYPE: XR chest 2V DATE OF EXAM: 01/20/2021 COMPARISON: Chest x-ray February 22, 2019 HISTORY: Cough and shortness of breath. COVID exposure. TECHNIQUE: Frontal and lateral views of the chest are obtained. FINDINGS: There are chronic parenchymal changes without suspicious new focal air space opacity, ple ural effusion, or pneumothorax seen. Old calcified nodule or benign granuloma peripheral left upper lobe redemonstrated. The cardiac silhouette size is within normal limits with atherosclerotic change thoracic aorta. Underlying scoliosis. IMPRESSION: Chronic changes without acute pulmonary process.
--- NOTE | 2021-01-20 17:27 | ED ---
URI HPI - General Chief Complaint: Upper Respiratory Infection Stated Complaint: Coughing fever Time Seen by Provider: 01/20/21 16:30 Source: patient, RN notes reviewed Mode of arrival: ambulatory Limitations: no limitations - History of Present Illness Initial Comments: Patient is an 86-year-old female with history of CLL, A. fib, hypertension, presenting to the emergency Department with complaints of increased fatigue, cough and some congestion that started yesterday. Patient's was recently diagnosed with "red yesterday and she is concerned that she has caught this as well. She denies any fevers, she has been having chills and some mild body aches today as well. She denies any chest pains, no shortness of breath, no abdominal pain, no nausea or vomiting. She still been able to eat and drink as normal. Has no history of asthma or COPD. She has no further complaints at this time. Upon arrival to the ER, her vital signs are stable. - Related Data Home Medications Medication Instructions Recorded Confirmed Ascorbic Acid [Vitamin C] 500 mg PO DAILY 12/25/16 06/01/18 Cholecalciferol [Vitamin D3 (25 1,000 unit PO DAILY 12/25/16 06/01/18 Mcg = 1000 Iu)] Multivitamins, Thera [Multivitamin 1 tab PO DAILY 12/25/16 06/01/18 (formulary)] lisinopriL [Zestril] 10 mg PO DAILY 05/12/18 06/01/18 Amiodarone [Cordarone] 200 mg PO BID 06/01/18 06/01/18 Diltiazem Cd [Cardizem CD] 240 mg PO HS 06/01/18 06/01/18 Metoprolol Tartrate [Lopressor] 50 mg PO BID 06/01/18 06/01/18 Previous Rx's Medication Instructions Recorded Atorvastatin [Lipitor] 40 mg PO HS #30 tab 05/17/18 Clopidogrel [Plavix] 75 mg PO DAILY #30 tab 05/17/18 Nitroglycerin Sl Tabs [Nitrostat] 0.4 mg SUBLINGUAL Q5M PRN #25 tab 05/17/18 Rivaroxaban [Xarelto] 15 mg PO W/SUPPER #30 tab 05/17/18 Fluticasone Nasal [place] [Flonase 2 spray EA NOSTRIL DAILY PRN 5 06/06/18 Nasal [place]] Days spr Furosemide [Lasix] 40 mg PO BID@0900,1600 #60 tab 06/06/18 Potassium Chloride ER [K-Dur 10] 10 meq PO DAILY #60 tab.er.prt 06/06/18 Allergies Allergy/AdvReac Type Severity Reaction Status Date / Time No Known Allergies Allergy Verified 02/22/19 16:18 Review of Systems ROS Statement: Those systems with pertinent positive or pertinent negative responses have been documented in the HPI. ROS Other: All systems not noted in ROS Statement are negative. Past Medical History Past Medical History: Atrial Fibrillation, Cancer, Hyperlipidemia, Hypertension Additional Past Medical History / Comment(s): PT SOUNDS A LITTLE WHEEZY ON THE PHONE. INSTRUCTED TO TAKE LASIX DIRECTED AND TO NOTIFY DR. FERNANDEZ IF WHEEZING BECOMES WORSE. Sleep apnea not using CPAP since lost 60#, asthma not chronically on therapy, venous insufficiency, Vulvar cancer , basal cell skin cancer, leukemia (cll) History of Any Multi-Drug Resistant Organisms: None Reported Past Surgical History: Heart Catheterization With Stent, Hysterectomy, Orthopedic Surgery, Tonsillectomy Additional Past Surgical History / Comment(s): Right-sided knee surgery for repair of laceration, partial hysterectomy, 2 nasal surgeries for basal cell skin cancer and rt arm, surgery on right third and fourth digit for ganglion cyst,2 d&c's(sx 2 miscarriages), colonoscopy Past Anesthesia/Blood Transfusion Reactions: No Reported Reaction Additional Past Anesthesia/Blood Transfusion Reaction / Comment(s): slow to wake up Date of Last Stent Placement:: 05/15/18 Past Psychological History: No Psychological Hx Reported Past Alcohol Use History: None Reported Past Drug Use History: None Reported - Past Family History Mother Family Medical History: Cancer Additional Family Medical History / Comment(s): Breast cancer Father Family Medical History: Myocardial Infarction (NM) Additional Family Medical History / Comment(s): in his early 60's General Exam - General Exam Comments Initial Comments: GENERAL: Patient is well-developed and well-nourished. Patient is nontoxic and in no acute distress. HEAD: Atraumatic, normocephalic. EYES: Pupils equal round and reactive to light, extraocular movements intact, sclera anicteric, conjunctiva are normal. Eyelids were unremarkable. ENT: Moist mucous membranes. NECK: Normal range of motion, supple without lymphadenopathy or JVD. LUNGS: Unlabored respirations. Breath sounds clear to auscultation bilaterally and equal. No wheezes rales or rhonchi. HEART: Regular rate and rhythm without murmurs, rubs or gallops. ABDOMEN: Soft, nontender, normoactive bowel sounds. No guarding, no rebound. No masses appreciated. MUSCULOSKELETAL: Normal extremities with adequate strength and normal range of motion, no pitting or edema. No clubbing or cyanosis. NEUROLOGICAL: Patient is alert and oriented x 3. SKIN: Warm, Dry, normal turgor, no rashes or lesions noted. Limitations: no limitations Course Vital Signs 01/20/21 01/20/21 15:03 18:40 Temperature 99.1 F 98.2 F Pulse Rate 65 69 Respiratory 19 20 Rate Blood Pressure 156/63 165/63 O2 Sat by Pulse 98 97 Oximetry Medical Decision Making - Medical Decision Making Patient is a 86-year-old female with history of CLL, hypertension, presenting with concerns of Covid. She developed a mild cough, congestion and chills yesterday. Her was diagnosed yesterday as well. Her vital signs are stable, afebrile. Her exam is unremarkable. Her rapid test today is negative. Chest x-ray shows chronic changes without an acute pulmonary process. Patient has been fully vaccinated however with her history of CLL, I did recommend monoclonal antibodies. She does qualify for these and she is agreeable to this. No adverse side effects. Her vital signs remained stable. She is stable for discharge. I recommended increasing her fluid intake, Tylenol for any body aches. She is agreeable to this. Return parameters were discussed with her and she verbalized understanding. She'll follow up with her primary care. - Lab Data Lab Results 01/20/21 Range/Units 15:11 Coronavirus (PCR) Not Detected (Not Detectd) Disposition Clinical Impression: Viral respiratory illness Disposition: HOME SELF-CARE Condition: Stable Instructions (If sedation given, give patient instructions): Upper Respiratory Infection (ED) Additional Instructions: Please return to the Emergency Department if symptoms worsen or any other concerns. Recommend increasing your fluid intake, may take Tylenol or ibuprofen for any discomfort. Follow-up with your primary care doctor. Is patient prescribed a controlled substance at d/c from ED?: No Referrals: Bassam Martin MD [Primary Care Provider] - 1-2 days Time of Disposition: 18:48
[2021-01-20] MEDS ORDERED: BAMLANIVIMAB (EUA) 700 MG, ETESEVIMAB (EUA) 1,400 MG in SODIUM CHLORIDE 0.9% 50 ML IVPB ONE (17:30)
[2021-01-20] MEDS ORDERED: SODIUM CHLORIDE 0.9% 50 ML IVPB ONE (18:00)
[2021-01-20 18:41] VITALS: BP 165/63; PULSE 69; RESP 20; TEMP 98.2
== END 2021-01-20 19:30 | disposition home or self-care (01) ==
LOC: EC 14:07
DX: J06.9 Acute upper respiratory infection, unspecified (principal); I10 Essential (primary) hypertension; I48.91 Unspecified atrial fibrillation; E78.5 Hyperlipidemia, unspecified; Z79.02 Long term (current) use of antithrombotics/antiplatelets; Z79.01 Long term (current) use of anticoagulants; Z79.899 Other long term (current) drug therapy; Z85.828 Personal history of other malignant neoplasm of skin; Z82.49 Family history of ischemic heart disease and other diseases of the circulatory system; Z80.3 Family history of malignant neoplasm of breast; Z20.822 Contact with and (suspected) exposure to COVID-19
CPT/HCPCS: 99283 ×2; 96365 ×2; 87635; 71046; J3490

== ENCOUNTER → 2021-04-08 | Outpatient (CLI) | payer MEDICARE ==
[~2021-04-08] MED LIST: TIXAGEVIMAB/CILGAVIMAB (EUA) 300 MG/3 ML COMBO.PKG IM ONE
[2021-04-08 11:35] VITALS: BP 138/63; PULSE 64; RESP 16; TEMP 97.7
== END ==
LOC: PROCWHC3 11:13
PROVIDERS: ATTEND Registered Nurse Oncology
DX: C91.10 Chronic lymphocytic leukemia of B-cell type not having achieved remission (principal)
CPT/HCPCS: 96372

== ENCOUNTER → 2021-08-11 | Outpatient (CLI) | payer MEDICARE ==
--- NOTE | 2021-08-12 18:56 | MM ---
Reason for Exam: Screening (asymptomatic). Last mammogram was performed 4 year(s) and 2 month(s) ago. Patient History: Menarche at age 14. First Full-Term at age 22. Hysterectomy at age 46. Postmenopausal. Other cancer, age 70. Patient used Estrogen for 7 years. Benign Excisional Biopsy on the left side. Maternal aunt had breast cancer, age 45. Mother had breast cancer, age 45. Risk Values: Sera 5 year model risk: 3.2%. NCI Lifetime model risk: 3.5%. Prior Study Comparison: 05/07/2015 Bilateral Screening Mammogram, [facility]. 05/19/2016 Bilateral Screening Mammogram, [facility]. 06/08/2017 Bilateral Screening Mammogram, [facility]. Tissue Density: The breast tissue is heterogeneously dense. This may lower the sensitivity of mammography. Findings: Analyzed By CAD. Benign vascular calcifications present. There are some scattered round and spherical calcifications present. No suspicious spiculated or lobular mass, clustered microcalcifications or architectural distortion or other secondary signs of malignancy are radiographically apparent. Overall Assessment: Benign, BI-RAD 2 Management: Screening Mammogram of both breasts in 1 year. A clinical breast exam by your physician is recommended on an annual basis and results should be correlated with mammographic findings. Electronically signed and approved by: Yonatan Castro D.O. Radiologis
== END | disposition home or self-care (01) ==
LOC: RADMAMWWP 15:11
PROVIDERS: ATTEND Internal Medicine
DX: Z12.31 Encounter for screening mammogram for malignant neoplasm of breast (principal); Z78.0 Asymptomatic menopausal state; Z80.3 Family history of malignant neoplasm of breast
CPT/HCPCS: 77063; 77067

== ENCOUNTER → 2022-03-26 | Outpatient (CLI) | payer MEDICARE ==
[~2022-03-26] MED LIST changes: +REGADENOSON 0.4 MG/5 ML SYRINGE IV PRN; -TIXAGEVIMAB/CILGAVIMAB (EUA) 300 MG/3 ML COMBO.PKG IM ONE
--- NOTE | 2022-03-26 11:24 | CA ---
Lexiscan Nuclear Stress Test Report Name: Alison Wright Exam Date: 03/26/2022 09:50 Exam Location: [facility] Ht (in): 67 Wt (lb): 160 BSA: 1.84 Ordering Phys: Bassam Martin MD Referring Phys: BEN, Technologist: Delio Mayfield Age: 87 Gender: F : 1935 Procedure CPT: Indications: I20.9 unstable angina ICD-10 Codes: Patient History: Medications: SEE LIST Meds past 24 hrs: Pretest Chest Pain: STRESS TEST Lexiscan Protocol Exercise Duration (min:sec): 01:[address] Depressions (mm): Angina Score: Yee Score: Resting HR (bpm): 54 Peak HR (bpm): 75 Resting BP (mmHg): 147 / 66 Peak BP (mmHg): 143 / 59 MPHR: 135 Target HR: 115 % MPHR: 56 METS: 1.0 Total Dose: Peak Dose: Atropine: Double Product: 86018 BP Response: Stress Termination: INFUSION COMPLETE Stress Symptoms: RIGHT ARM TINGLING Stress Summary: ECG ANALYSIS Resting ECG: Stress ECG: CONCLUSIONS Baseline EKG revealed sinus bradycardia without ST segment changes. With Lexiscan and mentation the heart rate changed from 50-74 bpm and the blood pressure changed from 147/66- 143/59. The patient did not have any significant symptoms and EKG remained unremarkable. By EKG criteria this is a unremarkable Lexiscan stress test. The nuclear scan results which are more pertinent will be reported by the radiologist Dr. Dawson Daigle MD (Electronically Signed) Final Date: 26 March 2022 11:23
--- NOTE | 2022-03-26 11:54 | NM ---
EXAMINATION TYPE: NM stress lexiscan cardiolite DATE OF EXAM: 03/26/2022 COMPARISON: NONE HISTORY: Wrist pain TECHNIQUE: After the intravenous administration of 9.3 mCi Tc 99m Sestamibi - Cardiolite resting SPE CT images acquired 60 minutes post injection. The patient received 0.4mg Lexiscan, 24 mCi Tc 99m Sestamibi - Stress images obtained 45 minutes post injection FINDINGS: Review of stress and rest SPECT images demonstrates no distinct perfusion abnormality. Gated analysi s shows normal wall motion with an estimated left ventricular ejection fraction of 72 %. IMPRESSION: No scintigraphic evidence for reversible ischemia.
== END | disposition home or self-care (01) ==
LOC: RADNMMAIN 08:03
PROVIDERS: ATTEND Internal Medicine
DX: I20.9 Angina pectoris, unspecified (principal); R00.0 Tachycardia, unspecified
CPT/HCPCS: 93017; 78452; A9500; J2785

== ENCOUNTER 2023-01-16 08:00 | Emergency (ER) | payer MEDICARE ==
[2023-01-16] MEDS ORDERED: ACETAMINOPHEN TAB 500 MG TAB PO STA (08:12)
--- NOTE | 2023-01-16 08:34 | ED ---
URI HPI - General Chief Complaint: Upper Respiratory Infection Stated Complaint: congestion,fever Time Seen by Provider: 01/16/23 08:07 Source: patient, EMS, RN notes reviewed Mode of arrival: EMS Limitations: no limitations - History of Present Illness Initial Comments: This is an 88-year-old female presents to the emergency Department with chief complaint of cough and congestion. She states she has not felt well over the last couple days but symptoms worsened this morning. Patient is not taking any acetaminophen for ibuprofen for fever. She states she is productive cough. She does have a history of asthma states she's not had any recent issues. Denies any chest pain, nausea vomiting diarrhea constipation. - Related Data Home Medications Medication Instructions Recorded Confirmed Ascorbic Acid [Vitamin C] 1,000 mg PO DAILY 12/25/16 04/08/21 Multivitamins, Thera [Multivitamin 1 tab PO DAILY 12/25/16 04/08/21 (formulary)] Amiodarone [Cordarone] 100 mg PO DAILY 06/01/18 04/08/21 Acetaminophen [Tylenol] 650 mg PO Q6H PRN 03/18/21 04/08/21 Aspirin 81 mg PO DAILY 03/18/21 04/08/21 Atorvastatin Calcium [Lipitor] 20 mg PO HS 03/18/21 04/08/21 Cholecalciferol [Vitamin D3 (125 125 mcg PO DAILY 03/18/21 04/08/21 Mcg = 5000 Iu)] Ferrous Sulfate [Feosol] 325 mg PO DAILY 03/18/21 04/08/21 Furosemide [Lasix] 10 mg PO DAILY 03/18/21 04/08/21 Levothyroxine Sodium [Synthroid] 50 mcg PO DAILY 03/18/21 04/08/21 Metoprolol Succinate (ER) [Toprol 12.5 mg PO DAILY 03/18/21 04/08/21 Xl] SILVER sulfADIAZINE Cream 1 applic TOPICAL DAILY 03/18/21 04/08/21 [Silvadene 1% Cream] Sennosides/Docusate Sodium [Senna 1 tab PO BID PRN 03/18/21 04/08/21 Plus 8.6-50 mg Tablet] Sulfamethox-Tmp 800-160Mg [Bactrim 1 tab PO BID 03/18/21 04/08/21 DS 800-160 mg] amLODIPine [Norvasc] 5 mg PO HS 03/18/21 04/08/21 polyethylene glycoL 3350 [Miralax] 17 gm PO Q72H PRN 03/18/21 04/08/21 Previous Rx's Medication Instructions Recorded Rivaroxaban [Xarelto] 15 mg PO W/SUPPER #30 tab 05/17/18 Azithromycin [Zithromax Z Pack] 0 tab PO DIRECTED #6 tab 01/16/23 Allergies Allergy/AdvReac Type Severity Reaction Status Date / Time No Known Allergies Allergy Verified 04/08/21 11:28 Review of Systems ROS Statement: Those systems with pertinent positive or pertinent negative responses have been documented in the HPI. ROS Other: All systems not noted in ROS Statement are negative. Past Medical History Past Medical History: Atrial Fibrillation, Cancer, Hyperlipidemia, Hypertension Additional Past Medical History / Comment(s): PT SOUNDS A LITTLE WHEEZY ON THE PHONE. INSTRUCTED TO TAKE LASIX DIRECTED AND TO NOTIFY DR. FERNANDEZ IF WHEEZING BECOMES WORSE. Sleep apnea not using CPAP since lost 60#, asthma not chronically on therapy, venous insufficiency, Vulvar cancer , basal cell skin cancer, leukemia (cll) History of Any Multi-Drug Resistant Organisms: None Reported Past Surgical History: Heart Catheterization With Stent, Hysterectomy, Orthopedic Surgery, Tonsillectomy Additional Past Surgical History / Comment(s): Right-sided knee surgery for repair of laceration, partial hysterectomy, 2 nasal surgeries for basal cell skin cancer and rt arm, surgery on right third and fourth digit for ganglion cyst,2 d&c's(sx 2 miscarriages), colonoscopy Past Anesthesia/Blood Transfusion Reactions: No Reported Reaction Additional Past Anesthesia/Blood Transfusion Reaction / Comment(s): slow to wake up Date of Last Stent Placement:: 05/15/18 Past Psychological History: No Psychological Hx Reported Smoking Status: Never smoker - Past Family History Mother Family Medical History: Cancer Additional Family Medical History / Comment(s): Breast cancer Father Family Medical History: Myocardial Infarction ([place]) Additional Family Medical History / Comment(s): in his early 60's General Exam Limitations: no limitations General appearance: alert, in no apparent distress Head exam: Present: atraumatic, normocephalic, normal inspection Eye exam: Present: normal appearance, PERRL, EOMI. Absent: scleral icterus, conjunctival injection, periorbital swelling ENT exam: Present: normal exam, normal oropharynx, mucous membranes moist Neck exam: Present: normal inspection, full ROM. Absent: tenderness, meningismus, lymphadenopathy Respiratory exam: Present: normal lung sounds bilaterally. Absent: respiratory distress, wheezes, rales, rhonchi, stridor Cardiovascular Exam: Present: regular rate, normal rhythm, normal heart sounds. Absent: systolic murmur, diastolic murmur, rubs, gallop, clicks GI/Abdominal exam: Present: soft, normal bowel sounds. Absent: distended, tenderness, guarding, rebound, rigid Neurological exam: Present: alert Course Vital Signs 01/16/23 01/16/23 01/16/23 08:06 10:00 12:12 Temperature 100.3 F H 99.9 F H 98.7 F Pulse Rate 69 55 L 63 Respiratory 20 20 18 Rate Blood Pressure 121/57 132/52 113/53 O2 Sat by Pulse 95 95 95 Oximetry Medical Decision Making - Medical Decision Making Was pt. sent in by a medical professional or institution (, PA, BIOMEDICAL PHOTOGRAPHER, urgent care, hospital, or custodial...) When possible be specific @ -No Did you speak to anyone other than the patient for history (EMS, parent, family, police, friend...)? What history was obtained from this source @ -No Did you review nursing and triage notes (agree or disagree)? Why? @ -I reviewed and agree with nursing and triage notes Were old charts reviewed (outside hosp., previous admission, EMS record, old EKG, old radiological studies, urgent care reports/EKG's, custodial records)? Report findings @ -No old charts were reviewed Differential Diagnosis (chest pain, altered mental status, abdominal pain women, abdominal pain men, vaginal bleeding, weakness, fever, dyspnea, syncope, headache, dizziness, GI bleed, back pain, seizure, CVA, palpatations, mental health, musculoskeletal)? @ -URI, pneumonia, covid, influenza EKG interpreted by me (3pts min.). @ -None X-rays interpreted by me (1pt min.). @ -Chest x-ray shows no definite infiltrate CT interpreted by me (1pt min.). @ -None done U/S interpreted by me (1pt. min.). @ -None done What testing was considered but not performed or refused? (CT, X-rays, U/S, labs)? Why? @ -None What meds were considered but not given or refused? Why? @ -None Did you discuss the management of the patient with other professionals (professionals i.e. , PA, BIOMEDICAL PHOTOGRAPHER, lab, RT, psych nurse, social service liaison, healthcare market consultant, teacher, financial aid officer, showcase trimmer)? Give summary @ -No Was smoking cessation discussed for >3mins.? @ -No Was critical care preformed (if so, how long)? @ -No Were there social determinants of health that impacted care today? How? (Homelessness, low income, unemployed, alcoholism, drug addiction, transportation, low edu. Level, literacy, decrease access to med. care, long term, rehab)? @ -No Was there de-escalation of care discussed even if they declined (Discuss DNR or withdrawal of care, Hospice)? DNR status @ -No What co-morbidities impacted this encounter? (DM, HTN, Smoking, COPD, CAD, Cancer, CVA, ARF, Chemo, Hep., AIDS, mental health diagnosis, sleep apnea, morbid obesity)? @ -Asthma Was patient admitted / discharged? Hospital course, mention meds given and route, prescriptions, significant lab abnormalities, going to OR and other pertinent info. @ -Discharged patient viral swab was negative laboratory studies did reveal mild pharmacy. Though this is a baseline for patient. Patient discharged after Rocephin, azithromycin return parameters were discussed. Undiagnosed new problem with uncertain prognosis? @ -No Drug Therapy requiring intensive monitoring for toxicity (Heparin, Nitro, Insulin, Cardizem)? @ -No Were any procedures done? @ -No Diagnosis/symptom? @ -Acute tracheobronchitis Acute, or Chronic, or Acute on Chronic? @ -[Acute Uncomplicated (without systemic symptoms) or Complicated (systemic symptoms)? @ -Uncomplicated Side effects of treatment? @ -No Exacerbation, Progression, or Severe Exacerbation? @ -No Poses a threat to life or bodily function? How? (Chest pain, USA, ID, pneumonia, PE, COPD, DKA, ARF, appy, cholecystitis, CVA, Diverticulitis, Homicidal, Suicidal, threat to staff... and all critical care pts) @ -No - Lab Data Result diagrams: 01/16/23 08:17 01/16/23 08:17 Lab Results 01/16/23 01/16/23 01/16/23 Range/Units 08:17 08:17 08:17 WBC 3.2 L (3.8-10.6) k/uL RBC 3.92 (3.80-5.40) m/uL Hgb 11.6 (11.4-16.0) gm/dL Hct 35.1 (34.0-46.0) % MCV 89.5 (80.0-100.0) fL MCH 29.6 (25.0-35.0) pg MCHC 33.1 (31.0-37.0) g/dL RDW 14.9 (11.5-15.5) % Plt Count 66 L (150-450) k/uL MPV 8.4 Neutrophils % (Manual) 69 % Lymphocytes % (Manual) 21 % Monocytes % (Manual) 9 % Eosinophils % (Manual) 1 % Neutrophils # (Manual) 2.21 (1.3-7.7) k/uL Lymphocytes # (Manual) 0.67 L (1.0-4.8) k/uL Monocytes # (Manual) 0.29 (0-1.0) k/uL Eosinophils # (Manual) 0.03 (0-0.7) k/uL Nucleated RBCs 0 (0-0) /100 WBC Manual Slide Review Performed Sodium 141 (137-145) mmol/L Potassium 4.1 (3.5-5.1) mmol/L Chloride 106 (98-107) mmol/L Carbon Dioxide 29 (22-30) mmol/L Anion Gap 6 mmol/L BUN 18 H (7-17) mg/dL Creatinine 0.55 (0.52-1.04) mg/dL Est GFR (CKD-EPI)AfAm >90 (>60 ml/min/1.73 sqM) Est GFR (CKD-EPI)NonAf 85 (>60 ml/min/1.73 sqM) Glucose 98 (74-99) mg/dL Calcium 8.6 (8.4-10.2) mg/dL Total Bilirubin 0.6 (0.2-1.3) mg/dL AST 28 (14-36) U/L ALT 22 (4-34) U/L Alkaline Phosphatase 77 (38-126) U/L Total Protein 5.7 L (6.3-8.2) g/dL Albumin 3.7 (3.5-5.0) g/dL Influenza Type A (PCR) Not Detected (Not Detectd) Influenza Type B (PCR) Not Detected (Not Detectd) RSV (PCR) Not Detected (Not Detectd) SARS-CoV-2 (PCR) Not Detected (Not Detectd) Disposition Clinical Impression: Tracheobronchitis Disposition: HOME SELF-CARE Condition: Stable Additional Instructions: Please return to the Emergency Department if symptoms worsen or any other concer ns. Prescriptions: Azithromycin [Zithromax Z Pack] 0 tab PO DIRECTED #6 tab Is patient prescribed a controlled substance at d/c from ED?: No Referrals: Bassam Martin MD [Primary Care Provider] - 1-2 days Time of Disposition: 11:50
--- NOTE | 2023-01-16 09:49 | XR ---
EXAMINATION TYPE: XR chest 2V DATE OF EXAM: 01/16/2023 8:47 AM CLINICAL INDICATION:Female, 88 years old with history of fever; [facility] COMPARISON: 01/20/2021 chest x-ray TECHNIQUE: XR chest 2V Frontal and lateral views of the chest. FINDINGS: Lines/Tubes: No indwelling lines are seen. Lungs/Pleura: Chronic senescent changes. Mild hyperinflation can be seen with COPD. Redemonstration o f calcified left upper lobe pulmonary nodule and left hilar nodes consistent with remote granulomatou s disease. No acute consolidation, sizable effusion, or pneumothorax. Mild apical pleural thickening. Pulmonary vascularity: Unremarkable. Heart/mediastinum: Stable cardiomediastinal silhouette. Heart size upper normal. Atherosclerotic calc ifications of the aorta. Musculoskeletal: No acute osseous normality demonstrated. Degenerative changes of the shoulders and s pine, with mild apex right scoliotic curvature in the upper thoracic region. Other findings: None IMPRESSION: No acute cardiopulmonary disease/process.
[2023-01-16 09:56] LABS: ALT 22 U/L (4-34); AST 28 U/L (14-36); African American GFR (CKD) >90 (>60 ml/min/1.73 sqM); Albumin 3.7 g/dL (3.5-5.0); Alkaline Phosphatase 77 U/L (38-126); Anion Gap 6 mmol/L; Blood Urea Nitrogen 18 mg/dL (7-17); Calcium 8.6 mg/dL (8.4-10.2); Carbon Dioxide 29 mmol/L (22-30); Chloride 106 mmol/L (98-107); Glucose 98 mg/dL (74-99); Non-African American GFR(CKD) 85 (>60 ml/min/1.73 sqM); Potassium 4.1 mmol/L (3.5-5.1); Sodium 141 mmol/L (137-145); Total Bilirubin 0.6 mg/dL (0.2-1.3); Total Protein 5.7 g/dL (6.3-8.2)
[2023-01-16 10:06] LABS: HCT 35.1 % (34.0-46.0); HGB 11.6 gm/dL (11.4-16.0); MCH 29.6 pg (25.0-35.0); MCHC 33.1 g/dL (31.0-37.0); MCV 89.5 fL (80.0-100.0); Mean Platelet Volume 8.4; RBC 3.92 m/uL (3.80-5.40); RDW 14.9 % (11.5-15.5); WBC 3.2 k/uL (3.8-10.6)
[2023-01-16] MEDS ORDERED: cefTRIAXone IN SWFI 1,000 MG/10 ML SYRINGE IVP STA (11:49)
[2023-01-16 11:57] LABS: Platelet Count 66 k/uL (150-450)
[2023-01-16 12:03] LABS: Eosinophils # (M) 0.03 k/uL (0-0.7); Lymphocytes # (M) 0.67 k/uL (1.0-4.8); Monocytes # (M) 0.29 k/uL (0-1.0); Neutrophils # (M) 2.21 k/uL (1.3-7.7); Neutrophils % (M) 69 %; Nucleated Red Blood Cells 0 /100 WBC (0-0); Total Cells Counted 100
[2023-01-16 12:33] VITALS: BP 113/53; PULSE 63; RESP 18; TEMP 98.7
== END 2023-01-16 12:13 | disposition home or self-care (01) ==
LOC: EC 08:00
DX: J20.9 Acute bronchitis, unspecified (principal); I48.91 Unspecified atrial fibrillation; E78.5 Hyperlipidemia, unspecified; I10 Essential (primary) hypertension; Z79.82 Long term (current) use of aspirin; Z79.899 Other long term (current) drug therapy; Z20.822 Contact with and (suspected) exposure to COVID-19
CPT/HCPCS: 96374; 36415; 80053; 85025; 87636; 71046; 99284; J0696; 99283

== ENCOUNTER → 2023-04-06 | Outpatient (CLI) | payer MEDICARE ==
[2023-04-06 14:16] LABS: African American GFR (CKD) >90 (>60 ml/min/1.73 sqM); Blood Urea Nitrogen 28 mg/dL (7-17); Non-African American GFR(CKD) 81 (>60 ml/min/1.73 sqM)
--- NOTE | 2023-04-08 10:38 | CT ---
EXAMINATION TYPE: CT ChestAbdPelvis w con DATE OF EXAM: 04/06/2023 INDICATION: leukemia, skin cancer COMPARISON: 10/12/2019 CT DLP: 883.7 mGycm CONTRAST: Performed with Oral Contrast and with IV Contrast, patient injected with 100 cc mL of Isovue 300. TECHNIQUE: Axial images at 5 mm thick sections. Reconstructed images in the coronal plane. Delayed images through the kidneys. FINDINGS: CT CHEST: Portion of the thyroid visualized is normal. There is a 0.9 cm calcified nodule peripheral left apex present previously. Punctate density may be i n the posterior right lung measuring 0.2 cm. Series 5 image 52. This is stable from comparison. No enlarged mediastinal or hilar adenopathy is evident. No slight lymphadenopathy is in the left sienna r region The ascending aorta diameter at the level of the main pulmonary artery is 2.4 cm. The main pulmonary artery diameter at the bifurcation is 3.[address] ABDOMEN: Liver and spleen: There are multiple punctate calcifications present within the liver and spleen. The re is marked splenomegaly measuring 22 cm. Normal less than 12.5 cm. Mild hepatomegaly at 17.6 cm is present. Normal <15.5 cm. Pancreas: Normal Adrenal glands: The adrenal glands are normal. Gallbladder: Normal Kidneys: No masses are evident. No hydronephrosis is present. No cysts are present. Delayed images were obtained through the kidneys, which remain unremarkable. Aorta: Vascular calcification is within the aorta. Inferior vena cava: Normal. CT PELVIS: Loops of bowel within the abdomen and pelvis are normal. There are loops of bowel which are incom pletely distended or lack oral contrast limiting their evaluation. Appendix: Normal as visualized. Urinary bladder: Normal. Genitourinary structures: Uterus and ovaries are not identified. No suspicious soft tissue abnormalit y of the perineal region Osseous structures: No suspicious lytic or sclerotic lesions. IMPRESSION: 1. Marked splenomegaly. Some hepatomegaly is also present.
== END | disposition home or self-care (01) ==
LOC: RADCTMAIN 12:47
PROVIDERS: ATTEND Internal Medicine Hematology & Oncology
DX: R16.2 Hepatomegaly with splenomegaly, not elsewhere classified (principal); C91.10 Chronic lymphocytic leukemia of B-cell type not having achieved remission; C44.90 Unspecified malignant neoplasm of skin, unspecified; D69.6 Thrombocytopenia, unspecified; I48.91 Unspecified atrial fibrillation
CPT/HCPCS: 82565; 84520; 71260; 74177; 36415; Q9967

== ENCOUNTER → 2023-05-02 | Outpatient (CLI) | payer MEDICARE ==
--- NOTE | 2023-05-02 12:02 | XR ---
EXAMINATION TYPE: XR cervical spine limited DATE OF EXAM: 05/02/2023 COMPARISON: NONE HISTORY: Pain TECHNIQUE: Four views are submitted. FINDINGS: The odontoid is intact. There are no compression deformities. The prevertebral soft tissue structur es are within normal limits. There is retrolisthesis of C4-C5. Moderate to severe degenerative disc d isease level C4-C7. Grade 1 anterior listhesis C7-T1. Multilevel moderate to severe facet arthropathy . There is arthropathy of the lateral axial joint. Calcified granuloma noted in the left upper lobe a nd there is calcifications in the left hilum. Soft tissue calcification the neck likely within the ca rotid arteries. IMPRESSION: 1. Moderate to severe multilevel degenerative disc disease and facet arthropathy. Recommend follow-up MRI.
== END | disposition home or self-care (01) ==
LOC: RADXRMAIN 11:32
PROVIDERS: ATTEND Internal Medicine
DX: M50.30 Other cervical disc degeneration, unspecified cervical region (principal); M47.812 Spondylosis without myelopathy or radiculopathy, cervical region
CPT/HCPCS: 72040

== ENCOUNTER 2023-06-23 09:25 | Emergency (ER) | payer MEDICARE ==
--- NOTE | 2023-06-23 09:46 | ED ---
General Adult HPI - General Chief complaint: Recheck/Abnormal Lab/Rx Stated complaint: Lac. on head Time Seen by Provider: 06/23/23 09:36 Source: patient, EMS, RN notes reviewed Mode of arrival: EMS Limitations: no limitations - History of Present Illness Initial comments: Patient is a pleasant 88-year-old female presenting to the emergency department following head injury. Patient is on Xarelto however is unclear why. 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 Patient states she accidentally walked into an open cabinet. No loss of consciousness. Patient did not fall. No other area of injury. Patient did sustain laceration to the right side of her head. Patient states it took a while for this to stop bleeding. No visual changes, no weakness. No speech problems. No neck or back pain. Unclear last tetanus immunization - Related Data Home Medications Medication Instructions Recorded Confirmed Ascorbic Acid [Vitamin C] 1,000 mg PO DAILY 12/25/16 04/08/21 Multivitamins, Thera [Multivitamin 1 tab PO DAILY 12/25/16 04/08/21 (formulary)] Amiodarone [Cordarone] 100 mg PO DAILY 06/01/18 04/08/21 Acetaminophen [Tylenol] 650 mg PO Q6H PRN 03/18/21 04/08/21 Aspirin 81 mg PO DAILY 03/18/21 04/08/21 Atorvastatin Calcium [Lipitor] 20 mg PO HS 03/18/21 04/08/21 Cholecalciferol [Vitamin D3 (125 125 mcg PO DAILY 03/18/21 04/08/21 Mcg = 5000 Iu)] Ferrous Sulfate [Feosol] 325 mg PO DAILY 03/18/21 04/08/21 Furosemide [Lasix] 10 mg PO DAILY 03/18/21 04/08/21 Levothyroxine Sodium [Synthroid] 50 mcg PO DAILY 03/18/21 04/08/21 Metoprolol Succinate (ER) [Toprol 12.5 mg PO DAILY 03/18/21 04/08/21 Xl] SILVER sulfADIAZINE Cream 1 applic TOPICAL DAILY 03/18/21 04/08/21 [Silvadene 1% Cream] Sennosides/Docusate Sodium [Senna 1 tab PO BID PRN 03/18/21 04/08/21 Plus 8.6-50 mg Tablet] Sulfamethox-Tmp 800-160Mg [Bactrim 1 tab PO BID 03/18/21 04/08/21 DS 800-160 mg] amLODIPine [Norvasc] 5 mg PO HS 03/18/21 04/08/21 polyethylene glycoL 3350 [Miralax] 17 gm PO Q72H PRN 03/18/21 04/08/21 Previous Rx's Medication Instructions Recorded Rivaroxaban [Xarelto] 15 mg PO W/SUPPER #30 tab 05/17/18 Azithromycin [Zithromax Z Pack] 0 tab PO DIRECTED #6 tab 01/16/23 Allergies Allergy/AdvReac Type Severity Reaction Status Date / Time No Known Allergies Allergy Verified 06/23/23 09:33 Review of Systems ROS Statement: Those systems with pertinent positive or pertinent negative responses have been documented in the HPI. ROS Other: All systems not noted in ROS Statement are negative. Constitutional: Denies: fever Eyes: Denies: eye pain, vision change ENT: Denies: ear pain Respiratory: Denies: dyspnea Cardiovascular: Denies: chest pain Gastrointestinal: Denies: abdominal pain Past Medical History Past Medical History: Atrial Fibrillation, Cancer, Hyperlipidemia, Hypertension Additional Past Medical History / Comment(s): PT SOUNDS A LITTLE WHEEZY ON THE PHONE. INSTRUCTED TO TAKE LASIX DIRECTED AND TO NOTIFY DR. FERNANDEZ IF WHEEZING BECOMES WORSE. Sleep apnea not using CPAP since lost 60#, asthma not chronically on therapy, venous insufficiency, Vulvar cancer , basal cell skin cancer, leukemia (cll) History of Any Multi-Drug Resistant Organisms: None Reported Past Surgical History: Heart Catheterization With Stent, Hysterectomy, Orthopedic Surgery, Tonsillectomy Additional Past Surgical History / Comment(s): Right-sided knee surgery for repair of laceration, partial hysterectomy, 2 nasal surgeries for basal cell skin cancer and rt arm, surgery on right third and fourth digit for ganglion cyst,2 d&c's(sx 2 miscarriages), colonoscopy Past Anesthesia/Blood Transfusion Reactions: No Reported Reaction Additional Past Anesthesia/Blood Transfusion Reaction / Comment(s): slow to wake up Date of Last Stent Placement:: 05/15/18 Past Psychological History: No Psychological Hx Reported Smoking Status: Never smoker Past Alcohol Use History: None Reported Past Drug Use History: None Reported - Past Family History Mother Family Medical History: Cancer Additional Family Medical History / Comment(s): Breast cancer Father Family Medical History: Myocardial Infarction ([place]) Additional Family Medical History / Comment(s): in his early 60's General Exam Limitations: no limitations General appearance: alert, in no apparent distress Head exam: Present: other (Right parietal laceration) Eye exam: Present: normal appearance, PERRL, EOMI ENT exam: Present: normal oropharynx Neck exam: Present: normal inspection. Absent: tenderness Respiratory exam: Present: normal lung sounds bilaterally Cardiovascular Exam: Present: regular rate, normal rhythm GI/Abdominal exam: Present: soft. Absent: tenderness Extremities exam: Present: normal inspection, full ROM. Absent: tenderness Neurological exam: Present: alert, oriented X3, CN II-XII intact. Absent: motor sensory deficit Psychiatric exam: Present: normal affect, normal mood Skin exam: Present: other (Right parietal scalp laceration) Course Vital Signs 06/23/23 06/23/23 09:28 10:05 Temperature 98.0 F Pulse Rate 63 58 L Respiratory 17 17 Rate Blood Pressure 161/76 136/58 O2 Sat by Pulse 99 99 Oximetry Medical Decision Making - Medical Decision Making Was pt. sent in by a medical professional or institution (, PA, MOTORCYCLE MECHANIC, urgent care, hospital, or [facility]...) When possible be specific @ -No Did you speak to anyone other than the patient for history (EMS, parent, family, police, friend...)? What history was obtained from this source @ -No Did you review nursing and triage notes (agree or disagree)? Why? @ -I reviewed and agree with nursing and triage notes Were old charts reviewed (outside hosp., previous admission, EMS record, old EKG, old radiological studies, urgent care reports/EKG's, [facility] records)? Report findings @ -No old charts were reviewed Differential Diagnosis (chest pain, altered mental status, abdominal pain women, abdominal pain men, vaginal bleeding, weakness, fever, dyspnea, syncope, headache, dizziness, GI bleed, back pain, seizure, CVA, palpatations, mental health, musculoskeletal)? @ -Differential Headache: Migraine, tension, cluster, carbon monoxide, central venous thrombosis, pension karma temporal arteritis, acute closure glaucoma, intercranial hemorrhage, mastoiditis, sinusitis, head injury, this is not meant to be an all-inclusive list. EKG interpreted by me (3pts min.). @ -As above X-rays interpreted by me (1pt min.). @ -None done CT interpreted by me (1pt min.). @ -CT brain does not reveal any acute abnormality U/S interpreted by me (1pt. min.). @ -None done What testing was considered but not performed or refused? (CT, X-rays, U/S, labs)? Why? @ -None What meds were considered but not given or refused? Why? @ -Considered sarahi however wound was cleansed with water and Betadine. There is only a small puncture. No active bleeding. Did you discuss the management of the patient with other professionals (professionals i.e. , PA, MOTORCYCLE MECHANIC, lab, RT, psych nurse, social media job titles, rn staff, teacher, emergency communications officer, block and case maker)? Give summary @ -No Was smoking cessation discussed for >3mins.? @ -No Was critical care preformed (if so, how long)? @ -No Were there social determinants of health that impacted care today? How? (Homelessness, low income, unemployed, alcoholism, drug addiction, transportation, low edu. Level, literacy, decrease access to med. care, care home, rehab)? @ -No Was there de-escalation of care discussed even if they declined (Discuss DNR or withdrawal of care, Hospice)? DNR status @ -No What co-morbidities impacted this encounter? (DM, HTN, Smoking, COPD, CAD, Cancer, CVA, ARF, Chemo, Hep., AIDS, mental health diagnosis, sleep apnea, morbid obesity)? @ -None Was patient admitted / discharged? Hospital course, mention meds given and route, prescriptions, significant lab abnormalities, going to OR and other pertinent info. @ -Patient updated on results. Patient will be discharged with follow-up with primary care physician. Advised to avoid blood thinners for 24 hours Undiagnosed new problem with uncertain prognosis? @ -No Drug Therapy requiring intensive monitoring for toxicity (Heparin, Nitro, Insulin, Cardizem)? @ -No Were any procedures done? @ -No Diagnosis/symptom? @ -Head contusion on blood thinners, scalp puncture wound Acute, or Chronic, or Acute on Chronic? @ -Acute, acute Uncomplicated (without systemic symptoms) or Complicated (systemic symptoms)? @ -Default Side effects of treatment? @ -No Exacerbation, Progression, or Severe Exacerbation? @ -No Poses a threat to life or bodily function? How? (Chest pain, [place], [place], pneumonia, PE, COPD, DKA, ARF, appy, cholecystitis, CVA, Diverticulitis, Homicidal, Suicidal, threat to staff... and all critical care pts) @ -Potential threat with blood thinners and head injury Disposition Clinical Impression: Head injury Disposition: HOME SELF-CARE Condition: Stable Instructions (If sedation given, give patient instructions): Head Injury (ED) Additional Instructions: Hold your blood thinner, Xarelto for 24 hours. Please follow-up with primary care physician in the next day or 2 for recheck. Return for confusion, weakness, speech problems, visual changes, coordination problems, worsening symptoms or any other concerns. Is patient prescribed a controlled substance at d/c from ED?: No Referrals: Bassam Martin MD [Primary Care Provider] - 1-2 days Time of Disposition: 10:41
[2023-06-23] MEDS: DIPH,PERTUS(ACELL)TETVAC-LF 0.5 ML VIAL IM ONE (10:04)
[2023-06-23 10:09] VITALS: RESP 17; TEMP 98
--- NOTE | 2023-06-23 10:17 | CT ---
EXAMINATION TYPE: CT brain wo con DATE OF EXAM: 06/23/2023 COMPARISON: None HISTORY: laceration to rt side of head after hitting it on cabinet. pt on blood thinners CT DLP: 1095.4 mGycm Automated exposure control for dose reduction was used. FINDINGS: The ventricles, basal cisterns and sulci over convexities are moderate enlarged consistent with moder ate age-appropriate atrophy. There is mild decreased density the periventricular white matter consistent with chronic ischemic whi te matter demyelination. There is no acute intra or extra-axial hemorrhage. There is no mass effect or shift of midline structures The posterior fossa is grossly normal. The intraluminal contents. Normal symmetric. There is mild soft tissue swelling over the right lateral calvarium but there is no underlying fractu re. There is marked prematurity change in the right ethmoid and right maxillary sinus. The mastoid ai r cells are well aerated. IMPRESSION: 1. No acute bleed or mass effect. 2. Mild to moderate senescent changes as described above. IMPRESSION:
[2023-06-23 12:17] VITALS: BP 135/61; PULSE 63
== END 2023-06-23 12:11 | disposition home or self-care (01) ==
LOC: EC 09:25
DX: S01.01XA Laceration without foreign body of scalp, initial encounter (principal); Z23 Encounter for immunization; W22.8XXA Striking against or struck by other objects, initial encounter
CPT/HCPCS: 70450; 90471; 90715; 99283

== ENCOUNTER 2023-07-15 12:05 | Emergency (ER) | payer MEDICARE ==
--- NOTE | 2023-07-15 12:54 | ED ---
General Adult HPI - General Chief complaint: Urogenital Stated complaint: Blood in urine Time Seen by Provider: 07/15/23 12:18 Source: patient, RN notes reviewed Mode of arrival: ambulatory Limitations: no limitations - History of Present Illness Initial comments: Patient is a 88-year-old female presenting to the emergency department with concerns with hematuria. Onset of symptoms was this morning. No dysuria, urgency, or frequency. No abdominal or back pain. Patient is on medication for CLL. Patient is also on Xarelto however unclear why. No other areas of bleeding. Patient has noticed some red spots on her skin. - Related Data Home Medications Medication Instructions Recorded Confirmed Ascorbic Acid [Vitamin C] 1,000 mg PO DAILY 12/25/16 07/15/23 Amiodarone [Cordarone] 100 mg PO DAILY 06/01/18 07/15/23 Atorvastatin Calcium [Lipitor] 20 mg PO HS 03/18/21 07/15/23 Cholecalciferol [Vitamin D3 (125 125 mcg PO DAILY 03/18/21 07/15/23 Mcg = 5000 Iu)] Ferrous Sulfate [Feosol] 325 mg PO DAILY 03/18/21 07/15/23 Metoprolol Succinate (ER) [Toprol 12.5 mg PO DAILY 03/18/21 07/15/23 Xl] amLODIPine [Norvasc] 5 mg PO HS 03/18/21 07/15/23 Ammonium Lactate Lotion 1 applic TOPICAL BID PRN 07/15/23 07/15/23 [Lac-Hydrin 12% Lotion] Cyanocobalamin (Vitamin B-12) 1,000 mcg PO DAILY 07/15/23 07/15/23 [Vitamin B-12] Levothyroxine Sodium [Synthroid] 75 mcg PO DAILY 07/15/23 07/15/23 Melatonin 3 mg PO HS 07/15/23 07/15/23 Ondansetron [Zofran] 2 mg PO Q4H PRN 07/15/23 07/15/23 Rivaroxaban [Xarelto] 20 mg PO W/SUPPER 07/15/23 07/15/23 Zanubrutinib [Brukinsa] 160 mg PO BID 07/15/23 07/15/23 allopurinoL [Zyloprim] 300 mg PO DAILY 07/15/23 07/15/23 Previous Rx's Medication Instructions Recorded Nitrofurantoin Monohyd/M-Cryst 100 mg PO Q12HR #14 cap 07/15/23 [Macrobid] Allergies Allergy/AdvReac Type Severity Reaction Status Date / Time No Known Allergies Allergy Verified 07/15/23 14:17 Review of Systems ROS Statement: Those systems with pertinent positive or pertinent negative responses have been documented in the HPI. ROS Other: All systems not noted in ROS Statement are negative. Constitutional: Denies: fever Eyes: Denies: eye pain ENT: Denies: ear pain Respiratory: Denies: cough Cardiovascular: Denies: chest pain Endocrine: Denies: fatigue Gastrointestinal: Denies: abdominal pain, vomiting, hematemesis, melena, hematochezia Genitourinary: Reports: hematuria. Denies: urgency, dysuria, frequency Musculoskeletal: Denies: back pain Skin: Reports: as per HPI Neurological: Denies: weakness Past Medical History Past Medical History: Atrial Fibrillation, Cancer, Hyperlipidemia, Hypertension Additional Past Medical History / Comment(s): PT SOUNDS A LITTLE WHEEZY ON THE PHONE. INSTRUCTED TO TAKE LASIX DIRECTED AND TO NOTIFY DR. FERNANDEZ IF WHEEZING BECOMES WORSE. Sleep apnea not using CPAP since lost 60#, asthma not chronically on therapy, venous insufficiency, Vulvar cancer , basal cell skin cancer, leukemia (cll) History of Any Multi-Drug Resistant Organisms: None Reported Past Surgical History: Heart Catheterization With Stent, Hysterectomy, Orthopedic Surgery, Tonsillectomy Additional Past Surgical History / Comment(s): Right-sided knee surgery for repair of laceration, partial hysterectomy, 2 nasal surgeries for basal cell skin cancer and rt arm, surgery on right third and fourth digit for ganglion cyst,2 d&c's(sx 2 miscarriages), colonoscopy Past Anesthesia/Blood Transfusion Reactions: No Reported Reaction Additional Past Anesthesia/Blood Transfusion Reaction / Comment(s): slow to wake up Date of Last Stent Placement:: 05/15/18 Past Psychological History: No Psychological Hx Reported Smoking Status: Never smoker Past Alcohol Use History: None Reported Past Drug Use History: None Reported - Past Family History Mother Family Medical History: Cancer Additional Family Medical History / Comment(s): Breast cancer Father Family Medical History: Myocardial Infarction (ID) Additional Family Medical History / Comment(s): in his early 60's General Exam Limitations: no limitations General appearance: alert, in no apparent distress Head exam: Present: atraumatic Eye exam: Present: normal appearance, PERRL ENT exam: Present: normal oropharynx Neck exam: Present: normal inspection Respiratory exam: Present: normal lung sounds bilaterally Cardiovascular Exam: Present: regular rate, normal rhythm GI/Abdominal exam: Present: soft. Absent: tenderness Extremities exam: Present: normal inspection Back exam: Present: normal inspection Neurological exam: Present: alert Psychiatric exam: Present: normal affect, normal mood Skin exam: Present: petechiae (Mild legs greater than arms) Course Vital Signs 07/15/23 12:14 Temperature 98.2 F Pulse Rate 78 Respiratory 20 Rate Blood Pressure 142/65 O2 Sat by Pulse 97 Oximetry EKG Findings - EKG Results: EKG: interpreted by ROCKY, sinus rhythm, normal axis, normal QRS, normal ST/T Medical Decision Making - Medical Decision Making Was pt. sent in by a medical professional or institution (, PA, CURB ATTENDANT, urgent care, hospital, or fpc...) When possible be specific @ -Patient was advised from oncology office to come to the emergency department Did you speak to anyone other than the patient for history (EMS, parent, family, police, friend...)? What history was obtained from this source @ -No Did you review nursing and triage notes (agree or disagree)? Why? @ -I reviewed and agree with nursing and triage notes Were old charts reviewed (outside hosp., previous admission, EMS record, old EKG, old radiological studies, urgent care reports/EKG's, fpc records)? Report findings @ -Previous labs reviewed including hemoglobin and platelet count that are stable Differential Diagnosis (chest pain, altered mental status, abdominal pain women, abdominal pain men, vaginal bleeding, weakness, fever, dyspnea, syncope, headache, dizziness, GI bleed, back pain, seizure, CVA, palpatations, mental health, musculoskeletal)? @ -Differential Abdominal Pain Women: Appendicitis, Cholecystitis, diverticulosis, ischemic bowel, pancreatitis, hepatitis, UTI, gastroenteritis, AAA, incarcerated hernia, bowel obstruction, constipation, inflammatory bowel, hepatitis, peptic ulcer disease, splenic infarction, perforated viscus, vulvitis, ovarian torsion, PID, kidney stone, placenta abruption, this is not meant to be an all-inclusive list EKG interpreted by me (3pts min.). @ -As above X-rays interpreted by me (1pt min.). @ -None done CT interpreted by me (1pt min.). @ -None done U/S interpreted by me (1pt. min.). @ -None done What testing was considered but not performed or refused? (CT, X-rays, U/S, labs)? Why? @ -None What meds were considered but not given or refused? Why? @ -None Did you discuss the management of the patient with other professionals (professionals i.e. , PA, CURB ATTENDANT, lab, RT, psych nurse, social sciences instructor, hand bobbin cleaner, teacher, payroll officer, piano case and bench assembler)? Give summary @ -Case was discussed in detail with Dr. Loaiza with oncology who is comfortable with plan and discharge Was smoking cessation discussed for >3mins.? @ -No Was critical care preformed (if so, how long)? @ -No Were there social determinants of health that impacted care today? How? (Homelessness, low income, unemployed, alcoholism, drug addiction, tr ansportation, low edu. Level, literacy, decrease access to med. care, fci, rehab)? @ -No Was there de-escalation of care discussed even if they declined (Discuss DNR or withdrawal of care, Hospice)? DNR status @ -No What co-morbidities impacted this encounter? (DM, HTN, Smoking, COPD, CAD, Cancer, CVA, ARF, Chemo, Hep., AIDS, mental health diagnosis, sleep apnea, morbid obesity)? @ -History of A-fib. CLL Was patient admitted / discharged? Hospital course, mention meds given and route, prescriptions, significant lab abnormalities, going to OR and other pertinent info. @ -Patient reevaluated and updated on results and plan. Patient advised to hold Xarelto for 1 to 2 days. Patient will be provided antibiotics for possible urinary tract infection. Patient is advised to follow-up with all her doctors soon. Patient demonstrates understanding and agreeable Undiagnosed new problem with uncertain prognosis? @ -No Drug Therapy requiring intensive monitoring for toxicity (Heparin, Nitro, Insulin, Cardizem)? @ -No Were any procedures done? @ -No Diagnosis/symptom? @ -Hematuria Acute, or Chronic, or Acute on Chronic? @ -Acute Uncomplicated (without systemic symptoms) or Complicated (systemic symptoms)? @ -Complicated with underlying CLL and Xarelto use Side effects of treatment? @ -No Exacerbation, Progression, or Severe Exacerbation? @ -No Poses a threat to life or bodily function? How? (Chest pain, USA, ID, pneumonia, PE, COPD, DKA, ARF, appy, cholecystitis, CVA, Diverticulitis, Homicidal, Suicidal, threat to staff... and all critical care pts) @ -No - Lab Data Result diagrams: 07/15/23 12:52 07/15/23 12:52 Lab Results 07/15/23 07/15/23 07/15/23 Range/Units 12:52 12:52 12:52 WBC 4.6 (3.8-10.6) k/uL RBC 3.92 (3.80-5.40) m/uL Hgb 11.4 (11.4-16.0) gm/dL Hct 35.3 (34.0-46.0) % MCV 89.9 (80.0-100.0) fL MCH 29.0 (25.0-35.0) pg MCHC 32.2 (31.0-37.0) g/dL RDW 17.3 H (11.5-15.5) % Plt Count 82 L (150-450) k/uL MPV 10.1 Neutrophils % 56 % Lymphocytes % 31 % Monocytes % 8 % Eosinophils % 2 % Basophils % 1 % Neutrophils # 2.6 (1.3-7.7) k/uL Lymphocytes # 1.4 (1.0-4.8) k/uL Monocytes # 0.4 (0-1.0) k/uL Eosinophils # 0.1 (0-0.7) k/uL Basophils # 0.0 (0-0.2) k/uL Anisocytosis Slight PT 10.6 (10.0-12.5) sec INR 1.0 (<1.2) APTT 27.9 (22.0-30.0) sec Sodium 140 (137-145) mmol/L Potassium 3.9 (3.5-5.1) mmol/L Chloride 108 H (98-107) mmol/L Carbon Dioxide 25 (22-30) mmol/L Anion Gap 7 mmol/L BUN 25 H (7-17) mg/dL Creatinine 0.53 (0.52-1.04) mg/dL Est GFR (CKD-EPI)AfAm >90 (>60 ml/min/1.73 sqM) Est GFR (CKD-EPI)NonAf 87 (>60 ml/min/1.73 sqM) Glucose 63 L (74-99) mg/dL Calcium 8.8 (8.4-10.2) mg/dL Total Bilirubin 1.0 (0.2-1.3) mg/dL AST 26 (14-36) U/L ALT 19 (4-34) U/L Alkaline Phosphatase 71 (38-126) U/L Total Protein 6.2 L (6.3-8.2) g/dL Albumin 4.1 (3.5-5.0) g/dL Urine Color Urine Appearance (Clear) Urine pH (5.0-8.0) Ur Specific [place] (1.001-1.035) Urine Protein (Negative) Urine Glucose (UA) (Negative) Urine Ketones (Negative) Urine Blood (Negative) Urine Nitrite (Negative) Urine Bilirubin (Negative) Urine Urobilinogen (<2.0) mg/dL Ur Leukocyte Esterase (Negative) Urine RBC (0-5) /hpf Urine WBC (0-5) /hpf Ur Squamous Epith Cells (0-4) /hpf Urine Bacteria (None) /hpf 07/15/23 Range/Units 12:53 WBC (3.8-10.6) k/uL RBC (3.80-5.40) m/uL Hgb (11.4-16.0) gm/dL Hct (34.0-46.0) % MCV (80.0-100.0) fL MCH (25.0-35.0) pg MCHC (31.0-37.0) g/dL RDW (11.5-15.5) % Plt Count (150-450) k/uL MPV Neutrophils % % Lymphocytes % % Monocytes % % Eosinophils % % Basophils % % Neutrophils # (1.3-7.7) k/uL Lymphocytes # (1.0-4.8) k/uL Monocytes # (0-1.0) k/uL Eosinophils # (0-0.7) k/uL Basophils # (0-0.2) k/uL Anisocytosis PT (10.0-12.5) sec INR (<1.2) APTT (22.0-30.0) sec Sodium (137-145) mmol/L Potassium (3.5-5.1) mmol/L Chloride (98-107) mmol/L Carbon Dioxide (22-30) mmol/L Anion Gap mmol/L BUN (7-17) mg/dL Creatinine (0.52-1.04) mg/dL Est GFR (CKD-EPI)AfAm (>60 ml/min/1.73 sqM) Est GFR (CKD-EPI)NonAf (>60 ml/min/1.73 sqM) Glucose (74-99) mg/dL Calcium (8.4-10.2) mg/dL Total Bilirubin (0.2-1.3) mg/dL AST (14-36) U/L ALT (4-34) U/L Alkaline Phosphatase (38-126) U/L Total Protein (6.3-8.2) g/dL Albumin (3.5-5.0) g/dL Urine Color Light Yellow Urine Appearance Clear (Clear) Urine pH 6.0 (5.0-8.0) Ur Specific [place] 1.014 (1.001-1.035) Urine Protein Trace H (Negative) Urine Glucose (UA) Negative (Negative) Urine Ketones Negative (Negative) Urine Blood Large H (Negative) Urine Nitrite Negative (Negative) Urine Bilirubin Negative (Negative) Urine Urobilinogen <2.0 (<2.0) mg/dL Ur Leukocyte Esterase Moderate H (Negative) Urine RBC >182 H (0-5) /hpf Urine WBC 15 H (0-5) /hpf Ur Squamous Epith Cells 2 (0-4) /hpf Urine Bacteria Rare H (None) /hpf Disposition Clinical Impression: CLL (chronic lymphocytic leukemia), Hematuria Disposition: HOME SELF-CARE Condition: Stable Instructions (If sedation given, give patient instructions): Hematuria (ED) Additional Instructions: Please do follow-up with primary care physician, cardiology and oncology in the next couple of days for recheck. Hold Xarelto for 2 days. Prescription for antibiotic sent to pharmacy. Return for increased bleeding, bleeding from any other site, fever, abdominal pain, or back pain, worsening symptoms or other concerns. Prescriptions: Nitrofurantoin Monohyd/M-Cryst [Macrobid] 100 mg PO Q12HR #14 cap Is patient prescribed a controlled substance at d/c from ED?: No Referrals: Bassam Martin MD [Primary Care Provider] - 1-2 days Time of Disposition: 15:17
[2023-07-15 13:16] VITALS: TEMP 98.2
[2023-07-15 13:27] LABS: Anisocytosis Slight; Basophils % (A) 1 %; Eosinophils # (A) 0.1 k/uL (0-0.7); Eosinophils % (A) 2 %; HCT 35.3 % (34.0-46.0); HGB 11.4 gm/dL (11.4-16.0); Lymphocytes # (A) 1.4 k/uL (1.0-4.8); Lymphocytes % (A) 31 %; MCHC 32.2 g/dL (31.0-37.0); MCV 89.9 fL (80.0-100.0); Mean Platelet Volume 10.1; Monocytes # (A) 0.4 k/uL (0-1.0); Monocytes % (A) 8 %; Neutrophils # (A) 2.6 k/uL (1.3-7.7); Neutrophils % (A) 56 %; RBC 3.92 m/uL (3.80-5.40); RDW 17.3 % (11.5-15.5); WBC 4.6 k/uL (3.8-10.6)
[2023-07-15 13:55] LABS: ALT 19 U/L (4-34); AST 26 U/L (14-36); African American GFR (CKD) >90 (>60 ml/min/1.73 sqM); Albumin 4.1 g/dL (3.5-5.0); Alkaline Phosphatase 71 U/L (38-126); Anion Gap 7 mmol/L; Blood Urea Nitrogen 25 mg/dL (7-17); Calcium 8.8 mg/dL (8.4-10.2); Carbon Dioxide 25 mmol/L (22-30); Chloride 108 mmol/L (98-107); Glucose 63 mg/dL (74-99); Non-African American GFR(CKD) 87 (>60 ml/min/1.73 sqM); Potassium 3.9 mmol/L (3.5-5.1); Sodium 140 mmol/L (137-145); Total Protein 6.2 g/dL (6.3-8.2)
[2023-07-15 14:01] LABS: Appearance,Urine Clear (Clear); Bacteria,Urine Rare /hpf; Bilirubin,Urine Negative (Negative); Blood,Urine Large (Negative); Color,Urine Light Yellow; Glucose,Urine (UA) Negative (Negative); Ketones,Urine Negative (Negative); Leukocyte Esterase,Urine Moderate (Negative); Nitrite,Urine Negative (Negative); Protein,Urine Trace (Negative); RBC,Urine >182 /hpf (0-5); Specific Gravity,Urine 1.014 (1.001-1.035); Squamous Epithelial Cell,Urine 2 /hpf (0-4); Urobilinogen,Urine <2.0 mg/dL (<2.0); WBC,Urine 15 /hpf (0-5)
[2023-07-15 14:14] LABS: Partial Thromboplastin Time 27.9 sec (22.0-30.0); Prothrombin Time 10.6 sec (10.0-12.5)
[2023-07-15 14:25] LABS: Platelet Count 82 k/uL (150-450)
[2023-07-15 16:08] VITALS: BP 124/74; PULSE 72; RESP 18
== END 2023-07-15 15:48 | disposition home or self-care (01) ==
LOC: EC 12:05
DX: C91.10 Chronic lymphocytic leukemia of B-cell type not having achieved remission (principal); R31.9 Hematuria, unspecified; E78.5 Hyperlipidemia, unspecified; Z79.899 Other long term (current) drug therapy
CPT/HCPCS: 36415; 80053; 81001; 85025; 85610; 85730; 93005; 99284

== ENCOUNTER 2023-10-10 12:21 | Emergency (ER) | payer MEDICARE ==
[2023-10-10 12:36] VITALS: RESP 18; TEMP 98
[2023-10-10] MEDS: PHENYLEPHRINE 0.25% NASAL SPRA 1 SPRAY/ML NASAL STA (13:34)
[2023-10-10] MEDS: TRANEXAMIC ACID 1,000 MG/10 ML VIAL IRRIGATION ONE (13:34)
--- NOTE | 2023-10-10 13:52 | US ---
EXAMINATION TYPE: US venous doppler duplex LE LT DATE OF EXAM: 10/10/2023 1:45 PM COMPARISON: NONE CLINICAL INDICATION: Female, 88 years old with history of Leg swelling; left leg edema. patient on bl ood thinner, AFIB SIDE PERFORMED: left TECHNIQUE: The lower extremity deep venous system is examined utilizing real time linear array sonog adama with graded compression, doppler sonography and color-flow sonography. VESSELS IMAGED: Common Femoral Vein Deep Femoral Vein Greater Saphenous Vein * Femoral Vein Popliteal Vein Small Saphenous Vein * Proximal Calf Veins (* superficial vessels) Left Leg: No evidence of DVT as visualized IMPRESSION: Grayscale, color doppler, spectral doppler imaging performed of the deep veins of the lo wer extremities. There is normal flow, compressibility, vascular waveforms.
--- NOTE | 2023-10-10 13:54 | ED ---
ENT HPI - General Chief complaint: ENT Stated complaint: Nose bleed,L leg swelling Time Seen by Provider: 10/10/23 12:49 Source: patient, RN notes reviewed Mode of arrival: ambulatory Limitations: no limitations - History of Present Illness Initial comments: This is an 88-year-old female who presents to the emergency department for a nosebleed and left leg swelling. States that the nosebleed has been intermittent for the last few days. This is primarily left-sided. She saw her ENT who advised she use Afrin nasal spray. States that she has been trying to use this, however it has not been effective. Bleeding continues to occur intermittently. She is on Xarelto for A-fib. Additionally, she developed left leg swelling yesterday. Denies any pain associated with this. 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 States that she has had reactions to this such as discoloration and dryness to both of her extremities and wonders if this may have caused the swelling. MD complaint: epistaxis - Related Data Home Medications Medication Instructions Recorded Confirmed Ascorbic Acid [Vitamin C] 1,000 mg PO DAILY 12/25/16 07/15/23 Amiodarone [Cordarone] 100 mg PO DAILY 06/01/18 07/15/23 Atorvastatin Calcium [Lipitor] 20 mg PO HS 03/18/21 07/15/23 Cholecalciferol [Vitamin D3 (125 125 mcg PO DAILY 03/18/21 07/15/23 Mcg = 5000 Iu)] Ferrous Sulfate [Feosol] 325 mg PO DAILY 03/18/21 07/15/23 Metoprolol Succinate (ER) [Toprol 12.5 mg PO DAILY 03/18/21 07/15/23 Xl] amLODIPine [Norvasc] 5 mg PO HS 03/18/21 07/15/23 Ammonium Lactate Lotion 1 applic TOPICAL BID PRN 07/15/23 07/15/23 [Lac-Hydrin 12% Lotion] Cyanocobalamin (Vitamin B-12) 1,000 mcg PO DAILY 07/15/23 07/15/23 [Vitamin B-12] Levothyroxine Sodium [Synthroid] 75 mcg PO DAILY 07/15/23 07/15/23 Melatonin 3 mg PO HS 07/15/23 07/15/23 Ondansetron [Zofran] 2 mg PO Q4H PRN 07/15/23 07/15/23 Rivaroxaban [Xarelto] 20 mg PO W/SUPPER 07/15/23 07/15/23 Zanubrutinib [Brukinsa] 160 mg PO BID 07/15/23 07/15/23 allopurinoL [Zyloprim] 300 mg PO DAILY 07/15/23 07/15/23 Previous Rx's Medication Instructions Recorded Nitrofurantoin Monohyd/M-Cryst 100 mg PO Q12HR #14 cap 07/15/23 [Macrobid] Allergies Allergy/AdvReac Type Severity Reaction Status Date / Time No Known Allergies Allergy Verified 10/10/23 12:36 Review of Systems ROS Statement: Those systems with pertinent positive or pertinent negative responses have been documented in the HPI. ROS Other: All systems not noted in ROS Statement are negative. Past Medical History Past Medical History: Atrial Fibrillation, Cancer, Hyperlipidemia, Hypertension Additional Past Medical History / Comment(s): PT SOUNDS A LITTLE WHEEZY ON THE PHONE. INSTRUCTED TO TAKE LASIX DIRECTED AND TO NOTIFY DR. FERNANDEZ IF WHEEZING BECOMES WORSE. Sleep apnea not using CPAP since lost 60#, asthma not chronically on therapy, venous insufficiency, Vulvar cancer , basal cell skin cancer, leukemia (cll) History of Any Multi-Drug Resistant Organisms: None Reported Past Surgical History: Heart Catheterization With Stent, Hysterectomy, Orthopedic Surgery, Tonsillectomy Additional Past Surgical History / Comment(s): Right-sided knee surgery for repair of laceration, partial hysterectomy, 2 nasal surgeries for basal cell skin cancer and rt arm, surgery on right third and fourth digit for ganglion cyst,2 d&c's(sx 2 miscarriages), colonoscopy Past Anesthesia/Blood Transfusion Reactions: No Reported Reaction Additional Past Anesthesia/Blood Transfusion Reaction / Comment(s): slow to wake up Date of Last Stent Placement:: 05/15/18 Past Psychological History: No Psychological Hx Reported Smoking Status: Never smoker Past Alcohol Use History: None Reported Past Drug Use History: None Reported - Past Family History Mother Family Medical History: Cancer Additional Family Medical History / Comment(s): Breast cancer Father Family Medical History: Myocardial Infarction ([place]) Additional Family Medical History / Comment(s): in his early 60's General Exam Limitations: no limitations General appearance: alert, in no apparent distress Head exam: Present: atraumatic, normocephalic, normal inspection ENT exam: Present: other (Mild epistaxis from the left naris. No septal hematoma.) Respiratory exam: Present: normal lung sounds bilaterally. Absent: respiratory distress, wheezes, rales, rhonchi, stridor Cardiovascular Exam: Present: regular rate, normal rhythm, normal heart sounds. Absent: systolic murmur, diastolic murmur, rubs, gallop, clicks Extremities exam: Present: other (Mild swelling to the left lower extremity. The swelling is fairly diffuse. Full range of motion. No tenderness. No erythema or warmth. 2+ DP and PT pulses.) Neurological exam: Present: alert, oriented X3, CN II-XII intact Psychiatric exam: Present: normal affect, normal mood Course Vital Signs 10/10/23 10/10/23 10/10/23 12:32 14:05 16:30 Temperature 98.0 F Pulse Rate 77 56 L 79 Respiratory 18 18 18 Rate Blood Pressure 167/67 142/67 170/70 O2 Sat by Pulse 99 99 97 Oximetry Medical Decision Making - Medical Decision Making This is an 88-year-old female who presents to the emergency department for a nosebleed and left leg swelling. Was pt. sent in by a medical professional or institution? @ -No Did you speak to anyone other than the patient for history? @ -No Did you review nursing and triage notes? @ -Yes, and I agree, it is accurate with regards to the patient's symptoms. Were old charts reviewed? @ -No Differential Diagnosis? @ -Differential epistaxis: Coagulopathy, allergic rhinitis, trauma, tumor, this is not meant to be an all- inclusive list. EKG interpreted by me (3pts min.)? @ -Not obtained X-rays interpreted by me (1pt min.)? @ -Not obtained CT interpreted by me (1pt min.)? @ -Not obtained U/S interpreted by me (1pt. min.)? @ -Duplex ultrasound of the left lower extremity obtained. My interpretation identifies no evidence of a DVT. What testing was considered but not performed? (CT, X-rays, U/S, labs)? Why? @ -None What meds were considered but not given? Why? @ -None Did you discuss the management of the patient with other professionals? @ -No Did you reconcile home meds? @ -No Was smoking cessation discussed for >3mins.? @ -No Was critical care preformed (if so, how long)? @ -No Were there social determinants of health that impacted care today? How? (Ho melessness, low income, unemployed, alcoholism, drug addiction, transportation, low edu. Level, literacy, decrease access to med. care, snf, rehab)? @ -No Was there de-escalation of care discussed even if they declined? (Discuss DNR or withdrawal of care, Hospice)? @ -No What co-morbidities impacted this encounter? (DM, HTN, Smoking, COPD, CAD, Cancer, CVA, Hep., AIDS, mental health diagnosis, sleep apnea, morbid obesity)? @ -A-fib, CLL Was patient admitted / discharged? @ -Discharged. Phenylephrine nasal spray was initially applied on arrival to help control the epistaxis given that she had already tried Afrin. This was fairly effective, however TXA was still used as well to further control the b leeding. She was monitored for approximately an hour afterwards without return of symptoms. Lab work unremarkable including a normal hemoglobin. Duplex ultrasound of the left lower extremity obtained revealing no evidence of a DVT. The swelling was mild and fairly uniform. She has skin changes to both lower extremities which are chronic and related to the Brukinsa medication. Per the patient this is not any worse. She had no pain and was neurovascularly intact bilaterally with strong and equal pulses. Discussed that the cause of the swelling is not entirely clear at this time. Advised close follow-up with her PCP for reevaluation of this. She was sent home with the phenylephrine nasal spray and nasal clamps with instructions on how to use them if the bleeding returns. Patient discharged home in stable condition. Case discussed with Dr. Baca. Return precautions reviewed in depth, the patient is instructed to return to the emergency department with any new, worsening, or concerning symptoms. Patient verbalized understanding. Undiagnosed new problem with uncertain prognosis? @ -None Drug Therapy requiring intensive monitoring for toxicity (Heparin, Nitro, Insulin, Cardizem)? @ -None Were any procedures done? @ -None Diagnosis/symptom? @ -Epistaxis, left leg swelling Acute, or Chronic, or Acute on Chronic? @ -Acute Uncomplicated (without systemic symptoms) or Complicated (systemic symptoms)? @ -Uncomplicated Side effects of treatment? @ -None Exacerbation, Progression, or Severe Exacerbation] @ -Not applicable Poses a threat to life or bodily function? @ -No - Lab Data Result diagrams: 10/10/23 13:53 10/10/23 13:53 Lab Results 10/10/23 10/10/23 10/10/23 Range/Units 13:53 13:53 13:53 WBC 4.7 (3.8-10.6) k/uL RBC 3.84 (3.80-5.40) m/uL Hgb 11.4 (11.4-16.0) gm/dL Hct 34.8 (34.0-46.0) % MCV 90.6 (80.0-100.0) fL MCH 29.7 (25.0-35.0) pg MCHC 32.8 (31.0-37.0) g/dL RDW 14.6 (11.5-15.5) % Plt Count 72 L (150-450) k/uL MPV 9.6 Neutrophils % 54 % Lymphocytes % 34 % Monocytes % 8 % Eosinophils % 1 % Basophils % 1 % Neutrophils # 2.5 (1.3-7.7) k/uL Lymphocytes # 1.6 (1.0-4.8) k/uL Monocytes # 0.4 (0-1.0) k/uL Eosinophils # 0.1 (0-0.7) k/uL Basophils # 0.0 (0-0.2) k/uL Manual Slide Review Performed RBC Morphology Normal PT 11.4 (10.0-12.5) sec INR 1.0 (<1.2) APTT 28.2 (22.0-30.0) sec Sodium 140 (137-145) mmol/L Potassium 4.1 (3.5-5.1) mmol/L Chloride 108 H (98-107) mmol/L Carbon Dioxide 30 (22-30) mmol/L Anion Gap 2 mmol/L BUN 27 H (7-17) mg/dL Creatinine 0.53 (0.52-1.04) mg/dL Est GFR (CKD-EPI)AfAm >90 (>60 ml/min/1.73 sqM) Est GFR (CKD-EPI)NonAf 87 (>60 ml/min/1.73 sqM) Glucose 71 L (74-99) mg/dL Calcium 8.9 (8.4-10.2) mg/dL Total Bilirubin 0.8 (0.2-1.3) mg/dL AST 23 (14-36) U/L ALT 17 (4-34) U/L Alkaline Phosphatase 56 (38-126) U/L Total Protein 5.6 L (6.3-8.2) g/dL Albumin 3.8 (3.5-5.0) g/dL - Radiology Data Radiology results: report reviewed, image reviewed Disposition Clinical Impression: Epistaxis, Left leg swelling Disposition: HOME SELF-CARE Instructions (If sedation given, give patient instructions): Nosebleed (ED), Leg Edema (ED) Additional Instructions: Return to the emergency department with any new, worsening, or concerning symptoms. If your nose starts bleeding again, you can try using the Afrin nasal spray as 2 sprays in each nostril. After spraying this, use one of the nasal clamps provided and clamp the nose for 15 to 20 minutes. If that is not effective you can try using the phenylephrine nasal spray provided in the emergency department. Again use 2 sprays in each nostril and clamp the nose again for 15 to 20 minutes. Try using saline nasal spray several times daily to moisten the nasal passages and reduce the risk of recurrence. Follow up with your primary care provider in 1-2 days. Is patient prescribed a controlled substance at d/c from ED?: No Referrals: Bassam Martin MD [Primary Care Provider] - 1-2 days Time of Disposition: 16:33
[2023-10-10 14:17] LABS: Basophils % (A) 1 %; Eosinophils # (A) 0.1 k/uL (0-0.7); Eosinophils % (A) 1 %; HCT 34.8 % (34.0-46.0); HGB 11.4 gm/dL (11.4-16.0); Lymphocytes # (A) 1.6 k/uL (1.0-4.8); Lymphocytes % (A) 34 %; MCH 29.7 pg (25.0-35.0); MCHC 32.8 g/dL (31.0-37.0); MCV 90.6 fL (80.0-100.0); Mean Platelet Volume 9.6; Monocytes # (A) 0.4 k/uL (0-1.0); Monocytes % (A) 8 %; Neutrophils # (A) 2.5 k/uL (1.3-7.7); Neutrophils % (A) 54 %; RBC 3.84 m/uL (3.80-5.40); RDW 14.6 % (11.5-15.5); WBC 4.7 k/uL (3.8-10.6)
[2023-10-10 14:34] LABS: Partial Thromboplastin Time 28.2 sec (22.0-30.0); Prothrombin Time 11.4 sec (10.0-12.5)
[2023-10-10 14:38] LABS: Platelet Count 72 k/uL (150-450)
[2023-10-10 14:43] LABS: RBC Morphology Normal
[2023-10-10 14:49] LABS: ALT 17 U/L (4-34); AST 23 U/L (14-36); African American GFR (CKD) >90 (>60 ml/min/1.73 sqM); Albumin 3.8 g/dL (3.5-5.0); Alkaline Phosphatase 56 U/L (38-126); Anion Gap 2 mmol/L; Blood Urea Nitrogen 27 mg/dL (7-17); Calcium 8.9 mg/dL (8.4-10.2); Carbon Dioxide 30 mmol/L (22-30); Chloride 108 mmol/L (98-107); Glucose 71 mg/dL (74-99); Non-African American GFR(CKD) 87 (>60 ml/min/1.73 sqM); Potassium 4.1 mmol/L (3.5-5.1); Sodium 140 mmol/L (137-145); Total Bilirubin 0.8 mg/dL (0.2-1.3); Total Protein 5.6 g/dL (6.3-8.2)
[2023-10-10 16:31] VITALS: BP 170/70; PULSE 79
== END 2023-10-10 18:15 | disposition home or self-care (01) ==
LOC: EC 12:21
DX: R04.0 Epistaxis (principal); R22.42 Localized swelling, mass and lump, left lower limb; C91.10 Chronic lymphocytic leukemia of B-cell type not having achieved remission; I48.91 Unspecified atrial fibrillation
CPT/HCPCS: 36415; 80053; 85025; 85610; 85730; 99284

== ENCOUNTER 2023-10-16 11:42 | Inpatient (IN) | payer MEDICARE ==
--- NOTE | 2023-10-16 13:02 | ED ---
Extremity Problem HPI - General Chief complaint: Extremity Problem,Nontraumatic Stated complaint: L leg swelling Time Seen by Provider: 10/16/23 12:57 Source: patient, RN notes reviewed, old records reviewed Mode of arrival: ambulatory Limitations: no limitations - History of Present Illness Initial comments: This is a 88-year-old female to the ER for evaluation patient presents today for evaluation of severe left lower extremity pain swelling edema and bruising. Patient is on multiple medications with 3 different underlying cancers, patient does take chemotherapeutic medication as well as Xarelto currently and suffers from chronic nosebleeds MD Complaint: extremity pain, extremity swelling, cold extremity, joint swelling Location: left, lower extremity History of Same: Yes -: Yes arthralgia Radiation: none Severity scale (1-10): 9 Quality: sharp Consistency: constant Improves with: nothing Worsens with: nothing Associated Symptoms: denies other symptoms - Related Data Home Medications Medication Instructions Recorded Confirmed Ascorbic Acid [Vitamin C] 1,000 mg PO DAILY 12/25/16 10/16/23 Amiodarone [Cordarone] 100 mg PO DAILY 06/01/18 10/16/23 Atorvastatin Calcium [Lipitor] 20 mg PO HS 03/18/21 10/16/23 Cholecalciferol [Vitamin D3 (125 125 mcg PO DAILY 03/18/21 10/16/23 Mcg = 5000 Iu)] Ferrous Sulfate [Feosol] 325 mg PO DAILY 03/18/21 10/16/23 amLODIPine [Norvasc] 5 mg PO HS 03/18/21 10/16/23 Ammonium Lactate Lotion 1 applic TOPICAL BID PRN 07/15/23 10/16/23 [Lac-Hydrin 12% Lotion] Cyanocobalamin (Vitamin B-12) 1,000 mcg PO DAILY 07/15/23 10/16/23 [Vitamin B-12] Levothyroxine Sodium [Synthroid] 75 mcg PO MOTUWETHFR 07/15/23 10/16/23 Melatonin 3 mg PO HS 07/15/23 10/16/23 Zanubrutinib [Brukinsa] 160 mg PO BID 07/15/23 10/16/23 allopurinoL [Zyloprim] 300 mg PO DAILY 07/15/23 10/16/23 Rivaroxaban [Xarelto] 10 mg PO W/SUPPER 10/16/23 10/16/23 Allergies Allergy/AdvReac Type Severity Reaction Status Date / Time No Known Allergies Allergy Verified 10/16/23 18:21 Review of Systems ROS Statement: Those systems with pertinent positive or pertinent negative responses have been documented in the HPI. ROS Other: All systems not noted in ROS Statement are negative. Past Medical History Past Medical History: Atrial Fibrillation, Cancer, Hyperlipidemia, Hypertension Additional Past Medical History / Comment(s): PT SOUNDS A LITTLE WHEEZY ON THE PHONE. INSTRUCTED TO TAKE LASIX DIRECTED AND TO NOTIFY DR. FERNANDEZ IF WHEEZING BECOMES WORSE. Sleep apnea not using CPAP since lost 60#, asthma not chronically on therapy, venous insufficiency, Vulvar cancer , basal cell skin cancer, leukemia (cll) History of Any Multi-Drug Resistant Organisms: None Reported Past Surgical History: Heart Catheterization With Stent, Hysterectomy, Orthopedic Surgery, Tonsillectomy Additional Past Surgical History / Comment(s): Right-sided knee surgery for repair of laceration, partial hysterectomy, 2 nasal surgeries for basal cell skin cancer and rt arm, surgery on right third and fourth digit for ganglion cyst,2 d&c's(sx 2 miscarriages), colonoscopy Past Anesthesia/Blood Transfusion Reactions: No Reported Reaction Additional Past Anesthesia/Blood Transfusion Reaction / Comment(s): slow to wake up Date of Last Stent Placement:: 05/15/18 Past Psychological History: No Psychological Hx Reported Smoking Status: Never smoker Past Alcohol Use History: None Reported Past Drug Use History: None Reported - Past Family History Mother Family Medical History: Cancer Additional Family Medical History / Comment(s): Breast cancer Father Family Medical History: Myocardial Infarction ([place]) Additional Family Medical History / Comment(s): in his early 60's General Exam Limitations: no limitations General appearance: alert, in no apparent distress, anxious Head exam: Present: atraumatic, normocephalic, normal inspection Eye exam: Present: normal appearance, PERRL, EOMI. Absent: scleral icterus, conjunctival injection, periorbital swelling ENT exam: Present: normal exam, mucous membranes moist Neck exam: Present: normal inspection. Absent: tenderness, meningismus, lym phadenopathy Respiratory exam: Present: normal lung sounds bilaterally. Absent: respiratory distress, wheezes, rales, rhonchi, stridor Cardiovascular Exam: Present: regular rate, normal rhythm, normal heart sounds. Absent: systolic murmur, diastolic murmur, rubs, gallop, clicks GI/Abdominal exam: Present: soft, normal bowel sounds. Absent: distended, tenderness, guarding, rebound, rigid Extremities exam: Present: normal inspection, full ROM, normal capillary refill. Absent: tenderness, pedal edema, joint swelling, calf tenderness Back exam: Present: normal inspection Neurological exam: Present: alert, oriented X3, CN II-XII intact Psychiatric exam: Present: normal affect, normal mood Skin exam: Present: warm, dry, intact, normal color. Absent: rash Course Vital Signs 10/16/23 10/16/23 11:52 18:12 Temperature 97.7 F Pulse Rate 71 16 L Respiratory 18 Rate Blood Pressure 146/73 159/67 O2 Sat by Pulse 96 Oximetry - Reevaluation(s) Reevaluation #1: 10/16/23 16:58 medical records reviewed Reevaluation #2: 10/16/23 16:58 Patient symptoms unchanged here in the ER patient feeling very anxious today regards to significant swelling and pain Reevaluation #3: 10/16/23 16:59 Informed of results and questions answered Reevaluation #4: Was pt. sent in by a medical professional or institution (, PA, RECORD CLERK, urgent care, hospital, or usp...) When possible be specific @ -no Did you speak to anyone other than the patient for history (EMS, parent, family, police, friend...)? What history was obtained from this source @ -no Did you review nursing and triage notes (agree or disagree)? Why? @ -agree Are old charts reviewed (outside hosp., previous admission, EMS record, old EKG, old radiological studies, urgent care reports/EKG's, usp records)? Report findings @ -yes Differential Diagnosis (chest pain, altered mental status, abdominal pain women, abdominal pain men, vaginal bleeding, weakness, fever, dyspnea, syncope, headache, dizziness, GI bleed, back pain, seizure, CVA, palpatations, mental health, musculoskeletal)? @ -prior EKG interpreted by me (3pts min.). @ -yes X-rays interpreted by me (1pt min.). @ -yes negative for acute disease CT interpreted by me (1pt min.). @ -no U/S interpreted by me (1pt. min.). @ - What testing was considered but not performed or refused? (CT, X-rays, U/S, labs)? Why? @ -none What meds were considered but not given or refused? Why? @ -none Did you discuss the management of the patient with other professionals (srini sandoval i.e. , PA, RECORD CLERK, lab, RT, psych nurse, web content & social media manager, theater manager, teacher, commissary officer, case management associate)? Give summary @ -no Was smoking cessation discussed for >3mins.? @ -no Was critical care preformed (if so, how long)? @ -no Were there social determinants of health that impacted care today? How? (Homelessness, low income, unemployed, alcoholism, drug addiction, transportation, low edu. Level, literacy, decrease access to med. care, snf, rehab)? @ -none Was there de-escalation of care discussed even if they declined (Discuss DNR or withdrawal of care, Hospice)? DNR status @ -no What co-morbidities impacted this encounter? (DM, HTN, Smoking, COPD, CAD, Cancer, CVA, ARF, Chemo, Hep., AIDS, mental health diagnosis, sleep apnea, morbid obesity)? @ -none Was patient admitted / discharged? Hospital course, mention meds given and route, prescriptions, significant lab abnormalities, going to OR and other pertinent info. @ - 88 female to the emergency room possible medication interaction, Xarelto plus chemotherapeutic agent. Patient will be admitted for monitoring of soft ti ssue bleeding left lower extremity pain and swelling Admitted yes negative for acute disease Undiagnosed new problem with uncertain prognosis? @ -no Drug Therapy requiring intensive monitoring for toxicity (Heparin, Nitro, Insulin, Cardizem)? @ -no Were any procedures done? @ -no Diagnosis/symptom? @ -Leg pain left leg edema medication reaction Acute, or Chronic, or Acute on Chronic? @ -Acute Uncomplicated (without systemic symptoms) or Complicated (systemic symptoms)? @ -Complicated Side effects of treatment? @ -no Exacerbation, Progression, or Severe Exacerbation? @ -exacerbation Poses a threat to life or bodily function? How? (Chest pain, USA, CT, pneumonia, PE, COPD, DKA, ARF, appy, cholecystitis, CVA, Diverticulitis, Homicidal, Suicidal, threat to staff... and all critical care pts) @ -yes extremes of age - Consultations Consultation #1: spoke w [facility] who agrees to admit this patient Medical Decision Making - Medical Decision Making 88 female to the emergency room possible medication interaction, Xarelto plus chemotherapeutic agent. Patient will be admitted for monitoring of soft tissue bleeding left lower extremity pain and swelling - Lab Data Result diagrams: 10/16/23 13:34 10/16/23 13:34 Lab Results 10/16/23 10/16/23 10/16/23 Range/Units 13:34 13:34 13:34 WBC 6.4 (3.8-10.6) k/uL RBC 4.06 (3.80-5.40) m/uL Hgb 12.4 (11.4-16.0) gm/dL Hct 36.9 (34.0-46.0) % MCV 90.8 (80.0-100.0) fL MCH 30.5 (25.0-35.0) pg MCHC 33.5 (31.0-37.0) g/dL RDW 14.9 (11.5-15.5) % Plt Count 75 L (150-450) k/uL MPV 9.8 Neutrophils % 56 % Lymphocytes % 31 % Monocytes % 8 % Eosinophils % 2 % Basophils % 1 % Neutrophils # 3.6 (1.3-7.7) k/uL Lymphocytes # 2.0 (1.0-4.8) k/uL Monocytes # 0.5 (0-1.0) k/uL Eosinophils # 0.1 (0-0.7) k/uL Basophils # 0.1 (0-0.2) k/uL Hypochromasia Slight PT 10.8 (10.0-12.5) sec INR 1.0 (<1.2) APTT 27.1 (22.0-30.0) sec D-Dimer 0.71 H (<0.60) mg/L FEU Sodium 140 (137-145) mmol/L Potassium 4.3 (3.5-5.1) mmol/L Chloride 108 H (98-107) mmol/L Carbon Dioxide 30 (22-30) mmol/L Anion Gap 2 mmol/L BUN 24 H (7-17) mg/dL Creatinine 0.51 L (0.52-1.04) mg/dL Est GFR (CKD-EPI)AfAm >90 (>60 ml/min/1.73 sqM) Est GFR (CKD-EPI)NonAf 88 (>60 ml/min/1.73 sqM) Glucose 79 (74-99) mg/dL Plasma Lactic Acid Asad (0.7-2.0) mmol/L Calcium 8.9 (8.4-10.2) mg/dL Phosphorus 2.8 (2.5-4.5) mg/dL Magnesium 2.2 (1.6-2.3) mg/dL Total Bilirubin 1.0 (0.2-1.3) mg/dL AST 26 (14-36) U/L ALT 15 (4-34) U/L Alkaline Phosphatase 56 (38-126) U/L Troponin I (0.000-0.034) ng/mL NT-Pro-B Natriuret Pep 284 pg/mL Total Protein 6.0 L (6.3-8.2) g/dL Albumin 4.1 (3.5-5.0) g/dL Procalcitonin (0.02-0.50) ng/mL 10/16/23 10/16/23 10/16/23 Range/Units 13:34 13:34 13:34 WBC (3.8-10.6) k/uL RBC (3.80-5.40) m/uL Hgb (11.4-16.0) gm/dL Hct (34.0-46.0) % MCV (80.0-100.0) fL MCH (25.0-35.0) pg MCHC (31.0-37.0) g/dL RDW (11.5-15.5) % Plt Count (150-450) k/uL MPV Neutrophils % % Lymphocytes % % Monocytes % % Eosinophils % % Basophils % % Neutrophils # (1.3-7.7) k/uL Lymphocytes # (1.0-4.8) k/uL Monocytes # (0-1.0) k/uL Eosinophils # (0-0.7) k/uL Basophils # (0-0.2) k/uL Hypochromasia PT (10.0-12.5) sec INR (<1.2) APTT (22.0-30.0) sec D-Dimer (<0.60) mg/L FEU Sodium (137-145) mmol/L Potassium (3.5-5.1) mmol/L Chloride (98-107) mmol/L Carbon Dioxide (22-30) mmol/L Anion Gap mmol/L BUN (7-17) mg/dL Creatinine (0.52-1.04) mg/dL Est GFR (CKD-EPI)AfAm (>60 ml/min/1.73 sqM) Est GFR (CKD-EPI)NonAf (>60 ml/min/1.73 sqM) Glucose (74-99) mg/dL Plasma Lactic Acid Asad 0.9 (0.7-2.0) mmol/L Calcium (8.4-10.2) mg/dL Phosphorus (2.5-4.5) mg/dL Magnesium (1.6-2.3) mg/dL Total Bilirubin (0.2-1.3) mg/dL AST (14-36) U/L ALT (4-34) U/L Alkaline Phosphatase (38-126) U/L Troponin I <0.012 (0.000-0.034) ng/mL NT-Pro-B Natriuret Pep pg/mL Total Protein (6.3-8.2) g/dL Albumin (3.5-5.0) g/dL Procalcitonin 0.03 (0.02-0.50) ng/mL - EKG Data -: EKG Interpreted by Me (EKG is sinus bradycardia 50 CT 174 QRS 93 QTc 410) - Radiology Data Radiology results: report reviewed (Ultrasound left lower extremity negative for acute process or hematoma, x-ray negative for acute traumatic injury), image reviewed Disposition Clinical Impression: Leg edema, left, Left leg pain, Coagulopathy Disposition: ADMITTED IP TO THIS HOSP Condition: Good Is patient prescribed a controlled substance at d/c from ED?: No Time of Disposition: 16:00
[2023-10-16 14:15] LABS: Basophils # (A) 0.1 k/uL (0-0.2); Basophils % (A) 1 %; Eosinophils # (A) 0.1 k/uL (0-0.7); Eosinophils % (A) 2 %; HCT 36.9 % (34.0-46.0); HGB 12.4 gm/dL (11.4-16.0); Hypochromasia Slight; Lymphocytes % (A) 31 %; MCH 30.5 pg (25.0-35.0); MCHC 33.5 g/dL (31.0-37.0); MCV 90.8 fL (80.0-100.0); Mean Platelet Volume 9.8; Monocytes # (A) 0.5 k/uL (0-1.0); Monocytes % (A) 8 %; Neutrophils # (A) 3.6 k/uL (1.3-7.7); Neutrophils % (A) 56 %; RBC 4.06 m/uL (3.80-5.40); RDW 14.9 % (11.5-15.5); WBC 6.4 k/uL (3.8-10.6)
[2023-10-16 14:17] LABS: Platelet Count 75 k/uL (150-450)
[2023-10-16 14:23] LABS: ALT 15 U/L (4-34); AST 26 U/L (14-36); African American GFR (CKD) >90 (>60 ml/min/1.73 sqM); Albumin 4.1 g/dL (3.5-5.0); Alkaline Phosphatase 56 U/L (38-126); Anion Gap 2 mmol/L; Blood Urea Nitrogen 24 mg/dL (7-17); Calcium 8.9 mg/dL (8.4-10.2); Carbon Dioxide 30 mmol/L (22-30); Chloride 108 mmol/L (98-107); Glucose 79 mg/dL (74-99); Magnesium 2.2 mg/dL (1.6-2.3); Non-African American GFR(CKD) 88 (>60 ml/min/1.73 sqM); Partial Thromboplastin Time 27.1 sec (22.0-30.0); Phosphorus 2.8 mg/dL (2.5-4.5); Potassium 4.3 mmol/L (3.5-5.1); Prothrombin Time 10.8 sec (10.0-12.5); Sodium 140 mmol/L (137-145)
[2023-10-16 14:32] LABS: NT-Pro-B-Type Natriuretic Pept 284 pg/mL
[2023-10-16] MEDS: SODIUM CHLORIDE 0.9% 1,000 ML IV STA (15:03)
--- NOTE | 2023-10-16 15:38 | US ---
EXAMINATION TYPE: US venous doppler duplex LE LT DATE OF EXAM: 10/16/2023 1:31 PM COMPARISON: NONE CLINICAL INDICATION: Female, 88 years old with history of pain; Patient is on Xarelto. Pain and bruis ing left leg. SIDE PERFORMED: Left TECHNIQUE: The lower extremity deep venous system is examined utilizing real time linear array sonog adama with graded compression, doppler sonography and color-flow sonography. VESSELS IMAGED: Common Femoral Vein Deep Femoral Vein Greater Saphenous Vein * Femoral Vein Popliteal Vein Small Saphenous Vein * Proximal Calf Veins (* superficial vessels) Left Leg: No evidence of DVT at this time. Edema seen within left thigh and behind the knee. Visualized vessels are compressible and demonstrate normal color Doppler flow. IMPRESSION: 1. No evidence of deep venous thrombosis. 2. Superficial soft tissue edema identified in the left thigh.
--- NOTE | 2023-10-16 16:13 | XR ---
EXAMINATION TYPE: XR tibia fibula LT DATE OF EXAM: 10/16/2023 4:10 PM CLINICAL INDICATION:Female, 88 years old with history of pain; [facility] COMPARISON: None TECHNIQUE: The left tibia/fibula was examined in AP and lateral projections. FINDINGS: No evidence of any acute osseous pathology, joint dislocation. No osseous erosive changes. Soft tissue edema seen surrounding the left lower extremity. Scattered calcifications identified. IMPRESSION: 1. No evidence of acute osseous process. Next on 2. Lower extremity edema, correlate with physical exam findings for cellulitis.
[2023-10-16] MEDS ORDERED: ONDANSETRON 4 MG/2 ML VIAL IVP PRN (16:53)
[2023-10-16] MEDS ORDERED: MORPHINE SULFATE 4 MG/ML SYRINGE IV PRN (16:53)
[2023-10-16] MEDS ORDERED: NALOXONE 0.4 MG/ML 1 ML VIAL IV PRN (16:53)
--- NOTE | 2023-10-16 18:50 | P.HPIM ---
History of Present Illness H&P Date: 10/16/23 Chief Complaint: Left leg swelling 88-year-old female, history of hypertension, hyperlipidemia, atrial fibrillation, presents to the ER for evaluation patient presents today for evaluation of severe left lower extremity pain swelling edema and bruising. Patient is on multiple medications with 3 different underlying cancers, patient does take chemotherapeutic medication as well as Xarelto currently and suffers from chronic nosebleeds -Patient reports leg has been swollen, painful and warm to touch; denies any injuries Review of Systems REVIEW OF SYSTEMS: CONSTITUTIONAL: No fever, no malaise, no fatigue. HEENT: No recent visual problems or hearing problems. Denied any sore throat. CARDIOVASCULAR: No chest pain, orthopnea, PND, no palpitations, no syncope. PULMONARY: No shortness of breath, no cough, no hemoptysis. GASTROINTESTINAL: No diarrhea, no nausea, no vomiting, no abdominal pain. NEUROLOGICAL: No headaches, no weakness, no numbness. HEMATOLOGICAL: Denies any bleeding or petechiae. GENITOURINARY: Denies any burning micturition, frequency, or urgency. MUSCULOSKELETAL/RHEUMATOLOGICAL: Denies any joint pain, swelling, or any muscle pain. ENDOCRINE: Denies any polyuria or polydipsia. The rest of the 14-point review of systems is negative. Past Medical History Past Medical History: Atrial Fibrillation, Cancer, Hyperlipidemia, Hypertension Additional Past Medical History / Comment(s): PT SOUNDS A LITTLE WHEEZY ON THE PHONE. INSTRUCTED TO TAKE LASIX DIRECTED AND TO NOTIFY DR. FERNANDEZ IF WHEEZING BECOMES WORSE. Sleep apnea not using CPAP since lost 60#, asthma not chronically on therapy, venous insufficiency, Vulvar cancer , basal cell skin cancer, leukemia (cll) History of Any Multi-Drug Resistant Organisms: None Reported Past Surgical History: Heart Catheterization With Stent, Hysterectomy, Orthopedic Surgery, Tonsillectomy Additional Past Surgical History / Comment(s): Right-sided knee surgery for repair of laceration, partial hysterectomy, 2 nasal surgeries for basal cell skin cancer and rt arm, surgery on right third and fourth digit for ganglion cyst,2 d&c's(sx 2 miscarriages), colonoscopy Past Anesthesia/Blood Transfusion Reactions: No Reported Reaction Additional Past Anesthesia/Blood Transfusion Reaction / Comment(s): slow to wake up Date of Last Stent Placement:: 05/15/18 Past Psychological History: No Psychological Hx Reported Smoking Status: Never smoker Past Alcohol Use History: None Reported Past Drug Use History: None Reported - Past Family History Mother Family Medical History: Cancer Additional Family Medical History / Comment(s): Breast cancer Father Family Medical History: Myocardial Infarction ([place]) Additional Family Medical History / Comment(s): in his early 60s Medications and Allergies Home Medications Medication Instructions Recorded Confirmed Type Ascorbic Acid [Vitamin C] 1,000 mg PO DAILY 12/25/16 10/16/23 History Amiodarone [Cordarone] 100 mg PO DAILY 06/01/18 10/16/23 History Atorvastatin Calcium [Lipitor] 20 mg PO HS 03/18/21 10/16/23 History Cholecalciferol [Vitamin D3 (125 125 mcg PO DAILY 03/18/21 10/16/23 History Mcg = 5000 Iu)] Ferrous Sulfate [Feosol] 325 mg PO DAILY 03/18/21 10/16/23 History amLODIPine [Norvasc] 5 mg PO HS 03/18/21 10/16/23 History Ammonium Lactate Lotion 1 applic TOPICAL BID PRN 07/15/23 10/16/23 History [Lac-Hydrin 12% Lotion] Cyanocobalamin (Vitamin B-12) 1,000 mcg PO DAILY 07/15/23 10/16/23 History [Vitamin B-12] Levothyroxine Sodium [Synthroid] 75 mcg PO MOTUWETHFR 07/15/23 10/16/23 History Melatonin 3 mg PO HS 07/15/23 10/16/23 History Zanubrutinib [Brukinsa] 160 mg PO BID 07/15/23 10/16/23 History allopurinoL [Zyloprim] 300 mg PO DAILY 07/15/23 10/16/23 History Rivaroxaban [Xarelto] 10 mg PO W/SUPPER 10/16/23 10/16/23 History Allergies Allergy/AdvReac Type Severity Reaction Status Date / Time No Known Allergies Allergy Verified 10/16/23 18:21 Physical Exam Vitals: Vital Signs Temp Pulse Pulse Resp BP BP Pulse Ox 10/16/23 18:27 97.6 F 58 L 18 154/70 100 10/16/23 18:12 16 L 159/67 10/16/23 11:52 97.7 F 71 18 146/73 96 Intake and Output 10/16/23 10/16/23 10/16/23 06:59 14:59 22:59 Other: Voiding Method Toilet Weight 73.028 kg 73.028 kg General appearance: alert, in no apparent distress Head exam: Present: atraumatic, normocephalic, normal inspection Eye exam: Present: normal appearance, PERRL, EOMI. Absent: scleral icterus, conjunctival injection, periorbital swelling ENT exam: Present: normal exam, mucous membranes moist Neck exam: Present: normal inspection. Absent: tenderness, meningismus, lymphadenopathy Respiratory exam: Present: normal lung sounds bilaterally. Absent: respiratory distress, wheezes, rales, rhonchi, stridor Cardiovascular Exam: Present: regular rate, normal rhythm, normal heart sounds. Absent: systolic murmur, diastolic murmur, rubs, gallop, clicks GI/Abdominal exam: Present: soft, normal bowel sounds. Absent: distended, tenderness, guarding, rebound, rigid Extremities exam: Present: normal inspection, full ROM, normal capillary refill. Absent: tenderness, pedal edema, joint swelling, calf tenderness Neurological exam: Present: alert, oriented X3, CN II-XII intact Psychiatric exam: Present: normal affect, normal mood Skin exam: Present: warm, dry, intact, normal color. Absent: rash Results CBC & Chem 7: 10/16/23 13:34 10/16/23 13:34 Labs: Abnormal Lab Results - Last 24 Hours (Table) 10/16/23 10/16/23 10/16/23 Range/Units 13:34 13:34 13:34 Plt Count 75 L (150-450) k/uL D-Dimer 0.71 H (<0.60) mg/L FEU Chloride 108 H (98-107) mmol/L BUN 24 H (7-17) mg/dL Creatinine 0.51 L (0.52-1.04) mg/dL Total Protein 6.0 L (6.3-8.2) g/dL Assessment and Plan Assessment: 1. Pain and swelling left lower extremity/possible cellulitis versus possible medication interaction -Workup completed in ED including blood work and venous Doppler on left lower extremity is negative for acute process or hematoma -X-ray does not reveal any acute traumatic injury -Patient's leg is inflamed, swollen and warm to touch -We will start patient on physical 2 g IV every 8 hours; will order CBC, CRP and procalcitonin -Consult ID and vascular surgery 2. Mild MILDRED; BUN slightly elevated at 24 with creatinine of 0.5; patient will be placed on IV fluids; monitor ANGELICA's and daily weights; avoid nephrotoxins and hypotension 3. Thrombocytopenia; platelet count of 75; likely related to chemotherapeutic agent; monitor CBC 4. Atrial fibrillation; patient is rate controlled on amiodarone 100 mg daily; Xarelto 10 mg daily 5. Hypothyroidism; levothyroxine 75 mcg daily 6. Hypertension; amlodipine 5 mg p.o. nightly 7. Hyperlipidemia; Lipitor 20 mg p.o. nightly 8. CLL; patient takes Brukinsa 80 mg 2 tablets twice daily; will hold and consult oncology DVT prophylaxis; SCDs/Xarelto CODE STATUS; full code
[2023-10-16 19:39] VITALS: RESP 16
[2023-10-16] MEDS: ATORVASTATIN 20 MG TAB PO SCH (21:28)
[2023-10-16] MEDS: amLODIPine 5 MG TAB PO SCH (21:28)
[2023-10-16] MEDS: MELATONIN 3 MG TABLET PO SCH (21:28)
[2023-10-17] MEDS ORDERED: SODIUM CHLORIDE 0.9% 50 ML BAG ONE
[2023-10-17] MEDS ORDERED: ceFAZolin 10 GM VIAL IVPB ONE
[2023-10-17 07:34] VITALS: BP 129/52; PULSE 54; TEMP 98.1
[2023-10-17] MEDS ORDERED: CYANOCOBALAMIN 500 MCG TAB PO SCH (09:00)
[2023-10-17] MEDS ORDERED: FERROUS SULFATE 325 MG TAB PO SCH (09:00)
[2023-10-17] MEDS ORDERED: AMIODARONE 200 MG TAB PO SCH (09:00)
[2023-10-17] MEDS ORDERED: CHOLECALCIFEROL 125 MCG (5000 IU) TABLET PO SCH (09:00)
[2023-10-17] MEDS ORDERED: ASCORBIC ACID 500 MG TAB PO SCH (09:00)
[2023-10-17] MEDS ORDERED: allopurinoL 300 MG TAB PO SCH (09:00)
[2023-10-17] MEDS ORDERED: LEVOTHYROXINE 75 MCG TAB ONE (17:02)
[2023-10-17] MEDS ORDERED: RIVAROXABAN 10 MG TAB PO SCH (17:30)
[2023-10-17] MEDS ORDERED: LEVOTHYROXINE 75 MCG TAB PO SCH (18:46)
[2023-10-17] MEDS ORDERED: ATORVASTATIN 20 MG TAB ONE (21:02)
[2023-10-17] MEDS ORDERED: MELATONIN 3 MG TABLET ONE (21:03)
[2023-10-17] MEDS ORDERED: amLODIPine 5 MG TAB ONE (21:03)
[2023-10-18] MEDS ORDERED: CHOLECALCIFEROL 125 MCG (5000 IU) TABLET ONE (07:49)
[2023-10-18] MEDS ORDERED: FERROUS SULFATE 325 MG TAB PO ONE (07:49)
[2023-10-18] MEDS ORDERED: ASCORBIC ACID 500 MG TAB ONE (07:49)
[2023-10-18] MEDS ORDERED: AMIODARONE 200 MG TAB ONE (07:50)
[2023-10-18] MEDS ORDERED: CYANOCOBALAMIN 500 MCG TAB ONE (07:50)
[2023-10-18] MEDS ORDERED: allopurinoL 300 MG TAB PO ONE (07:50)
[2023-10-18] MEDS ORDERED: SODIUM CHLORIDE 0.9% 50 ML BAG ONE (11:58)
[2023-10-18] MEDS ORDERED: ceFAZolin 10 GM VIAL IVPB ONE (11:58)
[2023-10-18] MEDS ORDERED: LEVOTHYROXINE 75 MCG TAB ONE (18:20)
[2023-10-18] MEDS ORDERED: amLODIPine 5 MG TAB ONE (20:44)
[2023-10-18] MEDS ORDERED: ATORVASTATIN 20 MG TAB ONE (20:45)
[2023-10-18] MEDS ORDERED: MELATONIN 3 MG TABLET ONE (20:45)
[2023-10-19] MEDS ORDERED: CHOLECALCIFEROL 125 MCG (5000 IU) TABLET ONE (08:28)
[2023-10-19] MEDS ORDERED: FERROUS SULFATE 325 MG TAB PO ONE (08:28)
[2023-10-19] MEDS ORDERED: ASCORBIC ACID 500 MG TAB ONE (08:28)
[2023-10-19] MEDS ORDERED: AMIODARONE 200 MG TAB ONE (08:29)
[2023-10-19] MEDS ORDERED: allopurinoL 300 MG TAB PO ONE (08:29)
[2023-10-19] MEDS ORDERED: CYANOCOBALAMIN 500 MCG TAB ONE (08:29)
[2023-10-19] MEDS ORDERED: LEVOTHYROXINE 75 MCG TAB ONE (09:04)
[2023-10-19] MEDS ORDERED: HYDROcodone/APAP 7.5-325MG 1 EACH TAB ONE ×2 (10:48)
--- NOTE | 2023-11-04 15:51 | HP ---
HISTORY AND PHYSICAL HISTORY OF PRESENT ILLNESS: The patient is a pleasant 88-year-old female who came in with complaints of redness and increased swelling in the left leg. The patient had a Doppler of the left lower extremity which has been showing a DVT. The patient is otherwise clinically doing well. The patient was started on cefazolin with significant improvement in the redness. Patient's redness extends from her foot on the left side to entire mid thigh area. REVIEW OF SYSTEMS: All other review of systems are negative except those mentioned above. PAST MEDICAL HISTORY: Significant for congestive heart failure, atrial fibrillation, obstructive sleep apnea. Vulvar cancer, basal cell cancer in the past, and leukemia and the patient is presently on medications for leukemia. PAST SURGICAL HISTORY: Significant for cardiac catheterization and stents in the past and hysterectomy and right knee surgery. HOME MEDICATIONS: The patient takes, 1. Vitamin C. 2. Amiodarone. 3. Atorvastatin. 4. Amlodipine. 5. Cyanocobalamin. 6. Levothyroxine. 7. Brukinsa which is a CLL medication. 8. Allopurinol. 9. Rivaroxaban which is Xarelto. The patient is presently on, 1. Allopurinol. 2. Amiodarone. 3. Amlodipine. 4. Ascorbic acid. 5. Atorvastatin. 6. Cyanocobalamin. 7. Ferrous sulfate. 8. Cefazolin. 9. Levothyroxine. 10.Melatonin. 11.Morphine which will be discontinued and the patient will be started on Tylenol p.o. for pain along with. 12.Low-dose [place]. 13.Tylenol 3. 14.Naloxone. 15.Ondansetron. 16.Rivaroxaban. PHYSICAL EXAMINATION: VITAL SIGNS: The patient's vitals, patient is afebrile, temperature 97.6, pulse rate of 53, respiratory rate of 18, blood pressure is 154/70, and saturating at 93% on room air. PHYSICAL EXAMINATION: GENERAL: The patient is alert and oriented x3, not in any acute distress. Well developed, well nourished. HEENT: Pupils are round and equally reacting to light. EOMI. No scleral icterus. No conjunctival pallor. Normocephalic, atraumatic. No pharyngeal erythema. No thyromegaly. CARDIOVASCULAR: S1 and S2 present. No murmurs, rubs, or gallops. PULMONARY: Chest is clear to auscultation, no wheezing or crackles. ABDOMEN: Soft, nontender, nondistended, normoactive bowel sounds. No palpable organomegaly. MUSCULOSKELETAL: No joint swelling or deformity. EXTREMITIES: No cyanosis, clubbing, or pedal edema. NEUROLOGICAL: Gross neurological examination did not reveal any focal deficits. DERMATOLOGIC: The patient has significant redness in the left lower extremity extending up to the mid midthigh area involving the entire leg and edema with localized temperature. ASSESSMENT/PLAN: 1. Cellulitis of the left lower extremity. Patient does not have any MRSA history. Patient is on cefazolin, which will be continued. 2. -history of congestive heart failure, her EF is not known. The patient is not in heart failure exacerbation. IV fluids will be discontinued. Patient will not require any Lasix and the patient has not been taking Lasix at home. 3. Atrial fibrillation, presently rate controlled. 4. Obstructive sleep apnea. 5. Leukemia for which oncology is seeing the patient. If Oncology is agreeable, the patient will be started back on her chemotherapy medication. As of now, we may have to hold it because of the cellulitis. 6. DVT prophylaxis. Lovenox subcutaneous. MMODL / IJN: [id number] / MTDAnders
== END 2023-10-19 16:30 | disposition home or self-care (01) | DRG 603 ==
LOC: EC 11:42 → OBSVTOIN 16:54 → INTOOBSV 16:54 → UNDOADMOB 16:54 → 5NMEDONC 16:54 → OBSVTOIN 16:55 → 5NMEDONC 17:21 → UNDODISOB 10-19 16:30 → UNDODISIN 10-19 16:30
PROVIDERS: ADMIT Hospitalist; ATTEND Hospitalist
DX: L03.116 Cellulitis of left lower limb (principal); N17.9 Acute kidney failure, unspecified; D68.9 Coagulation defect, unspecified; C91.10 Chronic lymphocytic leukemia of B-cell type not having achieved remission; I87.2 Venous insufficiency (chronic) (peripheral); D69.6 Thrombocytopenia, unspecified; R04.0 Epistaxis; E78.5 Hyperlipidemia, unspecified; I48.91 Unspecified atrial fibrillation; I25.10 Atherosclerotic heart disease of native coronary artery without angina pectoris; I11.0 Hypertensive heart disease with heart failure; I50.9 Heart failure, unspecified; G47.33 Obstructive sleep apnea (adult) (pediatric); E03.9 Hypothyroidism, unspecified; Z85.44 Personal history of malignant neoplasm of other female genital organs; Z85.828 Personal history of other malignant neoplasm of skin; Z79.899 Other long term (current) drug therapy; Z79.890 Hormone replacement therapy; Z79.01 Long term (current) use of anticoagulants; Z95.5 Presence of coronary angioplasty implant and graft; Z28.310 Unvaccinated for COVID-19; Z28.21 Immunization not carried out because of patient refusal
CPT/HCPCS: 36415; 80048; 80053; 83605; 83735; 83880; 84100; 84145; 84484; 85025; 85379; 85610; 85652; 85730; 86140; 93005; 94760; 99285

== ENCOUNTER → 2023-11-04 | Outpatient (CLI) | payer MEDICARE ==
--- NOTE | 2023-11-23 12:05 | PE ---
Patient: Alison Wright Ordering Physician: Unknown, Unknown ID: [id number] Phone, Pager: Phone: N/A Pag er: N/A : 01/05/1932 Age/Gender: 89Y, F Primary Location: N/A Procedure: PET CT fusion skull to th igh Study Date: 11/04/2023 11:06:00 AM EXAMINATION TYPE: PET CT fusion skull to thigh DATE OF EXAM: 11/06/2023 CLINICAL INDICATION: Lymphoma TECHNIQUE: Following the intravenous administration of 9.77 mCi of F-18 FDG, whole body images are performed from the skull base to the midthigh. Images are reviewed on the computer in the coronal, a xial, and sagittal planes. Reconstructed rotating images are created on independent workstation and reviewed on the computer. A non-contrast CT is performed in conjunction with the PET scan. Glucose level 115 mg/dL CT DLP: 339 mGycm, Automated exposure control for dose reduction was used. COMPARISON: CT None, PET/CT None, MRI: None FINDINGS: Mediastinal SUV mean is 1.7. Hepatic parenchyma SUV mean is 2.2. SKULL BASE AND NECK: No suspicious radiotracer activity. CHEST, MEDIASTINUM, AND HILAR REGION: No suspicious radiotracer activity. ABDOMEN AND PELVIS: No suspicious radiotracer activity. Diffuse uptake throughout the higher than liver background of the spleen and max SUV 4.0. No focal spleen lesions. MUSCULOSKELETAL STRUCTURES: No suspicious radiotracer activity. OTHER CT: Complete opacification of the right maxillary sinus. Bilaterally aphakia. Atherosclerosis o f the carotid bifurcation bilaterally coronary artery atherosclerosis. Left upper lung calcified gran uloma. The heart is mildly enlarged for size. Spleen is enlarged measuring up to 17.7 cm. Scattered c alcified granulomas. The left kidney is displaced medially. IMPRESSION: 1. No suspicious radiotracer activity. No priors are available for comparison. No FDG avid lymphaden opathy identified. 2. Splenomegaly without focal uptake. There is somewhat diffuse heterogenous uptake of the spleen wh ich could be normal background first patient's known.
== END | disposition home or self-care (01) ==
LOC: RADPETMAIN 09:54
PROVIDERS: ATTEND Internal Medicine Hematology & Oncology
DX: C91.10 Chronic lymphocytic leukemia of B-cell type not having achieved remission (principal); D69.6 Thrombocytopenia, unspecified; I48.91 Unspecified atrial fibrillation; R16.1 Splenomegaly, not elsewhere classified
CPT/HCPCS: 78815; A9552